=== PATIENT | female | born 1965 | race Caucasian/White ===

== ENCOUNTER 2018-03-06 08:26 | Emergency (ER) | payer OTHER, SELFPAY ==
[2018-03-06] VITALS (14 sets, daily range): BP systolic 131–151; BP diastolic 62–71; PULSE 63–90; RESP 17–24; TEMP 37.5; O2SAT 95–99
--- NOTE | 2018-03-06 08:37 | W.ED.GENAD ---
Discharge Plan Disposition Patient Disposition: HOME Condition: Stable Discharge Details Chief Complaint: Allergic Clinical Impression: Allergic reaction Primary Care Provider: Racquel Fraser ED Provider: Bridger León Home Meds and New Rx's Prescriptions: New prednisone 20 mg tablet 60 mg PO DAILY 3 Days Qty: 9 RF: 0 Continue triamcinolone acetonide 60 ML lotion 1 flower Topical BID PRNQty: 3 RF: 4 nicotine (polacrilex) [Nicorelief] 2 MG gum 2 mg PO every 1-2 hours prn Qty: 100 RF: 6 citalopram 10 MG tablet 10 mg PO DAILY Qty: 90 RF: 3 albuterol sulfate [ProAir HFA] 8.5 GM HFA aerosol inhaler 1 - 2 puff Inhalation Q4H PRN Qty: 2 RF: 6 Discharge Instructions Instructions: General Allergic Reaction (ED) Discharge Data Discharge Physician: Bridger León Medical Decision Making MDM Narrative Medical decision making narrative: 52 yo female comes in complaining that she feels funny and feeling as though her lips and anterior mouth are swelling since this morning. Denies having any new foods or meds today, did have for the 1st time bilateral knee injections at the [facility] yesterday and her knees are not swollen or red and has no pain and has full rom of the knees. She also notices a mild frontal headache and started slowly this morning and is not the worst of her life. She thinks that her face is flushed as well. Her lungs are clear and no GI symptoms so I do not suspect anaphylaxis at this time, will treat her symptoms with steroids and benadryl and monitor. 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 no findings on hx or PE to suggest cerebral venous thrombosis or cavernous sinus thrombosis pt states all of her symptoms have resolved. unclear what caused this, advised f/u with pcp and return precautions given Differential Diagnosis allergic reaction, angioedema HPI General Mode of arrival: ambulatory. Date/Time Provider Initiated Documentation: 03/06/18 08:31. Limitations to Documentation: no limitations. Information obtained by: patient. History of Present Illness 52 year old F presents to the emergency department with the chief complaint of mouth swelling, described as mild, with intensity rated at 2. Quality is described as burning, and is localized to the mouth. Patient reports no radiation. Patient started experiencing this hour(s) (3) and it has been constant. No relieving factors improve symptom(s), No exacerbating factors reported . Patient notes headaches. Patient did receive the following treatments prior to arrival, none Related Data Home Medications Medication Instructions Recorded Confirmed triamcinolone acetonide 1 flower TOPICAL BID PRN #3 script 05/02/16 nicotine (polacrilex) [Nicorelief] 2 mg PO every 1-2 hours prn #100 02/06/17 piece of gum Previous Rx's Medication Instructions Recorded citalopram 10 mg PO DAILY #90 tab-cap 05/02/17 albuterol sulfate [ProAir HFA] 1 - 2 puff INHALATION Q4H PRN #2 12/13/17 inhaler prednisone 60 mg PO DAILY 3 Days #9 tab 03/06/18 Allergies Allergy/AdvReac Type Severity Reaction Status Date / Time prednisone AdvReac Intermediate Mental Unverified 05/02/17 11:20 status change General Stated Complaint: Allergic JOSE JUAN: 3 Review of Systems Review of Systems All systems reviewed & are unremarkable except as noted in HPI and below Constitutional Denies chills, Denies fever(s) and Denies weakness Eyes Patient Denies loss of vision ENT Denies change in voice Cardiovascular Denies chest pain and Denies dyspnea Respiratory Denies dyspnea Gastrointestinal Denies abdominal pain, Denies nausea and Denies vomiting Genitourinary Denies dysuria Musculoskeletal Denies joint swelling Integumentary/Breasts Denies rash Neurologic Denies loss of vision and Denies weakness Psychiatric Denies depression Endocrine Denies cold intolerance and Denies heat intolerance Allergic/Immunologic Reports urticaria PFSH Family History Mother Asthma Father No problems noted. Sister Neoplasm Brother No problems noted. Sister No problems noted. Brother Diabetes Depression COPD (chronic obstructive pulmonary disease) Brother No problems noted. Medical History Essential hypertension Graves disease Peptic reflux disease Stress incontinence Tobacco dependence Social History Smoking/Tobacco Use Status: Current every day Surgical History Abdominal hysterectomy Appendectomy Arthroplasty of knee (~2009) Bilateral salpingectomy with oophorectomy Biopsy of breast Dilation and curettage (~2002) Endometrial Biopsy Lysis of colonic lesions (05/28/13) Exam Const General: no acute distress Orientation: alert HENWV Head: normal to inspection Ears: external ears normal General nose exam: external nose normal Mouth: moist mucous membranes Eyes General: appearance normal, both eyes and all related structures Neck Neck: normal visual inspection Resp Effort & Inspection: normal respiratory effort and able to speak in complete sentences Cardio Rate: regular rate Skin General skin exam: no rashes or lesions noted Neuro General: alert and oriented x3 Cognition: normal cognition Speech: speech normal Gait: normal gait Motor: muscle tone normal throughout Extrem General: normal to inspection Psych Mental Status: mental status grossly normal Course Vital Signs Temperature 37.5 C 03/06/18 08:30 Pulse 89 03/06/18 08:30 Respiratory Rate 17 03/06/18 08:30 Blood Pressure 151/70 H 03/06/18 08:30 Pulse Oximetry 99 03/06/18 08:30 Temperature 37.5 C 03/06/18 08:30 Pulse 89 03/06/18 08:30 Respiratory Rate 17 03/06/18 08:30 Blood Pressure 151/70 H 03/06/18 08:30 Pulse Oximetry 99 03/06/18 08:30
--- NOTE | 2018-03-06 08:42 | ED.GENADUL_ITS ---
Discharge Plan Disposition Patient Disposition: HOME Condition: Stable Discharge Details Chief Complaint: Allergic Clinical Impression: Allergic reaction Primary Care Provider: Racquel Fraser ED Provider: Bridger León Home Meds and New Rx's Prescriptions: New prednisone 20 mg tablet 60 mg PO DAILY 3 Days Qty: 9 RF: 0 Continue triamcinolone acetonide 60 ML lotion 1 flower Topical BID PRNQty: 3 RF: 4 nicotine (polacrilex) [Nicorelief] 2 MG gum 2 mg PO every 1-2 hours prn Qty: 100 RF: 6 citalopram 10 MG tablet 10 mg PO DAILY Qty: 90 RF: 3 albuterol sulfate [ProAir HFA] 8.5 GM HFA aerosol inhaler 1 - 2 puff Inhalation Q4H PRN Qty: 2 RF: 6 Discharge Instructions Instructions: General Allergic Reaction (ED) Discharge Data Discharge Physician: Bridger León Medical Decision Making MDM Narrative Medical decision making narrative: 52 yo female comes in complaining that she feels funny and feeling as though her lips and anterior mouth are swelling since this morning. Denies having any new foods or meds today, did have for the 1st time bilateral knee injections at the [facility] yesterday and her knees are not swollen or red and has no pain and has full rom of the knees. She also notices a mild frontal headache and started slowly this morning and is not the worst of her life. She thinks that her face is flushed as well. Her lungs are clear and no GI symptoms so I do not suspect anaphylaxis at this time, will treat her symptoms with steroids and benadryl and monitor. 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 no findings on hx or PE to suggest cerebral venous thrombosis or cavernous sinus thrombosis pt states all of her symptoms have resolved. unclear what caused this, advised f /u with pcp and return precautions given Differential Diagnosis allergic reaction, angioedema HPI General Mode of arrival: ambulatory . Date/Time Provider Initiated Documentation: 03/06/18 08:31 . Limitations to Documentation: no limitations . Information obtained by: patient . History of Present Illness 52 year old F presents to the emergency department with the chief complaint of mouth swelling, described as mild, with intensity rated at 2. Quality is described as burning, and is localized to the mouth. Patient reports no radiation. Patient started experiencing this hour(s) (3) and it has been constant. No relieving factors improve symptom(s), No exacerbating factors reported . Patient notes headaches. Patient did receive the following treatments prior to arrival, none Related Data Home Medications Medication Instructions Recorded Confirmed triamcinolone acetonide 1 flower TOPICAL BID PRN #3 script 05/02/16 nicotine (polacrilex) [Nicorelief] 2 mg PO every 1-2 hours prn #100 02/06/17 piece of gum Previous Rx's Medication Instructions Recorded citalopram 10 mg PO DAILY #90 tab-cap 05/02/17 albuterol sulfate [ProAir HFA] 1 - 2 puff INHALATION Q4H PRN #2 12/13/17 inhaler prednisone 60 mg PO DAILY 3 Days #9 tab 03/06/18 Allergies Allergy/AdvReac Type Severity Reaction Status Date / Time prednisone AdvReac Intermediate Mental Unverified 05/02/17 11:20 status change General Stated Complaint: Allergic JOSE JUAN: 3 Review of Systems Review of Systems All systems reviewed & are unremarkable except as noted in HPI and below Constitutional Denies chills, Denies fever(s) and Denies weakness Eyes Patient Denies loss of vision ENT Denies change in voice Cardiovascular Denies chest pain and Denies dyspnea Respiratory Denies dyspnea Gastrointestinal Denies abdominal pain, Denies nausea and Denies vomiting Genitourinary Denies dysuria Musculoskeletal Denies joint swelling Integumentary/Breasts Denies rash Neurologic Denies loss of vision and Denies weakness Psychiatric Denies depression Endocrine Denies cold intolerance and Denies heat intolerance Allergic/Immunologic Reports urticaria PFSH Family History Mother Asthma Father No problems noted. Sister Neoplasm Brother No problems noted. Sister No problems noted. Brother Diabetes Depression COPD (chronic obstructive pulmonary disease) Brother No problems noted. Medical History Essential hypertension Graves disease Peptic reflux disease Stress incontinence Tobacco dependence Social History Smoking/Tobacco Use Status: Current every day Surgical History Abdominal hysterectomy Appendectomy Arthroplasty of knee (~2009) Bilateral salpingectomy with oophorectomy Biopsy of breast Dilation and curettage (~2002) Endometrial Biopsy Lysis of colonic lesions (05/28/13) Exam Const General: no acute distress Orientation: alert HENNC Head: normal to inspection Ears: external ears normal General nose exam: external nose normal Mouth: moist mucous membranes Eyes General: appearance normal, both eyes and all related structures Neck Neck: normal visual inspection Resp Effort & Inspection: normal respiratory effort and able to speak in complete sentences Cardio Rate: regular rate Skin General skin exam: no rashes or lesions noted Neuro General: alert and oriented x3 Cognition: normal cognition Speech: speech normal Gait: normal gait Motor: muscle tone normal throughout Extrem General: normal to inspection Psych Mental Status: mental status grossly normal Course Vital Signs Temperature 37.5 C 03/06/18 08:30 Pulse 89 03/06/18 08:30 Respiratory Rate 17 03/06/18 08:30 Blood Pressure 151/70 H 03/06/18 08:30 Pulse Oximetry 99 03/06/18 08:30 Temperature 37.5 C 03/06/18 08:30 Pulse 89 03/06/18 08:30 Respiratory Rate 17 03/06/18 08:30 Blood Pressure 151/70 H 03/06/18 08:30 Pulse Oximetry 99 03/06/18 08:30
[2018-03-06] MEDS: methylPREDNISolone SUCC 125 MG VIAL (08:46)
[2018-03-06] MEDS: Ketorolac 15 MG/ML VIAL IVP (08:46)
[2018-03-06] MEDS: diphenhydrAMINE 50 MG/ML VIAL (08:46)
== END 2018-03-06 09:39 | disposition home or self-care (01) ==
PROVIDERS: Emergency Provider Emergency Medicine; PCP Nurse Practitioner Family
DX: T78.40XA Allergy, unspecified, initial encounter (principal); R51 Headache; R60.0 Localized edema; I10 Essential (primary) hypertension
CPT/HCPCS: 36415; 96374; 96375; 99284; J1200; J1885; J2930

== ENCOUNTER 2018-05-26 02:42 | Outpatient (CLI) | payer OTHER, SELFPAY ==
--- NOTE | 2018-05-26 | PFT_ITS ---
PULMONARY FUNCTION TEST REPORT Patient identification - Jaelyn Alonso DATE OF - 61 DATE OF SERVICE - 05/26/2018 REQUESTING PROVIDER - Racquel Fraser M.D. INTERPRETATION OF STUDY Spirometry shows no evidence of obstructive airways disease. No bronchodilator response. LUNG VOLUMES - Lung volumes show no evidence of restriction. The slightly low FVC is likely related to very low ERV. This may represent chest wall restriction from underlying obesity or neuromuscular dysfunction. DIFFUSION CAPACITY- Normal. AIRWAY RESISTANCE - Normal. IMPRESSION No evidence of obstructive or restrictive lung disease, the slightly low FVC may be due to very low ERV. This may represent chest wall restriction from underlying obesity or neuromuscular dysfunction, therefore clinical correlation recommended. Josefina Girard M.D. TASNEEM/florentin T - 05/28/2018
[2018-05-26] MEDS: Inhaler, Assist Device 1 EACH MC (08:47)
[2018-05-26] MEDS: Albuterol HFA 18 GM 200 PUFF INH IH (08:49)
[2018-05-26 09:03] LABS: Anion Gap 9.8 mmol/L (3-11); BUN 18 mg/dL (7-18); CO2 27.2 mmol/L (21.0-32.0); Calcium 9.2 mg/dL (8.5-10.1); Chloride 105 mmol/L (98-107); Cholesterol 196 mg/dL (50-200); Glucose 88 mg/dL (70-100); HDL Cholesterol 68 mg/dL (40-60); LDL CHOLESTEROL 120 mg/dL (<100); Potassium 4.3 mmol/L (3.5-5.1); Sodium 142 mmol/L (136-145); TSH 0.81 uIU/mL (0.358-3.74); Triglyceride 42 mg/dL (30-150)
[2018-05-26 09:43] LABS: FREE T4 1.09 ng/dL (0.76-1.46)
== END 2018-05-26 03:02 ==
PROVIDERS: PCP Nurse Practitioner Family; Visit Provider Nurse Practitioner Family
DX: R06.02 Shortness of breath (principal); J44.9 Chronic obstructive pulmonary disease, unspecified; E78.5 Hyperlipidemia, unspecified; Z86.39 Personal history of other endocrine, nutritional and metabolic disease
CPT/HCPCS: 36415; 80048; 80061; 83721; 94060; 94150; 94726; 94729; 84439; 84443

== ENCOUNTER 2018-08-13 05:07 | Emergency (ER) | payer OTHER, SELFPAY ==
[2018-08-13 05:09] VITALS: BP 163/80; PULSE 86; RESP 24; TEMP 35.9; O2SAT 96
[2018-08-13 05:26] VITALS: RESP 4
[2018-08-13] MEDS: Albuterol/Ipratropium 3 ML UPD VIAL (05:26)
[2018-08-13] MEDS: Mylanta Suspension 30 ML CUP PO (05:30)
[2018-08-13] MEDS: predniSONE 20 MG TAB 60 MG PO (05:30)
--- NOTE | 2018-08-13 05:34 | ED.GENADUL_ITS ---
Discharge Plan Disposition Patient Disposition: HOME Condition: Improving Discharge Details Chief Complaint: SOB Clinical Impression: Bronchitis Primary Care Provider: Racquel Fraser ED Provider: Clint Roland Home Meds and New Rx's Prescriptions: New prednisone [Deltasone] 20 MG tablet 40 mg PO DAILY 5 Days Qty: 10 RF: 0 No Action citalopram 10 mg tablet 10 mg PO DAILY Qty: 90 RF: 4 triamcinolone acetonide 60 ML lotion 1 flower Topical BID PRNQty: 3 RF: 4 albuterol sulfate [ProAir HFA] 8.5 GM HFA aerosol inhaler 1 - 2 puff Inhalation Q4H PRN Qty: 2 RF: 6 benzonatate 100 mg capsule 100 - 200 mg PO TID PRN (Reason: cough) Qty: 60 RF: 0 Discharge Instructions Instructions: Acute Bronchitis (ED) Additional Instructions: 1. Drink plenty of fluids. 2. Continue all medications as prescribed. 3. Albuterol 2-4 puffs every 4 hours as needed for difficulty breathing.. 4. Prednisone 40 mg once a day for 5 days. 5. Ranitidine (Zantac) 300 mg at bedtime. Mylanta 30 cc every 6 hours as needed. Return to the Emergency Department (ED) if your condition worsens, does not improve as expected, or for ANY other concerns. Specifically, return if you have new or uncontrolled pain, worsening fever, difficulty breathing, vomiting, or are unable to drink fluids. Medical Decision Making 52-year-old woman with a history of tobacco abuse and COPD presents with new onset dyspnea and upper abdominal nausea/discomfort. Recently treated for similar symptoms by her PCP with azithromycin and prednisone. Had been clinically improved for approximately 2 weeks. Exam significant for mild tachypnea and diffuse expiratory wheezing. CXR negative. Clinically improved after receiving multiple albuterol inhalers and oral prednisone. Also notes improvement in her upper abdominal discomfort after receiving Mylanta and ranitidine. Discharged home with a prescription for prednisone and instructions to use albuterol every 4 hours as needed and ranitidine daily. Pt evaluated immediately prior to discharge with improved symptoms, normal vital signs, and tolerating PO. The patient feels appropriate for discharge home. Discussed clinical/diagnostic findings. Discharged with a clear plan for outpatient follow up. Given usual and customary return instructions prior to discharge. Imaging Data Radiologic Study: Imaging: X-Ray (Chest PA and lateral) My impression: No acute cardiopulmonary disease. Interpreted ind ependently and contemporaneously by myself. Reviewed radiology report. Radiologist's impression: Same 52-year-old with a history of hyperlipidemia, osteoarthritis, tobacco abuse, and depression. She chronically uses albuterol for episodes of dyspnea. Presents with acute onset of dyspnea and nausea. 3 weeks ago, presented to her primary care provider with similar symptoms and was treated empirically with medications for influenza and a pneumonia. She also was started on prednisone at that time. Was clinically improved and on reevaluation the following week was treated with additional prednisone. She had complete resolution of her symptoms and has been asymptomatic until yesterday when she again developed subjective fever, dyspnea, and upper GI discomfort. Her dyspnea has been refractory to an outpatient albuterol regimen of 1-2 puffs every 4 hours. She otherwise denies chest pain, palpitations, congestion, generalized abdominal pain, change in bowel habits, melena/hematochezia, or urinary symptoms. She has had no atypical leg swelling or pain. HPI General Date/Time Provider Initiated Documentation: 08/13/18 05:19 . Related Data Home Medications Medication Instructions Recorded Confirmed triamcinolone acetonide 1 flower TOPICAL BID PRN #3 script 05/02/16 08/13/18 albuterol sulfate [ProAir HFA] 1 - 2 puff INHALATION Q4H PRN #2 12/13/17 08/13/18 inhaler citalopram 10 mg tablet 10 mg PO DAILY #90 tab-cap 08/04/18 08/13/18 benzonatate 100 mg capsule 100 - 200 mg PO TID PRN #60 cap 08/11/18 08/13/18 prednisone [Deltasone] 40 mg PO DAILY 5 Days #10 tab 08/13/18 Previous Rx's Medication Instructions Recorded albuterol sulfate [ProAir HFA] 1 - 2 puff INHALATION Q4H PRN #2 12/13/17 inhaler citalopram 10 mg tablet 10 mg PO DAILY #90 tab-cap 08/04/18 benzonatate 100 mg capsule 100 - 200 mg PO TID PRN #60 cap 08/11/18 prednisone [Deltasone] 40 mg PO DAILY 5 Days #10 tab 08/13/18 Allergies Allergy/AdvReac Type Severity Reaction Status Date / Time No Known Allergies Allergy Verified 08/13/18 05:15 General Stated Complaint: SOB JOSE JUAN: 3 Review of Systems Review of Systems All systems are reviewed and are unremarkable except as noted in HPI and below: CONSTITUTIONAL: no fevers/chills, no weakness or change in appetite EYES: no change in vision HEENT: no throat pain or difficulty swallowing; no neck pain CARDIOVASCULAR: no chest pain, palpitations, leg swelling, or diaphoresis RESPIRATORY: cough, dyspnea, wheezing GASTROINTESTINAL: no abdominal pain, melena, nausea/emesis GENITOURINARY: no dysuria, flank pain, MUSCULOSKELETAL: no pack pain, myalgias, arthralgias INTEGUMENTARY: no rash, no wounds NEUROLOGIC: no headache, focal weakness, difficulty with speech, numbness PSYCHIATRIC: no confusion, no anxiety HEME: no easy bruising or bleeding ALLERGIC: no urticaria PFSH Medical History Hyperlipidemia (Chronic) Osteoarthritis (Chronic) Depressive disorder (Chronic) Cigarette smoker (Chronic) Nummular dermatitis (Inactive) Essential hypertension (Resolved) Peptic reflux disease (Resolved) Graves disease (Inactive) Surgical History S/P lumpectomy, right breast (Inactive ~1993) Abdominal hysterectomy Appendectomy Arthroplasty of knee (~2009) Bilateral salpingectomy with oophorectomy Biopsy of breast Dilation and curettage (~2002) Endometrial Biopsy Lysis of colonic lesions (05/28/13) Social History household members: spouse highest education level completed: 10th grade pets and animals: No frequency: does not exercise Smoking and Tabacco status: Current every day tobacco type: cigarettes Pasive smoking exposure: No alcohol intake: current alcohol intake frequency: a few times a week Alcohol type: beer substance use type: does not use jyoti/uatsdin: No preference special jyoti needs: No Exam Narrative Exam Narrative: Nursing note and vital signs have been reviewed and noted. GENERAL: alert, active, well -hydrated, well-nourished. Speaking in 2-3 word sentences. HEENT: atraumatic/normocephalic, PERRLA, EOMI, conjunctiva clear, external ears/canals normal, nasal mucosa normal NECK: supple, full range of motion, no mass, normal lymphadenopathy, no thyromegaly CARDIOVASCULAR: RRR, no murmurs, nl pulses, no edema PULMONARY: Tachypnea, faint expiratory wheezing with a prolonged expiratory phase. no focal deficit. no chest wall tenderness ABDOMEN: soft, non-tender, non-distended, no mass, no organomegaly EXTREMITY: normal muscle tone, all joints with FROM, no deformity or tenderness; no asymmetrical leg swelling or tenderness SKIN: no exanthem appreciated NEURO: gross motor exam normal, normal stance and gait PSYCH: alert and oriented, Course Vital Signs Temperature 96.6 F L 08/13/18 05:09 Pulse 86 08/13/18 05:09 Respiratory Rate 24 08/13/18 05:09 Blood Pressure 163/80 H 08/13/18 05:09 Pulse Oximetry 96 08/13/18 05:09 Temperature 96.6 F L 08/13/18 05:09 Pulse 86 08/13/18 05:09 Respiratory Rate 24 08/13/18 05:09 Respiratory Effort 08/13/18 05:16 Blood Pressure 163/80 H 08/13/18 05:09 Pulse Oximetry 96 08/13/18 05:09 Oxygen Delivery Method Room Air 08/13/18 05:26 Oxygen Flow Rate 0 08/13/18 05:26 Pain Level 10 08/13/18 05:09
--- NOTE | 2018-08-13 05:40 | DI.RAD_ITS ---
SYMPTOM/DIAGNOSIS: DYSPNEA, COUGH, SOB, FEVER PA AND LATERAL CHEST: Comparison is made with 01/14/17. The heart is normal in size. The lungs are clear. The mediastinal structures and pleura appear intact. CONCLUSION: Normal chest.
--- NOTE | 2018-08-13 05:52 | DI.VRAD_ITS ---
EXAM: XR Chest, 2 Views EXAM DATE/TIME: 08/13/2018 5:41 AM CLINICAL HISTORY: 52 years old, female; Signs and symptoms; Cough and dyspnea and fever and shortness of breath TECHNIQUE: XR of the chest, 2 views. COMPARISON: CR CHEST 2 VIEWS PA,LAT 01/14/2017 10:37 AM FINDINGS: Lungs: Unremarkable. No consolidation. Pleural space: Unremarkable. No evidence of pneumothorax. Heart/Mediastinum: Unremarkable. Heart size within normal limits for technique. Bones/joints: Unremarkable. IMPRESSION: No acute findings. Dictated and Authenticated by: Johnson Kim MD. Ordering:ARELIS Jaramillo MD
[2018-08-13 05:56] VITALS: PULSE 67; RESP 18; RESP 8; O2SAT 97
[2018-08-13 06:23] VITALS: PULSE 61; RESP 18; RESP 4; RESP 8; O2SAT 97
[2018-08-13] MEDS: Albuterol 2.5 MG/3 ML INH SOLN VIAL UPD (06:23)
== END 2018-08-13 06:45 | disposition home or self-care (01) ==
PROVIDERS: Emergency Provider Emergency Medicine; PCP Nurse Practitioner Family
DX: J44.0 Chronic obstructive pulmonary disease with (acute) lower respiratory infection (principal); F17.210 Nicotine dependence, cigarettes, uncomplicated
CPT/HCPCS: 94640; 99284; 71046; J7512; J7613; J7620

== ENCOUNTER 2018-12-29 10:09 | Outpatient (CLI) | payer OTHER, SELFPAY ==
[2018-12-29 13:19] LABS: Abs Immature Grans 0.01 k/cumm (0.0-0.09); Absolute Basophil Count 0.03 k/cumm (0.0-0.2); Absolute Eosinophil Count 0.09 k/cumm (0.0-0.7); Absolute Lymphocyte Count 2.18 k/cumm (1.2-3.4); Absolute Monocyte Count 0.81 k/cumm (0.11-0.7); Absolute Neutrophil Count 5.33 k/cumm (1.2-6.7); Basophils % 0.4; Eosinophils % 1.1; HCT 43.2 % (36.0-46.0); HGB 14.8 g/dL (12.0-15.5); Immature Grans % 0.1; Lymphocytes % 25.8; Mean Corp. HGB Concentration 34.3 g/dL (32.0-36.0); Mean Corpuscular Hemoglobin 32.3 pg (27.0-33.0); Mean Corpuscular Volume 94.3 fL (80-95); Mean Platelet Volume 10.5 fL (8.0-11.0); Monocytes % 9.6; Platelet Count 263 x1000/uL (130-400); RBC 4.58 m/cumm (4.00-5.20); RBC Distribution Width 14.1 % (11.7-14.6); White Blood Cell Count 8.45 k/cumm (4.4-10.8)
[2018-12-29 13:24] LABS: ALT 24 U/L (12-78); AST 15 U/L (15-37); Albumin 3.7 g/dL (3.4-5.0); Alkaline Phosphatase 85 U/L (46-116); Anion Gap 10.2 mmol/L (3-11); BUN 18 mg/dL (7-18); Bilirubin, Total 0.5 mg/dL (0.2-1.0); CO2 26.8 mmol/L (21.0-32.0); Calcium 8.9 mg/dL (8.5-10.1); Chloride 106 mmol/L (98-107); Glucose 74 mg/dL (70-100); Potassium 4.1 mmol/L (3.5-5.1); Sodium 143 mmol/L (136-145); Total Protein 6.5 g/dL (6.4-8.2)
[2018-12-29 13:35] LABS: Hemoglobin A1C 5.5 % (4.5-6.2)
== END 2018-12-29 10:29 ==
PROVIDERS: PCP Nurse Practitioner Family; Visit Provider Nurse Practitioner Family
DX: Z01.818 Encounter for other preprocedural examination (principal); E78.5 Hyperlipidemia, unspecified
CPT/HCPCS: 36415; 80053; 83036; 85025

== ENCOUNTER 2020-10-21 16:59 | Outpatient (REF) | payer OTHER, SELFPAY ==
[2020-10-21 15:00] LABS: Anion Gap 11.2 mmol/L (3-11); BUN 15 mg/dL (7-18); CO2 25.8 mmol/L (21.0-32.0); CREATININE 0.7 mg/dL (0.55-1.02); Calculated LDL 131 mg/dL (<100); Chloride 106 mmol/L (98-107); Cholesterol 204 mg/dL (<200); Glucose 98 mg/dL (74-106); HDL Cholesterol 61 mg/dL (40-60); Potassium 4.3 mmol/L (3.5-5.1); Sodium 143 mmol/L (136-145); Triglyceride 60 mg/dL (<150)
[2020-10-21 15:26] LABS: Hemoglobin A1C 5.5 % (<5.7)
== END 2020-10-21 17:00 | disposition home or self-care (01) ==
LOC: LBN 16:59
PROVIDERS: PCP Nurse Practitioner Family; Visit Provider Nurse Practitioner Family
DX: E78.5 Hyperlipidemia, unspecified (principal); Z13.1 Encounter for screening for diabetes mellitus
CPT/HCPCS: 80048; 80061; 83036

== ENCOUNTER 2020-10-31 02:29 | Outpatient (CLI) | payer OTHER, SELFPAY ==
--- NOTE | 2020-10-31 06:30 | DI.MAMMO_ITS ---
Exam(s) MAMMO SCREENING EXAM: MAMMO SCREENING CLINICAL HISTORY: screening,z12.39. TECHNIQUE: Bilateral full field digital CC and MLO mammographic images were obtained with 3D tomosyn thesis and utilizing computer aided detection (CAD). COMPARISON: Prior mammograms dating back to 2007, the most recent being April 2019. FINDINGS: Fibroglandular tissue pattern is moderately dense. Dominant nodule in the retroareolar region of the right breast is unchanged from at least 2012 and erefore benign. There are multiple bilateral biopsy marker clips with no new significant radiographic findings in the immediate vicinity of these bilateral clips. No new ominous masses nor malignant-appearing microcalcification groups in either breast. There is no significant architectural distortion nor skin thickening-retraction. IMPRESSION: Stable benign findings. No radiographic evidence of malignancy. BI-RADS Category 2 - Benign Findings Breast Density - Category C - Heterogeneously dense Breast density Category C or D implies that the patient has dense breast tissue. Dense breast tissue can make it harder to find cancer on a mammogram. Dense breast tissue is also associated with an incr eased risk of breast cancer. This information about the result of the mammogram report was provided to the patient to raise their awareness. Use this report when you speak with the patient about their risks for breast cancer, which includes their family history. At that time, you may recommend additional screening tests (Ultrasoun d or MRI) as these tests may add significant information. A negative radiographic report should not delay biopsy if a dominant or clinically suspicious mass is present. Up to ten percent of cancers are not identified on mammography. A negative report may reinforce clinical impression. Adenosis and dense breasts may obscure an underlying neoplasm. False positive reports average 6 to 10%. Patient will receive a letter notifying them of these results.
--- NOTE | 2020-10-31 07:37 | DI.CTLCSR_ITS ---
Exam(s) CT CHEST LUNG CANCER SCREEN EXAM: CT CHEST LUNG CANCER SCREEN CLINICAL HISTORY: Screening for lung cancer.current smoker, f17.210. TECHNIQUE: Imaging Protocol: Low Dose Technique CONTRAST MATERIAL: None COMPARISON: Prior chest x-ray 08/13/2018 FINDINGS: CHEST: LUNGS: There is a tiny calcified granuloma peripherally in the right lung. Another tiny granulomas s een laterally in the left lower lobe. Small nodular infiltrate in the right middle lobe is noted won suring 8 x 7 millimeters.. No pleural effusion on either side. There are no significant focal findi ngs in trachea and mainstem bronchi. There are no confluent infiltrates. No pleural effusions. MEDIASTINUM: There is no obvious hilar nor mediastinal adenopathy. Visualized thyroid unremarkable. CARDIAC: Heart size is normal. There is no pericardial effusion.Caliber of the thoracic aorta is wit hin normal limits. OTHER: No obvious adrenal masses. OSSEOUS: No significant osseous lesions.. IMPRESSION: 1. In addition to a few tiny benign calcified granulomas there is a small nodular infiltrate in the l ower aspect of the right middle lobe measuring 8 x 7 millimeters. This requires appropriate follow-u p. Recommend repeat CT scan in 3 months. 2. No pleural effusions. No obvious intrathoracic adenopathy. 3. Lung RADS Cat 4A - Suspicious: Findings for which additional diagnostic testing and/or tissue samp ling recommended. Follow-up CT scan in 3 months. Lung-RADS 1.0 CATEGORIES: Category 0 - Prior chest CT exam(s) being located for comparison. Category 1 - Annual screening in 12 months. No nodules or definitely benign nodules. Category 2 - Annual screening in 12 months. Benign appearance. Nodules with low likelihood of becomin g active cancer. Category 3 - 6-month follow-up. Probably benign. Short-term follow-up suggested. Nodules with low lik elihood of becoming active cancer. Category 4A - 3-month follow-up and CT/PET if >8 mm in size. Suspicious finding. Findings which requi re additional testing. Category 4B - Findings which require additional testing and tissue sampling. Modifier S- Potentially clinically significant findings (non lung cancer) RADIATION DOSE DELIVERED: 89.74mGy.cm Total DLP 2.21mGy CTDIvol DATA REPOSITORY: All CT scans at this facility are submitted to the National Radiology Data Registry (NRDR) Dose Index Registry (DIR) with the [employer] (ACR). RADIATION OPTIMIZATION: All CT scans at this facility use at least one of these dose optimization te chniques: automated exposure control; mA and/or kV adjustment per patient size (includes targeted exa ms where dose is matched to clinical indication); or iterative reconstruction.
== END 2020-10-31 02:49 ==
PROVIDERS: PCP Nurse Practitioner Family; Visit Provider Nurse Practitioner Family
DX: Z12.31 Encounter for screening mammogram for malignant neoplasm of breast (principal); Z12.2 Encounter for screening for malignant neoplasm of respiratory organs; F17.210 Nicotine dependence, cigarettes, uncomplicated; J98.4 Other disorders of lung; R91.8 Other nonspecific abnormal finding of lung field
CPT/HCPCS: 71271; 77063; 77067

== ENCOUNTER 2021-02-13 02:02 | Outpatient (CLI) | payer OTHER, SELFPAY ==
--- NOTE | 2021-02-13 07:09 | DI.CT_ITS ---
Exam(s) CT CHEST W EXAM: CT CHEST W CLINICAL HISTORY: 3mo f/u on RML nodule on LDCT,r91.1 TECHNIQUE: Imaging Protocol: Axial computed tomography images with coronal and sagittal reformatted images were created and reviewed CONTRAST MATERIAL: Intravenous: Omnipaque 350 Contrast volume:70 mL. COMPARISON: MG MG MAMMO SCREENING from 10/31/[address] CHEST LUNG CANCER SCREEN from 10/31/2020 FINDINGS: Tracheobronchial tree: Patent where visualized. Mediastinum and Sofy: No dominant adenopathy or fluid collection. Small hiatal hernia. Pulmonary parenchyma: No focal consolidation. There are scattered calcified granuloma present. The small 0.8 cm area of nodularity in the inferior aspect of the right middle lobe is unchanged. No new pulmonary nodules are present. No architectural distortion. Pleura: No effusion or pneumothorax. Heart: The heart is not dilated. No coronary artery calcifications are seen. No pericardial effusion. Aorta: Thoracic aorta non-dilated. Atherosclerosis. Upper abdomen: Calcified granuloma in the spleen. Lymph nodes: Within normal limits. Bones: Normal. Soft tissues: Unremarkable. IMPRESSION: 1. Stable area of nodularity in the inferior aspect of the right middle lobe. 2. Repeat CT scan in 3 months is recommended. 3. Findings of prior granulomatous disease. RADIATION DOSE DELIVERED: 564.44mGy.cm Total DLP DATA REPOSITORY: All CT scans at this facility are submitted to the National Radiology Data Registry (NRDR) Dose Index Registry (DIR) with the [employer] (ACR). RADIATION OPTIMIZATION: All CT scans at this facility use at least one of these dose optimization te chniques: automated exposure control; mA and/or kV adjustment per patient size (includes targeted exa ms where dose is matched to clinical indication); or iterative reconstruction.
[2021-02-13 08:45] LABS: CREATININE 0.7 mg/dL (0.55-1.02)
[2021-02-13] MEDS: Omnipaque 350 MG/ML 100 ML BTL IV (08:56)
== END 2021-02-13 02:22 ==
PROVIDERS: PCP Nurse Practitioner Family; Visit Provider Nurse Practitioner Family
DX: R91.1 Solitary pulmonary nodule (principal); D71 Functional disorders of polymorphonuclear neutrophils
CPT/HCPCS: 71260; 82565; J3490

== ENCOUNTER → 2022-01-08 02:27 | Outpatient (CLI) | payer OTHER, SELFPAY ==
--- NOTE | 2022-01-08 07:48 | DI.CTLCSR_ITS ---
Exam(s) CT CHEST LUNG CANCER SCREEN EXAM: CT CHEST LUNG CANCER SCREEN CLINICAL HISTORY: Screening for lung cancer, CURRENT SMOKER, F17.210. TECHNIQUE: Imaging Protocol: Low Dose Technique CONTRAST MATERIAL: None COMPARISON: CT CT CHEST WO from 05/12/2021 FINDINGS: CHEST: LUNGS: Previously described nodular infiltrate in the anterior-inferior aspect of the right middle lo be is again noted, presently measuring 8 x 4 x 7 millimeters. Appears similar size to 05/12/2021. T here few calcified benign granulomas in the right lung also noted. In the left lung there is a solit pat small calcified granuloma noted. No other focal left lung findings. No pleural effusions on eit her side. No significant focal findings in the trachea and mainstem bronchi. MEDIASTINUM: There is no obvious hilar nor mediastinal adenopathy. CARDIAC: Heart size is normal. There is no pericardial effusion.Caliber of the thoracic aorta is wit hin normal limits. OTHER: OSSEOUS: No significant osseous lesions.No fractures. IMPRESSION: 1. Relatively stable appearance of the previously described nodular infiltrate in the right lung base , specifically in the inferior aspect of the right middle lobe, with measurements as above. No other significant focal lung findings. Benign-appearing tiny calcified granulomas are noted bilaterally. No pleural effusions. 2. Recommend repeat CT scan in 6 months 3. Lung RADS Cat 3 - Probably Benign: Probably benign finding(s) - short term follow-up suggested; in clude nodules with a low likelihood of becoming a clinically active cancer. Lung-RADS 1.0 CATEGORIES: Category 0 - Prior chest CT exam(s) being located for comparison. Category 1 - Annual screening in 12 months. No nodules or definitely benign nodules. Category 2 - Annual screening in 12 months. Benign appearance. Nodules with low likelihood of becomin g active cancer. Category 3 - 6-month follow-up. Probably benign. Short-term follow-up suggested. Nodules with low lik elihood of becoming active cancer. Category 4A - 3-month follow-up and CT/PET if >8 mm in size. Suspicious finding. Findings which requi re additional testing. Category 4B - Findings which require additional testing and tissue sampling. Category 4X - Category 3 or 4 nodules with additional features or imaging findings that increases the suspicion of malignancy. Modifier S- Potentially clinically significant findings (non lung cancer) RADIATION DOSE DELIVERED: 75.07mGy.cm Total DLP 1.84mGy CTDIvol DATA REPOSITORY: All CT scans at this facility are submitted to the National Radiology Data Registry (NRDR) Dose Index Registry (DIR) with the [employer] (ACR). RADIATION OPTIMIZATION: All CT scans at this facility use at least one of these dose optimization te chniques: automated exposure control; mA and/or kV adjustment per patient size (includes targeted exa ms where dose is matched to clinical indication); or iterative reconstruction.
--- NOTE | 2022-01-08 08:53 | DI.MAMMO_ITS ---
Exam(s) MAMMO SCREENING EXAM: MAMMO SCREENING CLINICAL HISTORY: screening, Z12.39. TECHNIQUE: Bilateral full field digital CC and MLO mammographic images were obtained with 3D tomosyn thesis and utilizing computer aided detection (CAD). COMPARISON: Prior mammograms were reviewed, the most recent being October 2020. FINDINGS: Nodule in the retroareolar region of the right breast is unchanged from at least 2013 and therefore b enign. Multiple bilateral biopsy marker clips are again noted. No new significant findings in the immediate vicinity of these bilateral biopsy marker devices. There are no new spiculated masses nor malignant appearing microcalcification groups. There is no significant architectural distortion nor skin thickening-retraction. IMPRESSION: No radiographic evidence of malignancy. Stable benign-appearing findings. BI-RADS Category 2 - Benign Findings Breast Density - Category C - Heterogeneously dense Breast density Category C or D implies that the patient has dense breast tissue. Dense breast tissue can make it harder to find cancer on a mammogram. Dense breast tissue is also associated with an incr eased risk of breast cancer. This information about the result of the mammogram report was provided to the patient to raise their awareness. Use this report when you speak with the patient about their risks for breast cancer, which includes their family history. At that time, you may recommend additional screening tests (Ultrasoun d or MRI) as these tests may add significant information. A negative radiographic report should not delay biopsy if a dominant or clinically suspicious mass is present. Up to ten percent of cancers are not identified on mammography. A negative report may reinforce clinical impression. Adenosis and dense breasts may obscure an underlying neoplasm. False positive reports average 6 to 10%. Patient will receive a letter notifying them of these results.
== END ==
PROVIDERS: PCP Nurse Practitioner Family; Visit Provider Nurse Practitioner
DX: Z12.31 Encounter for screening mammogram for malignant neoplasm of breast (principal); Z12.2 Encounter for screening for malignant neoplasm of respiratory organs; F17.210 Nicotine dependence, cigarettes, uncomplicated; R91.8 Other nonspecific abnormal finding of lung field; J98.4 Other disorders of lung
CPT/HCPCS: 71271; 77063; 77067

== ENCOUNTER 2022-12-07 01:38 | Outpatient (CLI) | payer OTHER, SELFPAY ==
[2022-12-07 09:28] LABS: Anion Gap 5.8 mmol/L (3-11); BUN 12 mg/dL (7-18); CO2 30.2 mmol/L (21.0-32.0); CREATININE 0.8 mg/dL (0.55-1.02); Calcium 9.1 mg/dL (8.5-10.1); Calculated LDL 132 mg/dL (<100); Chloride 104 mmol/L (98-107); Cholesterol 199 mg/dL (<200); Estimated GFR 84.82 (mL/min/1.73m2); Glucose 116 mg/dL (74-106); HDL Cholesterol 55 mg/dL (40-60); Potassium 4.1 mmol/L (3.5-5.1); Sodium 140 mmol/L (136-145); TSH (W/Ref FT4) 0.82 uIU/mL (0.36-3.74); Triglyceride 61 mg/dL (<150)
== END 2022-12-07 01:39 | disposition home or self-care (01) ==
LOC: LBO 01:38
PROVIDERS: PCP Nurse Practitioner Family; Visit Provider Nurse Practitioner Family
DX: Z00.00 Encounter for general adult medical examination without abnormal findings (principal); I10 Essential (primary) hypertension; E78.5 Hyperlipidemia, unspecified; Z86.39 Personal history of other endocrine, nutritional and metabolic disease
CPT/HCPCS: 36415; 80048; 80061; 84443

== ENCOUNTER 2022-12-30 17:11 | Inpatient (IN) | payer OTHER, SELFPAY ==
[2022-12-30] VITALS (61 sets, daily range): BP systolic 90–156; BP diastolic 49–92; PULSE 84–116; RESP 4–42; TEMP 36.6–37.4; O2SAT 86–100
--- NOTE | 2022-12-30 17:00 | RT.EKG_ITS ---
APPROVED REPORT Exam: Resting ECG Reason for Exam: SOB Patient Location: E HR:109 bpm ECG Measurements Heart Rate 109 AXIS AL 115 P 86 QRSd 105 QRS 40 QT 339 T 62 QTc 456 Conclusion Sinus tachycardia...rate> 99 normal axis appropriate intervals no ST segment or T wave abnormalities to suggest occlusive PA
--- NOTE | 2022-12-30 17:15 | DI.RAD_ITS ---
Exam(s) XR PORTABLE CHEST AP EXAM: XR PORTABLE CHEST AP CLINICAL HISTORY: respiratory distress, wheeze TECHNIQUE: 2D digital imaging was performed. COMPARISON: CR XR CHEST 2V PA LATERAL from 08/13/[address] CHEST LUNG CANCER SCREEN from 01/08/2022 FINDINGS: LUNGS: Patchy right lower lobe infiltrate. No pleural abnormality seen. HEART: Normal size. AORTA: Normal diameter. BONES: Unremarkable for age. Soft tissues: Unremarkable. IMPRESSION: Right lower lobe infiltrate. DATA REPOSITORY: RADIATION DOSE DELIVERED:
[2022-12-30] MEDS: Albuterol 2.5 MG/3 ML INH SOLN VIAL (17:25)
--- NOTE | 2022-12-30 17:29 | ED.GENADUL_ITS ---
Discharge Plan Discharge Details Chief Complaint: SOB/SuddenOnset Primary Care Provider: Racquel Fraser ED Provider: Jeny Ariza Home Meds and New Rx's Prescriptions: No Action losartan 50 mg tablet 50 mg PO DAILY Qty: 90 3RF rosuvastatin 10 mg tablet 10 mg PO DAILY Qty: 90 3RF triamcinolone acetonide 60 ML lotion 1 flower Topical BID PRNQty: 3 fluticasone propionate [Flovent HFA] 110 mcg/actuation HFA aerosol inhaler 2 puff inhalation BID Qty: 12 3RF Rx Instructions: administer with spacer albuterol sulfate 90 mcg/actuation HFA aerosol inhaler 1 - 2 puff Inhalation Q4H PRN Qty: 8.5 6RF Medical Decision Making 57yo F with hx of asthma, smoker, presenting with 2 days of URI symptoms worsening. Respiratory distress on arrival, 2-3 word sentences, increased WOB, diffuse wheeze with poor air movement, chest tightness. Primary respiratory process, low suspicion for cardiac etiology or pulmonary embolism, EKG sinus tachycardia, no ischemic changes. Given multiple rounds of albuterol and albuterol/ipratropium as well as decadron; would not emergentlu intubate at this time, will trial steroids/breathing treatments though would give magnesium if not improvement. On reassessment patient reports feeling much better, resting comfortable, still tachypnic to 30's and requiring 2L NC to maintain sat >92%. Chest tightness resolved. Better air movement, coarse rhonchi in bilateral bases. CXR reviewed, RLL infiltrate consistent with viral/inflammatory process vs atypical pneumonia on my view. See radiology read below. Will treat with ceftriaxone/azithromycin. Labs ordered and reviewed, no actionable abn ormalities on CBC or CMP. Plan to reassess, at that point anticipate good effect from steroid. If continued dyspnea and O2 requirement would admit. If markedly improved would consider discharge home on PO abx. Imaging Data Radiologic Study: Imaging: X-Ray Radiologist's impression: IMPRESSION: Right lower lobe bronchitis. Lab Data Labs: Laboratory Tests Range/Units 12/30/22 12/30/22 17:20 17:20 WBC (4.4-10.8) 10^3/uL 14.89 H RBC (3.93-5.22) 10^6/uL 5.11 Hgb (11.2-15.7) g/dL 15.9 H Hct (36.0-46.0) % 46.4 H MCV (80-95) fL 91 MCH (27.0-33.0) pg 31.1 MCHC (32.0-36.0) % 34.3 RDW (11.7-14.6) % 12.9 Plt Count (130-400) 10^3/uL 226 MPV (8.0-11.0) fL 10.2 Immature Gran % 0.0 Neutrophils % 73.0 Lymphocytes % 9.0 Atypical Lymphs % 6 Monocytes % 11.0 Eosinophils % 1.0 Basophils % 0.0 Nucleated RBC % (0.0-0.3) % 0.0 Absolute Neutrophils (1.2-6.7) 10^3/uL 10.87 H Absolute Lymphocytes (1.2-3.4) 10^3/uL 2.23 Absolute Monocytes (0.1-0.8) 10^3/uL 1.64 H Absolute Eosinophils (0.0-0.7) 10^3/uL 0.15 Absolute Basophils (0.0-0.2) 10^3/uL 0.00 RBC Morphology Normal Sodium (136-145) mmol/L 137 Potassium (3.5-5.1) mmol/L 3.8 Chloride (98-107) mmol/L 101 Carbon Dioxide (21.0-32.0) mmol/L 28.5 Anion Gap (3-11) mmol/L 7.5 BUN (7-18) mg/dL 12 Creatinine (0.55-1.02) mg/dL 0.8 Est GFR (CKD-EPI 2020) (mL/min/1.73m2) 84.82 Glucose (74-106) mg/dL 98 Calcium (8.5-10.1) mg/dL 9.1 Total Bilirubin (0.2-1.0) mg/dL 0.9 AST (15-37) U/L 16 ALT (14-59) U/L 21 Alkaline Phosphatase (46-116) U/L 102 Total Protein (6.4-8.2) g/dL 7.9 Albumin (3.4-5.0) g/dL 3.5 HPI General Mode of arrival: ambulatory . Date/Time Provider Initiated Documentation: 12/30/22 17:15 . Limitations to Documentation: no limitations . Information obtained by: patient . HPI Narrative: 57yo F with hx of asthma, smoker, presenting with shortness of breath. Onset yesterday, worsened throughout the day, cough productive of greenish sputum. Wheeze and chest pain with inspiration, lightheaded. No fevers, chills, rash, nasuea, vomiting, abdominal pain, or syncope. No sick contacts. Related Data Home Medications Medication Instructions Recorded Confirmed triamcinolone acetonide 0.1 % 1 flower topical BID PRN ##3 05/02/16 12/30/22 lotion Flovent HFA 110 mcg/actuation 2 puff inhalation BID #12 grams 11/23/22 12/30/22 aerosol inhaler (fluticasone propionate) albuterol sulfate 90 mcg/actuation 1 - 2 puff inhalation Q4H PRN #8.5 11/23/22 12/30/22 aerosol inhaler grams losartan 50 mg tablet 50 mg PO DAILY #90 tabs 12/19/22 12/30/22 rosuvastatin 10 mg tablet 10 mg PO DAILY #90 tabs 12/19/22 12/30/22 Previous Rx's Medication Instructions Recorded Flovent HFA 110 mcg/actuation 2 puff inhalation BID #12 grams 11/23/22 aerosol inhaler (fluticasone propionate) albuterol sulfate 90 mcg/actuation 1 - 2 puff inhalation Q4H PRN #8.5 11/23/22 aerosol inhaler grams losartan 50 mg tablet 50 mg PO DAILY #90 tabs 12/19/22 rosuvastatin 10 mg tablet 10 mg PO DAILY #90 tabs 12/19/22 Allergies Allergy/AdvReac Type Severity Reaction Status Date / Time amlodipine AdvReac Mild lower Uncoded 12/19/22 09:41 extremity swelling General Stated Complaint: SOB/SuddenOnset JOSE JUAN: 2 Review of Systems Narrative: see HPI PFSH All Active Problems Essential hypertension (Chronic) History of Graves' disease (Chronic) Hyperlipidemia (Chronic) Mild persistent asthma (Chronic) Aortic regurgitation (Chronic) Moderate on stress echo 02/02 Osteoarthritis (Chronic) Cigarette smoker (Chronic) Annual LDCT paused d/t cost Nummular dermatitis (Chronic) Medical History Depressive disorder GERD (gastroesophageal reflux disease) Graves disease Surgical History S/P abdominal hysterectomy For abnormal uterine bleeding S/P appendectomy S/P bilateral salpingo-oophorectomy S/P dilation and curettage S/P left knee arthroscopy (05/04/10) With partial medial and lateral meniscectomy S/P lumpectomy, right breast (~1993) S/P right knee arthroscopy (02/20/10) With partial medial meniscectomy Status post right knee replacement (01/20/19) Family History Mother , at 77 Asthma Hypertension COPD (chronic obstructive pulmonary disease) Father , at 79 Parkinson disease Graves disease Hypertension Depression Suicide attempt Sister No problems noted. Sister , at 44 of metastatic bone cancer Metastatic bone cancer Brother , at 60 of pancreatic cancer Pancreatic cancer Diabetes Depression COPD (chronic obstructive pulmonary disease) Brother Alcohol abuse Son No problems noted. Daughter No problems noted. Maternal Grandfather Heart disease [place] Maternal Grandmother Brain cancer Paternal Grandfather No problems noted. Paternal Grandmother No problems noted. Brother , age 28 - MVA No problems noted. Social History (Updated 12/20/22 @ 15:16 by Miracle Valdez) Smoking/Tobacco Use Status: Current every day Tobacco Type: cigarettes Tobacco: How many years used: 40 Quit status: considering quitting Counseling given: provider counseling Smoking risk assessment performed?: Yes Alcohol Intake: current Alcohol Intake frequency: a few times a week Alcohol type: beer Drug use: Never Substance use type: does not use Counseling given: No Counseling provided: none Caregiver/Support person: No Household members: spouse Housing: house Pets and animals: Yes Pets and animals: cat(s) Sexually active: Yes Do you think of yourself as: straight/heterosexual Current gender identity: female What is your relationship status?: How often do you talk on the phone with friends or family?: three or more times per week How often do you get together with friends or relatives?: three or more times per week Do you belong to any clubs or organized social groups?: yes Panel score (0-1 are the most socially isolated patients): 3 What type of physical activity do you participate in: none Frequency: does not exercise Aida/Voodoo: None Special aida needs: No Seatbelt use: always Helmet use: No Drive intox 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 Head: Normocephalic, atraumatic Neck: Trachea midline, Neck supple. Cardiac: Tachycardiac, no murmurs appreciated. Resp: Tachypenic, speaking in 2-3 words. Diffuse wheeze with poor air movement. Increased work of breathing. Abd: Soft, non-distended, nontender : No suprapubic tenderness. Extremities: No deformities. No peripheral edema. Neurologic: GCS 15. Moves all extremities freely against gravity Course Vital Signs Vital signs: Vital Signs Temperature 36.8 C 12/30/22 17:19 Pulse 109 H 12/30/22 17:19 Respiratory Rate 26 H 12/30/22 17:19 Blood Pressure 156/92 H 12/30/22 17:19 Pulse Oximetry 86 L 12/30/22 17:19 Temperature 36.8 C 12/30/22 17:19 Temperature Source Axillary 12/30/22 17:19 Pulse 109 H 12/30/22 17:19 Respiratory Rate 36 H 12/30/22 17:27 Respiratory Effort Short of Breath, Tripod 12/30/22 17:27 Respiratory Depth Deep 12/30/22 17:27 Respiratory Pattern Tachypnea 12/30/22 17:27 Blood Pressure 156/92 H 12/30/22 17:19 Blood Pressure Position Sitting 12/30/22 17:19 Pulse Oximetry 86 L 12/30/22 17:19 Oxygen Delivery Method Room Air 12/30/22 17:19 Oxygen Flow Rate 0 12/30/22 17:19 Pain Level 10 12/30/22 17:19
[2022-12-30 17:38] LABS: HCT 46.4 % (36.0-46.0); HGB 15.9 g/dL (11.2-15.7); MCH 31.1 pg (27.0-33.0); MCHC 34.3 % (32.0-36.0); MCV 91 fL (80-95); MPV 10.2 fL (8.0-11.0); Platelet Count 226 10^3/uL (130-400); RBC 5.11 10^6/uL (3.93-5.22); RDW 12.9 % (11.7-14.6); RDW-SD 43.3 fL; WBC 14.89 10^3/uL (4.4-10.8)
[2022-12-30] MEDS: Albuterol/Ipratropium 3 ML UPD VIAL UPD ×3 (17:43→23:56)
[2022-12-30] MEDS: Dexamethasone 10 MG/ML VIAL IM (17:43)
[2022-12-30] MEDS: Albuterol 2.5 MG/3 ML INH SOLN VIAL UPD ×2 (17:44→20:14)
[2022-12-30 17:54] LABS: ALT 21 U/L (14-59); AST 16 U/L (15-37); Albumin 3.5 g/dL (3.4-5.0); Alkaline Phosphatase 102 U/L (46-116); Anion Gap 7.5 mmol/L (3-11); BUN 12 mg/dL (7-18); Bilirubin, Total 0.9 mg/dL (0.2-1.0); CO2 28.5 mmol/L (21.0-32.0); CREATININE 0.8 mg/dL (0.55-1.02); Calcium 9.1 mg/dL (8.5-10.1); Chloride 101 mmol/L (98-107); Estimated GFR 84.82 (mL/min/1.73m2); Glucose 98 mg/dL (74-106); Potassium 3.8 mmol/L (3.5-5.1); Sodium 137 mmol/L (136-145); Total Protein 7.9 g/dL (6.4-8.2)
[2022-12-30 18:03] LABS: Absolute Eosinophil Count 0.15 10^3/uL (0.0-0.7); Absolute Lymphocyte Count 2.23 10^3/uL (1.2-3.4); Absolute Monocyte Count 1.64 10^3/uL (0.1-0.8); Absolute Neutrophil Count 10.87 10^3/uL (1.2-6.7); Atypical Lymphocytes % 6; Diff Comment Manual Differential; RBC Morphology Normal
--- NOTE | 2022-12-30 18:32 | DI.VRAD_ITS ---
PROCEDURE INFORMATION: Exam: XR Chest Exam date and time: 12/30/2022 6:16 PM Age: 57 years old Clinical indication: Wheezing and other: Respiratory distress; Patient HX: Respiratory distress, wheezing TECHNIQUE: Imaging protocol: Radiologic exam of the chest. Views: 1 view. COMPARISON: CT CHEST LUNG CANCER SCREEN 01/08/2022 7:45 AM FINDINGS: Tubes, catheters and devices: There are electrocardiographic leads on the thorax. Lungs: The lungs are normally aerated. There is increase in the interstitial markings in bronchial wall thickening in the right lower lobe. No lobar consolidations. The left lung is unremarkable. Pleural spaces: Unremarkable. No pleural effusion. No pneumothorax. Heart/Mediastinum: Unremarkable. No cardiomegaly. Bones/joints: Unremarkable. IMPRESSION: Right lower lobe bronchitis. Dictated and Authenticated by: Filemon Boss MD. Ordering:DIONNE Fermin MD
[2022-12-30] MEDS: cefTRIAXone 2 GM/50 ML BAG IVPB (18:55)
[2022-12-30] MEDS: AZITHROMYCIN 500 MG in Normal Saline 250 ML 250 MG IVPB (19:25)
--- NOTE | 2022-12-30 20:59 | ED.PROG_ITS ---
Date of service: 12/31/22 Time of Service: 23:00 Medical Decision Making Patient was signed out to me at 1999 by the day doc. Was told that she has asthma and likely COPD. She remained on oxygen after multiple nebs and steroids. We evaluated her after I look at her chart. Her blood pressure has been trending down and was in the 90s. She was persistently tachycardic and tachypneic. Sats were in the low 90s on oxygen. Although she looks fine I told her that we are unequivocally going to admit her. She has a right lower lobe pneumonia and had had ceftriaxone and Zithromax but no IV fluids. I wrote her for sepsis bolus 30/kg. The hospitalist was called and agreed to admit her. Lactate came back at 2.6, VBG was fine except for a mildly low CO2 that was normal on her CHEM panel. Blood pressure began to come up with IV fluids. Dr. Pelaez, Hospitalist, felt that she did not need ICU care and she is admitted to [facility]. He saw her in the ED. Sign Out Sign Out Data: Sign Out Comment: Asthma vs COPD, improved s/p breathing treatments. 2L NC. s/p steroids. Pending reassessment, if improved and off oxygen ok to dc home on PO abx, otherwise would admit. Last updated by Jeny Ariza MD at 12/30/22 19:59 Discharge Plan Disposition Patient Disposition: Admit to [facility] Condition: Improving Discharge Details Clinical Impression: Pneumonia Admit Date/Time: 12/30/22 21:52 Admit Provider: Grady Pelaez Attending Provider: Grady Pelaez Primary Care Provider: Racquel Fraser ED Provider: Jen Marie Discharge Data Discharge Date/Time-TO BE ENTERED AT DEPARTURE: 12/30/22 22:59
[2022-12-30] MEDS: Normal Saline 1,000 ML 1000 ML IV (21:14)
[2022-12-30 21:29] LABS: BE (Venous) -2 mmol/L (-2-3); HCO3 (Venous) 23 mmol/L (23-28); O2 Sat (Venous) 84 %; TCO2 (Venous) 20 mmol/L (24-29); pCO2 (Venous) 39 mmHg (41-51); pH (Venous) 7.38 (7.31-7.41); pO2 (Venous) 47 mmHg
[2022-12-30 21:32] LABS: Lactate 2.6 mmol/L (0.6-1.4)
--- NOTE | 2022-12-30 21:39 | W.PM.HP.N ---
Date of service: 12/30/22 Time of Service: 21:39 Assessment and Plan Assessment and plan (1) Pneumonia: Status: Acute Assessment and plan: Pneumonia, with COPD vs asthma exacerbation. Will continue antibiotics along with scheduled and prn updrafts, and steroids. Patient continues to have oxygen requirement. The soft BP is noted, along with elevated Lactate, raising concern for possible early sepsis, but BP is improving with IVF bolus and patient looks entirely non-toxic. Will track BP, hold ARB and repeat Lactate. History of Present Illness History of Present Illness Chief Complaint: cough, SOB Narrative: 57 female with smoker with h/o bronchospasm, variably described as asthma vs COPD -- here with several day of dry cough (now productive green sputum), runny nose and slight sore throat, along with SOB. In ER patient in obvious distress with poor air movement. Given multiple Duonebs and steroids with subjective improvement. Findings of note fo4r white count 14 and RLL infiltrate on CXR; COVID is pending. Patient given Rocephin and Zithromax; Thereafter, due to dropping blood pressure (to 90s/sys), blood cultures obtained along with Lactate 2.6. Patient given fluid bolus and I was asked to evaluate for admission. Patient states she feels improved though not back to baseline. States she is up to date on COVID vaccine. No similar illness at home. Review of Systems Narrative: per HPI PFSH All Active Problems (Updated 12/30/22 @ 21:47 by Grady Pelaez MD) Pneumonia (Acute) Essential hypertension (Chronic) History of Graves' disease (Chronic) Hyperlipidemia (Chronic) Mild persistent asthma (Chronic) Aortic regurgitation (Chronic) Moderate on stress echo 02/02 Osteoarthritis (Chronic) Cigarette smoker (Chronic) Annual LDCT paused d/t cost Nummular dermatitis (Chronic) Medical History Depressive disorder GERD (gastroesophageal reflux disease) Graves disease Surgical History S/P abdominal hysterectomy For abnormal uterine bleeding S/P appendectomy S/P bilateral salpingo-oophorectomy S/P dilation and curettage S/P left knee arthroscopy (05/04/10) With partial medial and lateral meniscectomy S/P lumpectomy, right breast (~1993) S/P right knee arthroscopy (02/20/10) With partial medial meniscectomy Status post right knee replacement (01/20/19) Family History Mother , at 77 Asthma Hypertension COPD (chronic obstructive pulmonary disease) Father , at 79 Parkinson disease Graves disease Hypertension Depression Suicide attempt Sister No problems noted. Sister , at 44 of metastatic bone cancer Metastatic bone cancer Brother , at 60 of pancreatic cancer Pancreatic cancer Diabetes Depression COPD (chronic obstructive pulmonary disease) Brother Alcohol abuse Son No problems noted. Daughter No problems noted. Maternal Grandfather Heart disease [place] Maternal Grandmother Brain cancer Paternal Grandfather No problems noted. Paternal Grandmother No problems noted. Brother , age 28 - MVA No problems noted. Social History Smoking/Tobacco Use Status: Current every day Tobacco Type: cigarettes Tobacco: How many years used: 40 Quit status: considering quitting Counseling given: provider counseling Smoking risk assessment performed?: Yes Alcohol Intake: current Alcohol Intake frequency: a few times a week Alcohol type: beer Drug use: Never Substance use type: does not use Counseling given: No Counseling provided: none Caregiver/Support person: No Household members: spouse Housing: house Pets and animals: Yes Pets and animals: cat(s) Sexually active: Yes Do you think of yourself as: straight/heterosexual Current gender identity: female What is your relationship status?: How often do you talk on the phone with friends or family?: three or more times per week How often do you get together with friends or relatives?: three or more times per week Do you belong to any clubs or organized social groups?: yes Panel score (0-1 are the most socially isolated patients): 3 What type of physical activity do you participate in: none Frequency: does not exercise Aida/Orthodox: None Special aida needs: No Seatbelt use: always Helmet use: No Drive intox 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 experienced truck driver: No Do you feel safe at home: Yes Do you feel safe in your relationship?: Yes Female Reproductive History Menstrual Menopause type: surgical History History 4 Para 2 Hx # Term Pregnancies Multiple births Hx # Pregnancies Ectopic pregnancies AB induced Hx Number of Living Children 2 AB spontaneous 2 Meds Allergies and Home Medications Allergies Allergy/AdvReac Type Severity Reaction Status Date / Time amlodipine AdvReac Mild lower Uncoded 12/19/22 09:41 extremity swelling Home Medications Medication Instructions Recorded Confirmed Type triamcinolone acetonide 0.1 % 1 flower topical BID PRN ##3 05/02/16 12/30/22 History lotion Flovent HFA 110 mcg/actuation 2 puff inhalation BID #12 grams 11/23/22 12/30/22 Rx aerosol inhaler (fluticasone propionate) albuterol sulfate 90 mcg/actuation 1 - 2 puff inhalation Q4H PRN #8.5 11/23/22 12/30/22 Rx aerosol inhaler grams losartan 50 mg tablet 50 mg PO DAILY #90 tabs 12/19/22 12/30/22 Rx rosuvastatin 10 mg tablet 10 mg PO DAILY #90 tabs 12/19/22 12/30/22 Rx Exam Narrative Exam Narrative: 100/51 (during visit), 92, 37.4, 28, 92% 2L NC. HEENT atraumatic; neck supple; lungs fair air movement, diffuse wheeze; heart RRR; abdomen soft and NT; extremities w/o edema; neuro Ox3, lucid, moves all 4s Results Labs 12/30/22 17:20 12/30/22 17:20 Labs: Laboratory Results - last 24 hr 12/30/22 12/30/22 12/30/22 17:20 17:20 21:24 WBC 14.89 H RBC 5.11 Hgb 15.9 H Hct 46.4 H MCV 91 MCH 31.1 MCHC 34.3 RDW 12.9 Plt Count 226 MPV 10.2 Immature Gran % 0.0 Neutrophils % 73.0 Lymphocytes % 9.0 Atypical Lymphs % 6 Monocytes % 11.0 Eosinophils % 1.0 Basophils % 0.0 Nucleated RBC % 0.0 Absolute Neutrophils 10.87 H Absolute Lymphocytes 2.23 Absolute Monocytes 1.64 H Absolute Eosinophils 0.15 Absolute Basophils 0.00 RBC Morphology Normal VBG pH VBG pCO2 VBG pO2 VBG HCO3 VBG Total CO2 VBG O2 Saturation VBG Base Excess VBG Lactate 2.6 H* Sodium 137 Potassium 3.8 Chloride 101 Carbon Dioxide 28.5 Anion Gap 7.5 BUN 12 Creatinine 0.8 Est GFR (CKD-EPI 2020) 84.82 Glucose 98 Calcium 9.1 Total Bilirubin 0.9 AST 16 ALT 21 Alkaline Phosphatase 102 Total Protein 7.9 Albumin 3.5 12/30/22 21:24 WBC RBC Hgb Hct MCV MCH MCHC RDW Plt Count MPV Immature Gran % Neutrophils % Lymphocytes % Atypical Lymphs % Monocytes % Eosinophils % Basophils % Nucleated RBC % Absolute Neutrophils Absolute Lymphocytes Absolute Monocytes Absolute Eosinophils Absolute Basophils RBC Morphology VBG pH 7.38 VBG pCO2 39 L VBG pO2 47 VBG HCO3 23 VBG Total CO2 20 L VBG O2 Saturation 84 VBG Base Excess -2 VBG Lactate Sodium Potassium Chloride Carbon Dioxide Anion Gap BUN Creatinine Est GFR (CKD-EPI 2020) Glucose Calcium Total Bilirubin AST ALT Alkaline Phosphatase Total Protein Albumin Last Vital Signs Temp 37.4 C 12/30/22 21:15 Pulse 113 H 12/30/22 20:31 Resp 28 H 12/30/22 20:50 BP 90/70 L 12/30/22 20:31 Pulse Ox 90 L 12/30/22 20:50 Time Spent Time spent with Patient: 40-54 minutes Time was spent: preparing to see the patient(eg.review tests), obtaining and/or reviewing separately otained hiistory, ordering medications,tests, procedures and indepentently interpreting results
[2022-12-30 22:44] LABS: COVID-19 PCR Negative (Negative); Influenza A PCR Negative (Negative); Influenza B PCR Negative (Negative); RSV PCR Negative (Negative)
[2022-12-30 22:45] LABS: Source Nasopharynx
[2022-12-30] MEDS: methylPREDNISolone SUCC 40 MG VIAL IVP (23:55)
[2022-12-31] VITALS (8 sets, daily range): BP systolic 104–112; BP diastolic 65–67; PULSE 82–112; RESP 2–28; TEMP 36.7–36.9; O2SAT 87–93
[2022-12-31 00:28] LABS: Lactate 2.1 mmol/L (0.6-1.4)
[2022-12-31] MEDS: Lactated Ringers 1,000 ML 75 ML IV ×2 (02:05→14:57)
[2022-12-31] MEDS: Normal Saline Flush 10 ML SYR IVP (02:05)
[2022-12-31] MEDS: Albuterol/Ipratropium 3 ML UPD VIAL UPD ×3 (05:10→16:11)
[2022-12-31] MEDS: methylPREDNISolone SUCC 40 MG VIAL IVP (05:10)
[2022-12-31] MEDS: Azithromycin 250 MG TAB PO (07:57)
[2022-12-31 10:26] LABS: Lactate 1.5 mmol/L (0.6-1.4)
[2022-12-31 10:27] LABS: Abs Immature Grans 0.07 10^3/uL (0.0-0.06); Basophils % 0.1; HCT 39.6 % (36.0-46.0); HGB 13.8 g/dL (11.2-15.7); Immature Grans % 0.5; MCH 31.6 pg (27.0-33.0); MCHC 34.8 % (32.0-36.0); MCV 91 fL (80-95); MPV 9.8 fL (8.0-11.0); Monocytes % 7.7; Neutrophils % 83.7; Platelet Count 209 10^3/uL (130-400); RBC 4.37 10^6/uL (3.93-5.22); RDW-SD 43.3 fL; WBC 14.07 10^3/uL (4.4-10.8)
[2022-12-31 10:28] LABS: Absolute Basophil Count 0.01 10^3/uL (0.0-0.2); Absolute Lymphocyte Count 1.13 10^3/uL (1.2-3.4); Absolute Monocyte Count 1.08 10^3/uL (0.1-0.8); Absolute Neutrophil Count 11.78 10^3/uL (1.2-6.7)
[2022-12-31 10:50] LABS: Anion Gap 7.1 mmol/L (3-11); BUN 13 mg/dL (7-18); CO2 26.9 mmol/L (21.0-32.0); CREATININE 0.7 mg/dL (0.55-1.02); Chloride 106 mmol/L (98-107); Estimated GFR 99.57 (mL/min/1.73m2); Glucose 153 mg/dL (74-106); Sodium 140 mmol/L (136-145)
[2022-12-31 11:07] LABS: Procalcitonin 0.1 ng/mL
--- NOTE | 2022-12-31 11:56 | PDOC.CMIN ---
Date of service: 12/31/22 Time of Service: 11:57 Care Management Initial Assmt Initial Assessment REASON FOR HOSPITALIZATION:: Pneumonia PREVIOUS FUNCTIONAL STATUS/SOCIAL/FAMILY SUPPORTS:: Jaelyn lives in [place] with her , Guru. They have two adult children, and one three year old grandchild. Jaelyn is retired from [employer] where she worked for 25 years. She is independent at baseline. CURRENT FUNCTIONAL STATUS:: Jaelyn was sitting up in bed when CM met with her. She stated that she is feeling much better today, and is anxious to return home. She reported that she spoke with the technology trainer, who explained that she likely does not have pneumonia, but instead has an exacerbation of her asthma and bronchitis. Pulmonology recommended follow up, which she declined. Jaelyn stated that she is not on O2 at home, and she is currently on 2LO2 at rest. She stated that if she is told that she requires home O2, she will refuse, because she feels she is too young to have O2 at home. CM stated that the provider will likely attempt to wean her off O2 prior to discharge. CM will continue to follow. ADVANCE DIRECTIVES:: Not on file, CM will offer forms. Has patient been provided with info about the portal/API?: Yes Did the patient sign up for the portal?: No CODE STATUS:: Full Code INSURANCE COVERAGE / FINANCIAL ISSUES:: [employer] CURRENT HOME/COMMUNITY SERVICES/EQUIPMENT:: none PRIMARY CARE PHYSICIAN:: Racquel Fraser POTENTIAL DISCHARGE NEEDS:: Evaluations for further needs, follow up appointments. PATIENT/FAMILY EDUCATION NEEDS:: Review discharge instructions and limitations, discussion of self care needs including ask me three. ANTICIPATED BARRIERS TO DISCHARGE:: None TRANSPORTATION:: Via private vehicle by family. PLAN:: Anticipate Jaelyn will return home once medically cleared. She will follow up with her PCP and discharge plan of care. Her will drive her home via private vehicle. CM will continue to follow. PFSH All Active Problems (Updated 12/31/22 @ 12:59 by Paula Chopra MD) Bronchitis (Acute) Lactic acidosis (Acute) Respiratory failure with hypoxia (Acute) Asthma exacerbation (Acute) Pneumonia (Acute) Pneumonia (Acute) Essential hypertension (Chronic) History of Graves' disease (Chronic) Hyperlipidemia (Chronic) Mild persistent asthma (Chronic) Aortic regurgitation (Chronic) Moderate on stress echo 02/02 Osteoarthritis (Chronic) Cigarette smoker (Chronic) Annual LDCT paused d/t cost Nummular dermatitis (Chronic) Medical History Depressive disorder GERD (gastroesophageal reflux disease) Graves disease Surgical History S/P abdominal hysterectomy For abnormal uterine bleeding S/P appendectomy S/P bilateral salpingo-oophorectomy S/P dilation and curettage S/P left knee arthroscopy (05/04/10) With partial medial and lateral meniscectomy S/P lumpectomy, right breast (~1993) S/P right knee arthroscopy (02/20/10) With partial medial meniscectomy Status post right knee replacement (01/20/19) Family History Mother , at 77 Asthma Hypertension COPD (chronic obstructive pulmonary disease) Father , at 79 Parkinson disease Graves disease Hypertension Depression Suicide attempt Sister No problems noted. Sister , at 44 of metastatic bone cancer Metastatic bone cancer Brother , at 60 of pancreatic cancer Pancreatic cancer Diabetes Depression COPD (chronic obstructive pulmonary disease) Brother Alcohol abuse Son No problems noted. Daughter No problems noted. Maternal Grandfather Heart disease [place] Maternal Grandmother Brain cancer Paternal Grandfather No problems noted. Paternal Grandmother No problems noted. Brother , age 28 - MVA No problems noted. Social History Smoking/Tobacco Use Status: Current every day Tobacco Type: cigarettes Tobacco: How many years used: 40 Quit status: considering quitting Counseling given: provider counseling Smoking risk assessment performed?: Yes Alcohol Intake: current Alcohol Intake frequency: a few times a week Alcohol type: beer Drug use: Never Substance use type: does not use Counseling given: No Counseling provided: none Caregiver/Support person: No Household members: spouse Housing: house Pets and animals: Yes Pets and animals: cat(s) Sexually active: Yes Do you think of yourself as: straight/heterosexual Current gender identity: female What is your relationship status?: How often do you talk on the phone with friends or family?: three or more times per week How often do you get together with friends or relatives?: three or more times per week Do you belong to any clubs or organized social groups?: yes Panel score (0-1 are the most socially isolated patients): 3 What type of physical activity do you participate in: none Frequency: does not exercise Aida/Buddhist: None Special aida needs: No Seatbelt use: always Helmet use: No Drive intox 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
--- NOTE | 2022-12-31 12:49 | PUCON_ITS ---
General Date Of Service Date of service: 12/31/22 Time of Service: 12:50 Reason for Consult: Pneumonia Assessment and Plan Assessment and plan (1) Asthma exacerbation: Status: Acute (2) Respiratory failure with hypoxia: Status: Acute (3) Lactic acidosis: Status: Acute (4) Cigarette smoker: Status: Chronic (5) Bronchitis: Status: Acute Assessment and plan: This is a 57 yo with asthma who is admitted for an exacerbation. I do not think she has a pneumonia. She is afebrile, has a clear chest Xray in my opinion, and a negative procalcitonin. I do not think she needs ceftriaxone, but would continue the azithromycin, but this can be changed to PO. She appears euvolemic to me and is eating and drinking normally, so would discontinue the IVF's. She is only on Flovent and albuterol for her asthma, so will recommend this be step ped up. I will adjust her steroid regimen as well (which can also be PO). I did offer to see her in my clinic as an outpatient, but she refused as she states she does not have good insurance and is not working so cannot afford it. Asthma exacerbation - stop methylpred - start prednisone 60mg for 7 days, 50mg for 4 days, 40mg for 3 days, 30mg for 3 days, 20mg for 3 days, 10mg for 3 days, 5mg for 3 days. - continue Duonebs, but change to QID - respiratory therapy consult - start Symbicort 160 - recommend discharge with this - prn albuterol - recommend outpatient PFT's to reassess for COPD Bronchitis - continue azithomycin - stop ceftriaxone Lactic acidosis - resolved Smoker - cessation recommended - due for LDCT this month - this was put on hold due to cost History of Present Illness Narrative: This is a 57 yo with a history of asthma is admitted for pneumonia. She has been having several days of a cough and feeling very dyspneic. She typically does not wheeze, however did start to notice wheezing a couple days ago. She holds a diagnosis of asthma and has PFT's in 2018, which do not show COPD, but are significant for air trapping. She received a CXR which was read as a RLL pneumonia, but I disagree. I think the right hilar area reflects vasculature. That being said she may have a bacterial bronchitis. She is feeling better since being in the hospital. She is on Flovent and albuterol for her asthma. She has never been in the hospital for breathing issues before. She does have a significant smoking history and continues to smoke. 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 Review of Systems All systems reviewed & are unremarkable except as noted in HPI and below PFSH All Active Problems (Updated 12/31/22 @ 12:59 by Paula Chopra MD) Bronchitis (Acute) Lactic acidosis (Acute) Respiratory failure with hypoxia (Acute) Asthma exacerbation (Acute) Pneumonia (Acute) Pneumonia (Acute) Essential hypertension (Chronic) History of Graves' disease (Chronic) Hyperlipidemia (Chronic) Mild persistent asthma (Chronic) Aortic regurgitation (Chronic) Moderate on stress echo 02/02 Osteoarthritis (Chronic) Cigarette smoker (Chronic) Annual LDCT paused d/t cost Nummular dermatitis (Chronic) Medical History Depressive disorder GERD (gastroesophageal reflux disease) Graves disease Surgical History S/P abdominal hysterectomy For abnormal uterine bleeding S/P appendectomy S/P bilateral salpingo-oophorectomy S/P dilation and curettage S/P left knee arthroscopy (05/04/10) With partial medial and lateral meniscectomy S/P lumpectomy, right breast (~1993) S/P right knee arthroscopy (02/20/10) With partial medial meniscectomy Status post right knee replacement (01/20/19) Family History Mother , at 77 Asthma Hypertension COPD (chronic obstructive pulmonary disease) Father , at 79 Parkinson disease Graves disease Hypertension Depression Suicide attempt Sister No problems noted. Sister , at 44 of metastatic bone cancer Metastatic bone cancer Brother , at 60 of pancreatic cancer Pancreatic cancer Diabetes Depression COPD (chronic obstructive pulmonary disease) Brother Alcohol abuse Son No problems noted. Daughter No problems noted. Maternal Grandfather Heart disease [place] Maternal Grandmother Brain cancer Paternal Grandfather No problems noted. Paternal Grandmother No problems noted. Brother , age 28 - MVA No problems noted. Social History Smoking/Tobacco Use Status: Current every day Tobacco Type: cigarettes Tobacco: How many years used: 40 Quit status: considering quitting Counseling given: provider counseling Smoking risk assessment performed?: Yes Alcohol Intake: current Alcohol Intake frequency: a few times a week Alcohol type: beer Drug use: Never Substance use type: does not use Counseling given: No Counseling provided: none Caregiver/Support person: No Household members: spouse Housing: house Pets and animals: Yes Pets and animals: cat(s) Sexually active: Yes Do you think of yourself as: straight/heterosexual Current gender identity: female What is your relationship status?: How often do you talk on the phone with friends or family?: three or more times per week How often do you get together with friends or relatives?: three or more times per week Do you belong to any clubs or organized social groups?: yes Panel score (0-1 are the most socially isolated patients): 3 What type of physical activity do you participate in: none Frequency: does not exercise Aida/Samaritan: None Special aida needs: No Seatbelt use: always Helmet use: No Drive intox 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 four horse 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: No Do you feel safe at home: Yes Do you feel safe in your relationship?: Yes Female Reproductive History Menstrual Menopause type: surgical History History 4 Para 2 Hx # Term Pregnancies Multiple births Hx # Pregnancies Ectopic pregnancies AB induced Hx Number of Living Children 2 AB spontaneous 2 Visit Medication and Allergies Active Medications Generic Name Dose Route Start Last Admin Trade Name Freq PRN Reason Stop Dose Admin Acetaminophen 650 mg 12/30/22 21:55 Acetaminophen 325 Mg Tab PO Q4H PRN PRN Albuterol Sulfate 2.5 mg 12/30/22 21:52 Albuterol 2.5 Mg/3 Ml Inh Soln Vial UPD Q4H PRN PRN Albuterol/Ipratropium 3 ml 12/30/22 22:00 12/31/22 10:13 Albuterol/Ipratropium 3 Ml Upd Vial UPD 3 ml Q6H CELESTE Administration Azithromycin 250 mg 12/31/22 08:30 12/31/22 07:57 Azithromycin 250 Mg Tab PO 250 mg DAILY CELESTE Administration Dimethicone/Zinc Oxide 0 gm 12/30/22 21:52 Bruna Protect Cream 142 Gm Tube TP PRN PRN Ringer's Solution 1,000 mls @ 75 mls/hr 12/31/22 02:15 12/31/22 02:05 IV 75 mls/hr INFUSION CELESTE Administration Ceftriaxone Sodium/Dextrose 2 gm in 50 mls @ 100 mls/hr 12/31/22 18:00 Rocephin IVPB Q24H CELESTE IV Miscellaneous Supplies 1 each 12/30/22 17:30 Iv Access-Emergency Dept IV DIRECTED CELESTE Melatonin 6 mg 12/30/22 21:55 Melatonin 3 Mg Tab PO HS PRN Insomnia Methylprednisolone Sodium Succinate 40 mg 12/30/22 22:00 12/31/22 05:10 Methylprednisolone Succ 40 Mg Vial IVP 40 mg Q8H CELESTE Administration Nicotine 21 mg 12/30/22 21:55 Nicotine 21 Mg/24 Hr Patch TD DAILY PRN PRN Sodium Chloride 0 ml 12/30/22 17:24 12/31/22 02:05 Normal Saline Flush 10 Ml Syr IVP 10 ml PRN PRN Administration Allergies amlodipine Adverse Reaction (Mild, Uncoded 12/19/22 09:41) lower extremity swelling Exam Narrative Exam Narrative: Gen: NAD, normal respiratory effort, well-nourished HENT: PERRL Chest: No respiratory distress, normal appearance of chest, clear to auscultation bilaterally, bilateral and diffuse expiratory wheeze. Heart: regular rate and rhythym, no murmurs, rubs or gallops - heart sounds obstructed by wheeze Abdomen: Non-distended, soft, non tender Extremities: No clubbing, edema, cyanosis, rashes Neuro: AAOx3 , non focal Psych: cooperative, appropriate mental affect Results Last Vital Signs Temp 36.7 C 12/31/22 07:27 Pulse 90 12/31/22 10:19 Resp 24 12/31/22 10:19 BP 104/67 12/31/22 07:27 Pulse Ox 90 L 12/31/22 10:33 Labs 12/31/22 10:20 12/31/22 10:20 Labs: Laboratory Results - last 24 hr 12/30/22 12/30/22 12/30/22 17:20 17:20 21:24 WBC 14.89 H RBC 5.11 Hgb 15.9 H Hct 46.4 H MCV 91 MCH 31.1 MCHC 34.3 RDW 12.9 Plt Count 226 MPV 10.2 Immature Gran % 0.0 Neutrophils % 73.0 Lymphocytes % 9.0 Atypical Lymphs % 6 Monocytes % 11.0 Eosinophils % 1.0 Basophils % 0.0 Nucleated RBC % 0.0 Absolute Neutrophils 10.87 H Absolute Lymphocytes 2.23 Absolute Monocytes 1.64 H Absolute Eosinophils 0.15 Absolute Basophils 0.00 RBC Morphology Normal VBG pH VBG pCO2 VBG pO2 VBG HCO3 VBG Total CO2 VBG O2 Saturation VBG Base Excess VBG Lactate 2.6 H* Sodium 137 Potassium 3.8 Chloride 101 Carbon Dioxide 28.5 Anion Gap 7.5 BUN 12 Creatinine 0.8 Est GFR (CKD-EPI 2020) 84.82 Glucose 98 Calcium 9.1 Total Bilirubin 0.9 AST 16 ALT 21 Alkaline Phosphatase 102 Total Protein 7.9 Albumin 3.5 Procalcitonin COVID-19 Source SARS-CoV-2 (PCR) Influenza Type A (PCR) Influenza Type B (PCR) RSV (PCR) 12/30/22 12/30/22 12/31/22 21:24 21:30 00:20 WBC RBC Hgb Hct MCV MCH MCHC RDW Plt Count MPV Immature Gran % Neutrophils % Lymphocytes % Atypical Lymphs % Monocytes % Eosinophils % Basophils % Nucleated RBC % Absolute Neutrophils Absolute Lymphocytes Absolute Monocytes Absolute Eosinophils Absolute Basophils RBC Morphology VBG pH 7.38 VBG pCO2 39 L VBG pO2 47 VBG HCO3 23 VBG Total CO2 20 L VBG O2 Saturation 84 VBG Base Excess -2 VBG Lactate 2.1 H Sodium Potassium Chloride Carbon Dioxide Anion Gap BUN Creatinine Est GFR (CKD-EPI 2020) Glucose Calcium Total Bilirubin AST ALT Alkaline Phosphatase Total Protein Albumin Procalcitonin COVID-19 Source Nasopharynx SARS-CoV-2 (PCR) Negative Influenza Type A (PCR) Negative Influenza Type B (PCR) Negative RSV (PCR) Negative 12/31/22 12/31/22 12/31/22 10:20 10:20 10:20 WBC 14.07 H RBC 4.37 Hgb 13.8 D Hct 39.6 MCV 91 MCH 31.6 MCHC 34.8 RDW 13.0 Plt Count 209 MPV 9.8 Immature Gran % 0.5 Neutrophils % 83.7 Lymphocytes % 8.0 Atypical Lymphs % Monocytes % 7.7 Eosinophils % 0.0 Basophils % 0.1 Nucleated RBC % 0.0 Absolute Neutrophils 11.78 H Absolute Lymphocytes 1.13 L Absolute Monocytes 1.08 H Absolute Eosinophils 0.00 Absolute Basophils 0.01 RBC Morphology VBG pH VBG pCO2 VBG pO2 VBG HCO3 VBG Total CO2 VBG O2 Saturation VBG Base Excess VBG Lactate 1.5 H Sodium 140 Potassium 4.0 Chloride 106 Carbon Dioxide 26.9 Anion Gap 7.1 BUN 13 Creatinine 0.7 Est GFR (CKD-EPI 2020) 99.57 Glucose 153 H Calcium 9.0 Total Bilirubin AST ALT Alkaline Phosphatase Total Protein Albumin Procalcitonin 0.1 COVID-19 Source SARS-CoV-2 (PCR) Influenza Type A (PCR) Influenza Type B (PCR) RSV (PCR)
--- NOTE | 2022-12-31 14:23 | W.PM.PROGNOT ---
Date of Service Date of service: 12/31/22 Time of Service: 14:23 Assessment and Plan Assessment and plan (1) Asthma exacerbation: Status: Acute (2) Respiratory failure with hypoxia: Status: Acute (3) Lactic acidosis: Status: Acute (4) Cigarette smoker: Status: Chronic (5) Bronchitis: Status: Acute Subjective Subjective Patient reports: feels better, tolerating liquids well, tolerating a regular diet, shortness of breath (improved) and afebrile Objective Last Vital Signs Temp 36.7 C 12/31/22 07:27 Pulse 90 12/31/22 10:19 Resp 24 12/31/22 10:19 BP 104/67 12/31/22 07:27 Pulse Ox 90 L 12/31/22 10:33 Laboratory Results - last 24 hr 12/30/22 12/30/22 12/30/22 17:20 17:20 21:24 WBC 14.89 H RBC 5.11 Hgb 15.9 H Hct 46.4 H MCV 91 MCH 31.1 MCHC 34.3 RDW 12.9 Plt Count 226 MPV 10.2 Immature Gran % 0.0 Neutrophils % 73.0 Lymphocytes % 9.0 Atypical Lymphs % 6 Monocytes % 11.0 Eosinophils % 1.0 Basophils % 0.0 Nucleated RBC % 0.0 Absolute Neutrophils 10.87 H Absolute Lymphocytes 2.23 Absolute Monocytes 1.64 H Absolute Eosinophils 0.15 Absolute Basophils 0.00 RBC Morphology Normal VBG pH VBG pCO2 VBG pO2 VBG HCO3 VBG Total CO2 VBG O2 Saturation VBG Base Excess VBG Lactate 2.6 H* Sodium 137 Potassium 3.8 Chloride 101 Carbon Dioxide 28.5 Anion Gap 7.5 BUN 12 Creatinine 0.8 Est GFR (CKD-EPI 2020) 84.82 Glucose 98 Calcium 9.1 Total Bilirubin 0.9 AST 16 ALT 21 Alkaline Phosphatase 102 Total Protein 7.9 Albumin 3.5 Procalcitonin COVID-19 Source SARS-CoV-2 (PCR) Influenza Type A (PCR) Influenza Type B (PCR) RSV (PCR) 12/30/22 12/30/22 12/31/22 21:24 21:30 00:20 WBC RBC Hgb Hct MCV MCH MCHC RDW Plt Count MPV Immature Gran % Neutrophils % Lymphocytes % Atypical Lymphs % Monocytes % Eosinophils % Basophils % Nucleated RBC % Absolute Neutrophils Absolute Lymphocytes Absolute Monocytes Absolute Eosinophils Absolute Basophils RBC Morphology VBG pH 7.38 VBG pCO2 39 L VBG pO2 47 VBG HCO3 23 VBG Total CO2 20 L VBG O2 Saturation 84 VBG Base Excess -2 VBG Lactate 2.1 H Sodium Potassium Chloride Carbon Dioxide Anion Gap BUN Creatinine Est GFR (CKD-EPI 2020) Glucose Calcium Total Bilirubin AST ALT Alkaline Phosphatase Total Protein Albumin Procalcitonin COVID-19 Source Nasopharynx SARS-CoV-2 (PCR) Negative Influenza Type A (PCR) Negative Influenza Type B (PCR) Negative RSV (PCR) Negative 12/31/22 12/31/22 12/31/22 10:20 10:20 10:20 WBC 14.07 H RBC 4.37 Hgb 13.8 D Hct 39.6 MCV 91 MCH 31.6 MCHC 34.8 RDW 13.0 Plt Count 209 MPV 9.8 Immature Gran % 0.5 Neutrophils % 83.7 Lymphocytes % 8.0 Atypical Lymphs % Monocytes % 7.7 Eosinophils % 0.0 Basophils % 0.1 Nucleated RBC % 0.0 Absolute Neutrophils 11.78 H Absolute Lymphocytes 1.13 L Absolute Monocytes 1.08 H Absolute Eosinophils 0.00 Absolute Basophils 0.01 RBC Morphology VBG pH VBG pCO2 VBG pO2 VBG HCO3 VBG Total CO2 VBG O2 Saturation VBG Base Excess VBG Lactate 1.5 H Sodium 140 Potassium 4.0 Chloride 106 Carbon Dioxide 26.9 Anion Gap 7.1 BUN 13 Creatinine 0.7 Est GFR (CKD-EPI 2020) 99.57 Glucose 153 H Calcium 9.0 Total Bilirubin AST ALT Alkaline Phosphatase Total Protein Albumin Procalcitonin 0.1 COVID-19 Source SARS-CoV-2 (PCR) Influenza Type A (PCR) Influenza Type B (PCR) RSV (PCR) PAWSS Have you Been Recently Intoxicated or Drunk Within the Last 30 days?: No Have you Ever Experienced Previous Episodes of Alcohol Withdrawal?: No Result: 0
--- NOTE | 2022-12-31 15:50 | W.PM.DS.N ---
Date of service: 12/31/22 Time of Service: 15:50 DS: Diagnosis Discharge Diagnosis (1) Asthma exacerbation: Status: Acute (2) Respiratory failure with hypoxia: Status: Acute (3) Lactic acidosis: Status: Acute (4) Cigarette smoker: Status: Chronic (5) Bronchitis: Status: Acute Discharge Plan Disposition Patient Disposition: Home Condition: Improving Discharge Details Reason For Visit: PNEUMONIA Admit Date/Time: 12/30/22 21:52 Admit Provider: Grady Pelaez Attending Provider: Grayd Pelaez [facility]: This is a 57-year-old female patient with a history of asthma Graves' disease hypertension ongoing tobacco abuse who presents to the emergency department with increased shortness of breath. She was admitted under hospitalist services initially suspected pneumonia with asthma exacerbation. She was placed on doxycycline and ceftriaxone given updrafts and steroids. Pulmonary consultation was sought and after evaluating patient and reviewing record recommendations were to stop the ceftriaxone and continue the azithromycin. She was placed on a steroid taper and Symbicort was added. Recommendations were for outpatient PFTs to assess for COPD. Patient was initially requiring oxygen but was weaned off successfully. It was recommended that she follow-up in pulmonary clinic but financially does not feel she will be able to do this. Smoking cessation was also discussed with patient. Now that she is weaned off oxygen and on oral steroids and antibiotics she is safe for discharge to home. She is being discharged to home with no new services will follow-up outpatient with primary care provider Discharge discussed with Dr Correa Home Meds and New Rx's Prescriptions: New ipratropium-albuterol 0.5 mg-3 mg(2.5 mg base)/3 mL Solution For Nebulization 3 ml UPD QID Qty: 0 0RF azithromycin 250 mg Tablet 250 mg PO DAILY Qty: 4 0RF budesonide-formoterol [Symbicort] 160-4.5 mcg/actuation Hfa Aerosol Inhaler 2 puff inhalation BID Qty: 10.2 0RF prednisone 20 mg Tablet 60 mg PO DAILY Qty: 60 0RF Rx Instructions: prednisone 60mg for 7 days, 50mg for 4 days, 40mg for 3 days, 30mg for 3 days, 20mg for 3 days, 10mg for 3 days, 5mg for 3 days. Inhaler, Assist Devices [Pocket Chamber] 1 ea miscellaneous DIRECTED Qty: 0 0RF Continued losartan 50 mg tablet 50 mg PO DAILY Qty: 90 3RF rosuvastatin 10 mg tablet 10 mg PO DAILY Qty: 90 3RF triamcinolone acetonide 60 ML lotion 1 flower Topical BID PRNQty: 3 albuterol sulfate 90 mcg/actuation HFA aerosol inhaler 1 - 2 puff Inhalation Q4H PRN Qty: 8.5 6RF Discontinued fluticasone propionate [Flovent HFA] 110 mcg/actuation HFA aerosol inhaler 2 puff inhalation BID Qty: 12 3RF Rx Instructions: administer with spacer Discharge Instructions Instructions: Asthma (DC), Acute Bronchitis (ED) Additional Instructions: prednisone taper as directed: 60mg for 7 days, 50mg for 4 days, 40mg for 3 days, 30mg for 3 days, 20mg for 3 days, 10mg for 3 days, 5mg for 3 days. you have been started on symbicort. you can use duoneb as directed if needed for shortness of breath. Use only as directed and not more. contact your doctor or return to ED if symptoms not responding to recommended doses. [employer] will be delivering your equipment. - recommend outpatient PFT's to reassess for COPD - smoking cessation recommended Stand Alone Forms: Nursing Discharge Form Referrals: Racquel Fraser NP [Primary Care Provider] - 01/18/23 9:00 am Activity:: Activity as Tolerated Equipment/Supplies:: nebulizer machine and sup Diet:: As Tolerated Discharge Orders Discharge Orders: Discharge Order (Routine); Ordered 12/31/22 Ordered By: Angelita Cisneros Discharge Data Discharge Date/Time-TO BE ENTERED AT DEPARTURE: 12/31/22 16:42 DS: Summary Time Spent with Patient providing and/or coordinating discharge services: Less than 30 minutes Status at Discharge Functional status at discharge: independent ambulation Overall status at discharge: patient is back to baseline Mental Status: mental status grossly normal Speech and Movement: speech and movement normal Mood: congruent mood Affect: normal affect Exam Const General: cooperative, comfortable and ill appearing chronically Nutritional Appearance: overweight Orientation: alert, awake and oriented x3 Chest Chest: normal inspection of the chest Resp Effort & Inspection: normal respiratory effort Auscultation: diminished lung sounds Cardio Rate: regular rate Rhythm: regular rhythm GI Inspection: normal to inspection Palpation: soft Skin General skin exam: no rashes or lesions noted Neuro General: patient alert, patient awake and patient oriented x3 Cognition: normal cognition Speech: speech normal Extrem General: normal to inspection and full ROM Psych Mental Status: mental status grossly normal Speech and Movement: speech and movement normal Mood: congruent mood Affect: normal affect DS: Data Vitals/I&O Vitals and I&O: Vital Signs Temperature 36.7 C 12/31/22 07:27 Temperature Source Tympanic 12/31/22 07:27 Pulse 90 12/31/22 10:19 Pulse Rhythm Regular 12/31/22 07:25 Pulse 84 12/30/22 22:51 Respiratory Rate 24 12/31/22 10:19 Respiratory Effort Normal, Non-Labored 12/31/22 07:25 Respiratory Depth Normal 12/31/22 07:25 Respiratory Pattern Normal 12/31/22 07:25 Blood Pressure 104/67 12/31/22 07:27 Blood Pressure Mean 76 12/30/22 22:31 Blood Pressure Position Sitting 12/30/22 17:19 Pulse Oximetry 90 L 12/31/22 10:33 Oxygen Delivery Method Nasal Cannula 12/31/22 10:33 Oxygen Flow Rate 2 12/31/22 10:33 Pain Level 0 12/31/22 07:27 Intake & Output 12/30/22 12/31/22 12/31/22 23:59 11:59 23:59 Intake Total 1300 / 1300 965 / 965 Balance 1300 / 1300 965 / 965 Weight 85.729 kg Intake: IV 1300 / 1300 965 / 965 Data Completed and Pending Labs on day of discharge: Labs from last 24 hours 12/31/22 12/31/22 12/31/22 11:33 11:33 10:20 WBC RBC Hgb Hct MCV MCH MCHC RDW Plt Count MPV Immature Gran % Neutrophils % Lymphocytes % Atypical Lymphs % Monocytes % Eosinophils % Basophils % Nucleated RBC % Absolute Neutrophils Absolute Lymphocytes Absolute Monocytes Absolute Eosinophils Absolute Basophils RBC Morphology VBG pH VBG pCO2 VBG pO2 VBG HCO3 VBG Total CO2 VBG O2 Saturation VBG Base Excess VBG Lactate 1.5 H Sodium Potassium Chloride Carbon Dioxide Anion Gap BUN Creatinine Est GFR (CKD-EPI 2020) Glucose Calcium Total Bilirubin AST ALT Alkaline Phosphatase Total Protein Albumin Procalcitonin 0.1 COVID-19 Source SARS-CoV-2 (PCR) Influenza Type A (PCR) Influenza Type B (PCR) Urine Legionella Ag Pending RSV (PCR) Ur Strep pneumoniae Ag Pending 12/31/22 12/31/22 12/31/22 10:20 10:20 00:20 WBC 14.07 H RBC 4.37 Hgb 13.8 D Hct 39.6 MCV 91 MCH 31.6 MCHC 34.8 RDW 13.0 Plt Count 209 MPV 9.8 Immature Gran % 0.5 Neutrophils % 83.7 Lymphocytes % 8.0 Atypical Lymphs % Monocytes % 7.7 Eosinophils % 0.0 Basophils % 0.1 Nucleated RBC % 0.0 Absolute Neutrophils 11.78 H Absolute Lymphocytes 1.13 L Absolute Monocytes 1.08 H Absolute Eosinophils 0.00 Absolute Basophils 0.01 RBC Morphology VBG pH VBG pCO2 VBG pO2 VBG HCO3 VBG Total CO2 VBG O2 Saturation VBG Base Excess VBG Lactate 2.1 H Sodium 140 Potassium 4.0 Chloride 106 Carbon Dioxide 26.9 Anion Gap 7.1 BUN 13 Creatinine 0.7 Est GFR (CKD-EPI 2020) 99.57 Glucose 153 H Calcium 9.0 Total Bilirubin AST ALT Alkaline Phosphatase Total Protein Albumin Procalcitonin COVID-19 Source SARS-CoV-2 (PCR) Influenza Type A (PCR) Influenza Type B (PCR) Urine Legionella Ag RSV (PCR) Ur Strep pneumoniae Ag 12/30/22 12/30/22 12/30/22 21:30 21:24 21:24 WBC RBC Hgb Hct MCV MCH MCHC RDW Plt Count MPV Immature Gran % Neutrophils % Lymphocytes % Atypical Lymphs % Monocytes % Eosinophils % Basophils % Nucleated RBC % Absolute Neutrophils Absolute Lymphocytes Absolute Monocytes Absolute Eosinophils Absolute Basophils RBC Morphology VBG pH 7.38 VBG pCO2 39 L VBG pO2 47 VBG HCO3 23 VBG Total CO2 20 L VBG O2 Saturation 84 VBG Base Excess -2 VBG Lactate 2.6 H* Sodium Potassium Chloride Carbon Dioxide Anion Gap BUN Creatinine Est GFR (CKD-EPI 2020) Glucose Calcium Total Bilirubin AST ALT Alkaline Phosphatase Total Protein Albumin Procalcitonin COVID-19 Source Nasopharynx SARS-CoV-2 (PCR) Negative Influenza Type A (PCR) Negative Influenza Type B (PCR) Negative Urine Legionella Ag RSV (PCR) Negative Ur Strep pneumoniae Ag 12/30/22 12/30/22 17:20 17:20 WBC 14.89 H RBC 5.11 Hgb 15.9 H Hct 46.4 H MCV 91 MCH 31.1 MCHC 34.3 RDW 12.9 Plt Count 226 MPV 10.2 Immature Gran % 0.0 Neutrophils % 73.0 Lymphocytes % 9.0 Atypical Lymphs % 6 Monocytes % 11.0 Eosinophils % 1.0 Basophils % 0.0 Nucleated RBC % 0.0 Absolute Neutrophils 10.87 H Absolute Lymphocytes 2.23 Absolute Monocytes 1.64 H Absolute Eosinophils 0.15 Absolute Basophils 0.00 RBC Morphology Normal VBG pH VBG pCO2 VBG pO2 VBG HCO3 VBG Total CO2 VBG O2 Saturation VBG Base Excess VBG Lactate Sodium 137 Potassium 3.8 Chloride 101 Carbon Dioxide 28.5 Anion Gap 7.5 BUN 12 Creatinine 0.8 Est GFR (CKD-EPI 2020) 84.82 Glucose 98 Calcium 9.1 Total Bilirubin 0.9 AST 16 ALT 21 Alkaline Phosphatase 102 Total Protein 7.9 Albumin 3.5 Procalcitonin COVID-19 Source SARS-CoV-2 (PCR) Influenza Type A (PCR) Influenza Type B (PCR) Urine Legionella Ag RSV (PCR) Ur Strep pneumoniae Ag 12/31/22 11:33 Sputum - Expectorated Sputum Culture - Pending 12/30/22 21:30 Blood Blood Culture - Pending 12/30/22 21:24 Blood Blood Culture - Pending Preliminary micro results at discharge 12/31/22 11:33 Sputum Culture - Pending Sputum - Expectorated 12/30/22 21:30 Blood Culture - Pending Blood 12/30/22 21:24 Blood Culture - Pending Blood [facility] All Active Problems (Updated 01/01/23 @ 00:12 by SHERIE BARAHONA) Bronchitis (Acute) Lactic acidosis (Acute) Respiratory failure with hypoxia (Acute) Asthma exacerbation (Acute) Essential hypertension (Chronic) History of Graves' disease (Chronic) Hyperlipidemia (Chronic) Mild persistent asthma (Chronic) Aortic regurgitation (Chronic) Moderate on stress echo 02/02 Osteoarthritis (Chronic) Cigarette smoker (Chronic) Annual LDCT paused d/t cost Nummular dermatitis (Chronic) Medical History Depressive disorder GERD (gastroesophageal reflux disease) Graves disease Surgical History S/P abdominal hysterectomy For abnormal uterine bleeding S/P appendectomy S/P bilateral salpingo-oophorectomy S/P dilation and curettage S/P left knee arthroscopy (05/04/10) With partial medial and lateral meniscectomy S/P lumpectomy, right breast (~1993) S/P right knee arthroscopy (02/20/10) With partial medial meniscectomy Status post right knee replacement (01/20/19) Family History Mother , at 77 Asthma Hypertension COPD (chronic obstructive pulmonary disease) Father , at 79 Parkinson disease Graves disease Hypertension Depression Suicide attempt Sister No problems noted. Sister , at 44 of metastatic bone cancer Metastatic bone cancer Brother , at 60 of pancreatic cancer Pancreatic cancer Diabetes Depression COPD (chronic obstructive pulmonary disease) Brother Alcohol abuse Son No problems noted. Daughter No problems noted. Maternal Grandfather Heart disease [facility] Maternal Grandmother Brain cancer Paternal Grandfather No problems noted. Paternal Grandmother No problems noted. Brother , age 28 - MVA No problems noted. Social History Smoking/Tobacco Use Status: Current every day Tobacco Type: cigarettes Tobacco: How many years used: 40 Quit status: considering quitting Counseling given: provider counseling Smoking risk assessment performed?: Yes Alcohol Intake: current Alcohol Intake frequency: a few times a week Alcohol type: beer Drug use: Never Substance use type: does not use Counseling given: No Counseling provided: none Caregiver/Support person: No Household members: spouse Housing: house Pets and animals: Yes Pets and animals: cat(s) Sexually active: Yes Do you think of yourself as: straight/heterosexual Current gender identity: female What is your relationship status?: How often do you talk on the phone with friends or family?: three or more times per week How often do you get together with friends or relatives?: three or more times per week Do you belong to any clubs or organized social groups?: yes Panel score (0-1 are the most socially isolated patients): 3 What type of physical activity do you participate in: none Frequency: does not exercise Aida/Synagogue: None Special aida needs: No Seatbelt use: always Helmet use: No Drive intox 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 transit mixer driver: No Do you feel safe at home: Yes Do you feel safe in your relationship?: Yes Female Reproductive History Menstrual Menopause type: surgical History History 4 Para 2 Hx # Term Pregnancies Multiple births Hx # Pregnancies Ectopic pregnancies AB induced Hx Number of Living Children 2 AB spontaneous 2 Time Spent with Patient Time Spent with Patient: <45 minutes Time was spent: preparing to see the patient(eg.review tests), ordering medications,tests, procedures, referring, communicating with other health resident care director, indepentently interpreting results and counseling the patient
--- NOTE | 2022-12-31 17:13 | PDOC.CMDIS ---
Date of service: 12/31/22 Time of Service: 17:15 LACE Index Scoring Tool Questions: Length of Stay (in days): 1 Was the patient admitted via the E.D.?: Yes Comorbidities: Chronic Pulmonary Disease E.D. Visits: 0 Answers: Total Score: 6 Risk of Readmission: Low Risk Care Management Discharge Plan Reason for Hospitalization: Pneumonia Discharge Plan: Jaelyn returned home today with no new services. Her drove her home via private vehicle. She will follow up with her PCP and discharge plan of care. She was happy to be going home. Patient/Family Education Needs: Review discharge instructions and limitations, discussion of self care needs including ask me three.
[2022-12-31 18:54] LABS: Legionella Ag Detection Urine Negative (Negative)
[2023-01-01 16:16] LABS: Streptococcus Pneumoniae Ag, U Negative (Negative)
== END 2022-12-31 16:42 | disposition home or self-care (01) | DRG 202 ==
LOC: ER 22:18 → MS 22:59
PROVIDERS: Internal Medicine; Student in an Organized Health Care Education/Training Program; Admitting Provider General Practice; Emergency Provider Emergency Medicine; PCP Nurse Practitioner Family; Visit Provider General Practice
DX: J45.31 Mild persistent asthma with (acute) exacerbation (principal); J96.01 Acute respiratory failure with hypoxia; E87.21 Acute metabolic acidosis; J20.9 Acute bronchitis, unspecified; F17.210 Nicotine dependence, cigarettes, uncomplicated; I10 Essential (primary) hypertension; E78.5 Hyperlipidemia, unspecified; E05.00 Thyrotoxicosis with diffuse goiter without thyrotoxic crisis or storm; I35.0 Nonrheumatic aortic (valve) stenosis; K21.9 Gastro-esophageal reflux disease without esophagitis; F32.A Depression, unspecified; L30.0 Nummular dermatitis; Z96.651 Presence of right artificial knee joint
CPT/HCPCS: 36415; 80048; 80053; 82805; 84145; 87040; 87449; 87637; 93005; 94618; 96365; 96372; 99285; 71045; 83605; 85025; 87070; 87205; 87899; 93010; 94640; 94667; 94760; 99222; 99239; J0456; J1100; J7613; J7620

== ENCOUNTER 2023-01-11 00:44 | Outpatient (CLI) | payer OTHER, SELFPAY ==
--- NOTE | 2023-01-11 08:10 | DI.MAMMO_ITS ---
Exam(s) MAMMO SCREENING EXAM: MAMMO SCREENING CLINICAL HISTORY: screening,z12.39 TECHNIQUE: Bilateral full field digital CC and MLO mammographic images were obtained with 3D tomosyn thesis and utilizing computer aided detection (CAD). COMPARISON: Available for comparison. FINDINGS: Masses/Architectural Distortion: The nodule in the right breast appears stable. There are biopsy cli ps seen in the right breast. No areas of architectural distortion are seen. Microcalcifications: No suspicious pleomorphic-type are seen. Skin Thickening/Nipple Retraction: None. IMPRESSION: 1. No significant interval change with no specific features of malignancy noted. 2. Unless there is more urgent need, screening mammography is recommended, as per [employer] guidelines. BI-RADS Category 2 - Benign Findings Breast Density - Category B - Scattered areas of fibroglandular density Breast density category C or D implies that the patient has dense breast tissue. Dense breast tissue is very common and is not abnormal but dense breast tissue can make it harder to find cancer on a ma mmogram. Also, dense breast tissue may increase their breast cancer risk. This information about the result of the mammogram report was provided to the patient to raise their awareness. Use this report when you speak with the patient about their risks for breast cancer, which includes their family hist ory. At that time, you may recommend for more screening tests (Ultrasound or MRI) as they might be us eful based on their risk. A negative radiographic report should not delay biopsy if a dominant or clinically suspicious mass is present. Up to ten percent of cancers are not identified on mammography. A negative report may reinforce clinical impression. Adenosis and dense breasts may obscure an underlying neoplasm. False positive reports average 6 to 10%. Patient will receive a letter notifying them of these results.
== END 2023-01-11 01:04 ==
LOC: DI 00:44
PROVIDERS: PCP Nurse Practitioner Family; Visit Provider Nurse Practitioner Family
DX: Z12.31 Encounter for screening mammogram for malignant neoplasm of breast (principal)
CPT/HCPCS: 77063; 77067

== ENCOUNTER 2023-02-01 12:22 | Inpatient (IN) | payer OTHER, SELFPAY ==
[2023-02-01] VITALS (26 sets, daily range): BP systolic 75–166; BP diastolic 43–96; PULSE 88–110; RESP 17–33; TEMP 36.5–37; O2SAT 91–100
--- NOTE | 2023-02-01 12:30 | RT.EKG_ITS ---
APPROVED REPORT Exam: Resting ECG Reason for Exam: Dizziness Patient Location: E HR:95 bpm ECG Measurements Heart Rate 95 AXIS NE 129 P 77 QRSd 92 QRS 38 QT 402 T 120 QTc 507 Conclusion Sinus rhythm...normal P axis, V-rate 60- 99 Probable left atrial enlargement...P >50mS, <-0.10mV V1 Anteroseptal infarct, age indeterminate...Q >35mS, T neg, V1-V2 Abnormal T, consider ischemia, lateral leads...T <-0.20mV, I aVL V5 V6 sinus rhythm, normal axis, normal intervals, t wave inversions V1 V2, consider lateral st segment dep ressions
[2023-02-01] MEDS: Albuterol/Ipratropium 3 ML UPD VIAL UPD ×2 (14:27→16:10)
[2023-02-01] MEDS: LORazepam 2 MG/ML VIAL 0.5 MG IVP (14:27)
[2023-02-01 14:31] LABS: Abs Immature Grans 0.05 10^3/uL (0.0-0.06); Absolute Basophil Count 0.03 10^3/uL (0.0-0.2); Absolute Monocyte Count 0.12 10^3/uL (0.1-0.8); Absolute Neutrophil Count 9.29 10^3/uL (1.2-6.7); Basophils % 0.3; HCT 44.4 % (36.0-46.0); HGB 14.9 g/dL (11.2-15.7); Immature Grans % 0.5; Lymphocytes % 6.9; MCHC 33.6 % (32.0-36.0); MCV 93 fL (80-95); Monocytes % 1.2; Neutrophils % 91.1; Platelet Count 220 10^3/uL (130-400); RDW-SD 47.8 fL; WBC 10.19 10^3/uL (4.4-10.8)
[2023-02-01 14:58] LABS: ALT 27 U/L (14-59); AST 17 U/L (15-37); Albumin 3.5 g/dL (3.4-5.0); Alkaline Phosphatase 97 U/L (46-116); Anion Gap 10.8 mmol/L (3-11); BUN 9 mg/dL (7-18); Bilirubin, Total 0.6 mg/dL (0.2-1.0); CO2 26.2 mmol/L (21.0-32.0); CREATININE 0.8 mg/dL (0.55-1.02); Calcium 9.8 mg/dL (8.5-10.1); Chloride 106 mmol/L (98-107); Estimated GFR 84.82 (mL/min/1.73m2); Glucose 130 mg/dL (74-106); NT-proBNP 2694 pg/mL (<300); Potassium 4.3 mmol/L (3.5-5.1); Sodium 143 mmol/L (136-145); Total Protein 7.2 g/dL (6.4-8.2)
[2023-02-01 15:00] LABS: D-Dimer 491 ng/mlFEU (<500); Troponin I 106 ng/L (<or=60)
--- NOTE | 2023-02-01 15:00 | DI.CT_ITS ---
Exam(s) CT CHEST PE CTA EXAM: CT CHEST PE CTA CLINICAL HISTORY: Shortness of breath. TECHNIQUE: Imaging Protocol: CT angiography of the chest was performed using pulmonary embolus nigel col. Multi planar reconstructions were performed. CONTRAST MATERIAL: Intravenous: Omnipaque 350 Contrast volume: 100 cc COMPARISON: CT CT CHEST LUNG CANCER SCREEN from 01/08/2022 FINDINGS: CHEST: PULMONARY ARTERIES: There are no intraluminal filling defects to suggest acute pulmonary emboli. LUNGS: There are no infiltrates nor evidence of pulmonary infarction.. Two small calcified granulomas are noted in the lung gardner. There are no ominous pulmonary nodules. No pleural effusions. MEDIASTINUM: There is no hilar nor mediastinal adenopathy. Visualized thyroid unremarkable. CARDIAC: Heart size is upper normal. There is no pericardial effusion.Caliber of the thoracic aorta is within normal limits. No evidence of aortic dissection. There is no significant shift of the inte rventricular septum. PARTIALLY VISUALIZED UPPERMOST ABDOMEN: No obvious findings OSSEOUS: No significant osseous lesions.. IMPRESSION: 1. No evidence of acute pulmonary emboli. No evidence of pulmonary infarction.No infiltrates. No pl eural effusions. No intrathoracic adenopathy. 2. No evidence of aortic dissection nor pericardial effusion. No evidence of right heart strain. Called by myself to ER physician. RADIATION DOSE DELIVERED: 390.77mGy.cm Total DLP DATA REPOSITORY: All CT scans at this facility are submitted to the National Radiology Data Registry (NRDR) Dose Index Registry (DIR) with the [employer] [place] [employer] (A[employer]). RADIATION OPTIMIZATION: All CT scans at this facility use at least one of these dose optimization te chniques: automated exposure control; mA and/or kV adjustment per patient size (includes targeted exa ms where dose is matched to clinical indication); or iterative reconstruction.
--- NOTE | 2023-02-01 15:19 | ED.GENADUL_ITS ---
Discharge Plan Discharge Details Chief Complaint: SOB Primary Care Provider: Racquel Fraser ED Provider: Ugo Carpenter Home Meds and New Rx's Prescriptions: No Action nicotine (polacrilex) [Nicorette] 4 mg gum 4 mg buccal Q4H PRN (Reason: nicotine cravings) losartan 100 mg tablet 100 mg PO DAILY Qty: 90 3RF rosuvastatin 10 mg tablet 10 mg PO DAILY Qty: 90 3RF triamcinolone acetonide 60 ML lotion 1 flower Topical BID PRNQty: 3 albuterol sulfate 90 mcg/actuation HFA aerosol inhaler 1 - 2 puff Inhalation Q4H PRN Qty: 8.5 6RF ipratropium-albuterol 0.5 mg-3 mg(2.5 mg base)/3 mL solution for nebulization 3 ml UPD QID PRN (Reason: shortness of breath or wheezing) Qty: 90 3RF budesonide-formoterol [Symbicort] 160-4.5 mcg/actuation Hfa Aerosol Inhaler 2 puff inhalation BID Qty: 10.2 0RF Inhaler, Assist Devices [Pocket Chamber] 1 ea miscellaneous DIRECTED Qty: 0 0RF Medical Decision Making Patient presenting to the emergency department for chief complaint of shortness of breath. Patient reports over the last 2 to 3 days she has had increasing shortness of breath. She is called the ambulance a couple times and after receiving a nebulizer treatment she has felt better and decided not to come to the hospital. Today she had worsening symptoms including some dizziness lightheadedness and some anxiety. Patient denies any fever chills, intermittent chest pressure but denies any irregular heartbeats chest pain, denies abdominal pain nausea vomiting or other symptoms. Physical exam shows an anxious female patient with diffuse bilateral expiratory wheezing and prolonged expiration. Exam is otherwise unremarkable. Patient has significant past medical history of asthma with intermittent exacerbation, hypertension, hyperlipidemia, aortic regurg seen by echo only which I did not appreciate a murmur today, daily cigarette use. Patient does state that she used her albuterol and Symbicort today but these did not seem to help her symptoms. We will plan on checking patient's labs, giving DuoNeb and small amount of Ativan, EKG and chest imaging. Please see physician interpretation for full interpretation of EKG. On my review patient does not meet criteria for acute STEMI. There are some abnormalities but are nondiagnostic. Patient is in sinus rhythm. Reviewed labs and CBC is overall nondiagnostic, D-dimer 491, CMP shows only slightly elevated glucose of 130 otherwise all labs within normal range. Troponin is elevated at 104 and BNP at 2694. Given shortness of breath with near syncope and elevated BNP along with troponin will perform chest CT to rule out PE. We will also perform 3-hour troponin. Reassessed patient after CAT scan read pending results and patient does have improvement with clear lung sounds in the upper gardner but more fluids still showing moderate amount of wheezing. Will give additional DuoNeb pending results. Lab Data Lab results reviewed: Yes I reviewed the patient's lab results. HPI General Mode of arrival: ambulatory . Date/Time Provider Initiated Documentation: 02/01/23 12:38 . Limitations to Documentation: no limitations . Information obtained by: patient, family and RN notes reviewed . History of Present Illness 57 year old F presents to the emergency department with the chief complaint of Shortness of breath, described as moderate and severe, Patient started experiencing this day(s) (3) and it has been constant. No relieving factors improve symptom(s), Other factors that worsen symptoms (Activity) . Patient did receive the following treatments prior to arrival, other (Has been using normal inhalers) Related Data Home Medications Medication Instructions Recorded Confirmed triamcinolone acetonide 0.1 % 1 flower topical BID PRN ##3 05/02/16 02/01/23 lotion albuterol sulfate 90 mcg/actuation 1 - 2 puff inhalation Q4H PRN #8.5 11/23/22 02/01/23 aerosol inhaler grams rosuvastatin 10 mg tablet 10 mg PO DAILY #90 tabs 12/19/22 02/01/23 Inhaler, Assist Devices [Pocket 1 ea miscellaneous DIRECTED ##0 12/31/22 01/25/23 Chamber] budesonide-formoterol HFA 160 2 puff inhalation BID #10.2 grams 12/31/22 02/01/23 mcg-4.5 mcg/actuation aerosol inhaler (Symbicort) ipratropium 0.5 mg-albuterol 3 mg 3 ml UPD QID PRN shortness of 07/28/23 08/18/23 (2.5 mg base)/3 mL nebulization breath or wheezing #90 mL soln losartan 100 mg tablet 100 mg PO DAILY #90 tabs 01/25/23 02/01/23 nicotine (polacrilex) 4 mg gum 4 mg buccal Q4H PRN nicotine 01/25/23 02/01/23 (Nicorette) cravings Previous Rx's Medication Instructions Recorded albuterol sulfate 90 mcg/actuation 1 - 2 puff inhalation Q4H PRN #8.5 11/23/22 aerosol inhaler grams rosuvastatin 10 mg tablet 10 mg PO DAILY #90 tabs 12/19/22 Inhaler, Assist Devices [Pocket 1 ea miscellaneous DIRECTED ##0 12/31/22 Chamber] budesonide-formoterol HFA 160 2 puff inhalation BID #10.2 grams 12/31/22 mcg-4.5 mcg/actuation aerosol inhaler (Symbicort) ipratropium 0.5 mg-albuterol 3 mg 3 ml UPD QID PRN shortness of 01/11/23 (2.5 mg base)/3 mL nebulization breath or wheezing #90 mL soln losartan 100 mg tablet 100 mg PO DAILY #90 tabs 01/25/23 Allergies Allergy/AdvReac Type Severity Reaction Status Date / Time amlodipine AdvReac Mild lower Uncoded 02/01/23 12:34 extremity swelling General Stated Complaint: SOB JOSE JUAN: 3 Review of Systems Constitutional Constitutional: Denies chills, Denies fever(s) and Denies malaise Cardiovascular Cardiovascular: Reports as per HPI, Reports chest pain (Intermittent tightness), Denies chest pain with activity, Denies syncope, Denies irregular heart rhythm, Reports lightheadedness, Denies palpitations, Reports dyspnea and Reports dyspnea on exertion Respiratory Respiratory: Reports as per HPI, Denies cough, Denies hemoptysis, Reports dyspnea and Reports dyspnea on exertion Gastrointestinal Gastrointestinal: Denies abdominal pain, Denies nausea and Denies vomiting Neurologic Neurologic: Denies syncope Psychiatric Psychiatric: Denies anxiety Endocrine Endocrine: Denies cold intolerance, Denies heat intolerance and Denies palp itations PFSH All Active Problems Asthma (Chronic) Asthma exacerbation (Chronic) Essential hypertension (Chronic) History of Graves' disease (Chronic) Hyperlipidemia (Chronic) Aortic regurgitation (Chronic) Moderate on stress echo 02/02 Osteoarthritis (Chronic) Cigarette smoker (Chronic) Annual LDCT paused d/t cost Nummular dermatitis (Chronic) Medical History Depressive disorder GERD (gastroesophageal reflux disease) Graves disease Respiratory failure with hypoxia Surgical History S/P abdominal hysterectomy For abnormal uterine bleeding S/P appendectomy S/P bilateral salpingo-oophorectomy S/P dilation and curettage S/P left knee arthroscopy (05/04/10) With partial medial and lateral meniscectomy S/P lumpectomy, right breast (~1993) S/P right knee arthroscopy (02/20/10) With partial medial meniscectomy Status post right knee replacement (01/20/19) Family History Mother , at 77 Asthma Hypertension COPD (chronic obstructive pulmonary disease) Father , at 79 Parkinson disease Graves disease Hypertension Depression Suicide attempt Sister No problems noted. Sister , at 44 of metastatic bone cancer Metastatic bone cancer Brother , at 60 of pancreatic cancer Pancreatic cancer Diabetes Depression COPD (chronic obstructive pulmonary disease) Brother Alcohol abuse Son No problems noted. Daughter No problems noted. Maternal Grandfather Heart disease [place] Maternal Grandmother Brain cancer Paternal Grandfather No problems noted. Paternal Grandmother No problems noted. Brother , age 28 - MVA No problems noted. Social History Smoking/Tobacco Use Status: Current every day Tobacco Type: cigarettes Tobacco: How many years used: 40 Quit status: considering quitting Counseling given: provider counseling Smoking risk assessment performed?: Yes Alcohol Intake: current Alcohol Intake frequency: a few times a week Alcohol type: beer Drug use: Never Substance use type: does not use Counseling given: No Counseling provided: none Caregiver/Support person: No Household members: spouse Housing: house Pets and animals: Yes Pets and animals: cat(s) Sexually active: Yes Do you think of yourself as: straight/heterosexual Current gender identity: female What is your relationship status?: How often do you talk on the phone with friends or family?: three or more times per week How often do you get together with friends or relatives?: three or more times per week Do you belong to any clubs or organized social groups?: yes Panel score (0-1 are the most socially isolated patients): 3 What type of physical activity do you participate in: none Frequency: does not exercise Aida/Restoration: None Special aida needs: No Seatbelt use: always Helmet use: No Drive intox 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 route driver salesperson: No Do you feel safe at home: Yes Do you feel safe in your relationship?: Yes Female Reproductive History Menstrual Menopause type: surgical History History 4 Para 2 Hx # Term Pregnancies Multiple births Hx # Pregnancies Ectopic pregnancies AB induced Hx Number of Living Children 2 AB spontaneous 2 Exam Const General: cooperative, healthy appearing, comfortable, no acute distress, anxious, not diaphoretic and not ill appearing Orientation: alert, awake and oriented x3 Limitations: mental status not altered Neck Neck: normal visual inspection, full ROM, trachea midline, supple and no anterior neck swelling Carotids: normal carotid upstroke and no bruits Chest Chest: normal inspection of the chest Resp Effort & Inspection: normal respiratory effort and able to speak in complete sentences Auscultation: abnormal I/E ratio (Prolonged expiration) and wheezes expiratory wheezes Cardio Jugular venous pressure: no JVD Palpation: normal PMI Rate: tachycardic Rhythm: regular rhythm Heart Sounds: S1 normal, S2 normal, no click, no gallops, no murmurs and no rubs Bruits: no abdominal aortic bruits and no carotid bruits Pulses: radial pulses present bilaterally 2+ Skin General skin exam: no rashes or lesions noted Neuro General: patient alert, patient awake, patient oriented x3, tone normal and moves all extremities Course Vital Signs Vital signs: Vital Signs Temperature 37.0 C 02/01/23 12:30 Pulse 110 H 02/01/23 12:30 Respiratory Rate 18 02/01/23 12:30 Blood Pressure 166/74 H 02/01/23 12:30 Pulse Oximetry 98 02/01/23 12:30 Temperature 37.0 C 02/01/23 12:30 Temperature Source Skin 02/01/23 12:30 Pulse 110 H 08/18/23 12:30 Respiratory Rate 20 02/01/23 14:28 Respiratory Effort Normal 02/01/23 14:28 Respiratory Depth Normal 02/01/23 14:28 Respiratory Pattern Normal 02/01/23 14:28 Blood Pressure 166/74 H 02/01/23 12:30 Blood Pressure Position Sitting 02/01/23 12:30 Pulse Oximetry 98 02/01/23 12:30 Pain Level 0 02/01/23 12:30 Lab/Test Results Lab/Test Results: Laboratory Tests Range/Units 02/01/23 02/01/23 02/01/23 14:20 14:20 14:20 WBC (4.4-10.8) 10^3/uL 10.19 RBC (3.93-5.22) 10^6/uL 4.80 Hgb (11.2-15.7) g/dL 14.9 Hct (36.0-46.0) % 44.4 MCV (80-95) fL 93 MCH (27.0-33.0) pg 31.0 MCHC (32.0-36.0) % 33.6 RDW (11.7-14.6) % 14.0 Plt Count (130-400) 10^3/uL 220 MPV (8.0-11.0) fL 10.0 Immature Gran % 0.5 Neutrophils % 91.1 Lymphocytes % 6.9 Monocytes % 1.2 Eosinophils % 0.0 Basophils % 0.3 Nucleated RBC % (0.0-0.3) % 0.0 Absolute Neutrophils (1.2-6.7) 10^3/uL 9.29 H Absolute Lymphocytes (1.2-3.4) 10^3/uL 0.70 L Absolute Monocytes (0.1-0.8) 10^3/uL 0.12 Absolute Eosinophils (0.0-0.7) 10^3/uL 0.00 Absolute Basophils (0.0-0.2) 10^3/uL 0.03 D-Dimer (<500) ng/mlFEU 491 Sodium (136-145) mmol/L 143 Potassium (3.5-5.1) mmol/L 4.3 Chloride (98-107) mmol/L 106 Carbon Dioxide (21.0-32.0) mmol/L 26.2 Anion Gap (3-11) mmol/L 10.8 BUN (7-18) mg/dL 9 Creatinine (0.55-1.02) mg/dL 0.8 Est GFR (CKD-EPI 2020) (mL/min/1.73m2) 84.82 Glucose (74-106) mg/dL 130 H Calcium (8.5-10.1) mg/dL 9.8 Magnesium (1.8-2.4) mg/dL 2.0 Total Bilirubin (0.2-1.0) mg/dL 0.6 AST (15-37) U/L 17 ALT (14-59) U/L 27 Alkaline Phosphatase (46-116) U/L 97 Troponin I (<or=60) ng/L 106 H* NT-Pro-B Natriuret Pep (<300) pg/mL 2694 H Total Protein (6.4-8.2) g/dL 7.2 Albumin (3.4-5.0) g/dL 3.5 Sign Out Sign Out Data: Sign Out Comment: Patient pending CTA PE study, COVID, and repeat troponin. Chief working diagnosis of acute asthma exacerbation Last updated by Ugo Carpenter NP at 02/01/23 15:57
[2023-02-01] MEDS: Omnipaque 350 MG/ML 100 ML BTL IJ (15:45)
[2023-02-01] MEDS: Normal Saline - Diluent 50 ML VIAL IJ (15:46)
[2023-02-01] MEDS: Normal Saline Flush 10 ML SYR IVP (15:47)
--- NOTE | 2023-02-01 16:01 | W.EDPROG ---
Date of service: 02/01/23 Time of Service: 16:02 Medical Decision Making I received signout on this 57-year-old female with a history of asthma and aortic regurgitation in the emergency department in the setting of shortness of breath. She had a positive troponin. She is not having chest pain with her shortness of breath which improved following nebulization treatment. I received a call from radiology and her CT chest was negative for PE. I have ordered her a steroid and waiting on her repeat troponin which is due in an hour and 15 minutes. We will reassess the patient and update documentation later this shift. 4:37 PM COVID flu influenza negative. 5:40 PM Troponin down trended in the ED. We will have health ammunition components inspector Traci arrange for outpatient follow-up with the patient within the week by her primary care provider as she will likely benefit from a stress test in the setting of her myocardial injury. In evaluating her ECG she does have new significant lateral T wave inversions so we will touch base with cardiology at [facility] [place] to determine whether stress versus left heart cath is most appropriate. 6:15 PM I spoke with cardiology, Dr. Johny Sofia at [facility] [place]. He too was concerned about the patient's risk factors ECG changes and NSTEMI which could either be type I versus type II. We will treat with aspirin. We will follow-up with cardiology concerning heparinization and clopidogrel. 6:25 PM Cardiology from [facility] [place] advised heparin, clopidogrel 600 mg and aspirin. I spoke with Dr. García who agreed graciously to accept the patient for hospitalization. We will provide patient with a heart healthy diet now and make patient n.p.o. at midnight. I placed bridging orders on the patient. 7:15 PM I am still waiting to hear back on the attending from [facility] [place]. 7:47 PM I heard back from [facility] [place] and patient will be accepted in transfer tomorrow, 02/[address] Taylor Ambrosio. Sign Out Sign Out Data: Sign Out Comment: Patient pending CTA PE study, COVID, and repeat troponin. Chief working diagnosis of acute asthma exacerbation Last updated by Ugo Carpenter NP at 02/01/23 15:57 Discharge Plan Disposition Patient Disposition: Admit to [facility] Discharge Details Clinical Impression: Exacerbation of reactive airway disease, Myocardial injury, Non-ST elevation [place] (NSTEMI) Admit Date/Time: 02/01/23 18:26 Admit Provider: Grady García Attending Provider: Grady García Primary Care Provider: Racquel Fraser ED Provider: Dorian Caba
[2023-02-01] MEDS: Dexamethasone 4 MG TAB 10 MG PO (16:10)
[2023-02-01 16:31] LABS: COVID-19 PCR Negative (Negative); Influenza A PCR Negative (Negative); Influenza B PCR Negative (Negative); RSV PCR Negative (Negative)
[2023-02-01 16:35] LABS: Source Nasopharynx
[2023-02-01 17:33] LABS: Troponin I 77 ng/L (<or=60)
--- NOTE | 2023-02-01 17:50 | NUR.NOTE ---
Nursing Note: PT needs follow up with PCP in one week for stress test/NSTEMI. Le[place], ED
[2023-02-01] MEDS: Aspirin 325 MG TAB PO (18:32)
[2023-02-01] MEDS: Heparin in 0.45% NaCl 25,000 UNIT/250 ML BAG 10 UNIT IV (18:55)
[2023-02-01] MEDS: Clopidogrel 300 MG TAB 600 MG PO (18:57)
[2023-02-01 19:12] LABS: PTT Activated 32.5 sec (21.5-31.9)
--- NOTE | 2023-02-01 21:17 | HPE_ITS ---
Date of service: 02/01/23 Time of Service: 21:17 Assessment and Plan Assessment and plan (1) Non-ST elevation HI (NSTEMI): Start date: 02/01/23 Status: Acute Assessment and plan: This is a 57-year-old lady with exertional chest discomfort and shortness of patricia ath which has been worsening recently with a history of COPD and tobacco weaning. She has elevated troponin upon mission with second measurement slightly decreasing. With her risk factors and new T wave inversions laterally on EKG, she was admitted for IV heparinization as below with Plavix and aspirin. We will continue to trend troponins and continue cardiac monitoring with patient having short burst of wide-complex tachycardia with a normal magnesium. She also has an elevated BNP which may be secondary to her chronic smoking and COPD. Echocardiogram will need to be updated but cardiac catheterization will get some information on patient's ventricular function at least on the left side . She is presently symptom-free with rest but if has recurrent chest pressures she has had questions sublingually. She will be observed on heparin infusion with cardiac monitoring with plans for transfer to [facility] once bed available in the morning under Dr. Ambrosio service to proceed with cardiac catheterization. She is a full code. (2) Essential hypertension: Status: Chronic Assessment and plan: Patient is currently on losartan which will be half to 50 mg daily and metoprolol 12.5 mg every 8 hours will be initiated for slightly elevated heart rate in the ED and acute non-STEMI. (3) Hyperlipidemia: Status: Chronic Assessment and plan: Lipitor 80 mg will be given tonight and continue daily. Hold Crestor for now. (4) COPD (chronic obstructive pulmonary disease): Status: Chronic Assessment and plan: Continue inhaler therapy while hospitalized. Patient will not be given nicotine with her non-STEMI and not appearing to have significant nicotine withdrawal at this time. (5) Depressive disorder: Assessment and plan: Not on medical therapy with acute distress consider treatment. Patient did receive Ativan in the ED. Patient was more anxious in the ED. History of Present Illness History of Present Illness Chief Complaint: Shortness of breath with exertional chest tightness Narrative: This is a 57-year-old female patient who has daily tobacco use trying to wean and COPD on inhalers who has had episodes of worsening shortness of breath especially with exertion over the last 2 to 3 days and had called the ambulance service several times receiving nebulizers and not being transferred. The day of admission patient had exertional shortness of breath with lightheadedness and dizziness as well as chest tightness which worsened with her housework, was reli eved by rest and then again occurred when she tried to do housework. She was brought to the ED and found to have new T wave inversions and her lateral leads on EKG and an elevated troponin though the second measurement was decreasing. CT of the chest was negative for PE but because of her risk factors and exertional symptoms along with T wave changes on her EKG, she was admitted for non-STEMI and initiated on heparin infusion being loaded with aspirin and Plavix. She is chronically on Crestor for hyperlipidemia. She does have hypertension. She does smoke tobacco and has COPD with asthma. She did have a stress echo in 2019 which revealed moderate aortic insufficiency with no mention of previous angina pectoris or cardiac catheterization. At the time I saw the patient she was symptom-free and her only other complaints were occasional stabbing pains in her left abdomen which was not associate with bowel movements or eating. She had no associated nausea or vomiting and no diaphoresis with her exertional symptoms. There is no radiation of her discomfort. She is a full code. Patient was admitted for close cardiac monitoring on heparin infusion with plans for transfer to [facility] under Dr. Ambrosio's service tomorrow for cardiac catheterization. She will be n.p.o. after midnight. Review of Systems Narrative: 13 point review of systems otherwise unrevealing or stable. PFSH All Active Problems COPD (chronic obstructive pulmonary disease) (Chronic) Exacerbation of reactive airway disease (Acute) Myocardial injury (Acute) Non-ST elevation HI (NSTEMI) (Acute) Asthma (Chronic) Asthma exacerbation (Chronic) Essential hypertension (Chronic) History of Graves' disease (Chronic) Hyperlipidemia (Chronic) Aortic regurgitation (Chronic) Moderate on stress echo 02/02 Osteoarthritis (Chronic) Cigarette smoker (Chronic) Annual LDCT paused d/t cost Nummular dermatitis (Chronic) Medical History Depressive disorder GERD (gastroesophageal reflux disease) Graves disease Respiratory failure with hypoxia Surgical History S/P abdominal hysterectomy For abnormal uterine bleeding S/P appendectomy S/P bilateral salpingo-oophorectomy S/P dilation and curettage S/P left knee arthroscopy (05/04/10) With partial medial and lateral meniscectomy S/P lumpectomy, right breast (~1993) S/P right knee arthroscopy (02/20/10) With partial medial meniscectomy Status post right knee replacement (01/20/19) Family History Mother , at 77 Asthma Hypertension COPD (chronic obstructive pulmonary disease) Father , at 79 Parkinson disease Graves disease Hypertension Depression Suicide attempt Sister No problems noted. Sister , at 44 of metastatic bone cancer Metastatic bone cancer Brother , at 60 of pancreatic cancer Pancreatic cancer Diabetes Depression COPD (chronic obstructive pulmonary disease) Brother Alcohol abuse Son No problems noted. Daughter No problems noted. Maternal Grandfather Heart disease [place] Maternal Grandmother Brain cancer Paternal Grandfather No problems noted. Paternal Grandmother No problems noted. Brother , age 28 - MVA No problems noted. Social History Smoking/Tobacco Use Status: Current every day Tobacco Type: cigarettes Tobacco: How many years used: 40 Quit status: considering quitting Counseling given: provider counseling Smoking risk assessment performed?: Yes Alcohol Intake: current Alcohol Intake frequency: a few times a week Alcohol type: beer Drug use: Never Substance use type: does not use Counseling given: No Counseling provided: none Caregiver/Support person: No Household members: spouse Housing: house Pets and animals: Yes Pets and animals: cat(s) Sexually active: Yes Do you think of yourself as: straight/heterosexual Current gender identity: female What is your relationship status?: How often do you talk on the phone with friends or family?: three or more times per week How often do you get together with friends or relatives?: three or more times per week Do you belong to any clubs or organized social groups?: yes Panel score (0-1 are the most socially isolated patients): 3 What type of physical activity do you participate in: none Frequency: does not exercise Aida/Catholic: None Special aida needs: No Seatbelt use: always Helmet use: No Drive intox 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 straight truck driver: No Do you feel safe at home: Yes Do you feel safe in your relationship?: Yes Female Reproductive History Menstrual Menopause type: surgical History History 4 Para 2 Hx # Term Pregnancies Multiple births Hx # Pregnancies Ectopic pregnancies AB induced Hx Number of Living Children 2 AB spontaneous 2 Meds Allergies and Home Medications Allergies Allergy/AdvReac Type Severity Reaction Status Date / Time amlodipine AdvReac Mild lower Uncoded 02/01/23 12:34 extremity swelling Home Medications Medication Instructions Recorded Confirmed Type triamcinolone acetonide 0.1 % 1 flower topical BID PRN ##3 05/02/16 02/01/23 History lotion albuterol sulfate 90 mcg/actuation 1 - 2 puff inhalation Q4H PRN #8.5 11/23/22 02/01/23 Rx aerosol inhaler grams rosuvastatin 10 mg tablet 10 mg PO DAILY #90 tabs 12/19/22 02/01/23 Rx Inhaler, Assist Devices [Pocket 1 ea miscellaneous DIRECTED ##0 12/31/22 01/25/23 Rx Chamber] budesonide-formoterol HFA 160 2 puff inhalation BID #10.2 grams 12/31/22 02/01/23 Rx mcg-4.5 mcg/actuation aerosol inhaler (Symbicort) ipratropium 0.5 mg-albuterol 3 mg 3 ml UPD QID PRN shortness of 01/11/23 02/01/23 Rx (2.5 mg base)/3 mL nebulization breath or wheezing #90 mL soln losartan 100 mg tablet 100 mg PO DAILY #90 tabs 01/25/23 02/01/23 Rx nicotine (polacrilex) 4 mg gum 4 mg buccal Q4H PRN nicotine 01/25/23 02/01/23 Hi story (Nicorette) cravings doxycycline hyclate 100 mg capsule 100 mg PO BID 5 days #10 caps 02/01/23 Rx prednisone 50 mg tablet 50 mg PO DAILY #5 tabs 02/01/23 Rx Exam Narrative Exam Narrative: General: Patient appears appropriate for age, moderately obese, alert and oriented x3 and in no acute distress. HEENT: Normocephalic, eyes with pupils equal and react to light symmetrically, extraocular movement intact and sclera anicteric. Oropharynx with moist mucosa. Neck: Supple without JVD. Back: Slightly kyphotic without CVA tenderness. Lungs: Decreased aeration with bronchovesicular breath sounds diffusely, no focalizing rales or rhonchi. No expiratory wheezing. Breast: Exam deferred. Heart: Regular rate and rhythm with no appreciable murmur or gallop. 3/6 decrescendo early diastolic murmur left sternal border. environmental monitoring technician reveals normal sinus rhythm with 1 episode of 8 beat wide-complex tachycardia which. Slightly irregular. (Patient's magnesium is normal). Abdomen: Protuberant and obese contour, soft and nontender to palpation with no palpable hepatosplenomegaly. Bowel sounds positive all quadrants. Genitalia/rectal: Exam deferred. Extremities: Without clubbing, cyanosis or pitting edema. Good capillary refill. Joints have fair range of motion. Skin: Normal color, warm and dry. Neuro: Cranial nerves II through XII gross intact, no focal motor deficits and no tremor. Psych: Normal affect and mood. No abnormal thought processes. Remote and recent memory grossly intact. Results Imaging Imaging Studies: EXAM: ? CT CHEST PE CTA CLINICAL HISTORY: ? Shortness of breath. ? TECHNIQUE:? Imaging Protocol: CT angiography of the chest was performed using pulmonary embolus protocol.? Multi planar reconstructions were performed. CONTRAST MATERIAL:? Intravenous: Omnipaque 350 Contrast volume: 100 cc COMPARISON:? CT CT CHEST LUNG CANCER SCREEN from 01/08/2022 FINDINGS: CHEST: PULMONARY ARTERIES: There are no intraluminal filling defects to suggest acute pulmonary emboli. LUNGS: There are no infiltrates nor evidence of pulmonary infarction.. Two small calcified granulomas are noted in the lung gardner.? There are no ominous pulmonary nodules.? No pleural effusions. MEDIASTINUM: There is no hilar nor mediastinal adenopathy. Visualized thyroid unremarkable. CARDIAC: Heart size is upper normal.? There is no pericardial effusion.Caliber of the thoracic aorta is within normal limits. No evidence of aortic dissection.? There is no significant shift of the interventricular septum. PARTIALLY VISUALIZED UPPERMOST ABDOMEN: No obvious findings OSSEOUS: No significant osseous lesions.. IMPRESSION: 1. No evidence of acute pulmonary emboli.? No evidence of pulmonary infarction.No infiltrates.? No pleural effusions.? No intrathoracic adenopathy. 2. No evidence of aortic dissection nor pericardial effusion.? No evidence of right heart strain. Labs 02/01/23 14:20 02/01/23 14:20 Labs: Laboratory Results - last 24 hr 02/01/23 02/01/23 02/01/23 14:20 14:20 14:20 WBC 10.19 RBC 4.80 Hgb 14.9 Hct 44.4 MCV 93 MCH 31.0 MCHC 33.6 RDW 14.0 Plt Count 220 MPV 10.0 Immature Gran % 0.5 Neutrophils % 91.1 Lymphocytes % 6.9 Monocytes % 1.2 Eosinophils % 0.0 Basophils % 0.3 Nucleated RBC % 0.0 Absolute Neutrophils 9.29 H Absolute Lymphocytes 0.70 L Absolute Monocytes 0.12 Absolute Eosinophils 0.00 Absolute Basophils 0.03 APTT D-Dimer 491 Sodium 143 Potassium 4.3 Chloride 106 Carbon Dioxide 26.2 Anion Gap 10.8 BUN 9 Creatinine 0.8 Est GFR (CKD-EPI 2020) 84.82 Glucose 130 H Calcium 9.8 Magnesium 2.0 Total Bilirubin 0.6 AST 17 ALT 27 Alkaline Phosphatase 97 Troponin I 106 H* NT-Pro-B Natriuret Pep 2694 H Total Protein 7.2 Albumin 3.5 COVID-19 Source SARS-CoV-2 (PCR) Influenza Type A (PCR) Influenza Type B (PCR) RSV (PCR) 02/01/23 02/01/23 02/01/23 15:46 17:09 18:52 WBC RBC Hgb Hct MCV MCH MCHC RDW Plt Count MPV Immature Gran % Neutrophils % Lymphocytes % Monocytes % Eosinophils % Basophils % Nucleated RBC % Absolute Neutrophils Absolute Lymphocytes Absolute Monocytes Absolute Eosinophils Absolute Basophils APTT 32.5 H D-Dimer Sodium Potassium Chloride Carbon Dioxide Anion Gap BUN Creatinine Est GFR (CKD-EPI 2020) Glucose Calcium Magnesium Total Bilirubin AST ALT Alkaline Phosphatase Troponin I 77 H* NT-Pro-B Natriuret Pep Total Protein Albumin COVID-19 Source Nasopharynx SARS-CoV-2 (PCR) Negative Influenza Type A (PCR) Negative Influenza Type B (PCR) Negative RSV (PCR) Negative Last Vital Signs Temp 36.5 C 02/01/23 21:14 Pulse 91 H 02/01/23 21:14 Resp 22 02/01/23 21:14 BP 132/73 02/01/23 21:14 Pulse Ox 100 02/01/23 21:14 PAWSS Have you Been Recently Intoxicated or Drunk Within the Last 30 days?: No Have you Ever Experienced Previous Episodes of Alcohol Withdrawal?: No Have you ever Experienced Withdrawal Seizures?: No Have you ever Experienced Delirium Tremens(DT)s?: No Have you ever undergone Alcohol Rehabilitation Treatment (i.e, inpt ot outpatient treatment programs)?: No Have you ever Experienced Blackouts?: No Have you ever Combined Alcohol with other Downers within the last 90 days?: No Have you ever Combined Alcohol with any other Substance of Abuse during the last 90 days?: No Positive Blood Alcohol level on Presentation? [PCS.BAL]: No Evidence of Increased Autonomic Activity (i.e. HR>120, tremor, sweating, agitation, nausea)?: No Result: 0 Time Spent Time spent with Patient: >75 minutes Time was spent: preparing to see the patient(eg.review tests), obtaining and/or reviewing separately otained hiistory, ordering medications,tests, procedures, referring, communicating with other health care management coordinator, indepentently interpreting results and care coordination
[2023-02-01] MEDS: Metoprolol 12.5 MG TAB PO (21:53)
[2023-02-01] MEDS: Atorvastatin 40 MG TAB 80 MG PO (21:54)
[2023-02-01 21:57] LABS: TSH (W/Ref FT4) 0.27 uIU/mL (0.36-3.74)
[2023-02-01 22:14] LABS: FREE T4 1.18 ng/dL (0.76-1.46)
[2023-02-02] VITALS (21 sets, daily range): BP systolic 127–145; BP diastolic 65–79; PULSE 76–98; RESP 1–24; TEMP 36–36.9; O2SAT 94–99
[2023-02-02 02:06] LABS: PTT Activated 37.2 sec (21.5-31.9)
[2023-02-02] MEDS: Albuterol/Ipratropium 3 ML UPD VIAL UPD ×2 (05:30→11:39)
[2023-02-02] MEDS: Metoprolol 12.5 MG TAB PO ×3 (06:24→21:32)
[2023-02-02 07:03] LABS: HCT 39.8 % (36.0-46.0); HGB 13.4 g/dL (11.2-15.7); MCHC 33.7 % (32.0-36.0); MCV 92 fL (80-95); MPV 10.4 fL (8.0-11.0); Platelet Count 213 10^3/uL (130-400); RBC 4.32 10^6/uL (3.93-5.22)
[2023-02-02 07:14] LABS: PTT Activated 52.1 sec (21.5-31.9)
--- NOTE | 2023-02-02 07:15 | RT.EKG_ITS ---
APPROVED REPORT Exam: Resting ECG Reason for Exam: NSTEMI Patient Location: I HR:81 bpm ECG Measurements Heart Rate 81 AXIS IN 135 P 65 QRSd 96 QRS 16 QT 397 T 128 QTc 461 Conclusion Sinus rhythm...normal P axis, V-rate 50- 99 Probable left atrial enlargement...P >50mS, <-0.10mV V1 Abnormal T, consider ischemia, lateral leads...T <-0.20mV, I aVL V5 V6
[2023-02-02 07:25] LABS: Lab Add On Test DONE
[2023-02-02 07:37] LABS: ALT 21 U/L (14-59); AST 9 U/L (15-37); Alkaline Phosphatase 81 U/L (46-116); Anion Gap 11.7 mmol/L (3-11); BUN 12 mg/dL (7-18); Bilirubin, Total 0.4 mg/dL (0.2-1.0); CO2 23.3 mmol/L (21.0-32.0); CREATININE 0.7 mg/dL (0.55-1.02); Calcium 8.9 mg/dL (8.5-10.1); Chloride 108 mmol/L (98-107); Estimated GFR 99.57 (mL/min/1.73m2); Glucose 130 mg/dL (74-106); Magnesium 2.1 mg/dL (1.8-2.4); Sodium 143 mmol/L (136-145); Total Protein 6.2 g/dL (6.4-8.2); Troponin I < 50 ng/L (<or=60)
[2023-02-02 07:57] LABS: Lab Add On Test DONE
[2023-02-02 08:15] LABS: Calculated LDL 71 mg/dL (<100); Cholesterol 144 mg/dL (<200); HDL Cholesterol 66 mg/dL (40-60); Triglyceride 35 mg/dL (<150)
[2023-02-02] MEDS: Aspirin 81 MG CHEW PO (08:20)
[2023-02-02] MEDS: Losartan 50 MG TAB PO (08:20)
[2023-02-02] MEDS: Clopidogrel 75 MG TAB PO (08:20)
[2023-02-02 08:39] LABS: Procalcitonin < 0.1 ng/mL
[2023-02-02] MEDS: Budesonide/Formoterol 160/4.5 6 GM 60 PUFF INH IH ×2 (08:43→19:34)
[2023-02-02 09:09] LABS: PTT Activated 53.3 sec (21.5-31.9)
--- NOTE | 2023-02-02 09:19 | PDOC.CMIN ---
Date of service: 02/02/23 Time of Service: 09:19 Care Management Initial Assmt Initial Assessment REASON FOR HOSPITALIZATION:: NSTEMI, Exertional Chest Pain, COPD PREVIOUS FUNCTIONAL STATUS/SOCIAL/FAMILY SUPPORTS:: Jaelyn lives in [place] with her Guru. She is retired from [employer] and now occupies her time with cleaning her home, playing games on her tablet, taking her grand-dog for walks, and going bowling. She has two adult children who are supportive of her along with several friends. She drives and is independent at baseline. CURRENT FUNCTIONAL STATUS:: Jaelyn is sitting up in bed when CM comes to meet with her. She states she has been NPO since midnight as the plan is to transfer her to [facility] for a cardiac procedure. Jaelyn expected to have been transferred by now and is getting quite inpatient. She understandably wants to go to [facility] as soon as possible so she can then return home. ADVANCE DIRECTIVES:: None on file; patient declines form. Has patient been provided with info about the portal/API?: Yes Did the patient sign up for the portal?: No CODE STATUS:: Full Code INSURANCE COVERAGE / FINANCIAL ISSUES:: [employer] CURRENT HOME/COMMUNITY SERVICES/EQUIPMENT:: No services. Patient has a nebulizer and inhalers at home. PRIMARY CARE PHYSICIAN:: CIERRA Grimes POTENTIAL DISCHARGE NEEDS:: Follow up appointments with PCP and cardiology and discharge plan of care. PATIENT/FAMILY EDUCATION NEEDS:: Review of discharge instructions; discuss Ask Me Three and self management. ANTICIPATED BARRIERS TO DISCHARGE:: None identified at this time. TRANSPORTATION:: Via EMS PLAN:: Plan is for Jaelyn to be transferred to [facility] for a cardiac catheterization procedure as soon as a bed is available. She will be transported to [facility] via EMS. CM will continue to follow. PFSH All Active Problems COPD (chronic obstructive pulmonary disease) (Chronic) Exacerbation of reactive airway disease (Acute) Myocardial injury (Acute) Non-ST elevation MA (NSTEMI) (Acute) Asthma (Chronic) Asthma exacerbation (Chronic) Essential hypertension (Chronic) History of Graves' disease (Chronic) Hyperlipidemia (Chronic) Aortic regurgitation (Chronic) Moderate on stress echo 02/02 Osteoarthritis (Chronic) Cigarette smoker (Chronic) Annual LDCT paused d/t cost Nummular dermatitis (Chronic) Medical History Depressive disorder GERD (gastroesophageal reflux disease) Graves disease Respiratory failure with hypoxia Surgical History S/P abdominal hysterectomy For abnormal uterine bleeding S/P appendectomy S/P bilateral salpingo-oophorectomy S/P dilation and curettage S/P left knee arthroscopy (05/04/10) With partial medial and lateral meniscectomy S/P lumpectomy, right breast (~1993) S/P right knee arthroscopy (02/20/10) With partial medial meniscectomy Status post right knee replacement (01/20/19) Family History Mother , at 77 Asthma Hypertension COPD (chronic obstructive pulmonary disease) Father , at 79 Parkinson disease Graves disease Hypertension Depression Suicide attempt Sister No problems noted. Sister , at 44 of metastatic bone cancer Metastatic bone cancer Brother , at 60 of pancreatic cancer Pancreatic cancer Diabetes Depression COPD (chronic obstructive pulmonary disease) Brother Alcohol abuse Son No problems noted. Daughter No problems noted. Maternal Grandfather Heart disease [place] Maternal Grandmother Brain cancer Paternal Grandfather No problems noted. Paternal Grandmother No problems noted. Brother , age 28 - MVA No problems noted. Social History Smoking/Tobacco Use Status: Current every day Tobacco Type: cigarettes Tobacco: How many years used: 40 Quit status: considering quitting Counseling given: provider counseling Smoking risk assessment performed?: Yes Alcohol Intake: current Alcohol Intake frequency: a few times a week Alcohol type: beer Drug use: Never Substance use type: does not use Counseling given: No Counseling provided: none Caregiver/Support person: No Household members: spouse Housing: house Pets and animals: Yes Pets and animals: cat(s) Sexually active: Yes Do you think of yourself as: straight/heterosexual Current gender identity: female What is your relationship status?: How often do you talk on the phone with friends or family?: three or more times per week How often do you get together with friends or relatives?: three or more times per week Do you belong to any clubs or organized social groups?: yes Panel score (0-1 are the most socially isolated patients): 3 What type of physical activity do you participate in: none Frequency: does not exercise Aida/Sikhism: None Special aida needs: No Seatbelt use: always Helmet use: No Drive intox 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 hazmat truck driver: No Do you feel safe at home: Yes Do you feel safe in your relationship?: Yes Female Reproductive History Menstrual Menopause type: surgical History History 4 Para 2 Hx # Term Pregnancies Multiple births Hx # Pregnancies Ectopic pregnancies AB induced Hx Number of Living Children 2 AB spontaneous 2
[2023-02-02] MEDS: Pantoprazole 40 MG VIAL IVP (12:08)
[2023-02-02] MEDS: Normal Saline Flush 10 ML SYR IVP ×2 (12:08→12:43)
--- NOTE | 2023-02-02 12:08 | DSE_ITS ---
Date of service: 02/02/23 Time of Service: 12:08 DS: Diagnosis Discharge Diagnosis (1) Non-ST elevation MS (NSTEMI): Status: Acute (2) COPD (chronic obstructive pulmonary disease): Status: Chronic Asessment and Plan: In mild acute exacerbation (3) Essential hypertension: Status: Chronic (4) Hyperlipidemia: Status: Chronic (5) Cigarette smoker: Status: Chronic (6) Depressive disorder: Discharge Plan Disposition Patient Disposition: Transfer-Acute Inpatient Care Specific Acute In Facility: [facility] Condition: Stable Discharge Details Reason For Visit: NSTEMI, Exertional Chest Pain, COPD Admit Date/Time: 02/01/23 18:26 Admit Provider: Grady García Attending Provider: Grady García [facility]: Ms Alonso is a 57 year old female with PMHx of non-oxygen dependent COPD, hyperte nsion, hyperlipidemia, tobacco abuse, who was a patient on [facility] hospitalist service from 02/01/23 until 02/02/23 having presented with exertional dyspnea and chest pressure for a couple of days. In the ER, she was found to be wheezing, have an elevated high sensitivity troponin I of 106, down to 77 and then undetectable on recheks. Her EKGs showed T wave falttening in V5 and V6 as compared to prior. Her case was discussed with [facility] cardiology, who had recommended heparinizing the patient and loading her with aspirin and plavix. She was also started on atorvastatin 80 mg, metoprolol, and therapy for a mild COPD exacerbation (doxycycline nebs, steroids). She tested negative for COVID- 19, RSV, and influenza. CTA of the chest ruled out acute PE or infiltrate. The patient was accepted in transfer by [facility] cardiology under the care of Dr Ambrosio pending bed availability for an evaluation for a cardiac catheterization, unavailable at our facility. She has remained chest pain free. She has not had any arrhythmic events on telemetry. She has not had any arrhythmic events on telemetry. She has been NPO after midnight. She is in agreement with transfer and is medically stable for transfer. Care for patient as well as completion of her transfer summary on the day of transfer took 45 minutes. Home Meds and New Rx's Prescriptions: New doxycycline hyclate 100 mg capsule 100 mg PO BID 5 Days Qty: 10 0RF prednisone 50 mg tablet 50 mg PO DAILY Qty: 5 0RF No Action nicotine (polacrilex) [Nicorette] 4 mg gum 4 mg buccal Q4H PRN (Reason: nicotine cravings) losartan 100 mg tablet 100 mg PO DAILY Qty: 90 3RF rosuvastatin 10 mg tablet 10 mg PO DAILY Qty: 90 3RF triamcinolone acetonide 60 ML lotion 1 flower Topical BID PRNQty: 3 albuterol sulfate 90 mcg/actuation HFA aerosol inhaler 1 - 2 puff Inhalation Q4H PRN Qty: 8.5 6RF ipratropium-albuterol 0.5 mg-3 mg(2.5 mg base)/3 mL solution for nebulization 3 ml UPD QID PRN (Reason: shortness of breath or wheezing) Qty: 90 3RF budesonide-formoterol [Symbicort] 160-4.5 mcg/actuation Hfa Aerosol Inhaler 2 puff inhalation BID Qty: 10.2 0RF Inhaler, Assist Devices [Pocket Chamber] 1 ea miscellaneous DIRECTED Qty: 0 0RF Discharge Instructions Instructions: Heart Attack (DC), Reactive Airways Disease (ED) Referrals: Racquel Fraser NP [Primary Care Provider] - Activity:: Activity as Tolerated Equipment/Supplies:: diagnostic cardiac sonographer Diet:: NPO Discharge Orders Discharge Orders: Discharge Order (Routine); Ordered 02/02/23 Ordered By: Kelsie Hernandez DS: Summary Time Spent with Patient providing and/or coordinating discharge services: Greater than 30 minutes Status at Discharge Functional status at discharge: independent ambulation Overall status at discharge: patient is progressing back to baseline Mental Status: mental status grossly normal Speech and Movement: speech and movement normal Mood: congruent mood Affect: normal affect Exam Narrative Exam Narrative: General: Pleasant middle-aged female, A&Ox3, comfortable in bed, on RA HEENT: EOMI, MMM Heart: RRR, no m/r/g Lungs: expiratory wheezing B Abdomen: soft, nontender, nondistended Extremities: no edema BLEs Psych Mental Status: mental status grossly normal Speech and Movement: speech and movement normal Mood: congruent mood Affect: normal affect DS: Data Vitals/I&O Vitals and I&O: Vital Signs Temperature 36.0 C L 08/19/23 10:59 Temperature Source Tympanic 02/02/23 10:59 Pulse 86 02/02/23 11:48 Pulse Rhythm Regular 02/02/23 08:40 Pulse 92 H 02/01/23 18:50 Respiratory Rate 20 02/02/23 11:48 Respiratory Effort Normal, Non-Labored 02/02/23 08:40 Respiratory Depth Normal 02/02/23 08:40 Respiratory Pattern Normal 02/02/23 08:40 Blood Pressure 142/67 H 02/02/23 10:59 Blood Pressure Mean 77 02/01/23 18:45 Blood Pressure Position Sitting 02/01/23 12:30 Pulse Oximetry 97 02/02/23 11:48 Oxygen Delivery Method Room Air 02/02/23 11:39 Oxygen Flow Rate 0 02/02/23 11:39 Pain Level 0 02/02/23 11:00 Comment Pt. denies pain at this time. 02/02/23 11:00 Intake & Output 02/01/23 02/02/23 02/02/23 23:59 11:59 23:59 Intake Total 155.65 / 155.65 Output Total 350 / 350 700 / 700 Balance -350 / -350 -544.35 / -544.35 Weight 83.461 kg 85.4 kg Intake: IV 155.65 / 155.65 Output: Urine 350 / 350 700 / 700 Other: Urine Color Yellow Yellow Urine Appearance Clear Clear Urine Odor Normal Comment Void x1 in the toilet. Voiding Methods Toilet Toilet Data Completed and Pending Completed studies during hospitalization [Text1]: CTA chest: 1. No evidence of acute pulmonary emboli.? No evidence of pulmonary infarction.No infiltrates.? No pleural effusions.? No intrathoracic adenopathy. 2. No evidence of aortic dissection nor pericardial effusion.? No evidence of right heart strain. Labs on day of discharge: Labs from last 24 hours 02/02/23 02/02/23 02/02/23 14:50 08:50 06:44 WBC RBC Hgb Hct MCV MCH MCHC RDW Plt Count MPV Immature Gran % Neutrophils % Lymphocytes % Monocytes % Eosinophils % Basophils % Nucleated RBC % Absolute Neutrophils Absolute Lymphocytes Absolute Monocytes Absolute Eosinophils Absolute Basophils APTT Pending 53.3 H D-Dimer Sodium Potassium Chloride Carbon Dioxide Anion Gap BUN Creatinine Est GFR (CKD-EPI 2020) Glucose Calcium Magnesium Total Bilirubin AST ALT Alkaline Phosphatase Troponin I NT-Pro-B Natriuret Pep Total Protein Albumin Triglycerides Total Cholesterol LDL Cholesterol, Calc HDL Cholesterol Procalcitonin < 0.1 TSH Free T4 COVID- Source SARS-CoV-2 (PCR) Influenza Type A (PCR) Influenza Type B (PCR) RSV (PCR) Add-On Test Request 02/02/23 02/02/23 02/02/23 06:44 06:44 06:44 WBC RBC Hgb Hct MCV MCH MCHC RDW Plt Count MPV Immature Gran % Neutrophils % Lymphocytes % Monocytes % Eosinophils % Basophils % Nucleated RBC % Absolute Neutrophils Absolute Lymphocytes Absolute Monocytes Absolute Eosinophils Absolute Basophils APTT D-Dimer Sodium Potassium Chloride Carbon Dioxide Anion Gap BUN Creatinine Est GFR (CKD-EPI 2020) Glucose Calcium Magnesium Total Bilirubin AST ALT Alkaline Phosphatase Troponin I NT-Pro-B Natriuret Pep Total Protein Albumin Triglycerides 35 Total Cholesterol 144 LDL Cholesterol, Calc 71 HDL Cholesterol 66 Procalcitonin TSH Free T4 COVID Source SARS-CoV-2 (PCR) Influenza Type A (PCR) Influenza Type B (PCR) RSV (PCR) Add-On Test Request DONE DONE 02/02/23 02/02/23 02/02/23 06:44 06:44 06:44 WBC 13.50 H RBC 4.32 Hgb 13.4 Hct 39.8 MCV 92 MCH 31.0 MCHC 33.7 RDW 14.0 Plt Count 213 MPV 10.4 Immature Gran % Neutrophils % Lymphocytes % Monocytes % Eosinophils % Basophils % Nucleated RBC % Absolute Neutrophils Absolute Lymphocytes Absolute Monocytes Absolute Eosinophils Absolute Basophils APTT 52.1 H D-Dimer Sodium 143 Potassium 4.0 Chloride 108 H Carbon Dioxide 23.3 Anion Gap 11.7 H BUN 12 Creatinine 0.7 Est GFR (CKD-EPI 2020) 99.57 Glucose 130 H Calcium 8.9 Magnesium 2.1 Total Bilirubin 0.4 AST 9 L ALT 21 Alkaline Phosphatase 81 Troponin I < 50 NT-Pro-B Natriuret Pep Total Protein 6.2 L Albumin 3.0 L Triglycerides Total Cholesterol LDL Cholesterol, Calc HDL Cholesterol Procalcitonin TSH Free T4 COVID- Source SARS-CoV-2 (PCR) Influenza Type A (PCR) Influenza Type B (PCR) RSV (PCR) Add-On Test Request 02/02/23 02/01/23 02/01/23 01:44 18:52 17:09 WBC RBC Hgb Hct MCV MCH MCHC RDW Plt Count MPV Immature Gran % Neutrophils % Lymphocytes % Monocytes % Eosinophils % Basophils % Nucleated RBC % Absolute Neutrophils Absolute Lymphocytes Absolute Monocytes Absolute Eosinophils Absolute Basophils APTT 37.2 H 32.5 H D-Dimer Sodium Potassium Chloride Carbon Dioxide Anion Gap BUN Creatinine Est GFR (CKD-EPI 2020) Glucose Calcium Magnesium Total Bilirubin AST ALT Alkaline Phosphatase Troponin I NT-Pro-B Natriuret Pep Total Protein Albumin Triglycerides Total Cholesterol LDL Cholesterol, Calc HDL Cholesterol Procalcitonin TSH 0.27 L Free T4 1.18 COVID-19 Source SARS-CoV-2 (PCR) Influenza Type A (PCR) Influenza Type B (PCR) RSV (PCR) Add-On Test Request 02/01/23 02/01/23 02/01/23 17:09 15:46 14:20 WBC RBC Hgb Hct MCV MCH MCHC RDW Plt Count MPV Immature Gran % Neutrophils % Lymphocytes % Monocytes % Eosinophils % Basophils % Nucleated RBC % Absolute Neutrophils Absolute Lymphocytes Absolute Monocytes Absolute Eosinophils Absolute Basophils APTT D-Dimer 491 Sodium Potassium Chloride Carbon Dioxide Anion Gap BUN Creatinine Est GFR (CKD-EPI 2020) Glucose Calcium Magnesium Total Bilirubin AST ALT Alkaline Phosphatase Troponin I 77 H* NT-Pro-B Natriuret Pep Total Protein Albumin Triglycerides Total Cholesterol LDL Cholesterol, Calc HDL Cholesterol Procalcitonin TSH Free T4 COVID-19 Source Nasopharynx SARS-CoV-2 (PCR) Negative Influenza Type A (PCR) Negative Influenza Type B (PCR) Negative RSV (PCR) Negative Add-On Test Request 02/01/23 02/01/23 14:20 14:20 WBC 10.19 RBC 4.80 Hgb 14.9 Hct 44.4 MCV 93 MCH 31.0 MCHC 33.6 RDW 14.0 Plt Count 220 MPV 10.0 Immature Gran % 0.5 Neutrophils % 91.1 Lymphocytes % 6.9 Monocytes % 1.2 Eosinophils % 0.0 Basophils % 0.3 Nucleated RBC % 0.0 Absolute Neutrophils 9.29 H Absolute Lymphocytes 0.70 L Absolute Monocytes 0.12 Absolute Eosinophils 0.00 Absolute Basophils 0.03 APTT D-Dimer Sodium 143 Potassium 4.3 Chloride 106 Carbon Dioxide 26.2 Anion Gap 10.8 BUN 9 Creatinine 0.8 Est GFR (CKD-EPI 2020) 84.82 Glucose 130 H Calcium 9.8 Magnesium 2.0 Total Bilirubin 0.6 AST 17 ALT 27 Alkaline Phosphatase 97 Troponin I 106 H* NT-Pro-B Natriuret Pep 2694 H Total Protein 7.2 Albumin 3.5 Triglycerides Total Cholesterol LDL Cholesterol, Calc HDL Cholesterol Procalcitonin TSH Free T4 COVID-19 Source SARS-CoV-2 (PCR) Influenza Type A (PCR) Influenza Type B (PCR) RSV (PCR) Add-On Test Request PFSH All Active Problems COPD (chronic obstructive pulmonary disease) (Chronic) Exacerbation of reactive airway disease (Acute) Myocardial injury (Acute) Non-ST elevation MS (NSTEMI) (Acute) Asthma (Chronic) Asthma exacerbation (Chronic) Essential hypertension (Chronic) History of Graves' disease (Chronic) Hyperlipidemia (Chronic) Aortic regurgitation (Chronic) Moderate on stress echo 02/02 Osteoarthritis (Chronic) Cigarette smoker (Chronic) Annual LDCT paused d/t cost Nummular dermatitis (Chronic) Medical History Depressive disorder GERD (gastroesophageal reflux disease) Graves disease Respiratory failure with hypoxia Surgical History S/P abdominal hysterectomy For abnormal uterine bleeding S/P appendectomy S/P bilateral salpingo-oophorectomy S/P dilation and curettage S/P left knee arthroscopy (05/04/10) With partial medial and lateral meniscectomy S/P lumpectomy, right breast (~1993) S/P right knee arthroscopy (02/20/10) With partial medial meniscectomy Status post right knee replacement (01/20/19) Family History Mother , at 77 Asthma Hypertension COPD (chronic obstructive pulmonary disease) Father , at 79 Parkinson disease Graves disease Hypertension Depression Suicide attempt Sister No problems noted. Sister , at 44 of metastatic bone cancer Metastatic bone cancer Brother , at 60 of pancreatic cancer Pancreatic cancer Diabetes Depression COPD (chronic obstructive pulmonary disease) Brother Alcohol abuse Son No problems noted. Daughter No problems noted. Maternal Grandfather Heart disease MS Maternal Grandmother Brain cancer Paternal Grandfather No problems noted. Paternal Grandmother No problems noted. Brother , age 28 - MVA No problems noted. Social History Smoking/Tobacco Use Status: Current every day Tobacco Type: cigarettes Tobacco: How many years used: 40 Quit status: considering quitting Counseling given: provider counseling Smoking risk assessment performed?: Yes Alcohol Intake: current Alcohol Intake frequency: a few times a week Alcohol type: beer Drug use: Never Substance use type: does not use Counseling given: No Counseling provided: none Caregiver/Support person: No Household members: spouse Housing: house Pets and animals: Yes Pets and animals: cat(s) Sexually active: Yes Do you think of yourself as: straight/heterosexual Current gender identity: female What is your relationship status?: How often do you talk on the phone with friends or family?: three or more times per week How often do you get together with friends or relatives?: three or more times per week Do you belong to any clubs or organized social groups?: yes Panel score (0-1 are the most socially isolated patients): 3 What type of physical activity do you participate in: none Frequency: does not exercise Aida/Lutheran: None Special aida needs: No Seatbelt use: always Helmet use: No Drive intox 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 Do you feel safe at home: Yes Do you feel safe in your relationship?: Yes Female Reproductive History Menstrual Menopause type: surgical History History 4 Para 2 Hx # Term Pregnancies Multiple births Hx # Pregnancies Ectopic pregnancies AB induced Hx Number of Living Children 2 AB spontaneous 2 Time Spent with Patient Time Spent with Patient: 45-69 minutes Time was spent: preparing to see the patient(eg.review tests), obtaining and/or reviewing separately otained hiistory, ordering medications,tests, procedures, referring, communicating with other health pharmacy customer care specialist, indepentently interpreting results, counseling the patient and care coordination
[2023-02-02] MEDS: Lactated Ringers 1,000 ML 125 ML IV ×2 (12:44→21:52)
[2023-02-02] MEDS: predniSONE 20 MG TAB 40 MG PO (12:58)
[2023-02-02] MEDS: DOXYCYCLINE 100 MG in Normal Saline 100 ML IVPB ×2 (13:25→23:22)
[2023-02-02] MEDS: Heparin in 0.45% NaCl 25,000 UNIT/250 ML BAG 11.5 UNIT IV (15:15)
[2023-02-02 15:26] LABS: PTT Activated 50.4 sec (21.5-31.9)
[2023-02-02] MEDS: Ipratropium 0.5 MG/2.5 ML UPD VIAL UPD ×2 (17:53→23:14)
[2023-02-02] MEDS: Levalbuterol 1.25 MG/3 ML UPD VIAL UPD ×2 (17:53→23:15)
[2023-02-02] MEDS: Atorvastatin 40 MG TAB 80 MG PO (19:32)
[2023-02-02 22:10] LABS: PTT Activated 63.4 sec (21.5-31.9)
[2023-02-03] VITALS (9 sets, daily range): BP systolic 139–156; BP diastolic 74–79; PULSE 69–86; RESP 1–20; TEMP 35.9–36.6; O2SAT 93–98
[2023-02-03 03:58] LABS: PTT Activated 61.5 sec (21.5-31.9)
[2023-02-03] MEDS: Ipratropium 0.5 MG/2.5 ML UPD VIAL UPD ×2 (05:54→12:10)
[2023-02-03] MEDS: Metoprolol 12.5 MG TAB PO (06:12)
[2023-02-03 06:49] LABS: HCT 38.4 % (36.0-46.0); HGB 12.8 g/dL (11.2-15.7); MCH 31.2 pg (27.0-33.0); MCHC 33.3 % (32.0-36.0); MCV 94 fL (80-95); MPV 10.5 fL (8.0-11.0); Platelet Count 198 10^3/uL (130-400); RDW 14.4 % (11.7-14.6); RDW-SD 49.7 fL; WBC 12.62 10^3/uL (4.4-10.8)
[2023-02-03 06:59] LABS: PTT Activated 65.7 sec (21.5-31.9)
[2023-02-03] MEDS: Budesonide/Formoterol 160/4.5 6 GM 60 PUFF INH IH (07:50)
[2023-02-03] MEDS: Pantoprazole 40 MG VIAL IVP (08:15)
[2023-02-03] MEDS: Normal Saline Flush 10 ML SYR IVP ×2 (08:15→12:01)
[2023-02-03] MEDS: predniSONE 20 MG TAB 40 MG PO (08:15)
[2023-02-03] MEDS: Clopidogrel 75 MG TAB PO (08:15)
[2023-02-03] MEDS: Aspirin 81 MG CHEW PO (08:16)
[2023-02-03] MEDS: Losartan 50 MG TAB PO (08:16)
[2023-02-03] MEDS: Heparin in 0.45% NaCl 25,000 UNIT/250 ML BAG 13 UNIT IV (09:29)
[2023-02-03] MEDS: Normal Saline 500 ML 100 ML IV (12:01)
[2023-02-03] MEDS: DOXYCYCLINE 100 MG in Normal Saline 100 ML IVPB (12:01)
[2023-02-03] MEDS: Levalbuterol 1.25 MG/3 ML UPD VIAL UPD (12:11)
--- NOTE | 2023-02-03 14:39 | NUR.NOTE ---
Nursing Note: Pt. was transferred to [facility] at 1415 on 02/03/23 and was transported via [facility] ambulance. Nurse to nurse report was called to Cami Covarrubias nurse at [facility], at 1420 on 02/03/23.
== END 2023-02-03 14:15 | disposition short-term general hospital (02) | DRG 282 ==
LOC: ER 19:00 → MS 19:10
PROVIDERS: Internal Medicine; Nurse Practitioner Family; Admitting Provider Family Medicine; Emergency Provider Emergency Medicine; PCP Nurse Practitioner Family; Visit Provider Family Medicine
DX: I21.4 Non-ST elevation (NSTEMI) myocardial infarction (principal); E78.5 Hyperlipidemia, unspecified; I10 Essential (primary) hypertension; J44.9 Chronic obstructive pulmonary disease, unspecified; F17.210 Nicotine dependence, cigarettes, uncomplicated; F32.A Depression, unspecified; I35.0 Nonrheumatic aortic (valve) stenosis; E05.00 Thyrotoxicosis with diffuse goiter without thyrotoxic crisis or storm; L30.0 Nummular dermatitis; K21.9 Gastro-esophageal reflux disease without esophagitis; Z96.651 Presence of right artificial knee joint
CPT/HCPCS: 36415; 71275; 80053; 80061; 84145; 85027; 87637; 93005; 94640; 96374; 99285; 83735; 83880; 84439; 84443; 84484; 85025; 85379; 85730; 93010; 94664; 94667; 94668; 94760; 99223; 99239; J2060; J3490; J7512; J7614; J7620; J7644; J8540

== ENCOUNTER 2023-02-19 08:22 | Outpatient (CLI) | payer OTHER, SELFPAY ==
--- NOTE | 2023-02-19 08:15 | RT.EKG_ITS ---
APPROVED REPORT Exam: Resting ECG Reason for Exam: cardiac evaluation Patient Location: O HR:92 bpm ECG Measurements Heart Rate 92 AXIS NC 126 P 77 QRSd 99 QRS -1 QT 361 T 90 QTc 447 Conclusion Sinus rhythm...normal P axis, V-rate 50- 99 Probable left atrial enlargement...P >50mS, <-0.10mV V1 Nonspecific T abnormalities, lateral leads...T <-0.10mV, I aVL V5 V6
== END 2023-02-19 08:23 | disposition home or self-care (01) ==
LOC: DI.CARD 08:22
PROVIDERS: PCP Nurse Practitioner Family; Visit Provider Internal Medicine Cardiovascular Disease
DX: I21.4 Non-ST elevation (NSTEMI) myocardial infarction (principal); I25.10 Atherosclerotic heart disease of native coronary artery without angina pectoris; I50.20 Unspecified systolic (congestive) heart failure
CPT/HCPCS: 93010

== ENCOUNTER 2023-02-28 02:16 | Outpatient (CLI) | payer OTHER, SELFPAY ==
[2023-02-28 10:51] LABS: Anion Gap 7.7 mmol/L (3-11); BUN 17 mg/dL (7-18); CO2 28.3 mmol/L (21.0-32.0); CREATININE 0.8 mg/dL (0.55-1.02); Calcium 9.3 mg/dL (8.5-10.1); Chloride 103 mmol/L (98-107); Estimated GFR 84.82 (mL/min/1.73m2); Glucose 103 mg/dL (74-106); Magnesium 2.1 mg/dL (1.8-2.4); Potassium 3.9 mmol/L (3.5-5.1); Sodium 139 mmol/L (136-145)
== END 2023-02-28 02:17 | disposition home or self-care (01) ==
LOC: LBO 02:16
PROVIDERS: PCP Nurse Practitioner Family; Visit Provider Nurse Practitioner Family
DX: I21.4 Non-ST elevation (NSTEMI) myocardial infarction (principal); I25.10 Atherosclerotic heart disease of native coronary artery without angina pectoris
CPT/HCPCS: 36415; 80048; 83735

== ENCOUNTER 2023-03-11 02:22 | Outpatient (CLI) | payer OTHER, SELFPAY ==
[2023-03-11] MEDS: Levalbuterol HFA 15 GM INH 4 PUFF IH (09:12)
[2023-03-11] MEDS: Inhaler, Assist Device 1 EACH MC (09:13)
--- NOTE | 2023-03-16 10:47 | W.PFT ---
Date of service: 03/11/23 Time of Service: 07:57 Pulmonary Function Test Result Indications: Asthma/COPD Interpretation Spirometry: Although the FEV1/FVC ratio is normal, mild obstruction is likely given appearance of flow volume loop and volume time curve.No bronchodilator response. Lung Volumes: There is air trapping Diffusion Capacity: Normal diffusion Airway Pressure: Normal airways pressure Impression Mild obstruction with no bronchodilator response and significant air trapping. This could represent COPD (chronic bronchitis), asthma or Asthma-COPD Overlap. Note: When compared to 2018, lung function is stable. Clinical Correlation therefore is recommended.
== END 2023-03-11 02:23 | disposition home or self-care (01) ==
LOC: RT 02:22
PROVIDERS: PCP Nurse Practitioner Family; Visit Provider Nurse Practitioner Family
DX: J44.9 Chronic obstructive pulmonary disease, unspecified (principal)
CPT/HCPCS: 94060; 94726; 94729

== ENCOUNTER 2023-03-14 05:17 | Outpatient (CLI) | payer OTHER, SELFPAY ==
[2023-03-14 10:33] LABS: Abs Immature Grans 0.03 10^3/uL (0.0-0.06); Absolute Basophil Count 0.05 10^3/uL (0.0-0.2); Absolute Eosinophil Count 0.09 10^3/uL (0.0-0.7); Absolute Lymphocyte Count 1.44 10^3/uL (1.2-3.4); Absolute Monocyte Count 0.83 10^3/uL (0.1-0.8); Absolute Neutrophil Count 6.03 10^3/uL (1.2-6.7); Basophils % 0.6; Eosinophils % 1.1; HCT 42.1 % (36.0-46.0); Immature Grans % 0.4; MCH 31.5 pg (27.0-33.0); MCHC 33.3 % (32.0-36.0); MCV 95 fL (80-95); MPV 9.8 fL (8.0-11.0); Monocytes % 9.8; Neutrophils % 71.1; Platelet Count 264 10^3/uL (130-400); RBC 4.45 10^6/uL (3.93-5.22); RDW 14.7 % (11.7-14.6); RDW-SD 51.7 fL; WBC 8.47 10^3/uL (4.4-10.8)
[2023-03-14 11:27] LABS: ALT 20 U/L (14-59); AST 14 U/L (15-37); Albumin 3.6 g/dL (3.4-5.0); Alkaline Phosphatase 84 U/L (46-116); Anion Gap 7.4 mmol/L (3-11); BUN 13 mg/dL (7-18); Bilirubin, Total 0.5 mg/dL (0.2-1.0); CO2 28.6 mmol/L (21.0-32.0); CREATININE 0.8 mg/dL (0.55-1.02); Calcium 9.5 mg/dL (8.5-10.1); Chloride 105 mmol/L (98-107); Estimated GFR 84.82 (mL/min/1.73m2); Glucose 97 mg/dL (74-106); Lipase 29 U/L (16-77); Potassium 3.7 mmol/L (3.5-5.1); Sodium 141 mmol/L (136-145); Total Protein 7.1 g/dL (6.4-8.2)
== END 2023-03-14 05:18 | disposition home or self-care (01) ==
LOC: LOS 05:17
PROVIDERS: PCP Nurse Practitioner Family; Visit Provider Nurse Practitioner Family
DX: R10.13 Epigastric pain (principal); K21.9 Gastro-esophageal reflux disease without esophagitis; R12 Heartburn; I10 Essential (primary) hypertension
CPT/HCPCS: 36415; 80053; 83690; 85025

== ENCOUNTER → 2024-01-16 03:07 | Outpatient (CLI) | payer OTHER, SELFPAY ==
--- NOTE | 2024-01-16 06:30 | DI.CTLCSR_ITS ---
Exam(s) CT CHEST LUNG CANCER SCREEN EXAM: CT CHEST LUNG CANCER SCREEN CLINICAL HISTORY: Screening for lung cancer, CURRENT SMOKER, F17.210 TECHNIQUE: Imaging Protocol: Axial computed tomography images with coronal and sagittal reformatted images were created and reviewed. Low dose screening protocol. COMPARISON: CT CHEST FOR PULMONARY EMBOLUS from 02/06/[address] CHEST LUNG CANCER SCREEN from 10/31/[address] CHEST PE CTA from 02/01/2023 FINDINGS: Tracheobronchial tree: No bronchiectasis or mucus plugging. Mediastinum and Sofy: No dominant adenopathy or fluid collection. Pulmonary parenchyma: No consolidation or dominant measurable mass. Minimal emphysematous changes. Lung Nodules: Stable 6 millimeter nodule inferior right middle lobe. Scattered calcified granulomas bilaterally. Pleura: No effusion. No pneumothorax. Heart: The heart is not dilated. Minimal coronary artery calcifications are seen. Aorta: Thoracic aorta non-dilated. Mild atherosclerotic changes. Upper abdomen: Unremarkable. Bones: Unremarkable for age. Soft Tissues: Unremarkable. IMPRESSION: No suspicious pulmonary nodules. Lung RADS Cat 2 - Benign Appearance / Behavior: Nodules with a very low likelihood of becoming a clin ically active cancer due to size or lack of growth Lung-RADS 1.0 CATEGORIES: Category 0 - Prior chest CT exam(s) being located for comparison. Category 1 - Annual screening in 12 months. No nodules or definitely benign nodules. Category 2 - Annual screening in 12 months. Benign appearance. Nodules with low likelihood of becomin g active cancer. Category 3 - 6-month follow-up. Probably benign. Short-term follow-up suggested. Nodules with low lik elihood of becoming active cancer. Category 4A - 3-month follow-up and CT/PET if >8 mm in size. Suspicious finding. Findings which requi re additional testing. Category 4B - Findings which require additional testing and tissue sampling. Category 4X - Category 3 or 4 nodules with additional features or imaging findings that increases the suspicion of malignancy. Modifier S- Potentially clinically significant findings (non lung cancer) RADIATION DOSE DELIVERED: Total DLP DATA REPOSITORY: All CT scans at this facility are submitted to the National Radiology Data Registry (NRDR) Dose Index Registry (DIR) with the [employer] (ACR). RADIATION OPTIMIZATION: All CT scans at this facility use at least one of these dose optimization te chniques: automated exposure control; mA and/or kV adjustment per patient size (includes targeted exa ms where dose is matched to clinical indication); or iterative reconstruction.
--- NOTE | 2024-01-16 08:10 | DI.MAMMO_ITS ---
Exam(s) MAMMO SCREENING EXAM: MAMMO SCREENING CLINICAL HISTORY: screening, Z12.39 TECHNIQUE: Mammograms were interpreted according to the usual protocol including computer analysis w [employer] CAD system, tomosynthesis and C-view imaging. COMPARISON: 2013 through 2022 FINDINGS: The breasts are composed of scattered fibroglandular densities, Breast Density category B. No suspicious masses or suspicious microcalcifications are seen. Multiple biopsy marker clips noted. Stable nodule subareolar region of right breast. No skin thickening or abnormal axillary lymph nodes are seen. There has been no significant change from prior exams. IMPRESSION: BI-RADS Category 2 - Benign Findings Yearly screening mammography is recommended. Breast Density - Category B, scattered fibroglandular densities. A negative radiographic report should not delay biopsy if a dominant or clinically suspicious mass is present. Up to ten percent of cancers are not identified on mammography. A negative report may reinforce clinical impression. Adenosis and dense breasts may obscure an underlying neoplasm. False positive reports average 6 to 10%. Patient will receive a letter notifying them of these results.
== END ==
PROVIDERS: PCP Nurse Practitioner Family; Visit Provider Nurse Practitioner Family
DX: Z12.39 Encounter for other screening for malignant neoplasm of breast (principal); F17.210 Nicotine dependence, cigarettes, uncomplicated; Z12.31 Encounter for screening mammogram for malignant neoplasm of breast
CPT/HCPCS: 71271; 77063; 77067

== ENCOUNTER 2024-01-16 04:37 | Outpatient (CLI) | payer OTHER, SELFPAY ==
[2024-01-16 11:56] LABS: Anion Gap 7.3 mmol/L (3-11); BUN 20 mg/dL (7-18); CO2 28.7 mmol/L (21.0-32.0); Calcium 9.1 mg/dL (8.5-10.1); Calculated LDL 76 mg/dL (<100); Chloride 103 mmol/L (98-107); Cholesterol 162 mg/dL (<200); Estimated GFR 64.49 (mL/min/1.73m2); Glucose 92 mg/dL (74-106); HDL Cholesterol 77 mg/dL (40-60); Potassium 4.1 mmol/L (3.5-5.1); Sodium 139 mmol/L (136-145); TSH (W/Ref FT4) 1.04 uIU/mL (0.36-3.74); Triglyceride 47 mg/dL (<150)
[2024-01-16 21:39] LABS: HIV-1/2 Ag & Ab Screen Negative (Negative)
[2024-01-16 21:40] LABS: Hepatitis C Ab w Rflx HCV PCR Negative (Negative)
[2024-01-16 21:42] LABS: HBs Antibody, Quant <3.1 mIU/mL (See Note); Hep B Surface Ab Negative (See Note); Hepatitis B Core Antibody Negative (Negative); Hepatitis B Surface Antigen Negative (Negative)
== END 2024-01-16 04:38 | disposition home or self-care (01) ==
LOC: LBO 04:37
PROVIDERS: PCP Nurse Practitioner Family; Visit Provider Nurse Practitioner Family
DX: Z11.4 Encounter for screening for human immunodeficiency virus [HIV] (principal); Z86.39 Personal history of other endocrine, nutritional and metabolic disease; I25.5 Ischemic cardiomyopathy; I50.20 Unspecified systolic (congestive) heart failure; I25.10 Atherosclerotic heart disease of native coronary artery without angina pectoris; Z11.59 Encounter for screening for other viral diseases
CPT/HCPCS: 36415; 80048; 80061; 86704; 86706; 86803; 87340; 87389; 84443

== ENCOUNTER 2024-01-20 08:11 | Outpatient (CLI) | payer OTHER, SELFPAY ==
--- NOTE | 2024-01-20 08:00 | RT.EKG_ITS ---
APPROVED REPORT Exam: Resting ECG Reason for Exam: regular irregular rhythym Patient Location: O HR:69 bpm ECG Measurements Heart Rate 69 AXIS MN 140 P 65 QRSd 130 QRS -14 QT 403 T 69 QTc 432 Conclusion Sinus rhythm...normal P axis, V-rate 50- 99 Left atrial enlargement...P, P'>60mS, <-0.15mV Baseline wander in lead(s) V5
== END 2024-01-20 08:12 | disposition home or self-care (01) ==
LOC: DI.CM 08:13
PROVIDERS: PCP Nurse Practitioner Family; Visit Provider Nurse Practitioner Family
DX: I25.5 Ischemic cardiomyopathy (principal); I50.20 Unspecified systolic (congestive) heart failure; I49.9 Cardiac arrhythmia, unspecified; I51.7 Cardiomegaly; I10 Essential (primary) hypertension; I25.10 Atherosclerotic heart disease of native coronary artery without angina pectoris
CPT/HCPCS: 93010

== ENCOUNTER 2024-03-05 21:45 | Outpatient (REF) | payer OTHER, SELFPAY | END 2024-03-05 21:46 | disposition home or self-care (01) | LOC: LBN 21:45 | PROVIDERS: PCP Nurse Practitioner Family; Visit Provider Nurse Practitioner Family | DX: B37.0 Candidal stomatitis (principal) | CPT/HCPCS: 87070 ==

== ENCOUNTER 2024-04-29 16:59 | Emergency (ER) | payer OTHER, SELFPAY ==
[2024-04-29] VITALS (25 sets, daily range): BP systolic 104–160; BP diastolic 54–90; PULSE 70–96; RESP 14–29; TEMP 36.5–36.8; O2SAT 91–99
--- NOTE | 2024-04-29 17:00 | RT.EKG_ITS ---
APPROVED REPORT Exam: Resting ECG Reason for Exam: SOB Patient Location: E HR:85 bpm ECG Measurements Heart Rate 85 AXIS MD 140 P 71 QRSd 101 QRS 30 QT 351 T 62 QTc 416 Conclusion Sinus rhythm...normal P axis, V-rate 60- 99
--- NOTE | 2024-04-29 17:13 | ED.GENADUL_ITS ---
Discharge Plan Disposition Patient Disposition: Home Condition: Stable Discharge Details Clinical Impression: COPD exacerbation Primary Care Provider: Racquel Fraser ED Provider: Aram Villarreal Home Meds and New Rx's Prescriptions: New prednisone 20 mg tablet 40 mg PO DAILY 5 Days Qty: 10 0RF azithromycin 250 mg tablet 250 mg PO DAILY 4 Days Qty: 4 0RF Rx Instructions: start on day 2 of therapy Continued losartan 100 mg tablet 100 mg PO DAILY Qty: 90 3RF metoprolol succinate 25 mg tablet extended release 24 hr 25 mg PO DAILY Qty: 90 3RF furosemide 20 mg tablet 20 mg PO DAILY Qty: 90 3RF citalopram 10 mg tablet 10 mg PO DAILY Qty: 90 3RF nitroglycerin 0.4 mg tablet, sublingual 0.4 mg sublingual Q5M PRN Patient Comments: 02/08/23 Per [facility] [place] Cardiology. -hb Rx Instructions: do not exceed 3 doses per episode aspirin [Adult Aspirin Regimen] 81 mg tablet,delayed release (DR/EC) 81 mg PO DAILY Qty: 90 3RF pantoprazole 20 mg tablet,delayed release (DR/EC) 20 mg PO DAILY Qty: 90 3RF rosuvastatin 20 mg tablet 20 mg PO DAILY Qty: 90 3RF budesonide-formoterol 160-4.5 mcg/actuation HFA aerosol inhaler See Rx Instructions .ROUTE .COMPLEX Qty: 10.2 4RF Dose Instruction: INHALE TWO PUFFS BY MOUTH TWICE A DAY AND MAY USE A RELIVER THERAPY FOR ACUTE DIFFICULTY BREATHING EVERY 4 HOURS +MAX 12 PUFFS PER DAY+ Rx Instructions: INHALE TWO PUFFS BY MOUTH TWICE A DAY AND MAY USE A RELIVER THERAPY FOR ACUTE DIFFICULTY BREATHING EVERY 4 HOURS +MAX 12 PUFFS PER DAY+ albuterol sulfate 90 mcg/actuation HFA aerosol inhaler 2 puff Inhalation Q6H PRN (Reason: shortness of breath or wheezing) Qty: 8.5 6RF ipratropium-albuterol 0.5 mg-3 mg(2.5 mg base)/3 mL solution for nebulization 3 ml UPD QID PRN (Reason: shortness of breath or wheezing) Qty: 90 3RF Discharge Instructions Instructions: Azithromycin (Systemic), Prednisone, COPD Exacerbation, Adult ED Additional Instructions: You were seen in the emergency department for shortness of breath and dizziness for 2 days. You are likely having a COPD exacerbation her lungs were very wheezy. Your CT scan shows no pulmonary embolism or blood clot of the lungs, no pneumonia, no other abnormality, CT of your abdomen and pelvis showed no acute abnormality to equate with your abdominal pain. Your lower back pain is likely sciatica, take Tylenol and ibuprofen for this, apply [id number] lidocaine patch to the area, apply gentle heat massage to the area. Your oxygen levels are fine and you have nebulizer at home, I am prescribing an antibiotic called azithromycin, start this tomorrow as we gave you the first dose tonight. I also prescribed you prednisone to help with your COPD exacerbation, start this medicine tomorrow as we gave you a dose in the IV tonight. Please return to the emergency department for any further worsening shortness of breath or respiratory distress, chest pain, other emergent concerns. Referrals: Racquel Fraser NP [Primary Care Provider] - Discharge Data Discharge Date/Time-TO BE ENTERED AT DEPARTURE: 04/29/24 19:11 HPI General Date/Time Provider Initiated Documentation: 04/29/24 16:59 . HPI Narrative: 58 year-old female presents to ED today by POV/ambulating with her with a chief complaint of shortness of breath, dizziness x2 days, had a cold last week that was negative for Covid/Flu/RSV, and endorsing chest pain and sweating. Quality described as central chest pain, shortness of breath, as well as some R mid abdominal pain and LLQ abdominal pain, with pain at the L SI joint as well, no radiation to nausea/vomiting, headache/visual changes, bowel/urinary changes, hematuria, fever, neuro deficits. Severity is described as moderate. Palliating factors include has at-home nebulizers, using more frequently. Provoking factors include exertion. Events leading up to the incident/Associated Symptoms: Patient has chronic COPD, CHF, history of IA. Patient not anticoagulated. Related Data Home Medications ?Medication ?Instructions ?Recorded ?Confirmed nitroglycerin 0.4 mg sublingual 0.4 mg sublingual Q5M PRN 02/08/23 04/29/24 tablet aspirin 81 mg tablet,delayed 81 mg PO DAILY #90 tabs 06/12/23 04/29/24 release (Adult Aspirin Regimen) pantoprazole 20 mg tablet,delayed 20 mg PO DAILY #90 tabs 06/12/23 04/29/24 release rosuvastatin 20 mg tablet 20 mg PO DAILY #90 tabs 12/04/23 04/29/24 furosemide 20 mg tablet 20 mg PO DAILY #90 tabs 01/20/24 04/29/24 losartan 100 mg tablet 100 mg PO DAILY #90 tabs 01/20/24 04/29/24 metoprolol succinate 25 mg 25 mg PO DAILY #90 tabs 01/20/24 04/29/24 tablet,extended release 24 hr citalopram 10 mg tablet 10 mg PO DAILY #90 tabs 02/28/24 04/29/24 budesonide-formoterol HFA 160 See Rx Instructions .Route 03/04/24 04/29/24 mcg-4.5 mcg/actuation aerosol .COMPLEX #10.2 grams inhaler albuterol sulfate 90 mcg/actuation 2 puff inhalation Q6H PRN 03/23/24 04/29/24 aerosol inhaler shortness of breath or wheezing #8.5 grams ipratropium 0.5 mg-albuterol 3 mg 3 ml UPD QID PRN shortness of 04/23/24 04/29/24 (2.5 mg base)/3 mL nebulization breath or wheezing #90 mL soln azithromycin 250 mg tablet 250 mg PO DAILY 4 days #4 tabs 04/29/24 prednisone 20 mg tablet 40 mg (2 x 20 mg) PO DAILY 5 days 04/29/24 #10 tabs Previous Rx's ?Medication ?Instructions ?Recorded aspirin 81 mg tablet,delayed 81 mg PO DAILY #90 tabs 06/12/23 release (Adult Aspirin Regimen) pantoprazole 20 mg tablet,delayed 20 mg PO DAILY #90 tabs 06/12/23 release rosuvastatin 20 mg tablet 20 mg PO DAILY #90 tabs 12/04/23 furosemide 20 mg tablet 20 mg PO DAILY #90 tabs 01/20/24 losartan 100 mg tablet 100 mg PO DAILY #90 tabs 01/20/24 metoprolol succinate 25 mg 25 mg PO DAILY #90 tabs 01/20/24 tablet,extended release 24 hr citalopram 10 mg tablet 10 mg PO DAILY #90 tabs 02/28/24 budesonide-formoterol HFA 160 See Rx Instructions .Route 03/04/24 mcg-4.5 mcg/actuation aerosol .COMPLEX #10.2 grams inhaler albuterol sulfate 90 mcg/actuation 2 puff inhalation Q6H PRN 03/23/24 aerosol inhaler shortness of breath or wheezing #8.5 grams ipratropium 0.5 mg-albuterol 3 mg 3 ml UPD QID PRN shortness of 04/23/24 (2.5 mg base)/3 mL nebulization breath or wheezing #90 mL soln azithromycin 250 mg tablet 250 mg PO DAILY 4 days #4 tabs 04/29/24 prednisone 20 mg tablet 40 mg (2 x 20 mg) PO DAILY 5 days 04/29/24 #10 tabs Allergies Allergy/AdvReac Type Severity Reaction Status Date / Time amlodipine AdvReac Intermediate Peripheral Verified 04/29/24 17:10 edema General Stated Complaint: SOB JOSE JUAN: 3 Review of Systems All systems reviewed & are unremarkable except as noted in HPI and below Exam Narrative Exam Narrative: GENERAL APPEARANCE: Well-nourished, non-toxic, awake and alert, atraumatic, no acute distress. SKIN: Warm, pink, dry, intact, without rashes/lesions/ulcerations. HEAD: Normocephalic, atraumatic, normal hair distribution for gender/age. EYES: Normal conjunctiva, no exudates on lids/lashes. ENT: Nares patent, no circumoral cyanosis, no facial swelling NECK: Supple, trachea midline, painless cervical ROM. LUNGS/CHEST: Lungs CTA bilaterally, non-labored respirations, normal A/P diameter, symmetrical expansion, no chest wall deformity HEART (CV/PV): Regular rate and rhythm without murmur, no peripheral edema, no JVD. ABDOMEN: Soft, non-distended, no guarding. MSK: Normal ROM, no swelling/deformity to bilateral UEs or LEs, moving all extremities without weakness, no cyanosis, spine midline without tenderness, normal curvature. NEURO: Mental Status AAOx4 - alert to person, place, time, events No facial droop, no forehead involvement. Motor: No focal weakness - strength 5/5 in bilateral UEs and LEs, proximal and distal, symmetric. Sensory: sensation intact to light touch globally. Gait normal: patient ambulated without ataxia into ED room. PSYCH: euthymic, cooperative, pleasant, appropriate speech Course Vital Signs Vital signs: Vital Signs Temperature 36.5 C 04/29/24 17:01 Pulse 90 04/29/24 17:01 Respiratory Rate 18 04/29/24 17:01 Blood Pressure 160/72 H 04/29/24 17:01 Pulse Oximetry 95 04/29/24 17:01 Temperature 36.5 C 04/29/24 17:01 Temperature Source Oral 04/29/24 17:01 Pulse 90 04/29/24 17:01 Respiratory Rate 18 04/29/24 17:01 Respiratory Effort Short of Breath 04/29/24 17:12 Blood Pressure 160/72 H 04/29/24 17:01 Blood Pressure Position Supine 04/29/24 17:01 Pulse Oximetry 95 04/29/24 17:01 Oxygen Delivery Method Room Air 04/29/24 17: Oxygen Flow Rate 0 04/29/24 17:01 Pain Level 8 04/29/24 17:01 Medical Decision Making This dictation utilizes [id number] dictation software and may contain unedited grammatical errors. 58 year-old female presents to ED today by POV/ambulating with her with a chief complaint of shortness of breath, dizziness x2 days, had a cold last week that was negative for Covid/Flu/RSV, and endorsing chest pain and sweating. Quality described as central chest pain, shortness of breath, as well as some R mid abdominal pain and LLQ abdominal pain, with pain at the L SI joint as well, no radiation to nausea/vomiting, headache/visual changes, bowel/urinary changes, hematuria, fever, neuro deficits. Severity is described as moderate. Palliating factors include has at-home nebulizers, using more frequently. Provoking factors include exertion. Patients' medical history: COPD, NSTEMI, asthma, CHF, CAD, hypertension, hyperlipidemia, aortic regurgitation, Graves' disease, abdominal surgical history of bilateral salpingo-oophorectomy, appendectomy, hysterectomy. Family and social history: Current smoker, denies illicit substance use, no recent travel or sick contacts. Pertinent exam findings / vital signs include poor air movement with diffuse inspiratory and expiratory wheezes, no overt rales but difficult auscultation due to body habitus, regular rate and rhythm, right-sided abdominal tenderness without Campbell sign or peritoneal signs, left lower quadrant abdominal tenderness, left SI joint tenderness without crepitus, neurovascular intact in bilateral lower extremities, nonhypoxic, neuro intact. Differential / pathologies of concern include URI, pneumonia, PE, COPD exacerbation, ACS, CHF exacerbation, diverticulitis, ureteral stone. Diagnostic studies of: -EKG, CBC, CMP, lipase, magnesium, serial troponin, BNP, urinalysis, lactate, VBG, CTA chest PE study, CT ABD/pelvis W contrast. -EKG shows sinus rhythm at 85 bpm with P waves followed by narrow complex QRS with normal axis, no significant ST elevations, questionable mild ST depression in lateral lead V6, some PVCs, normal SD, normal QTc, consistent with priors -CBC shows mild leukocytosis of 10.9, elevated H&H-likely due to COPD, no left shift -VBG shows pH of 7.42 negative -Lactate 1.2, do not suspect sepsis -CMP shows no acute abnormality -Lipase within normal limits -Magnesium within normal limits -Initial troponin 33, 1 hour troponin 32 -BNP 1100, past value 2700 -CTA Chest negative, no PE, no PNA, CT ABD/Pelvis no acute pathology Interventions of: -9mL DuoNeb, 125mg IV methylprednisolone, 1mg IV magnesium for SOB, 15mg IV ketorlac. ED Course/Assessment/Plan: 58-year-old female presents with shortness of breath and dizziness for 2 days, has significant history for severe COPD and CHF with cardiac history, labs are reassuring for no sign of sepsis, no electrolyte abnormalities, BNP is down from past values and troponins negative, mild leukocytosis only 48. CT shows no PE or pneumonia, CT abdomen shows no acute findings for her abdominal pain, empirically treating her for COPD exacerbation with azithromycin and prednisone, patient felt better after her treatments here in the emergency department, I stressed strict return criteria for any further respiratory distress. Findings not consistent with PE, ACS, pneumonia, CHF exacerbation, acute abdominal pathology. Disposition of COPD Exacerbation. Patient verbalized understanding of the plan and return to ED criteria and engaged in shared decision making. Medical Records Medical records reviewed: Yes I reviewed the patient's medical records. Imaging Data Radiologic Study: Attestation: I personally reviewed and interpreted this imaging study as follows: Imaging: CT Scan Radiologist's impression: EXAM: CT CHEST PE ABD PELVIS W CLINICAL HISTORY: SOB, cardiac history, pleuritic CP. TECHNIQUE: Imaging Protocol: Axial CT angiography was performed with multi- slice acquisition and multi-planar and/or 3D reconstructions. Computer aided detection (CAD) was utilized. CONTRAST MATERIAL: Intravenous: Omnipaque 350contrast volume:100 mL COMPARISON: CT CT CHEST PE CTA from 02/01/[address] CHEST LUNG CANCER SCREEN from 01/16/2024 FINDINGS: CHEST: Tracheobronchial tree: Patent where visualized. No evidence of bronchiectasis. Pulmonary parenchyma: No consolidation or dominant measurable mass. No architectural distortion. There are atelectatic changes present. Pulmonary Arteries: No evidence of filling defect to suggest pulmonary emboli. Mediastinum and Sofy: No dominant adenopathy or fluid collection. The esophagus is unremarkable. Visualized thyroid gland: Unremarkable. Pleura: No effusion or pneumothorax. Heart: The heart is not dilated. Mild coronary artery calcification. No pericardial effusion. Aorta: Thoracic aorta non-dilated. No evidence of dissection. Atherosclerotic calcification is present. Bones: Within normal limits for the patient's age. Soft tissues: Unremarkable. ABDOMEN: Liver: Normal density. No measurable mass. Portal, Superior Mesenteric, and Splenic Veins: Unremarkable. Gallbladder and Biliary Tract: No radiodense calculus or dilation. Pancreas: Normal density, no abnormal calcifications or inflammatory process. Spleen: There are calcified granuloma in the spleen. Adrenals: No masses seen. Kidneys: Normal size, contour and axis. No radiodense stones or obstructive uropathy. No masses seen. Abdominal Aorta: Abdominal portion non-dilated. Atherosclerotic calcifications are present. Bowel: No obstruction or bowel wall thickening. No evidence of appendicitis. Peritoneal Cavity: No ascites, collection or mesenteric inflammatory response. No free air. Lymph Nodes: Within normal limits. Bones: Within normal limits for the patient's age. Soft Tissues: Unremarkable. PELVIS: Bladder: Symmetric distention, no gross wall thickening. Reproductive Organs: The uterus is absent. Lymph Nodes: Within normal limits. Bones: Within normal limits. IMPRESSION: 1. No evidence pulmonary embolism, thoracic aortic dissection or aneurysm. 2. No acute pulmonary process. 3. No acute abdominal or pelvic process. Lab Data Lab results reviewed: Yes I reviewed the patient's lab results. Labs: Laboratory Tests Range/Units 04/29/24 04/29/24 04/29/24 17:26 17:40 18:28 WBC (4.4-10.8) 10^3/uL 10.91 H RBC (3.93-5.22) 10^6/uL 5.00 Hgb (11.2-15.7) g/dL 16.3 H Hct (36.0-46.0) % 47.4 H MCV (80-95) fL 95 MCH (27.0-33.0) pg 32.6 MCHC (32.0-36.0) % 34.4 RDW (11.7-14.6) % 13.9 Plt Count (130-400) 10^3/uL 227 MPV (8.0-11.0) fL 9.9 Immature Gran % % 0.3 Neutrophils % % 73.9 Lymphocytes % % 16.6 Monocytes % % 8.2 Eosinophils % % 0.5 Basophils % % 0.5 Nucleated RBC % (0.0-0.3) % 0.0 Absolute Neutrophils (1.2-6.7) 10^3/uL 8.06 H Absolute Lymphocytes (1.2-3.4) 10^3/uL 1.81 Absolute Monocytes (0.1-0.8) 10^3/uL 0.89 H Absolute Eosinophils (0.0-0.7) 10^3/uL 0.05 Absolute Basophils (0.0-0.2) 10^3/uL 0.05 VBG pH (7.31-7.41) 7.42 H VBG pCO2 (41-51) mmHg 45 VBG pO2 mmHg 34 VBG HCO3 (23-28) mmol/L 29 H VBG Total CO2 (24-29) mmol/L 25 VBG O2 Saturation % 69 VBG Base Excess (-2-3) mmol/L 4 H VBG Lactate (0.6-1.4) mmol/L 1.2 Sodium (136-145) mmol/L 144 Potassium (3.5-5.1) mmol/L 3.5 Chloride (98-107) mmol/L 105 Carbon Dioxide (21.0-32.0) mmol/L 29.1 Anion Gap (3-11) mmol/L 9.9 BUN (7-18) mg/dL 11 Creatinine (0.55-1.02) mg/dL 0.9 Est GFR (CKD-EPI 2020) (mL/min/1.73m2) 73.19 Glucose (74-106) mg/dL 121 H Calcium (8.5-10.1) mg/dL 9.5 Magnesium (1.8-2.4) mg/dL 2.1 Total Bilirubin (0.2-1.0) mg/dL 0.82 AST (15-37) U/L 19 ALT (14-59) U/L 28 Alkaline Phosphatase (46-116) U/L 93 Troponin I (<or=51) ng/L 33 32 NT-Pro-B Natriuret Pep (<300) pg/mL 1100 H Total Protein (6.4-8.2) g/dL 7.5 Albumin (3.4-5.0) g/dL 3.6 Lipase (16-77) U/L 28 Urine Color (Yellow) Yellow Urine Clarity (Clear) Clear Urine pH (5-8) 6.0 Ur Specific [place] (1.005-1.025) 1.010 Urine Protein (Neg-Trace) mg/dL Negative Urine Ketones (Negative) mg/dL Negative Urine Blood (Negative) Negative Urine Nitrite (Negative) Negative Urine Bilirubin (Negative) Negative Urine Urobilinogen (Up to 0.2) mg/dL 0.2 Ur Leukocyte Esterase (Negative) Negative Urine Glucose (Negative) mg/dL Negative Quality:SDOH Health Related Social Needs: No Data to Display PFSH All Active Problems (Updated 04/29/24 @ 18:59 by BRUNO Wiley) COPD exacerbation (Acute) Asthma-COPD overlap syndrome (Chronic) Ischemic cardiomyopathy (Chronic) Heart failure with reduced ejection fraction (Chronic) Coronary artery disease (Chronic) Essential hypertension (Chronic) Hyperlipidemia (Chronic) Aortic regurgitation (Chronic) GERD (gastroesophageal reflux disease) (Chronic) History of Graves' disease (Chronic) Osteoarthritis (Chronic) Anxiety (Chronic) Cigarette smoker (Chronic) Annual LDCT paused d/t cost Nummular dermatitis (Chronic) Medical History Non-ST elevation IA (NSTEMI) (~01/2023) Respiratory failure with hypoxia Depressive disorder Graves disease Surgical History Status post right knee replacement (01/20/19) S/P right knee arthroscopy (02/20/10) With partial medial meniscectomy S/P left knee arthroscopy (05/04/10) With partial medial and lateral meniscectomy S/P dilation and curettage S/P bilateral salpingo-oophorectomy S/P appendectomy S/P abdominal hysterectomy For abnormal uterine bleeding S/P lumpectomy, right breast (~1993) Family History Mother , at 77 Asthma Hypertension COPD (chronic obstructive pulmonary disease) Father , at 79 Parkinson disease Graves disease Hypertension Depression Suicide attempt Sister No problems noted. Sister , at 44 of metastatic bone cancer Metastatic bone cancer Brother , at 60 of pancreatic cancer Pancreatic cancer Diabetes Depression COPD (chronic obstructive pulmonary disease) Brother Alcohol abuse Son No problems noted. Daughter No problems noted. Maternal Grandfather Heart disease IA Maternal Grandmother Brain cancer Paternal Grandfather No problems noted. Paternal Grandmother No problems noted. Brother , age 28 - MVA No problems noted. Social History (Updated 01/07/24 @ 12:57 by Sydney Quintanilla) Smoking/Tobacco Use Status: Current every day Tobacco Type: cigarettes Years smoked: 48 Tobacco: How many years used: 48 Quit status: considering quitting Counseling given: provider counseling Smoking risk assessment performed?: Yes Alcohol Intake: current Alcohol Intake frequency: a few times a week Alcohol type: beer Details: Declined to answer all except selecting Beer Drug use: Never Substance use type: does not use Counseling given: No Counseling provided: none Adopted: No Caregiver/Support person: No Household members: spouse Housing: house Pets and animals: Yes Pets and animals: cat(s) Sexually active: Yes Do you think of yourself as: straight/heterosexual Current gender identity: female What is your relationship status?: How often do you talk on the phone with friends or family?: three or more times per week How often do you get together with friends or relatives?: twice per week Do you belong to any clubs or organized social groups?: no Panel score (0-1 are the most socially isolated patients): 2 What type of physical activity do you participate in: none Frequency: does not exercise Aida/Protestant: None Special aida needs: No Seatbelt use: always Helmet use: No Drive intox 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 roll off driver: No Firearms in home: Yes Firearms unloaded and locked: Yes Do you feel safe at home: Yes Do you feel safe in your relationship?: Yes Victim of physical abuse: No Victim of emotional abuse: No Victim of sexual abuse: No Female Reproductive History Menstrual Menopause type: surgical History History 4 Para 2 Hx # Term Pregnancies Multiple births Hx # Pregnancies Ectopic pregnancies AB induced Hx Number of Living Children 2 AB spontaneous 2 PAWSS Have you Been Recently Intoxicated or Drunk Within the Last 30 days?: No Have you Ever Experienced Previous Episodes of Alcohol Withdrawal?: No Have you ever Experienced Withdrawal Seizures?: No Have you ever Experienced Delirium Tremens(DT)s?: No Have you ever undergone Alcohol Rehabilitation Treatment (i.e, inpt ot outpatient treatment programs)?: No Have you ever Experienced Blackouts?: No Have you ever Combined Alcohol with other Downers within the last 90 days?: No Have you ever Combined Alcohol with any other Substance of Abuse during the last 90 days?: No Positive Blood Alcohol level on Presentation? [PCS.BAL]: Unable to Obtain Evidence of Increased Autonomic Activity (i.e. HR>120, tremor, sweating, agitation, nausea)?: No Result: 0
--- NOTE | 2024-04-29 17:20 | DI.CT_ITS ---
Exam(s) CT CHEST PE ABD PELVIS W EXAM: CT CHEST PE ABD PELVIS W CLINICAL HISTORY: SOB, cardiac history, pleuritic CP. TECHNIQUE: Imaging Protocol: Axial CT angiography was performed with multi-slice acquisition and mu lti-planar and/or 3D reconstructions. Computer aided detection (CAD) was utilized. CONTRAST MATERIAL: Intravenous: Omnipaque 350contrast volume:100 mL COMPARISON: CT CT CHEST PE CTA from 02/01/[address] CHEST LUNG CANCER SCREEN from 01/16/2024 FINDINGS: CHEST: Tracheobronchial tree: Patent where visualized. No evidence of bronchiectasis. Pulmonary parenchyma: No consolidation or dominant measurable mass. No architectural distortion. Ther e are atelectatic changes present. Pulmonary Arteries: No evidence of filling defect to suggest pulmonary emboli. Mediastinum and Sofy: No dominant adenopathy or fluid collection. The esophagus is unremarkable. Visualized thyroid gland: Unremarkable. Pleura: No effusion or pneumothorax. Heart: The heart is not dilated. Mild coronary artery calcification. No pericardial effusion. Aorta: Thoracic aorta non-dilated. No evidence of dissection. Atherosclerotic calcification is prese nt. Bones: Within normal limits for the patient's age. Soft tissues: Unremarkable. ABDOMEN: Liver: Normal density. No measurable mass. Portal, Superior Mesenteric, and Splenic Veins: Unremarkable. Gallbladder and Biliary Tract: No radiodense calculus or dilation. Pancreas: Normal density, no abnormal calcifications or inflammatory process. Spleen: There are calcified granuloma in the spleen. Adrenals: No masses seen. Kidneys: Normal size, contour and axis. No radiodense stones or obstructive uropathy. No masses seen. Abdominal Aorta: Abdominal portion non-dilated. Atherosclerotic calcifications are present. Bowel: No obstruction or bowel wall thickening. No evidence of appendicitis. Peritoneal Cavity: No ascites, collection or mesenteric inflammatory response. No free air. Lymph Nodes: Within normal limits. Bones: Within normal limits for the patient's age. Soft Tissues: Unremarkable. PELVIS: Bladder: Symmetric distention, no gross wall thickening. Reproductive Organs: The uterus is absent. Lymph Nodes: Within normal limits. Bones: Within normal limits. IMPRESSION: 1. No evidence pulmonary embolism, thoracic aortic dissection or aneurysm. 2. No acute pulmonary process. 3. No acute abdominal or pelvic process. RADIATION DOSE DELIVERED: 816.01mGy.cm Total DLP DATA REPOSITORY: All CT scans at this facility are submitted to the National Radiology Data Registry (NRDR) Dose Index Registry (DIR) with the [employer] (ACR). RADIATION OPTIMIZATION: All CT scans at this facility use at least one of these dose optimization te chniques: automated exposure control; mA and/or kV adjustment per patient size (includes targeted exa ms where dose is matched to clinical indication); or iterative reconstruction.
[2024-04-29 17:32] LABS: Abs Immature Grans 0.03 10^3/uL (0.0-0.06); Absolute Basophil Count 0.05 10^3/uL (0.0-0.2); Absolute Eosinophil Count 0.05 10^3/uL (0.0-0.7); Absolute Lymphocyte Count 1.81 10^3/uL (1.2-3.4); Absolute Monocyte Count 0.89 10^3/uL (0.1-0.8); Absolute Neutrophil Count 8.06 10^3/uL (1.2-6.7); BE (Venous) 4 mmol/L (-2-3); Basophils % 0.5 %; Eosinophils % 0.5 %; HCO3 (Venous) 29 mmol/L (23-28); HCT 47.4 % (36.0-46.0); HGB 16.3 g/dL (11.2-15.7); Immature Grans % 0.3 %; Lactate 1.2 mmol/L (0.6-1.4); Lymphocytes % 16.6 %; MCH 32.6 pg (27.0-33.0); MCHC 34.4 % (32.0-36.0); MCV 95 fL (80-95); MPV 9.9 fL (8.0-11.0); Monocytes % 8.2 %; Neutrophils % 73.9 %; O2 Sat (Venous) 69 %; Platelet Count 227 10^3/uL (130-400); RDW 13.9 % (11.7-14.6); TCO2 (Venous) 25 mmol/L (24-29); WBC 10.91 10^3/uL (4.4-10.8); pCO2 (Venous) 45 mmHg (41-51); pH (Venous) 7.42 (7.31-7.41); pO2 (Venous) 34 mmHg
[2024-04-29] MEDS: methylPREDNISolone SUCC 125 MG VIAL IVP (17:44)
[2024-04-29] MEDS: Ketorolac 15 MG/ML VIAL IVP (17:45)
[2024-04-29] MEDS: MAGNESIUM SULFATE 1 GM/100 ML BAG IV_INF (17:48)
[2024-04-29] MEDS: Albuterol/Ipratropium 3 ML UPD VIAL 9 ML UPD (17:51)
[2024-04-29 17:55] LABS: Bilirubin Negative (Negative); Blood Negative (Negative); Clarity Clear (Clear); Glucose Negative (Negative); Ketones Negative (Negative); Leukocyte Esterase Negative (Negative); Nitrite Negative (Negative); Urobilinogen 0.2 mg/dL (Up to 0.2)
[2024-04-29 18:01] LABS: ALT 28 U/L (14-59); AST 19 U/L (15-37); Albumin 3.6 g/dL (3.4-5.0); Alkaline Phosphatase 93 U/L (46-116); Anion Gap 9.9 mmol/L (3-11); BUN 11 mg/dL (7-18); Bilirubin, Total 0.82 mg/dL (0.2-1.0); CO2 29.1 mmol/L (21.0-32.0); CREATININE 0.9 mg/dL (0.55-1.02); Calcium 9.5 mg/dL (8.5-10.1); Chloride 105 mmol/L (98-107); Estimated GFR 73.19 (mL/min/1.73m2); Glucose 121 mg/dL (74-106); Lipase 28 U/L (16-77); Magnesium 2.1 mg/dL (1.8-2.4); NT-proBNP 1100 pg/mL (<300); Potassium 3.5 mmol/L (3.5-5.1); Sodium 144 mmol/L (136-145); Total Protein 7.5 g/dL (6.4-8.2); Troponin I 33 ng/L (<or=51)
[2024-04-29] MEDS: Normal Saline - Diluent 50 ML VIAL IJ (18:07)
[2024-04-29] MEDS: Omnipaque 350 MG/ML 100 ML BTL IJ (18:07)
[2024-04-29] MEDS: Azithromycin 250 MG TAB 500 MG PO (18:50)
[2024-04-29 18:54] LABS: Troponin I 32 ng/L (<or=51)
== END 2024-04-29 19:11 | disposition home or self-care (01) ==
PROVIDERS: Emergency Provider Physician Assistant; PCP Nurse Practitioner Family
DX: J44.1 Chronic obstructive pulmonary disease with (acute) exacerbation (principal); R10.32 Left lower quadrant pain; I25.10 Atherosclerotic heart disease of native coronary artery without angina pectoris; F17.210 Nicotine dependence, cigarettes, uncomplicated; Z79.82 Long term (current) use of aspirin
CPT/HCPCS: 36415; 71275; 74177; 80053; 82805; 83690; 93005; 94640; 96365; 96375; 99285; 81003; 83605; 83735; 83880; 84484; 85025; 93010; J1885; J2919; J3475; J3490; J7620

== ENCOUNTER 2024-07-20 00:36 | Outpatient (CLI) | payer OTHER, SELFPAY ==
--- NOTE | 2024-07-20 08:30 | DI.US_ITS ---
APPROVED REPORT EXAM: Comprehensive 2D, Doppler, and color-flow Echocardiogram Patient Location: Out-Patient [employer] Supervisor: Gucci Garcia RDCS (AE) Indications: Ischemic cardiomyopathy Other Information Study Quality: Fair Conclusion Mild concentric left ventricular hypertrophy. Ejection fraction is 55%. There are no segmental wall motion abnormalities Normal right ventricular size and function Both atria are normal in size Aortic valve is sclerotic and trileaflet. Mean gradient is 10 mmHg. There is mild aortic regurgitat ion Mild mitral annular calcification, mild mitral regurgitation Wall motion Left Ventricle The left ventricle is normal size. The left ventricular systolic function is normal. The left ventric ular ejection fraction is within the normal range. Mild concentric left ventricular hypertrophy. Ther e is normal LV segmental wall motion. There is no ventricular septal defect visualized. LVEF is 55%. Right Ventricle The right ventricle is normal size. The right ventricular systolic function is normal. Atria The left atrium size is normal. The right atrium size is normal. The interatrial septum is intact wit h no evidence for an atrial septal defect. Aortic Valve The aortic valve is sclerotic. Aortic valve is trileaflet. Mean gradient is 10 mmHg Mild aortic regur gitation. Mitral Valve Mild mitral annular calcification. No evidence of mitral valve stenosis. Mild mitral regurgitation. Tricuspid Valve The tricuspid valve is normal in structure. There is no tricuspid valve stenosis. Trace tricuspid reg urgitation. Unable to assess PA pressure. Pulmonic Valve The pulmonary valve is normal in structure. There is no pulmonic valvular stenosis. There is no pulmo jarvis valvular regurgitation. Great Vessels The aortic root is normal in size. The ascending aorta is normal in size. Aortic arch is normal in ca liber. IVC is normal in size and collapses >50% with inspiration. Pericardium There is no pericardial effusion. 2D Dimensions IVSD d PLAX 1.19 cm F: 0.6-1.0 Ao Root d 2.50 cm F: 2.7 - 3.3 LVPW d PLAX 1.23 cm F: 0.6 - 1.0 Ao Asc Diam d 2.84 cm F: 2.3 - 3.1 LVID d PLAX 5.23 cm F: 3.8 - 5.2 LVDs 3.83 cm F: 2.2 - 3.5 LV EF Teichholz 51.9 % FS 26.77 % LV EDV (Teich) 131.4 mL LV ESV (Teich) 63.2 mL Stroke Vol Index (Teich) 36.07 M-Mode TAPSE 2.79 cm (M/F) >1.7 Auto EF LV EDV A4C 180.1 mL LV EDV A2C 203.0 mL LV EDV BP LV ESV A4C 78.9 mL LV ESV A2C 95.9 mL LV ESV BP LVEF(%) A4C 56.2 % LVEF(%) A2C 52.7 % LVEF(%) BP LV SV A4C 101.2 ml LV SV A2C 107.0 ml LV SV BP LV CO A4C 12.0 L/min LV CO A2C 8.3 L/min LV CO BP HR A4C 118.43 BPM HR A2C 77.59 BPM LV EDV Index (BP) LA Volume LA Length A4C 4.7 cm LA Length A2C LA Area A4C s 14.45 cm2 LA Area A2C s LA Vol A4C A-L 37.99 mL LA Vol A2C A-L LA Vol Biplane A-L LA Vol A4C MOD 37.0 mL LA Vol A2C MOD LA Vol BP MOD RA Volume RA Area A4C 7.7 cm2 RA ESV A4C (A-L) 14.4mL RA Vol/BSA A4C A-L RA Length A4C 3.5 cm RA ESV A4C (MOD) 13.1mL LV Diastology MV E' medial 0.067 (>0.07 m/s) MV E Vmax 0.98 (0.4-1.3 m/s) MV E/E' MED 14.70 (<14) MV A Vmax 1.00 (0.4-1.3 m/s) MV E' lateral 0.046 (>0.1 m/s) E/A Ratio 1.0 MV E/E' LAT 21.34 (<14) MV E' Average 0.056 m/s MV E/E'(average) 17.41 Aortic Valve AoV Vmax 2.12 m/s LVOT Vmax 1.44 m/s AoV Peak Grad 39.5 mmHg LVOT Peak Grad 8.3 mmHg AoV Area (Vmax) 2.11 cm2 LVOT VTI 0.349 m AoV VTI 0.516 m LVOT Mean Grad 5.2 mmHg AoV Mean Elías. 1.58 m/s LVOT SV 108.65 mL AoV Mean Grad 10.9 mmHg LVOT Diam s 1.95 cm AoV Area (VTI) 2.10 cm2 AV Regurg Peak Gr. 17.97 mmHg Velocity Ratio 0.68 AR Decel [place] 1.2m/sec2 AR DT 3192 msec AR PHT 926 msec AR Vmax 3.91 m/s Mitral Valve MV DT 107 (160-240 msec) Pulmonary Valve RVOT Vmax 0.83 m/s RVOT Peak Gr. 2.7 mmHg RVOT VTI 0.186 m RVOT Mean Gr. 1.6 mmHg
== END 2024-07-20 00:56 ==
PROVIDERS: PCP Nurse Practitioner Family; Visit Provider Internal Medicine Cardiovascular Disease
DX: I50.9 Heart failure, unspecified (principal)
CPT/HCPCS: 93306

== ENCOUNTER 2024-07-27 08:39 | Emergency (ER) | payer OTHER, SELFPAY ==
[2024-07-27] VITALS (36 sets, daily range): BP systolic 154–245; BP diastolic 74–134; PULSE 63–125; RESP 5–45; TEMP 36; O2SAT 79–98
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
[2024-07-27] MEDS: fentaNYL 100 MCG/2 ML VIAL 50 MCG IVP (09:10)
[2024-07-27 09:14] LABS: Abs Immature Grans 0.07 10^3/uL (0.0-0.06); Absolute Basophil Count 0.09 10^3/uL (0.0-0.2); Absolute Eosinophil Count 0.09 10^3/uL (0.0-0.7); Absolute Lymphocyte Count 1.83 10^3/uL (1.2-3.4); Absolute Monocyte Count 1.07 10^3/uL (0.1-0.8); Basophils % 0.6 %; Eosinophils % 0.6 %; HCT 45.6 % (36.0-46.0); HGB 15.4 g/dL (11.2-15.7); Immature Grans % 0.5 %; Lymphocytes % 11.9 %; MCH 31.8 pg (27.0-33.0); MCHC 33.8 % (32.0-36.0); MCV 94 fL (80-95); MPV 10.6 fL (8.0-11.0); Neutrophils % 79.4 %; Platelet Count 224 10^3/uL (130-400); RBC 4.84 10^6/uL (3.93-5.22); RDW 14.2 % (11.7-14.6); RDW-SD 49.4 fL; WBC 15.35 10^3/uL (4.4-10.8)
[2024-07-27 09:15] LABS: Absolute Neutrophil Count 12.19 10^3/uL (1.2-6.7)
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
[2024-07-27] MEDS: Omnipaque 350 MG/ML 100 ML BTL IJ (09:21)
[2024-07-27] MEDS: Normal Saline - Diluent 50 ML VIAL IJ (09:23)
[2024-07-27 09:32] LABS: INR 0.9 (0.9-1.1); PTT Activated 25.5 sec (20.6-30.2); Prothrombin Time 9.5 sec (9.1-11.1)
--- NOTE | 2024-07-27 09:35 | DI.CT_ITS ---
Exam(s) CT HEAD CERVICAL SPINE WO EXAM: CT HEAD CERVICAL SPINE WO CLINICAL HISTORY: Trauma. TECHNIQUE: Imaging Protocol: Axial computed tomography images with coronal and sagittal reformatted images were created and reviewed COMPARISON: No exams were available for comparison FINDINGS: BRAIN: There are no skull fractures nor fluid in the visualized paranasal sinuses. There is no evidence of intracranial hemorrhage, mass effect, or shift of midline structures. There are no extra-axial fluid collections. The ventricles are not enlarged or shifted and there is no blo od within the ventricular system nor within the basal cisterns. There is a 6 x 5 hypodensity on the left side which is probably developmental sub lenticular cyst. CERVICAL SPINE: There is no evidence of fracture nor listhesis. No significant prevertebral soft tissue swelling. Small calcific density is seen off the posterior aspect of the spinous process at C7 level, either sm all avulsion fracture at this level versus calcification in the posterior Supraspinous ligament. There is no significant facet joint malalignment. No significant osseous lesions evident. IMPRESSION: No acute intracranial findings on this noninfused CT scan of the brain. No evidence of cervical spine fracture, malalignment, nor acute compromise of the cervical spinal can al. Report called by myself to ER provider 07/27/2024 at 9:54 m. RADIATION DOSE DELIVERED: 1,322mGy.cm Total DLP DATA REPOSITORY: All CT scans at this facility are submitted to the National Radiology Data Registry (NRDR) Dose Index Registry (DIR) with the [employer] (A[employer]). RADIATION OPTIMIZATION: All CT scans at this facility use at least one of these dose optimization te chniques: automated exposure control; mA and/or kV adjustment per patient size (includes targeted exa ms where dose is matched to clinical indication); or iterative reconstruction.
[2024-07-27 09:39] LABS: ALT 37 U/L (14-59); AST 27 U/L (15-37); Albumin 3.7 g/dL (3.4-5.0); Alkaline Phosphatase 96 U/L (46-116); BUN 16 mg/dL (7-18); Bilirubin, Total 0.76 mg/dL (0.2-1.0); CREATININE 0.8 mg/dL (0.55-1.02); Calcium 9.3 mg/dL (8.5-10.1); Chloride 105 mmol/L (98-107); Glucose 110 mg/dL (74-106); Lipase 24 U/L (<78); Potassium 3.9 mmol/L (3.5-5.1); Sodium 140 mmol/L (136-145); Total Protein 7.2 g/dL (6.4-8.2); Troponin I 49 ng/L (<or=51)
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
[2024-07-27 10:38] LABS: Troponin I 74 ng/L (<or=51)
[2024-07-27] MEDS: Albuterol/Ipratropium 3 ML UPD VIAL UPD (11:20)
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
== END 2024-07-27 12:13 | disposition short-term general hospital (02) ==
PROVIDERS: Emergency Provider Nurse Practitioner Family; PCP Nurse Practitioner Family
DX: M54.2 Cervicalgia (principal); J45.909 Unspecified asthma, uncomplicated; J44.9 Chronic obstructive pulmonary disease, unspecified; V48.0XXA Car driver injured in noncollision transport accident in nontraffic accident, initial encounter; R91.8 Other nonspecific abnormal finding of lung field
CPT/HCPCS: 00123; 36415; 74177; 76604; 76705; 76857; 80053; 83690; 93005; 94640; 96374; 99285; 70450; 71260; 72125; 83735; 84484; 85025; 85610; 85730; 93010; J3010; J3490; J7620

== ENCOUNTER 2024-07-31 08:54 | Inpatient (IN) | payer OTHER, SELFPAY ==
[2024-07-31] VITALS (88 sets, daily range): BP systolic 38–222; BP diastolic 20–181; PULSE 60–149; RESP 3–40; TEMP 36.3–37.8; O2SAT 89–100
--- NOTE | 2024-07-31 08:45 | RT.EKG_ITS ---
APPROVED REPORT Exam: Resting ECG Reason for Exam: dyspnea Patient Location: E HR:105 bpm ECG Measurements Heart Rate 105 AXIS OR 142 P 75 QRSd 94 QRS 28 QT 353 T 82 QTc 467 Conclusion Sinus tachycardia...rate> 99 Supraventricular bigeminy...bigeminy string>4 w/ SV complexes Probable left atrial enlargement...P >50mS, <-0.10mV V1
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
--- NOTE | 2024-07-31 09:15 | RT.EKG_ITS ---
APPROVED REPORT Exam: Resting ECG Reason for Exam: SOB Patient Location: E HR:135 bpm ECG Measurements Heart Rate 135 AXIS NH [id number] P [id number] QRSd 100 QRS 34 QT 328 T 84 QTc 492 Conclusion Atrial fibrillation...V-rate 109-153, irreg A-activity Borderline ST depression, anterolateral leads...ST <-0.07mV, I aVL V2-V6
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
[2024-07-31 09:28] LABS: Abs Immature Grans 0.05 10^3/uL (0.0-0.06); Absolute Basophil Count 0.05 10^3/uL (0.0-0.2); Absolute Eosinophil Count 0.01 10^3/uL (0.0-0.7); Absolute Lymphocyte Count 1.06 10^3/uL (1.2-3.4); Absolute Monocyte Count 0.73 10^3/uL (0.1-0.8); Absolute Neutrophil Count 11.81 10^3/uL (1.2-6.7); Basophils % 0.4 %; Eosinophils % 0.1 %; HCT 43.5 % (36.0-46.0); HGB 14.9 g/dL (11.2-15.7); Immature Grans % 0.4 %; Lymphocytes % 7.7 %; MCH 32.1 pg (27.0-33.0); MCHC 34.3 % (32.0-36.0); MCV 94 fL (80-95); MPV 10.4 fL (8.0-11.0); Monocytes % 5.3 %; Neutrophils % 86.1 %; Platelet Count 222 10^3/uL (130-400); RBC 4.64 10^6/uL (3.93-5.22); RDW 14.3 % (11.7-14.6); RDW-SD 49.2 fL; WBC 13.72 10^3/uL (4.4-10.8)
[2024-07-31] MEDS: Albuterol/Ipratropium 3 ML UPD VIAL (09:28)
[2024-07-31 09:44] LABS: ALT 36 U/L (14-59); AST 22 U/L (15-37); Albumin 3.7 g/dL (3.4-5.0); Alkaline Phosphatase 81 U/L (46-116); Anion Gap 4.5 mmol/L (3-11); BUN 16 mg/dL (7-18); Bilirubin, Total 0.77 mg/dL (0.2-1.0); CO2 30.5 mmol/L (21.0-32.0); CREATININE 0.8 mg/dL (0.55-1.02); Calcium 9.4 mg/dL (8.5-10.1); Chloride 106 mmol/L (98-107); Glucose 100 mg/dL (74-106); Magnesium 1.9 mg/dL (1.8-2.4); Potassium 3.6 mmol/L (3.5-5.1); Sodium 141 mmol/L (136-145); Total Protein 6.9 g/dL (6.4-8.2)
[2024-07-31 09:51] LABS: Troponin I 53 ng/L (<or=51)
[2024-07-31] MEDS: Omnipaque 350 MG/ML 500 ML BTL-Imaging package 100 ML IJ (09:54)
[2024-07-31] MEDS: Normal Saline - Diluent 50 ML VIAL IJ (09:55)
[2024-07-31] MEDS: LORazepam 2 MG/ML VIAL 0.5 MG IVP ×2 (10:13→14:00)
[2024-07-31] MEDS: Lactated Ringers 500 ML IV (10:15)
--- NOTE | 2024-07-31 10:15 | RT.EKG_ITS ---
APPROVED REPORT Exam: Resting ECG Reason for Exam: repeat Patient Location: E HR:149 bpm ECG Measurements Heart Rate 149 AXIS MT 106 P 90 QRSd 106 QRS -42 QT 331 T 191 QTc 521 Conclusion Sinus tachycardia...rate> 99 Left axis deviation...QRS axis (-30,-90) Prolonged QT interval...QTc >510mS ?atrial flutter
[2024-07-31] MEDS: MORPHine 4 MG/ML SYR IVP (10:44)
[2024-07-31 10:59] LABS: Troponin I 54 ng/L (<or=51)
[2024-07-31] MEDS: Levalbuterol 1.25 MG/3 ML UPD VIAL 2.5 MG UPD ×2 (11:23→13:30)
[2024-07-31 11:33] LABS: COVID-19 PCR Negative (Negative); Influenza A PCR Positive (Negative); Influenza B PCR Negative (Negative); RSV PCR Negative (Negative)
[2024-07-31 11:34] LABS: Source Nasopharynx
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
[2024-07-31 12:54] LABS: Troponin I 55 ng/L (<or=51)
[2024-07-31] MEDS: Levalbuterol 1.25 MG/3 ML UPD VIAL UPD ×2 (13:51→16:46)
[2024-07-31] MEDS: MAGNESIUM SULFATE 2 GM/50 ML BAG IV_INF (14:10)
[2024-07-31] MEDS: MORPHine 4 MG/ML SYR (14:25)
[2024-07-31 14:47] LABS: BE (Venous) 1 mmol/L (-2-3); HCO3 (Venous) 29 mmol/L (23-28); O2 Sat (Venous) 95 %; TCO2 (Venous) 26 mmol/L (24-29); pH (Venous) 7.21 (7.31-7.41); pO2 (Venous) 89 mmHg
[2024-07-31 14:50] LABS: pCO2 (Venous) 71 mmHg (41-51)
--- NOTE | 2024-07-31 15:00 | DI.RAD_ITS ---
Exam(s) XR PORTABLE CHEST AP EXAM: XR PORTABLE CHEST AP CLINICAL HISTORY: Post intubation/Confirmation of tube placement. TECHNIQUE: 2D digital imaging was performed. COMPARISON: No exams were available for comparison FINDINGS: Single AP portable view. Patient is intubated. Distal tip of the endotracheal tube is just above the federico. Heart size is upper normal. The mediastinum is not widened. No confluent infiltrates nor pleural effusions. No pneumothorax. No pneumomediastinum. Cardiac pad s noted. IMPRESSION: ET tube is just above the federico. Discussed with ER provider. DATA REPOSITORY: RADIATION DOSE DELIVERED:
[2024-07-31] MEDS: LORazepam 2 MG/ML VIAL 1 MG IVP (15:01)
[2024-07-31] MEDS: Ketamine 500 MG/10 ML VIAL (15:10)
[2024-07-31] MEDS: Norepinephrine in D5W 8 MG/250 ML BAG 15 MG IV (15:20)
[2024-07-31] MEDS: PROPOFOL 1,000 MG/100 ML BTL 5.35 MG (15:29)
--- NOTE | 2024-07-31 15:34 | W.EDPROG ---
Date of service: 07/31/24 Time of Service: 15:34 Medical Decision Making 1530 --patient was experiencing significant increased work of breathing despite continuous nebs and magnesium. Hospitalist notified and at bedside. Patient was also experiencing anxiety. She was given morphine initially. She was then given lorazepam. Patient had significant decrease in mentation and was not protecting airway. RSI was performed without complication to support respiratory function. Patient did have hypotension postintubation. She was given IV fluid bolus and started on nor epi. Blood pressure rapidly improved. Nursing to place gtube. Nursing titrating down norepi as tolerates. Quality:[facility] Health Related Social Needs: No Data to Display Procedure Airway Management Date of Procedure: 07/31/24 Time of Procedure: 15:15 Patient Consented: Emergent Case Indication: Respiratory failure and Reduced level of consciousness Provider that performed the procedure: Rolando Massey Mallampati Class: 1 Sedation administered by provider performing procedure: Yes. Induction setup: Pt. evaluated prior to induction and Head of Bed Elevated Ultrasound: Not used Airway Type: Intubation Laryngoscopy: Atraumatic Laryngoscopy and Teeth Intact. Grade: Airway Blades: Glidescope 3. Endotracheal Tube: Oral, Cuffed and 7.0mm. Secured at(cm): 26. Placement Confirmation: ETCO2 waveform present. Paralytic(indicate dose given): Rocuronium (100) Post Induction Medication Management(indicate dose given): Ketamine IV (200) Procedure Complications: None Procedure Outcome: Successful Discharge Plan Disposition Patient Disposition: Admit to [facility] Condition: Critical Discharge Details Chief Complaint: SOB Clinical Impression: Respiratory failure, COPD (chronic obstructive pulmonary disease), Pneumonia, Lung contusion, Influenza A Primary Care Provider: Racquel Fraser ED Provider: Vilma Zazueta Home Meds and New Rx's Prescriptions: No Action benzonatate 100 mg capsule 100 - 200 mg PO TID PRN (Reason: cough) Qty: 60 0RF Rx Instructions: Take 1-2 capsules by mouth three times a day as needed for cough losartan 100 mg tablet 100 mg PO DAILY Qty: 90 3RF metoprolol succinate 25 mg tablet extended release 24 hr 25 mg PO DAILY Qty: 90 3RF furosemide 20 mg tablet 20 mg PO DAILY Qty: 90 3RF citalopram 10 mg tablet 10 mg PO DAILY Qty: 90 3RF nitroglycerin 0.4 mg tablet, sublingual 0.4 mg sublingual Q5M PRN Patient Comments: 02/08/23 Per [facility] Cardiology. -hb Rx Instructions: do not exceed 3 doses per episode aspirin [Adult Aspirin Regimen] 81 mg tablet,delayed release (DR/EC) 81 mg PO DAILY Qty: 90 3RF rosuvastatin 20 mg tablet 20 mg PO DAILY Qty: 90 3RF albuterol sulfate 90 mcg/actuation HFA aerosol inhaler 2 puff Inhalation Q6H PRN (Reason: shortness of breath or wheezing) Qty: 8.5 6RF pantoprazole 20 mg tablet,delayed release (DR/EC) 20 mg PO DAILY Qty: 90 3RF budesonide-formoterol 160-4.5 mcg/actuation HFA aerosol inhaler 2 puff inhalation BID Qty: 10.2 4RF Rx Instructions: 2 puffs twice a day and may use as a reliever therapy for acute difficulty breathing, 1 to 2 puffs every 4 hours as needed. Max inhalations 12 per day ipratropium-albuterol 0.5 mg-3 mg(2.5 mg base)/3 mL solution for nebulization 3 ml UPD QID PRN (Reason: shortness of breath or wheezing) Qty: 180 3RF
--- NOTE | 2024-07-31 15:45 | DI.RAD_ITS ---
Exam(s) XR PORTABLE CHEST AP POST LINE EXAM: XR PORTABLE CHEST AP POST LINE CLINICAL HISTORY: Post NG tube placement. TECHNIQUE: 2D digital imaging was performed. COMPARISON: CR XR PORTABLE CHEST AP from 07/31/2024 FINDINGS: Single AP portable view. Multiple chest leads and pads in place. The endotracheal tube has slipped down to the federico level and should be retracted to a level above t he federico. Is difficult to determine if the NG tube is within the stomach as there are numerous other cardiac li robel. The should be moved and another image obtained. There are no confluent infiltrates nor pleural effusions. No pulmonary edema. No rib fractures. No pneumothorax. IMPRESSION: As above. Repeat image recommended with cardiac leads removed DATA REPOSITORY: RADIATION DOSE DELIVERED:
--- NOTE | 2024-07-31 15:45 | DI.RAD_ITS ---
Exam(s) XR PORTABLE CHEST AP POST LINE EXAM: XR PORTABLE CHEST AP POST LINE CLINICAL HISTORY: Post ETT adjustment. TECHNIQUE: 2D digital imaging was performed. COMPARISON: CR XR PORTABLE CHEST AP POST LINE from 07/31/2024 FINDINGS: Single AP portable view. Performed at 4:07 p.m. The endotracheal tube is now in good position above the federico. The NG tube is now in the stomach (in the fundus of the stomach). Heart size is upper normal. The mediastinum is not widened. There are COPD findings but no infiltrates nor pleural effusions. No pulmonary edema. No pneumothor ax. No rib fractures. IMPRESSION: ET tube and NG tube are in good position. COPD. No infiltrates. No pneumothorax. No pneumomediastinum. DATA REPOSITORY: RADIATION DOSE DELIVERED:
[2024-07-31] MEDS: Levalbuterol 1.25 MG/3 ML UPD VIAL (16:11)
[2024-07-31] MEDS: fentaNYL 100 MCG/2 ML VIAL IVP (16:13)
[2024-07-31] MEDS: Albuterol/Ipratropium 3 ML UPD VIAL UPD ×3 (17:03→20:05)
[2024-07-31 19:29] LABS: BE (Venous) 1 mmol/L (-2-3); HCO3 (Venous) 29 mmol/L (23-28); O2 Sat (Venous) 60 %; TCO2 (Venous) 28 mmol/L (24-29); pO2 (Venous) 37 mmHg
[2024-07-31 19:33] LABS: pCO2 (Venous) 83 mmHg (41-51); pH (Venous) 7.16 (7.31-7.41)
--- NOTE | 2024-07-31 20:53 | RESPIRATORY ---
Pt was intubated with a 7.0 tube at 26.5 at the teeth. Pt was placed on SCMV settings for pt height in inches and pt did not tolerated settings. Pt placed on low tidal volumes with increased rate; pt continued to ventilate with tidal volumes much smaller than the tidal volume was set to. Pt's tidal volumes were around 160ml on average. ETCO2 started to climb and O2 requirements increased so the respiratory rate was increased to a max of 30 with low minute volume, suctioned with lavage in line, and nebs were given in line. Peak pressures remained at 30 with poor compliance and low tidal volumes. Parameters increased to allow for less pressure limitation so that tidal volumes would increase and peak pressures climbed to 35. Pt's lungs eventually began to open heard by auscultation and tidal volumes began to slowly increase. Pt was transferred to the ICU and VBG was ordered. [ End ]
[2024-07-31] MEDS: PROPOFOL 1,000 MG/100 ML BTL 18.784 MG IV (21:03)
[2024-07-31] MEDS: cefTRIAXone 2 GM/50 ML BAG IVPB (21:05)
[2024-07-31] MEDS: Pantoprazole 40 MG VIAL IVP (21:06)
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
[2024-07-31 21:29] LABS: BE (Venous) 1 mmol/L (-2-3); HCO3 (Venous) 30 mmol/L (23-28); O2 Sat (Venous) 50 %; TCO2 (Venous) 28 mmol/L (24-29); pO2 (Venous) 31 mmHg
[2024-07-31] MEDS: Enoxaparin 40 MG/0.4 ML SYR SC (21:29)
[2024-07-31 21:31] LABS: pCO2 (Venous) 80 mmHg (41-51); pH (Venous) 7.17 (7.31-7.41)
[2024-07-31] MEDS: methylPREDNISolone SUCC 125 MG VIAL 60 MG IVP (21:38)
[2024-07-31] MEDS: Lactated Ringers 1,000 ML 100 ML IV (21:46)
[2024-07-31] MEDS: Normal Saline Flush 10 ML SYR IVP (23:15)
== END 2024-07-31 22:12 | disposition short-term general hospital (02) | DRG 871 ==
LOC: ER 17:32 → ICU 19:03
PROVIDERS: Student in an Organized Health Care Education/Training Program; Admitting Provider Hospitalist; Emergency Provider Physician Assistant; PCP Nurse Practitioner Family; Visit Provider Hospitalist
DX: A41.9 Sepsis, unspecified organism (principal); J10.00 Influenza due to other identified influenza virus with unspecified type of pneumonia; J96.01 Acute respiratory failure with hypoxia; J18.9 Pneumonia, unspecified organism; J44.0 Chronic obstructive pulmonary disease with (acute) lower respiratory infection; I50.30 Unspecified diastolic (congestive) heart failure; J98.11 Atelectasis; I25.5 Ischemic cardiomyopathy; I11.0 Hypertensive heart disease with heart failure; E78.5 Hyperlipidemia, unspecified; I35.1 Nonrheumatic aortic (valve) insufficiency; K21.9 Gastro-esophageal reflux disease without esophagitis; F17.210 Nicotine dependence, cigarettes, uncomplicated; D72.829 Elevated white blood cell count, unspecified; R74.8 Abnormal levels of other serum enzymes; I71.43 Infrarenal abdominal aortic aneurysm, without rupture; G47.33 Obstructive sleep apnea (adult) (pediatric); I25.10 Atherosclerotic heart disease of native coronary artery without angina pectoris; E05.00 Thyrotoxicosis with diffuse goiter without thyrotoxic crisis or storm; F41.9 Anxiety disorder, unspecified; L30.0 Nummular dermatitis; I25.2 Old myocardial infarction; Z96.651 Presence of right artificial knee joint; Z79.82 Long term (current) use of aspirin; Z79.899 Other long term (current) drug therapy
CPT/HCPCS: 00123; 31500; 36415; 71045; 71275; 80053; 82805; 87040; 87637; 93005; 94640; 96365; 96366; 96367; 96375; 96376; 99285; J1650; 83735; 84484; 85025; 93010; 99236; J0696; J2060; J2270; J2470; J2543; J2704; J2919; J3010; J3475; J7614; J7620

== ENCOUNTER 2024-08-21 09:28 | Outpatient (CLI) | payer OTHER, SELFPAY ==
--- NOTE | 2024-08-21 09:15 | RT.EKG_ITS ---
APPROVED REPORT Exam: Resting ECG Reason for Exam: PAF Patient Location: O HR:103 bpm ECG Measurements Heart Rate 103 AXIS IA [id number] P [id number] QRSd 139 QRS -7 QT 337 T 87 QTc 441 Conclusion Atrial fibrillation...V-rate 85-125, irreg A-activity Nonspecific T abnormalities, ...T <-0.10mV, I aVL V5 V6
== END 2024-08-21 09:29 | disposition home or self-care (01) ==
PROVIDERS: PCP Nurse Practitioner Family; Visit Provider Internal Medicine Cardiovascular Disease
DX: I48.0 Paroxysmal atrial fibrillation (principal)
CPT/HCPCS: 93010

== ENCOUNTER 2024-08-23 13:17 | Emergency (ER) | payer OTHER, SELFPAY ==
[2024-08-23] VITALS (26 sets, daily range): BP systolic 95–149; BP diastolic 51–85; PULSE 76–126; RESP 8–29; TEMP 37.2; O2SAT 90–98
--- NOTE | 2024-08-23 13:45 | DI.CT_ITS ---
Exam(s) CT CHEST/ABD/PEL W EXAM: CT CHEST/ABD/PEL W CLINICAL HISTORY: CP/SOB, abd pain, vomiting. TECHNIQUE: Imaging Protocol: Axial computed tomography images with coronal and sagittal reformatted images were created and reviewed CONTRAST MATERIAL: Intravenous: Omnipaque 350 Contrast volume:100 ml Oral: None COMPARISON: CT CT CHEST PE CTA from 07/31/2024 FINDINGS: CHEST: Not performed with pulmonary embolus protocol. There are no filling defects within the central pulmonary arteries to suggest central pulmonary embol i. The subsegmental pulmonary arteries not optimally opacified to determine if there are peripheral pulmonary emboli. Main pulmonary arteries exhibit normal size. LUNGS: There is some mild air trapping bilaterally but no confluent infiltrates nor pleural effusions . There are multiple calcified granulomas in the lung gardner, more numerous on the right side. Ther e are no spiculated lung nodules. No significant focal findings in the trachea and mainstem bronchi. No bronchiectasis.. MEDIASTINUM: There is no hilar nor mediastinal adenopathy. Partially visualized thyroid unremarkable. No hiatal hernia evident. CARDIAC: Heart size upper normal. There is mild thickening of the anterior pericardium which may ind icate a small amount of pericardial fluid.Caliber of the thoracic aorta is within normal limits and t here is no evidence of aortic dissection.. OSSEOUS: No fractures nor significant osseous lesions.. No listhesis. OTHER: There is a 1.4 x 0.9 cm nodule in the right breast. Requires further imaging. ABDOMEN: There is no ascites. LIVER: There are no focal hepatic lesions nor dilatation of intrahepatic ducts. GALLBLADDER/BILIARY: No obvious gallbladder pathology. CBD is not dilated. PANCREAS: No evidence of pancreatic mass nor dilatation of the pancreatic duct. SPLEEN: Spleen is not enlarged. There are no significant intrasplenic lesions. A few calcified splen ic granulomas are noted. The splenic and portal veins are patent. ADRENALS: There are no significant adrenal masses. KIDNEYS: No calculi nor hydronephrosis. No solid renal masses. No significant cysts evident. ABDOMINAL AORTA: The abdominal aorta is calcified and upper normal diameter. There is no aneurysmal dilatation of the iliac arteries. LYMPH NODES: There is no retroperitoneal nor paraaortic adenopathy. ABDOMINAL WALL: No evidence of significant anterior abdominal wall nor inguinal hernia. GI: There are fluid-filled small bowel loops in the pelvis which exhibit normal diameters. There is no evidence of small-bowel obstruction. No free air. No abscess. PELVIS: LYMPH NODES: There is no intrapelvic nor inguinal adenopathy. GI: No evidence of appendicitis.No evidence of sigmoid diverticulitis. URINARY BLADDER: No calculi nor masses evident. The pelvic ureters are not dilated. REPRODUCTIVE: Uterus is surgically absent. There are no abnormal adnexal masses nor free fluid in th e pelvis. OSSEOUS: No fractures nor listhesis. Moderate disc space narrowing at L2-3 level is noted. Other di sc spaces exhibit normal height in the lumbar spine. IMPRESSION: 1. No evidence of obvious central pulmonary emboli and no evidence pulmonary infarction. No evidence of aortic dissection. There is mild thickening of the anterior pericardium which may indicate a sma ll pericardial effusion. 2. There is a slightly lobulated nodule in the right breast located 1.5 cm in from the nipple and won suring approximately 14 x 9 mm. Breast imaging recommended to rule out neoplasm. 3. There is fluid in nondilated small bowel loops in the pelvis. Possible enteritis. There is, zhang kevin, no evidence of bowel obstruction, free air, nor abscess. 4. Previous hysterectomy. No abnormal adnexal masses. No ascites. RADIATION DOSE DELIVERED: 677.79mGy.cm Total DLP DATA REPOSITORY: All CT scans at this facility are submitted to the National Radiology Data Registry (NRDR) Dose Index Registry (DIR) with the [employer] (ACR). RADIATION OPTIMIZATION: All CT scans at this facility use at least one of these dose optimization te chniques: automated exposure control; mA and/or kV adjustment per patient size (includes targeted exa ms where dose is matched to clinical indication); or iterative reconstruction.
--- NOTE | 2024-08-23 13:45 | RT.EKG_ITS ---
APPROVED REPORT Exam: Resting ECG Reason for Exam: CP/SOB Patient Location: E HR:112 bpm ECG Measurements Heart Rate 112 AXIS ME [id number] P [id number] QRSd 89 QRS 54 QT 341 T 82 QTc 467 Conclusion Atrial fibrillation, rate 112 No interval abnormalities No STEMI No significant changes from priors
[2024-08-23] MEDS: Ondansetron 4 MG/2 ML VIAL IVP (13:57)
[2024-08-23] MEDS: LORazepam 1 MG TAB PO (13:57)
[2024-08-23 14:04] LABS: Abs Immature Grans 0.03 10^3/uL (0.0-0.06); Absolute Basophil Count 0.04 10^3/uL (0.0-0.2); Absolute Lymphocyte Count 1.26 10^3/uL (1.2-3.4); Absolute Monocyte Count 0.72 10^3/uL (0.1-0.8); Absolute Neutrophil Count 5.25 10^3/uL (1.2-6.7); Basophils % 0.5 %; Eosinophils % 1.4 %; HCT 42.2 % (36.0-46.0); HGB 14.5 g/dL (11.2-15.7); Immature Grans % 0.4 %; MCH 32.4 pg (27.0-33.0); MCHC 34.4 % (32.0-36.0); MCV 94 fL (80-95); MPV 9.9 fL (8.0-11.0); Monocytes % 9.7 %; Platelet Count 206 10^3/uL (130-400); RBC 4.47 10^6/uL (3.93-5.22); RDW 14.3 % (11.7-14.6); RDW-SD 50.1 fL
[2024-08-23] MEDS: Omnipaque 350 MG/ML 100 ML BTL IJ (14:17)
[2024-08-23] MEDS: Normal Saline - Diluent 50 ML VIAL IJ (14:18)
[2024-08-23 14:43] LABS: ALT 34 U/L (14-59); AST 14 U/L (15-37); Albumin 3.6 g/dL (3.4-5.0); Alkaline Phosphatase 88 U/L (46-116); Anion Gap 10.1 mmol/L (3-11); BUN 8 mg/dL (7-18); CO2 25.9 mmol/L (21.0-32.0); CREATININE 0.8 mg/dL (0.55-1.02); Calcium 9.4 mg/dL (8.5-10.1); Chloride 106 mmol/L (98-107); Glucose 109 mg/dL (74-106); Lipase 28 U/L (<78); Magnesium 1.9 mg/dL (1.8-2.4); Potassium 4.1 mmol/L (3.5-5.1); Sodium 142 mmol/L (136-145); Troponin I 30 ng/L (<or=51)
[2024-08-23 14:56] LABS: Bilirubin Negative (Negative); Blood Trace-intact (Negative); Clarity Clear (Clear); Glucose Negative (Negative); Ketones Negative (Negative); Leukocyte Esterase Negative (Negative); Nitrite Negative (Negative); Specific Gravity <= 1.005 (1.005-1.025); Urobilinogen 0.2 mg/dL (Up to 0.2); pH 5.5 (5-8)
[2024-08-23] MEDS: Acetaminophen 500 MG TAB 1000 MG PO (15:01)
[2024-08-23 15:03] LABS: Bacteria Negative HPF (Negative); C & S Indicated? No; Casts Negative LPF (Negative); Crystals Negative HPF (Negative); Epithelial Cells Negative HPF (Negative); Mucus Negative (Negative); RBC 0-2 HPF (0-2); WBC Negative HPF (0-5)
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
[2024-08-23 15:09] LABS: Troponin I 26 ng/L (<or=51)
[2024-08-23 15:15] LABS: COVID-19 PCR Negative (Negative); Influenza A PCR Negative (Negative); Influenza B PCR Negative (Negative); RSV PCR Negative (Negative)
[2024-08-23 15:17] LABS: Source Nasopharynx
--- NOTE | 2024-08-23 15:24 | DI.[facility]_ITS ---
PROCEDURE INFORMATION: Exam: CT Chest With Contrast; Diagnostic Exam date and time: 08/23/2024 2:15 PM Age: 58 years old Clinical indication: Other: Cp/sob abd pain, vomitting TECHNIQUE: Imaging protocol: Diagnostic computed tomography of the chest with contrast. 3D rendering (Not supervised by radiologist): MIP and/or 3D reconstructed images were created by the technologist. Radiation optimization: All CT scans at this facility use at least one of these dose optimization techniques: automated exposure control; mA and/or kV adjustment per patient size (includes targeted exams where dose is matched to clinical indication); or iterative reconstruction. Contrast material: OMNI 350; Contrast volume: 100 ml; Contrast route: INTRAVENOUS (IV); COMPARISON: CT CHEST PE CTA 07/31/2024 9:45 AM FINDINGS: Thyroid: The thyroid gland is normal. Lungs: There is heterogeneous attenuation of the pulmonary parenchyma, consistent with air trapping from underlying small airways disease. Tltp-sp-ydihwwgx emphysematous changes present bilaterally. Small granuloma present within the right middle lobe of the lung. There is no evidence of focal pulmonary consolidation. No evidence of pulmonary parenchymal inflammatory changes. There is no evidence of pulmonary masses. Pleural spaces: There is no evidence of pneumothorax. There are no pleural effusions present. Heart: Mild thickening of the pericardium may represent a small pericardial effusion. The cardiac structures are normal. Coronary arteries: There is mild atherosclerotic calcification of the coronary arteries. Lymph nodes: There is no evidence of lymphadenopathy. Vasculature: The aorta demonstrates moderate atherosclerotic calcification. Moderate atherosclerosis at the origins of the great vessels. There is no evidence of filling defects within the pulmonary arterial circulation to suggest pulmonary embolism. The pulmonary arteries are normal in caliber. The aorta and great vessels appear normal. Intraperitoneal space: Please see CT of the abdomen and pelvis. Bones/joints: The spine, sternum, ribs, and pectoral girdles show no evidence of acute abnormality. The thoracic spine demonstrates mild degenerative changes at multiple levels. Soft tissues: There are no soft tissue masses or fluid collections. There is 11 mm diameter nodule/mass within the right breast best demonstrated on image 18 series 5 consider mammography. Other findings: The mediastinal structures are normal. IMPRESSION: 1. There is heterogeneous attenuation of the pulmonary parenchyma, consistent with air trapping from underlying small airways disease. 2. Jpnz-ab-gkdbutam emphysematous changes present bilaterally. 3. There is no evidence of filling defects within the pulmonary arterial circulation to suggest pulmonary embolism. 4. Mild thickening of the pericardium may represent a small pericardial effusion. 5. There is 11 mm diameter nodule/mass within the right breast best demonstrated on image 18 series 5 consider mammography. PROCEDURE INFORMATION: Exam: CT Abdomen And Pelvis With Contrast Exam date and time: 08/23/2024 2:15 PM Age: 58 years old Clinical indication: Other: Cp/sob abd pain, vomitting TECHNIQUE: Imaging protocol: Computed tomography of the abdomen and pelvis with contrast. 3D rendering (Not supervised by radiologist): MIP and/or 3D reconstructed images were created by the technologist. Radiation optimization: All CT scans at this facility use at least one of these dose optimization techniques: automated exposure control; mA and/or kV adjustment per patient size (includes targeted exams where dose is matched to clinical indication); or iterative reconstruction. Contrast material: OMNI 350; Contrast volume: 100 ml; Contrast route: INTRAVENOUS (IV); COMPARISON: CT CHEST/ABD/PEL W 07/27/2024 9:30 AM FINDINGS: Lungs: Please see CT of the chest and lungs. Liver: There are no focal liver lesions present. Gallbladder and biliary ducts: There is mild intrahepatic biliary dilation. The gallbladder is normal. There is no cholelitiasis, wall thickening or pericholecystic fluid to suggest cholecystitis. Pancreas: Normal. No ductal dilation. Spleen: Calcifications within the splenic parenchyma consistent with old granulomatous exposure. The spleen is otherwise normal. Adrenal glands: The adrenal glands are normal. Kidneys and ureters: The kidneys are normal. The ureters are normal caliber and follow a normal caliber and course. Stomach and bowel: There are fluid-filled loops of small bowel with air-fluid levels. No significant bowel wall thickening or inflammatory changes. No evidence of obstruction. Consider early enteritis. There is no evidence of intestinal obstruction. Appendix: There is no evidence of appendicitis. Intraperitoneal space: There is no free intraperitoneal air. There is no evidence of free intraperitoneal or pelvic fluid. Vasculature: The aorta demonstrates moderate atherosclerotic calcification. The arterial peripheral vasculature demonstrates diffuse moderate atherosclerotic calcification. The inferior venacava appears normal.The portal, mesenteric and splenic veins are patent. Lymph nodes: There is no evidence of lymphadenopathy. Urinary bladder: The bladder is normal. The bladder is normal. Reproductive: There has been a hysterectomy. No adnexal cysts or masses are identified. Bones/joints: Efyq-fx-fynpoamz degenerative changes of the lumbar spine. No acute fracture. Soft tissues: The soft tissues of the extra-abdominal region are unremarkable. IMPRESSION: There are fluid-filled loops of small bowel with air-fluid levels. No significant bowel wall thickening or inflammatory changes. No evidence of obstruction. Consider early enteritis. Dictated and Authenticated by: Manny Hutson MD. Orderin [facility] Robbin Medina MD
--- NOTE | 2024-08-25 09:25 | NUR.NOTE ---
Patient EKG was performed after time change. It is 1 hour off. Nursing Note:
== END 2024-08-23 16:07 | disposition home or self-care (01) ==
PROVIDERS: Emergency Provider Emergency Medicine; PCP Nurse Practitioner Family
DX: I25.10 Atherosclerotic heart disease of native coronary artery without angina pectoris; I50.20 Unspecified systolic (congestive) heart failure; I48.0 Paroxysmal atrial fibrillation; J44.89 Other specified chronic obstructive pulmonary disease; I10 Essential (primary) hypertension; E78.5 Hyperlipidemia, unspecified; K52.9 Noninfective gastroenteritis and colitis, unspecified; K21.9 Gastro-esophageal reflux disease without esophagitis
CPT/HCPCS: 36415; 74177; 80053; 83690; 87637; 93005; 96374; 99285; 71260; 81003; 81015; 83735; 84484; 85025; 93010; 99284; J2405; J3490

== ENCOUNTER 2024-08-31 07:51 | Outpatient (CLI) | payer OTHER, SELFPAY | END 2024-08-31 07:52 | disposition home or self-care (01) | PROVIDERS: PCP Nurse Practitioner Family; Visit Provider Nurse Practitioner Family | DX: I48.0 Paroxysmal atrial fibrillation (principal) | CPT/HCPCS: 93246 ==

== ENCOUNTER 2024-09-22 07:35 | Outpatient (CLI) | payer OTHER, SELFPAY ==
--- NOTE | 2024-09-22 08:46 | W.CARDEVENT ---
Date of service: 09/22/24 Time of Service: 08:47 Cardiac Event Recorder Referring Provider:: Racquel Fraser Indications:: Atrial fibrillation Cardiac Event Note: This is a cardiac event monitor. Patient was monitored for 12 days and 2 hours. Atrial fibrillation was present throughout with an average heart rate 89. Minimum was 51, maximum 150. 42% of the time the rate of atrial fibrillation was elevated. There were rare ventricular ectopic beats. There were no cardiac symptoms
== END 2024-09-22 07:36 | disposition home or self-care (01) ==
LOC: CARDOPNVT 07:35
PROVIDERS: PCP Nurse Practitioner Family; Visit Provider Internal Medicine Cardiovascular Disease
DX: I48.0 Paroxysmal atrial fibrillation (principal)
CPT/HCPCS: 93248

== ENCOUNTER 2024-09-23 01:17 | Outpatient (CLI) | payer OTHER, SELFPAY ==
--- NOTE | 2024-09-23 07:00 | DI.MAMMO_ITS ---
Exam(s) US BREAST RT COMPLETE MG MAMMO DIAGNOSTIC BI EXAM: MG MAMMO DIAGNOSTIC BI and U/S breast RT complete CLINICAL HISTORY: Nodule right breast,rt breast lump,n63.10. TECHNIQUE: Craniocaudal and mediolateral oblique Full Field Digital Mammography views with Computer Aided Diagnosis followed by Tomosynthesis and complete right breast ultrasound. All 4 quadrants of t he right breast were evaluated sonographically. The retroareolar region and right axilla were also i nterrogated. COMPARISON: Comparison is made with prior examinations. FINDINGS: Mammography/Tomosynthesis: Masses/Architectural Distortion: There are bilateral breast nodules which appears stable. The nodule in the upper outer retroareolar region of the right breast is stable. No new breast nodules are see n. Biopsy clips are seen in the right breast. Microcalcifictions: No suspicious pleomorphic-type are seen. Skin Thickening/Nipple Retraction: None. Complete right breast US: Echotexture: Normal appearance of the glandular tissue. Shadowing: No suspicious foci. Cyst: None. Solid lesions: At the 10 o'clock position of the right breast there is again seen a 1.3 cm hypoechoic avascular solid nodule measuring 1.3 x 0.9 x 1.7 cm. This is been present on prior ultrasound exami nations. It is unchanged. There are areas seen at the 11 o'clock position of the right breast in th e retroareolar region and the 8 o'clock position 4 cm from the nipple which appear to represent fibro glandular tissue. There is an ovoid hypoechoic well-circumscribed avascular nodule at the 10 o'clock position 5 cm from the nipple measuring 0.7 cm. It has benign appearance. No suspicious solid mass es are seen. Ductal dilation: None. IMPRESSION: 1. No definite evidence of malignancy is noted. 2. Unless there is more urgent need, follow-up screening mammography is recommended, as per [place] [employer] guidelines. 3. The findings were discussed with the patient on the date of the examination. BI-RADS Category 2 - Benign Findings Breast Density - Category B - Scattered areas of fibroglandular density Breast density Category C or D implies that the patient has dense breast tissue. Dense breast tissue can make it harder to find cancer on a mammogram. Dense breast tissue is also associated with an incr eased risk of breast cancer. This information about the result of the mammogram report was provided to the patient to raise their awareness. Use this report when you speak with the patient about their risks for breast cancer, which includes their family history. At that time, you may recommend additional screening tests (Ultrasoun d or MRI) as these tests may add significant information. A negative radiographic report should not delay biopsy if a dominant or clinically suspicious mass is present. Up to ten percent of cancers are not identified on mammography. A negative report may reinforce clinical impression. Adenosis and dense breasts may obscure an underlying neoplasm. False positive reports average 6 to 10%. Patient will receive a letter notifying them of these results.
== END 2024-09-23 01:37 ==
LOC: DI 01:17
PROVIDERS: PCP Nurse Practitioner Family; Visit Provider Nurse Practitioner Family
DX: N63.41 Unspecified lump in right breast, subareolar (principal); R92.321 Mammographic fibroglandular density, right breast; Z12.31 Encounter for screening mammogram for malignant neoplasm of breast
CPT/HCPCS: 76642; 77062; 77066; G0279

== ENCOUNTER 2024-10-05 02:01 | Outpatient (CLI) | payer OTHER, SELFPAY ==
--- NOTE | 2024-10-05 08:58 | DI.RAD_ITS ---
Exam(s) XR CHEST 2V PA LATERAL EXAM: XR CHEST 2V PA LATERAL CLINICAL HISTORY: SOB,asthma copd overlap syndrome,j44.89 TECHNIQUE: 2D digital imaging was performed of the chest. Two images were obtained. PA and lateral views were obtained. COMPARISON: CR XR CHEST 2V PA LATERAL from 08/13/2018 CR,XR XR PORTABLE CHEST AP from 12/30/2022 CR XR PORTABLE CHEST AP POST LINE from 07/31/2024 FINDINGS: MEDIASTINUM: Normal. HEART: Normal. PULMONARY VASCULATURE: Normal. LUNGS: The lungs are hyperinflated suggesting underlying COPD. No focal consolidating infiltrates ar e present. PLEURAL SPACE: No pleural effusion or pneumothorax. BONE:Within normal limits for the patient's age. OTHER FINDINGS:Normal. IMPRESSION: 1. No acute pulmonary findings. 2. Hyperinflation of the lungs suggesting underlying COPD. DATA REPOSITORY: RADIATION DOSE DELIVERED:
== END 2024-10-05 02:21 ==
LOC: DI 02:02
PROVIDERS: PCP Nurse Practitioner Family; Visit Provider Nurse Practitioner Family
DX: J44.89 Other specified chronic obstructive pulmonary disease (principal)
CPT/HCPCS: 71046

== ENCOUNTER 2024-10-31 22:12 | Inpatient (IN) | payer OTHER, SELFPAY ==
[2024-10-31] VITALS (30 sets, daily range): BP systolic 94–135; BP diastolic 49–85; PULSE 76–102; RESP 10–35; TEMP 36.1; O2SAT 92–98
--- NOTE | 2024-10-31 22:00 | RT.EKG_ITS ---
APPROVED REPORT Exam: Resting ECG Reason for Exam: Difficulty breathing Patient Location: E HR:83 bpm ECG Measurements Heart Rate 83 AXIS ID 154 P 72 QRSd 103 QRS -15 QT 392 T 119 QTc 462 Conclusion Sinus rhythm...normal P axis, V-rate 60- 99 Multiple ventricular premature complexes...V complexes w/ short R-R intervls Probable left atrial enlargement...P >50mS, <-0.10mV V1 Anteroseptal infarct, age indeterminate...Q >35mS, T neg, V1-V2 Physician: no stemi
--- NOTE | 2024-10-31 22:00 | DI.RAD_ITS ---
Exam(s) XR PORTABLE CHEST AP EXAM: XR PORTABLE CHEST AP CLINICAL HISTORY: sob TECHNIQUE: 2D digital imaging was performed of the chest. One image was obtained. An AP view was ob tained. COMPARISON: CR XR CHEST 2V PA LATERAL from 10/05/2024 FINDINGS: Study is limited secondary to overlying monitoring equipment. MEDIASTINUM: Normal. HEART: The heart is at the upper limits of normal in size. PULMONARY VASCULATURE: There is prominence of the pulmonary vasculature bilaterally. LUNGS: There is diffuse prominent interstitial markings in the lungs which may represent edema or pos sible pneumonitis. No focal consolidating infiltrates are seen. PLEURAL SPACE: No pleural effusion or pneumothorax. BONE:Within normal limits for the patient's age. OTHER FINDINGS:Normal. IMPRESSION: 1. Mild diffuse interstitial prominence which can be seen with pulmonary edema or possibly pneumoniti s. Please correlate clinically. 2. No focal consolidating infiltrates are present. 3. The preliminary [facility] report was reviewed. DATA REPOSITORY: RADIATION DOSE DELIVERED:
[2024-10-31 22:18] LABS: Abs Immature Grans 0.07 10^3/uL (0.0-0.06); Absolute Basophil Count 0.06 10^3/uL (0.0-0.2); Absolute Eosinophil Count 0.05 10^3/uL (0.0-0.7); Absolute Lymphocyte Count 1.26 10^3/uL (1.2-3.4); Absolute Monocyte Count 0.63 10^3/uL (0.1-0.8); Absolute Neutrophil Count 9.26 10^3/uL (1.2-6.7); BE (Venous) -3 mmol/L (-2-3); Basophils % 0.5 %; Eosinophils % 0.4 %; HCO3 (Venous) 25 mmol/L (23-28); HCT 43.5 % (36.0-46.0); HGB 14.2 g/dL (11.2-15.7); Immature Grans % 0.6 %; Lactate 1.5 mmol/L (<or=2.0); Lymphocytes % 11.1 %; MCH 31.8 pg (27.0-33.0); MCHC 32.6 % (32.0-36.0); MCV 98 fL (80-95); MPV 10.4 fL (8.0-11.0); Monocytes % 5.6 %; Neutrophils % 81.8 %; O2 Sat (Venous) > 99 %; Platelet Count 201 10^3/uL (130-400); RBC 4.46 10^6/uL (3.93-5.22); RDW 13.8 % (11.7-14.6); RDW-SD 50.3 fL; TCO2 (Venous) 23 mmol/L (24-29); WBC 11.32 10^3/uL (4.4-10.8); pH (Venous) 7.22 (7.31-7.41); pO2 (Venous) 184 mmHg
[2024-10-31 22:20] LABS: pCO2 (Venous) 61 mmHg (41-51)
[2024-10-31 22:30] LABS: Magnesium 1.9 mg/dL (1.8-2.4)
[2024-10-31 22:33] LABS: INR 1.1 (0.9-1.1); PTT Activated 24.3 sec (20.6-30.2); Prothrombin Time 10.8 sec (9.1-11.1)
[2024-10-31 22:48] LABS: ALT 49 U/L (14-59); AST 26 U/L (15-37); Alkaline Phosphatase 111 U/L (46-116); Anion Gap 5.6 mmol/L (3-11); BUN 10 mg/dL (7-18); Bilirubin, Total 0.9 mg/dL (0.2-1.0); CO2 28.4 mmol/L (21.0-32.0); CREATININE 1.1 mg/dL (0.55-1.02); Calcium 8.3 mg/dL (8.5-10.1); Chloride 108 mmol/L (98-107); Estimated GFR 57.52 (mL/min/1.73m2); Glucose 259 mg/dL (74-106); NT-proBNP 1464 pg/mL (<300); Potassium 4.2 mmol/L (3.5-5.1); Sodium 142 mmol/L (136-145); TSH (W/Ref FT4) 2.84 uIU/mL (0.36-3.74); Total Protein 6.1 g/dL (6.4-8.2); Troponin I 22 ng/L (<or=51)
[2024-10-31 22:57] LABS: COVID-19 PCR Negative (Negative); Influenza A PCR Negative (Negative); Influenza B PCR Negative (Negative); RSV PCR Negative (Negative); Source Nasopharynx
--- NOTE | 2024-10-31 23:02 | TELEP.MEDR_ITS ---
Date of service: 10/31/24 Time of Service: 23:02 Telepharmacy Home Med Rec Allergies Allergies: amlodipine Adverse Reaction (Intermediate, Verified 10/31/24 22:29) Peripheral edema Interview Person Interviewed: * Patient is non-responsive and ellie doesn't know her medications. Med rec was done via reviewing chart notes and pharmacy fill history Quality Quality of Interview/Accuracy of Medication List: Good (n/a) Changes made to Home Medication List: ADDITIONS: * none DELETIONS: * Trelegy * Nicotine CHANGES: * none Additional Notes Additional Notes: * none Recommended Changes Recommended Changes(reason for recommendation): none Attestation: The home medication list is now updated to the best of my knowledge and is ready to be reconciled by the provider. Please contact the TelePharmacy Medication Reconciliation Pharmacist at for any questions.
[2024-10-31] MEDS: Furosemide 20 MG/2 ML VIAL IVP (23:03)
[2024-10-31 23:04] LABS: Procalcitonin < 0.10 ng/mL
--- NOTE | 2024-10-31 23:09 | ED.GENADUL_ITS ---
Discharge Plan Disposition Patient Disposition: Admit to [facility] Discharge Details Chief Complaint: SOB Clinical Impression: Atrial fibrillation with rapid ventricular response, Acute exacerbation of CHF (congestive heart failure), Acute respiratory acidosis Primary Care Provider: Racquel Fraser ED Provider: Aram Ramos Home Meds and New Rx's Prescriptions: No Action citalopram 20 mg tablet 20 mg PO DAILY Qty: 90 3RF losartan 100 mg tablet 100 mg PO DAILY Qty: 90 3RF furosemide 20 mg tablet 20 mg PO DAILY Qty: 90 3RF Eliquis 5 mg tablet 5 mg PO BID Qty: 180 3RF metoprolol succinate 50 mg tablet extended release 24 hr 50 mg PO DAILY Qty: 90 3RF nicotine 21 mg/24 hr patch 24 hour 1 patch transdermal DAILY Qty: 42 0RF Rx Instructions: Apply 1 patch daily for 6 weeks budesonide-formoterol 160-4.5 mcg/actuation HFA aerosol inhaler 2 puff inhalation BID Qty: 10.2 4RF Rx Instructions: 2 puffs twice a day and may use as a reliever therapy for acute difficulty breathing, 1 to 2 puffs every 4 hours as needed. Max inhalations 12 per day rosuvastatin 20 mg tablet 20 mg PO DAILY Qty: 90 3RF nitroglycerin 0.4 mg tablet, sublingual 0.4 mg sublingual Q5M PRN Patient Comments: 02/08/23 Per [facility] Cardiology. -hb Rx Instructions: do not exceed 3 doses per episode pantoprazole 20 mg tablet,delayed release (DR/EC) 20 mg PO DAILY Qty: 90 3RF albuterol sulfate 90 mcg/actuation HFA aerosol inhaler 2 puff Inhalation Q6H PRN (Reason: shortness of breath or wheezing) Qty: 8.5 6RF ipratropium-albuterol 0.5 mg-3 mg(2.5 mg base)/3 mL solution for nebulization 3 ml UPD QID PRN (Reason: shortness of breath or wheezing) Qty: 180 3RF lorazepam 1 mg tablet 1 mg PO BID PRN (Reason: panic attack(s)) Qty: 30 0RF ondansetron 4 mg tablet,disintegrating 4 mg PO Q8H PRNQty: 10 0RF HPI General Date/Time Provider Initiated Documentation: 05/17/25 22:12 . HPI Narrative: This is a 58-year-old female with past medical history of COPD and asthma with hypoxic respiratory failure in the past, on a baseline of 2 L of oxygen, previous pulmonary embolism, paroxysmal A-fib on apixaban, abdominal aortic aneurysm, obstructive sleep apnea on nighttime CPAP, congestive heart failure/ischemic cardiomyopathy with an EF of 55% on echo on 07/20/2024, coronary artery disease, hypertension, who presents today for shortness of breath. states that patient was sitting on her tablet this evening when she suddenly became quite short of breath. EMS was called and upon their arrival they noted her heart rate to be in the 170s. She was tripoding with significant work of breathing however her oxygenation was in the low 90s at 4 L on her supplemental oxygen. Blood pressure was stable initially, and she was given 3 doses of metoprolol for a total of 15 mg. Unfortunately she had no improvement of her rate with this. Shortly thereafter her blood pressure began to drop has her heart rate continued to stay high, and the EMS made the decision to perform electrical cardioversion secondary to the patient's unstable nature. She was shocked with a single synchronized cardioversion, she tolerated this well, and heart rate transitioned to the 80s, and blood pressure stayed in the high 90s/low 100 systolic. She was complaining of pain after the event, and was treated with 5 of Versed and 100 of fentanyl. She was also given a breathing treatment, 700 cc bolus. Upon arrival here the patient is notably sedated but otherwise has an intact gag reflex and is breathing independently. Patient has no complaints, and is not able to add to the history at this time. Related Data Home Medications ?Medication ?Instructions ?Recorded ?Confirmed nitroglycerin 0.4 mg sublingual 0.4 mg sublingual Q5M PRN 02/08/23 10/31/24 tablet furosemide 20 mg tablet 20 mg PO DAILY #90 tabs 01/20/24 10/31/24 losartan 100 mg tablet 100 mg PO DAILY #90 tabs 01/20/24 10/31/24 pantoprazole 20 mg tablet,delayed 20 mg PO DAILY #90 tabs 05/04/24 10/31/24 release apixaban 5 mg tablet (Eliquis) 5 mg PO BID #180 tabs 08/13/24 10/31/24 metoprolol succinate 50 mg 50 mg PO DAILY #90 tabs 08/13/24 10/31/24 tablet,extended release 24 hr ondansetron 4 mg disintegrating 4 mg PO Q8H PRN #10 tabs 08/23/24 10/31/24 tablet citalopram 20 mg tablet 20 mg PO DAILY #90 tabs 08/24/24 10/31/24 albuterol sulfate 90 mcg/actuation 2 puff inhalation Q6H PRN 09/23/24 10/31/24 aerosol inhaler shortness of breath or wheezing #8.5 grams ipratropium 0.5 mg-albuterol 3 mg 3 ml UPD QID PRN shortness of 09/28/24 10/31/24 (2.5 mg base)/3 mL nebulization breath or wheezing #180 mL soln nicotine 21 mg/24 hr daily 1 patch transdermal DAILY #42 ea 10/01/24 10/31/24 transdermal patch lorazepam 1 mg tablet 1 mg PO BID PRN panic attack(s) 10/06/24 10/31/24 #30 tabs budesonide-formoterol HFA 160 2 puff inhalation BID #10.2 grams 10/29/24 10/31/24 mcg-4.5 mcg/actuation aerosol inhaler rosuvastatin 20 mg tablet 20 mg PO DAILY #90 tabs 10/29/24 10/31/24 Previous Rx's ?Medication ?Instructions ?Recorded furosemide 20 mg tablet 20 mg PO DAILY #90 tabs 01/20/24 losartan 100 mg tablet 100 mg PO DAILY #90 tabs 01/20/24 pantoprazole 20 mg tablet,delayed 20 mg PO DAILY #90 tabs 05/04/24 release apixaban 5 mg tablet (Eliquis) 5 mg PO BID #180 tabs 08/13/24 metoprolol succinate 50 mg 50 mg PO DAILY #90 tabs 08/13/24 tablet,extended release 24 hr ondansetron 4 mg disintegrating 4 mg PO Q8H PRN #10 tabs 08/23/24 tablet citalopram 20 mg tablet 20 mg PO DAILY #90 tabs 08/24/24 albuterol sulfate 90 mcg/actuation 2 puff inhalation Q6H PRN 09/23/24 aerosol inhaler shortness of breath or wheezing #8.5 grams ipratropium 0.5 mg-albuterol 3 mg 3 ml UPD QID PRN shortness of 09/28/24 (2.5 mg base)/3 mL nebulization breath or wheezing #180 mL soln nicotine 21 mg/24 hr daily 1 patch transdermal DAILY #42 ea 10/01/24 transdermal patch lorazepam 1 mg tablet 1 mg PO BID PRN panic attack(s) 10/06/24 #30 tabs budesonide-formoterol HFA 160 2 puff inhalation BID #10.2 grams 10/29/24 mcg-4.5 mcg/actuation aerosol inhaler rosuvastatin 20 mg tablet 20 mg PO DAILY #90 tabs 10/29/24 Allergies Allergy/AdvReac Type Severity Reaction Status Date / Time amlodipine AdvReac Intermediate Peripheral Verified 10/31/24 22:29 edema General Stated Complaint: SOB JOSE JUAN: 2 Exam Narrative Exam Narrative: 1.Const: Well-nourished, Well-developed, appearing stated age 2.Eyes: PERRL, no conjunctival injection, and symmetrical lids. 3.ENT: Atraumatic external nose and ears. Moist MM. Neck: Symmetric, trachea midline, No thyromegaly. 4.CVS: +S1/S2, Peripheral pulses 2+ and equal in all extremities. Brisk capillary refill in all extremities. 5.RESP: Rhonchorous breath sounds, mild wheezes, and scattered rhonchi diffusely. 6.GI: Soft, Nontender/Nondistended, No hepatosplenomegaly. No guarding or rebound. 7.MSK: Normocephalic/Atraumatic, Extremities w/o deformity or ttp No cyanosis or clubbing, Normal movement of all extremities, +1 pitting edema in lower extremities 8.Skin: Warm, Dry. No rashes or lesions. 9.Neuro: helix coil winder II-XII grossly intact. Sensation grossly intact, no focal neurologic deficits. 10.Psych: (AAO) x0. Notably sedated Course Vital Signs Vital signs: Vital Signs Temperature 36.1 C L 10/31/24 22:12 Pulse 76 10/31/24 22:12 Respiratory Rate 24 10/31/24 22:12 Blood Pressure 111/64 10/31/24 22:12 Pulse Oximetry 98 10/31/24 22:12 Temperature 36.1 C L 10/31/24 22:37 Temperature Source Tympanic 10/31/24 22:37 Pulse 88 10/31/24 22:40 Pulse 88 10/31/24 22:40 Respiratory Rate 31 H 10/31/24 22:40 Respiratory Effort Short of Breath 10/31/24 22:20 Respiratory Pattern Tachypnea 10/31/24 22:20 Blood Pressure 120/85 10/31/24 22:37 Blood Pressure Mean 76 10/31/24 22:31 Blood Pressure Position Sitting 10/31/24 22:12 Pulse Oximetry 93 10/31/24 22:40 Respiratory End-tidal CO2 36 10/31/24 22:40 Oxygen Delivery Method Nasal Cannula 10/31/24 22:12 Oxygen Flow Rate 5 10/31/24 22:37 Pain Level 0 10/31/24 22:12 Lab/Test Results Lab/Test Results: Laboratory Tests Range/Units 10/31/24 10/31/24 22:10 22:18 WBC (4.4-10.8) 10^3/uL 11.32 H RBC (3.93-5.22) 10^6/uL 4.46 Hgb (11.2-15.7) g/dL 14.2 Hct (36.0-46.0) % 43.5 MCV (80-95) fL 98 H MCH (27.0-33.0) pg 31.8 MCHC (32.0-36.0) % 32.6 RDW (11.7-14.6) % 13.8 Plt Count (130-400) 10^3/uL 201 MPV (8.0-11.0) fL 10.4 Immature Gran % % 0.6 Neutrophils % % 81.8 Lymphocytes % % 11.1 Monocytes % % 5.6 Eosinophils % % 0.4 Basophils % % 0.5 Nucleated RBC % (0.0-0.3) % 0.0 Absolute Neutrophils (1.2-6.7) 10^3/uL 9.26 H Absolute Lymphocytes (1.2-3.4) 10^3/uL 1.26 Absolute Monocytes (0.1-0.8) 10^3/uL 0.63 Absolute Eosinophils (0.0-0.7) 10^3/uL 0.05 Absolute Basophils (0.0-0.2) 10^3/uL 0.06 PT (9.1-11.1) sec 10.8 INR (0.9-1.1) 1.1 APTT (20.6-30.2) sec 24.3 VBG pH (7.31-7.41) 7.22 L VBG pCO2 (41-51) mmHg 61 H VBG pO2 mmHg 184 VBG HCO3 (23-28) mmol/L 25 VBG Total CO2 (24-29) mmol/L 23 L VBG O2 Saturation % > 99 VBG Base Excess (-2-3) mmol/L -3 L VBG Lactate (<or=2.0) mmol/L 1.5 Sodium (136-145) mmol/L 142 Potassium (3.5-5.1) mmol/L 4.2 Chloride (98-107) mmol/L 108 H Carbon Dioxide (21.0-32.0) mmol/L 28.4 Anion Gap (3-11) mmol/L 5.6 BUN (7-18) mg/dL 10 Creatinine (0.55-1.02) mg/dL 1.1 H Est GFR (CKD-EPI 2020) (mL/min/1.73m2) 57.52 Glucose (74-106) mg/dL 259 H Calcium (8.5-10.1) mg/dL 8.3 L Magnesium (1.8-2.4) mg/dL 1.9 Total Bilirubin (0.2-1.0) mg/dL 0.9 AST (15-37) U/L 26 ALT (14-59) U/L 49 Alkaline Phosphatase (46-116) U/L 111 Troponin I (<or=51) ng/L 22 NT-Pro-B Natriuret Pep (<300) pg/mL 1464 H Total Protein (6.4-8.2) g/dL 6.1 L Albumin (3.4-5.0) g/dL 3.0 L Procalcitonin ng/mL < 0.10 TSH (0.36-3.74) uIU/mL 2.84 COVID-19 Source Nasopharynx SARS-CoV-2 (PCR) (Negative) Negative Influenza Type A (PCR) (Negative) Negative Influenza Type B (PCR) (Negative) Negative RSV (PCR) (Negative) Negative Medical Decision Making This is a 58-year-old female with past medical history of COPD and asthma with hypoxic respiratory failure in the past, on a baseline of 2 L of oxygen, previous pulmonary embolism, paroxysmal A-fib on apixaban, abdominal aortic aneurysm, obstructive sleep apnea on nighttime CPAP, congestive heart failure/ischemic cardiomyopathy with an EF of 55% on echo on 07/20/2024, coronary artery disease, hypertension, who presents today for shortness of breath. states that patient was sitting on her tablet this evening when she jaspal denly became quite short of breath. EMS was called and upon their arrival they noted her heart rate to be in the 170s. She was tripoding with significant work of breathing however her oxygenation was in the low 90s at 4 L on her supplemental oxygen. Blood pressure was stable initially, and she was given 3 doses of metoprolol for a total of 15 mg. Unfortunately she had no improvement of her rate with this. Shortly thereafter her blood pressure began to drop has her heart rate continued to stay high, and the EMS made the decision to perform electrical cardioversion secondary to the patient's unstable nature. She was shocked with a single synchronized cardioversion, she tolerated this well, and heart rate transitioned to the 80s, and blood pressure stayed in the high 90s/low 100 systolic. She was complaining of pain after the event, and was treated with 5 of Versed and 100 of fentanyl. She was also given a breathing treatment, 700 cc bolus. Upon arrival here the patient is notably sedated but otherwise has an intact gag reflex and is breathing independently. Patient has no complaints, and is not able to add to the history at this time. Physical exam demonstrates a notably sedated patient, breathing independently with an intact gag reflex. Suspect the altered mental status is from the sedation as EMS reports that she was totally normal before hand. Currently oxygenation is good, however she is notably rhonchorous breath sounds with associated wheezes and crackles throughout. She has mild +1 pitting edema. Differential includes CHF, less likely pneumonia as she has no fever. Concern with the elevated heart rate which was cardioverted for her A-fib with RVR. Concern for potential ischemic etiology. Additionally I suspect there is also a component of COPD as well bringing about some of her symptoms. With the notably mixed picture we will evaluate for these etiologies in an attempt to further differentiate. She has multiple PVCs at this time and we will evaluate for electrolyte abnormality potentially causing this. Will monitor closely and reassess. With an intact gag reflex and good oxygenation I do not see an indication for intubation at this time. Heart rate remains stable. We will perform bedside POCUS to reevaluate heart functionality 11:36 PM Laboratory workup demonstrates quite a mixed picture. She has no white count of significance or procalcitonin or fever to suggest pneumonia. Chest x-ray shows pulmonary vascular congestion concerning for CHF which correlates clinically. proBNP is elevated at 1400 which is slightly higher than normal. COVID flu and RSV negative. Will give 20 of Lasix. I am uncertain if this is chronic fluid overload or acute secondary to the 700 cc fluid bolus that was appropriately given due to her elevated heart rate initially. Bedside POCUS was performed and she demonstrates a notable change in her ejection fraction. Ejection fraction at this time appears to be around 20% which is significantly reduced compared to her prior 50% EF. Pulmonary embolism unlikely due to her anticoagulated status. She denies missing any doses of her medications at home whatsoever. In addition to this her VBG demonstrates evidence of an acute respiratory acidosis, with a pH of 7.2 and PCO2 of 61, however I do not know if this is chronic COPD, versus an acute respiratory component secondary to the sedation that then worsened her respiratory acidosis. Certainly may be a mixed picture. She will be given Solu-Medrol for the COPD component, and she has already received breathing treatments via EMS. In addition to all this the patient's EKG shows no evidence of STEMI, there is some flattening of the T waves, but no evidence of significant ST elevation or depression otherwise. Patient does have a slightly low calcium at 8.3, uncertain if this could have been a component of the PVCs or the A-fib with RVR, we will replace with 1 amp of calcium gluconate. Patient has had no return of her A-fib with RVR. She is in sinus rhythm now. I do feel that with her multisystem organ failures, she would benefit from admission and continued observation, medication titration, and repeat echo. Discussed the case with hospitalist Dr. García and he agrees with the assessment and plan. I did repeat the VBG, pH is now 7.33, pCO2 is down to 52, which does lead to a higher likelihood that this was secondary to the sedating components of the medication. Regardless we will start her on her nighttime CPAP/BiPAP. I have extensively reviewed the treatment plan with the patient. I have addressed all patient concerns at this time. I have also discussed the plan with the admitting physician and they agree with the current assessment and plan and have agreed to assume responsibility for the patient. All parties demonstrate verbal understanding and agreement with our assessment and plan at this time. The documentation in this chart was dictated using [employer] dictation software. Please excuse any dictation errors. FINDINGS: Lungs: Pulmonary vascular congestion and mild interstitial edema. Pleural spaces: Unremarkable. No pleural effusion. No pneumothorax. Heart/Mediastinum: Heart is prominent. Bones/joints: Unremarkable. IMPRESSION: Pulmonary vascular congestion/mild interstitial edema. Thank you for allowing us to participate in the care of your patient. Dictated and Authenticated by: Danielito Silverman MD 10/31/2024 11:31 PM Eastern Time ([place] & [place]) Quality:SDOH Health Related Social Needs: No Data to Display Critical Care Time Critical Care Time Critical Care Time: Yes Total Critical Care Time: 45 Attestation: Upon my evaluation, this patient had a high probability of imminent or life- threatening deterioration, which required my direct attention, intervention, and personal management. I have personally provided 45 minutes of critical care time exclusive of time spent on separately billable procedures. Time includes review of laboratory data, radiology results, discussion with consultants, and monitoring for potential decompensation. Interventions were performed as documented. PFSH All Active Problems (Updated 10/31/24 @ 23:45 by Aram Ramos DO) Acute respiratory acidosis (Acute) Acute exacerbation of CHF (congestive heart failure) (Acute) Atrial fibrillation with rapid ventricular response (Acute) Acute hyperglycemia (Acute) Acute on chronic respiratory failure with hypoxia and hypercapnia (Acute) Acute exacerbation of COPD with asthma (Acute) CHF exacerbation (Acute) Paroxysmal atrial fibrillation with RVR (Acute) Atrial fibrillation (Chronic ~07/2024) Coronary artery disease (Chronic) Heart failure with reduced ejection fraction (Chronic) Ischemic cardiomyopathy (Chronic) Pulmonary embolism (Chronic ~07/2024) AAA (abdominal aortic aneurysm) (Chronic) Infrarenal, measuring 2.5cm 2024 LIBBY (obstructive sleep apnea) (Chronic) Nonrheumatic aortic (valve) stenosis (Acute) Aortic regurgitation (Chronic) Asthma-COPD overlap syndrome (Chronic) Essential hypertension (Chronic) Generalized anxiety disorder with panic attacks (Chronic) Hyperlipidemia (Chronic) GERD (gastroesophageal reflux disease) (Chronic) History of Graves' disease (Chronic) Osteoarthritis (Chronic) Cigarette smoker (Chronic) Annual LDCT paused d/t cost Nummular dermatitis (Chronic) Medical History Non-ST elevation IN (NSTEMI) (~01/2023) Respiratory failure with hypoxia Depressive disorder Graves disease Surgical History Status post right knee replacement (01/20/19) S/P right knee arthroscopy (02/20/10) With partial medial meniscectomy S/P left knee arthroscopy (05/04/10) With partial medial and lateral meniscectomy S/P dilation and curettage S/P bilateral salpingo-oophorectomy S/P appendectomy S/P abdominal hysterectomy For abnormal uterine bleeding S/P lumpectomy, right breast (~1993) Family History Mother , at 77 Asthma Hypertension COPD (chronic obstructive pulmonary disease) Father , at 79 Parkinson disease Graves disease Hypertension Depression Suicide attempt Sister No problems noted. Sister , at 44 of metastatic bone cancer Metastatic bone cancer Brother , at 60 of pancreatic cancer Pancreatic cancer Diabetes Depression COPD (chronic obstructive pulmonary disease) Brother Alcohol abuse Son No problems noted. Daughter No problems noted. Maternal Grandfather Heart disease IN Maternal Grandmother Brain cancer Paternal Grandfather No problems noted. Paternal Grandmother No problems noted. Brother , age 28 - MVA No problems noted. Social History Smoking/Tobacco Use Status: Current every day Tobacco Type: cigarettes Smoking packs per day: 1 Smoking cigarettes per day: 20.0 Years smoked: 47 Smoking pack- years: 47.00 Tobacco: How many years used: 47 Quit status: considering quitting Counseling given: provider counseling Smoking risk assessment performed?: Yes Alcohol Intake: current Alcohol Intake frequency: a few times a week Alcohol type: beer Details: Declined to answer all except selecting Beer Drug use: Never Substance use type: does not use Counseling given: No Counseling provided: none Adopted: No Caregiver/Support person: No Household members: spouse Housing: house Pets and animals: Yes Pets and animals: cat(s) Sexually active: Yes Do you think of yourself as: straight/heterosexual Current gender identity: female What is your relationship status?: How often do you talk on the phone with friends or family?: three or more times per week How often do you get together with friends or relatives?: twice per week Do you belong to any clubs or organized social groups?: no Panel score (0-1 are the most socially isolated patients): 2 What type of physical activity do you participate in: none Frequency: does not exercise Aida/Episcopal: None Special aida needs: No Seatbelt use: always Helmet use: No Drive intox 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 tow motor driver: No Firearms in home: Yes Firearms unloaded and locked: Yes Do you feel safe at home: Yes Do you feel safe in your relationship?: Yes Victim of physical abuse: No Victim of emotional abuse: No Victim of sexual abuse: No Female Reproductive History Menstrual Menopause type: surgical History History 4 Para 2 Hx # Term Pregnancies Multiple births Hx # Pregnancies Ectopic pregnancies AB induced Hx Number of Living Children 2 AB spontaneous 2 POCUS Exam (ED) Limited Cardiac Exam DATE OF EXAM: 10/31/24 TIME OF EXAM: 23:43 PROVIDER THAT PERFORMED THE STUDY: Aram Ramos IS THIS A REPEAT EXAM DURING THIS ENCOUNTER: no REASON FOR EXAM: Congestive heart failure, Dyspnea, Evaluation of LV function and Hypotension VISUALIZED STRUCTURES: Left ventricle, Right ventricle and Interventricular septum VIEW OBTAINED: Parasternal long-axis PERTINENT FINDINGS/IMPRESSION: LV dysfunction :severe DIFFERENTIAL DIAGNOSES: Notable worsening of ejection fraction compared to documented findings 3 months ago on echo. Ejection fraction appears to be around 20% at this time. Exam complete
[2024-10-31] MEDS: Calcium Gluconate 4.65 MEQ/10 ML VIAL 4.65 MG IVP (23:15)
[2024-10-31] MEDS: Normal Saline 50 ML 100 ML (23:17)
[2024-10-31] MEDS: methylPREDNISolone SUCC 125 MG VIAL IVP (23:24)
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
--- NOTE | 2024-10-31 23:32 | DI.VRAD_ITS ---
PROCEDURE INFORMATION: Exam: XR Chest Exam date and time: 10/31/2024 10:31 PM Age: 58 years old Clinical indication: Shortness of breath; SOB TECHNIQUE: Imaging protocol: Radiologic exam of the chest. Views: 1 view. COMPARISON: CR XR CHEST 2V PA LATERAL 10/05/2024 8:55 AM FINDINGS: Lungs: Pulmonary vascular congestion and mild interstitial edema. Pleural spaces: Unremarkable. No pleural effusion. No pneumothorax. Heart/Mediastinum: Heart is prominent. Bones/joints: Unremarkable. IMPRESSION: Pulmonary vascular congestion/mild interstitial edema. Dictated and Authenticated by: Danielito Silverman MD. Orderin Richard Chiu MD
[2024-10-31 23:33] LABS: BE (Venous) 1 mmol/L (-2-3); HCO3 (Venous) 27 mmol/L (23-28); O2 Sat (Venous) 77 %; TCO2 (Venous) 25 mmol/L (24-29); pCO2 (Venous) 52 mmHg (41-51); pH (Venous) 7.33 (7.31-7.41); pO2 (Venous) 44 mmHg
[2024-10-31 23:40] LABS: Troponin I 26 ng/L (<or=51)
[2024-11-01] VITALS (81 sets, daily range): BP systolic 106–153; BP diastolic 49–78; PULSE 60–88; RESP 3–94; TEMP 36.3–36.8; O2SAT 91–97
[2024-11-01 01:29] LABS: Troponin I 30 ng/L (<or=51)
[2024-11-01] MEDS: Metoprolol 25 MG TAB PO ×4 (01:40→19:43)
[2024-11-01] MEDS: Normal Saline Flush 10 ML SYR IVP ×3 (01:40→19:50)
[2024-11-01] MEDS: MAGNESIUM SULFATE 2 GM/50 ML BAG IV_INF (01:40)
[2024-11-01] MEDS: Albuterol/Ipratropium 3 ML UPD VIAL UPD ×4 (03:01→20:05)
[2024-11-01 05:53] LABS: HCT 42.5 % (36.0-46.0); HGB 14.1 g/dL (11.2-15.7); MCH 31.5 pg (27.0-33.0); MCHC 33.2 % (32.0-36.0); MCV 95 fL (80-95); MPV 10.6 fL (8.0-11.0); Platelet Count 181 10^3/uL (130-400); RBC 4.47 10^6/uL (3.93-5.22); RDW 13.8 % (11.7-14.6); RDW-SD 48.6 fL
[2024-11-01 06:23] LABS: ALT 48 U/L (14-59); AST 24 U/L (15-37); Albumin 3.2 g/dL (3.4-5.0); Alkaline Phosphatase 107 U/L (46-116); Anion Gap 5.6 mmol/L (3-11); BUN 17 mg/dL (7-18); CO2 28.4 mmol/L (21.0-32.0); CREATININE 0.8 mg/dL (0.55-1.02); Calcium 8.9 mg/dL (8.5-10.1); Chloride 105 mmol/L (98-107); Glucose 166 mg/dL (74-106); Magnesium 2.7 mg/dL (1.8-2.4); Potassium 3.9 mmol/L (3.5-5.1); Sodium 139 mmol/L (136-145); Total Protein 6.4 g/dL (6.4-8.2); Troponin I 31 ng/L (<or=51)
[2024-11-01 07:19] LABS: TSH 0.22 uIU/mL (0.36-3.74)
[2024-11-01] MEDS: Budesonide/Formoterol 160/4.5 6 GM 60 PUFF INH IH ×2 (08:04→19:51)
--- NOTE | 2024-11-01 08:16 | RESPIRATORY ---
Addendum entered by Claudia Arita 11/01/24 13:33: Patient has CPAP auto titrating 6-16 with no O2 bleed in, DME: [employer]. Home unit not at hospital- pt comfortable with using [id number] until discharged.Disucssed with patient that hospital machine does not have auto-titrating mode. Will discuss with night RT. Original Note: Pt advised she wears 1-2L O2 PRN (does not require O2 very often per patient), DME: [employer]
[2024-11-01] MEDS: methylPREDNISolone SUCC 125 MG VIAL 80 MG IVP (08:28)
[2024-11-01] MEDS: Pantoprazole 20 MG TABCR PO (08:29)
[2024-11-01] MEDS: Furosemide 40 MG/4 ML VIAL IVP ×2 (08:29→15:53)
[2024-11-01] MEDS: Losartan 50 MG TAB 100 MG PO (08:29)
[2024-11-01] MEDS: Apixaban 5 MG TAB PO ×2 (08:29→19:43)
[2024-11-01] MEDS: Citalopram 20 MG TAB PO (08:29)
[2024-11-01] MEDS: Insulin Aspart 300 UNITS/3 ML PEN SC ×2 (08:48→22:47)
--- NOTE | 2024-11-01 08:57 | PDOC.CMIN ---
Date of service: 11/01/24 Time of Service: 08:57 Care Management Initial Assmt Initial Assessment Reason for Hospitalization: PAF/RVR. CHF exacerbation with acute respiratory Functional Status/Living Situation Patient Presentation: Jaelyn was lying in bed, when CM arrived. She presented to the ED after a sudden onset of shortness of breath. She states today, that she is feeling much better. Jaelyn lives in a single family home in [place] with her Guru. She reports that she has O2 at home but does not like to use it and typically does not require it, at baseline. She reports she does not have home supports at this time and does not feel a need for them. Jaelyn states that she is eager to get home, when she is medically ready. CM will continue to follow. Town of Residence: [place] Resides with: Spouse (Guru) Significant Other/Family: Local Natural Supports: Her adult children, , and family. Employment Status: Retired ([employer] ) Instrumental Activities of Daily Living (ADLs): Independent Activities/Hobbies/SocialSupport: playing games on her tablet, taking her grand-dog for walks, and going bowling Medications Medication Management: No Issues/Barriers identified Physical Functioning/Mobility Assistive Device: None Advance Directives Advance Directives: Do you have an Advance Directive: N 04/15/13 12:26 AD On File at [facility]: N 04/15/13 12:26 Date Asked 10/02/24 10/02/24 12:07 AD Date Reviewed COLST On File at [facility] COLST Date Scanned Code Status Resuscitation Status Full Code Insurance Coverage/Financial Issues Insurance: MVP Financial Issues: none Care Team Visit Care Team Role Provider Type Francesco Milton MD MD [facility] STAFF PHYSICIAN Racquel Fraser NP Primary Care Provider NURSE PRACTITIONER Aram Ramos DO Emergency Provider [facility] STAFF PHYSICIAN Grady García Admit Provider NON-[facility] STAFF PHYSICIAN Attending Provider Discharge Potential Discharge Needs: PCP F/U Appt Anticipated Barriers to Discharge: None Identified Patient/Family Education Needs: Review discharge instructions, discuss Ask Me Three Transportation: Private vehicle Plan: Anticipate Jaelyn will return home once medically stable. She will follow up with her community providers and continue per her plan of care. Jaelyn will be transported via private vehicle by her . CM will continue to follow and support with discharge planning. Social Determinants of Health Screening Social Determinants of health last assessed in clinic: 11/01/24 Will the Patient Participate in the Screening?: Yes Do you worry about having a steady place to live?: no Problems where you live: no known problems In the past 12 months, have you had to go without electric, gas, oil or water in your home?: no 1. Within the past 12 months, we worried whether our food would run out before we got money to buy more.: Never true 2. Within the past 12 months, the food we bought just didn't last and we didn't have money to get more.: Never true Has lack of transportation kept you from medical appointments or from doing things needed for daily living?: no Has anyone in your life made you feel unsafe or unsupported?: no How hard is it for you to pay for the very basics like food, housing, medical care, and heating? Would you say it is:: Not hard at all Do you want help finding or keeping work or a job?: I do not need or want help If for any reason you need help with day-to-day activities such as bathing, preparing meals, shopping, managing finances, etc., do you get the help you need?: I get all the help I need How often do you feel lonely or isolated from those around you?: Never Do you speak a language other than Grenadian at home?: No Does the patient want assistance with any of the above?: No PFSH All Active Problems Acute respiratory acidosis (Acute) Acute exacerbation of CHF (congestive heart failure) (Acute) Atrial fibrillation with rapid ventricular response (Acute) Acute hyperglycemia (Acute) Acute on chronic respiratory failure with hypoxia and hypercapnia (Acute) Acute exacerbation of COPD with asthma (Acute) CHF exacerbation (Acute) Paroxysmal atrial fibrillation with RVR (Acute) Atrial fibrillation (Chronic ~07/2024) Coronary artery disease (Chronic) Heart failure with reduced ejection fraction (Chronic) Ischemic cardiomyopathy (Chronic) Pulmonary embolism (Chronic ~07/2024) AAA (abdominal aortic aneurysm) (Chronic) Infrarenal, measuring 2.5cm 2024 LIBBY (obstructive sleep apnea) (Chronic) Nonrheumatic aortic (valve) stenosis (Acute) Aortic regurgitation (Chronic) Asthma-COPD overlap syndrome (Chronic) Essential hypertension (Chronic) Generalized anxiety disorder with panic attacks (Chronic) Hyperlipidemia (Chronic) GERD (gastroesophageal reflux disease) (Chronic) History of Graves' disease (Chronic) Osteoarthritis (Chronic) Cigarette smoker (Chronic) Annual LDCT paused d/t cost Nummular dermatitis (Chronic) Medical History Non-ST elevation [place] (NSTEMI) (~01/2023) Respiratory failure with hypoxia Depressive disorder Graves disease Surgical History Status post right knee replacement (01/20/19) S/P right knee arthroscopy (02/20/10) With partial medial meniscectomy S/P left knee arthroscopy (05/04/10) With partial medial and lateral meniscectomy S/P dilation and curettage S/P bilateral salpingo-oophorectomy S/P appendectomy S/P abdominal hysterectomy For abnormal uterine bleeding S/P lumpectomy, right breast (~1993) Family History Mother , at 77 Asthma Hypertension COPD (chronic obstructive pulmonary disease) Father , at 79 Parkinson disease Graves disease Hypertension Depression Suicide attempt Sister No problems noted. Sister , at 44 of metastatic bone cancer Metastatic bone cancer Brother , at 60 of pancreatic cancer Pancreatic cancer Diabetes Depression COPD (chronic obstructive pulmonary disease) Brother Alcohol abuse Son No problems noted. Daughter No problems noted. Maternal Grandfather Heart disease [place] Maternal Grandmother Brain cancer Paternal Grandfather No problems noted. Paternal Grandmother No problems noted. Brother , age 28 - MVA No problems noted. Social History Smoking/Tobacco Use Status: Current every day Tobacco Type: cigarettes Smoking packs per day: 1 Smoking cigarettes per day: 20.0 Years smoked: 47 Smoking pack-years: 47.00 Tobacco: How many years used: 47 Quit status: considering quitting Counseling given: provider counseling Smoking risk assessment performed?: Yes Alcohol Intake: current Alcohol Intake frequency: a few times a week Alcohol type: beer Details: Declined to answer all except selecting Beer Drug use: Never Substance use type: does not use Counseling given: No Counseling provided: none Adopted: No Caregiver/Support person: No Household members: spouse Housing: house Pets and animals: Yes Pets and animals: cat(s) Sexually active: Yes Do you think of yourself as: straight/heterosexual Current gender identity: female What is your relationship status?: How often do you talk on the phone with friends or family?: three or more times per week How often do you get together with friends or relatives?: twice per week Do you belong to any clubs or organized social groups?: no Panel score (0-1 are the most socially isolated patients): 2 What type of physical activity do you participate in: none Frequency: does not exercise Aida/Amish: None Special aida needs: No Seatbelt use: always Helmet use: No Drive intox 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 jinriksha driver: No Firearms in home: Yes Firearms unloaded and locked: Yes Do you feel safe at home: Yes Do you feel safe in your relationship?: Yes Victim of physical abuse: No Victim of emotional abuse: No Victim of sexual abuse: No Female Reproductive History Menstrual Menopause type: surgical History History 4 Para 2 Hx # Term Pregnancies Multiple births Hx # Pregnancies Ectopic pregnancies AB induced Hx Number of Living Children 2 AB spontaneous 2 Readmission Within the Past 30 Days Yes or No: No
[2024-11-01 10:05] LABS: Lab Add On Test DONE
[2024-11-01 10:24] LABS: *AMPHETAMINES SCREEN URINE Negative (Negative); *BARBITURATES SCREEN URINE Negative (Negative); *BENZODIAZEPINES SCREEN URINE Positive (Negative); Cannabinoids THC Negative (Negative); Cocaine Screen,Urine Negative (Negative); METHADONE URINE SCREEN Negative (Negative); OPIATES URINE SCREEN Negative (Negative)
[2024-11-01 10:25] LABS: Tricyclic Antidepressants Negative (Negative)
--- NOTE | 2024-11-01 10:59 | W.PM.PROGNOT ---
Date of Service Date of service: 11/01/24 Time of Service: 10:59 Assessment and Plan Assessment and plan (1) Acute on chronic respiratory failure with hypoxia and hypercapnia: Start date: 10/31/24 Status: Acute Assessment and plan: This is a 58-year-old lady with recent events exacerbate her pulmonary and cardiovascular status who had sudden onset of respiratory distress at home at rest. Her troponins were negative upon presentation to the ED revealing no exacerbation of her CAD but she did have a significant acute reduction in her left ventricular ejection fraction by POCUS as compared to recent echocardiogram and appeared to be in acute CHF exacerbated by paroxysmal atrial fibrillation with RVR which was cardioverted in the field. She also had what appeared to be exacerbation of her COPD with continued tobacco use. In the ED she did receive 20 mg of Lasix IV and no further fluid and being given 700 cc in the field. We treated for exacerbation of COPD with Solu-Medrol and nebulizer treatments. She also was placed on her home CPAP which helped begin to normalize her VBG. Patient was less hypoxic but still requiring increased oxygen supplement compared to her 2 L/min nasal cannula at home. He does continue to smoke at home. No pulmonary infiltrates were found and she had no evidence of acute infection. Patient was oversedated from IV Versed and fentanyl given in the field and this was cleared at the time I saw her with CPAP to be used at night for her LIBBY. She will be continued on close cardiac monitoring and respiratory support with CPAP as well as initiating IV Lasix in the morning for CHF exacerbation. She should have a repeat echocardiogram when available. Will continue to trend troponins. There is no evidence of acute ischemia though she has a significant acute drop in her left ventricular ejection fraction. Patient is a full code. 11/01/24 switched from iv steroids to prednisone continue with albuterol/duoneb/steroids (2) Paroxysmal atrial fibrillation with RVR: Start date: 10/31/24 Status: Acute Assessment and plan: Recent onset with patient on metoprolol and Eliquis chronically which will be continued in the hospital. Her metoprolol was be split dosing. 11/01/24 On eliquis. HR at 86. On metoprolol (3) CHF exacerbation: Start date: 10/31/24 Status: Acute Assessment and plan: IV Lasix 40 mg twice daily monitoring blood pressure and renal function. Follow-up echocardiogram. 11/01/24 Pt on BB/ARB/lasix. Will add jardiance. Formal echo is pending (4) Acute exacerbation of COPD with asthma: Start date: 10/31/24 Status: Acute Assessment and plan: IV Solu-Medrol be continued with nebulizer treatments and CPAP at night for LIBBY. (5) Acute hyperglycemia: Start date: 10/31/24 Status: Acute Assessment and plan: No overt diagnosis of diabetes mellitus but has had hyperglycemia in the past. Glucometer measurements before meals and at bedtime with moderate sliding scale short acting insulin coverage if needed while patient is on Solu-Medrol. This significant elevation may also have been from the stress of her acute event. (6) Ischemic cardiomyopathy: Status: Chronic Assessment and plan: No evidence of acute ischemia but patient appeared to have dropped her left ventricular ejection fraction from the 50% range to the 30% range. Formal echocardiogram needs to be performed when available. Continue to trend troponins. EKG showed no acute ischemic changes. 11/01/24 Echo from 07/20/24 EXAM: Comprehensive 2D, Doppler, and color-flow Echocardiogram Patient Location: Out-Patient [facility] Principal: Gucci Garcia RDCS (AE) Indications: Ischemic cardiomyopathy Other Information Study Quality: Fair Conclusion Mild concentric left ventricular hypertrophy. Ejection fraction is 55%. There are no segmental wall motion abnormalities Normal right ventricular size and function Both atria are normal in size Aortic valve is sclerotic and trileaflet. Mean gradient is 10 mmHg. There is mild aortic regurgitation Mild mitral annular calcification, mild mitral regurgitation (7) Essential hypertension: Status: Chronic Assessment and plan: Continue metoprolol split dose and losartan adjusting as needed. (8) Hyperlipidemia: Status: Chronic Assessment and plan: Continue statin therapy. (9) LIBBY (obstructive sleep apnea): Status: Chronic Assessment and plan: Continue CPAP at night. (10) GERD (gastroesophageal reflux disease): Status: Chronic Assessment and plan: Continue PPI. (11) Cigarette smoker: Status: Chronic Assessment and plan: Patient continues to smoke tobacco daily and a nicotine patch cannot be ordered unless needed to avoid exacerbating possible cardiac ischemia. She does have Ativan as needed for anxiety. (12) Generalized anxiety disorder with panic attacks: Status: Chronic Assessment and plan: Recently on chronic Ativan for anxiety which does have some risk with patient's respiratory disease with exacerbation of her anxiety because of recent accident and prolonged hospitalizations. VPMS was reviewed and was appropriate for prescribing with urine drug screen done upon admission because of increased sedation with Versed and Duragesic IV because of pain after cardioversion from AVR with PAF. Patient appeared to have moderate risk for medication misuse because of depression with anxiety and recent traumas. Continue as needed Ativan cautiously while hospitalized. Subjective Subjective Interval history since last seen: Pt states that her SOB has essentially resolved. No inciting event elicited Exam Narrative Exam Narrative: NCAT MMM EOMI PERRLA NO JVD NO THYROIDMEGALY RRR NO MRG BILAT WHEEZE WITH EXPIRATION, COARSE, NO AMU [id number] 1PLUS GUILLERMINA BILAT AAOX3 Objective Last Vital Signs Temp 36.8 C 11/01/24 08:25 Pulse 60 11/01/24 10:01 Resp 19 11/01/24 10:01 BP 125/69 11/01/24 10:01 Pulse Ox 91 L 11/01/24 10:01 Laboratory Results - last 24 hr 10/31/24 10/31/24 10/31/24 22:10 22:18 23:11 WBC 11.32 H RBC 4.46 Hgb 14.2 Hct 43.5 MCV 98 H MCH 31.8 MCHC 32.6 RDW 13.8 Plt Count 201 MPV 10.4 Immature Gran % 0.6 Neutrophils % 81.8 Lymphocytes % 11.1 Monocytes % 5.6 Eosinophils % 0.4 Basophils % 0.5 Nucleated RBC % 0.0 Absolute Neutrophils 9.26 H Absolute Lymphocytes 1.26 Absolute Monocytes 0.63 Absolute Eosinophils 0.05 Absolute Basophils 0.06 PT 10.8 INR 1.1 APTT 24.3 VBG pH 7.22 L VBG pCO2 61 H VBG pO2 184 VBG HCO3 25 VBG Total CO2 23 L VBG O2 Saturation > 99 VBG Base Excess -3 L VBG Lactate 1.5 Sodium 142 Potassium 4.2 Chloride 108 H Carbon Dioxide 28.4 Anion Gap 5.6 BUN 10 Creatinine 1.1 H Est GFR (CKD-EPI 2020) 57.52 Glucose 259 H Calcium 8.3 L Magnesium 1.9 Total Bilirubin 0.9 AST 26 ALT 49 Alkaline Phosphatase 111 Troponin I 22 26 NT-Pro-B Natriuret Pep 1464 H Total Protein 6.1 L Albumin 3.0 L Procalcitonin < 0.10 TSH 2.84 Urine Opiates Screen Urine Methadone Screen Ur Barbiturates Screen Ur Tricyclics Screen Ur Amphetamines Screen U Benzodiazepines Scrn Urine Cocaine Screen Ur THC Screen COVID-19 Source Nasopharynx SARS-CoV-2 (PCR) Negative Influenza Type A (PCR) Negative Influenza Type B (PCR) Negative RSV (PCR) Negative Add-On Test Request 10/31/24 11/01/24 11/01/24 23:30 01:02 05:20 WBC 11.30 H RBC 4.47 Hgb 14.1 Hct 42.5 MCV 95 MCH 31.5 MCHC 33.2 RDW 13.8 Plt Count 181 MPV 10.6 Immature Gran % Neutrophils % Lymphocytes % Monocytes % Eosinophils % Basophils % Nucleated RBC % Absolute Neutrophils Absolute Lymphocytes Absolute Monocytes Absolute Eosinophils Absolute Basophils PT INR APTT VBG pH 7.33 VBG pCO2 52 H VBG pO2 44 VBG HCO3 27 VBG Total CO2 25 VBG O2 Saturation 77 VBG Base Excess 1 VBG Lactate Sodium 139 Potassium 3.9 Chloride 105 Carbon Dioxide 28.4 Anion Gap 5.6 BUN 17 Creatinine 0.8 Est GFR (CKD-EPI 2020) 84.30 Glucose 166 H Calcium 8.9 Magnesium 2.7 H Total Bilirubin 1.0 AST 24 ALT 48 Alkaline Phosphatase 107 Troponin I 30 31 NT-Pro-B Natriuret Pep Total Protein 6.4 Albumin 3.2 L Procalcitonin TSH Urine Opiates Screen Urine Methadone Screen Ur Barbiturates Screen Ur Tricyclics Screen Ur Amphetamines Screen U Benzodiazepines Scrn Urine Cocaine Screen Ur THC Screen COVID-19 Source SARS-CoV-2 (PCR) Influenza Type A (PCR) Influenza Type B (PCR) RSV (PCR) Add-On Test Request 11/01/24 11/01/24 05:46 09:45 WBC RBC Hgb Hct MCV MCH MCHC RDW Plt Count MPV Immature Gran % Neutrophils % Lymphocytes % Monocytes % Eosinophils % Basophils % Nucleated RBC % Absolute Neutrophils Absolute Lymphocytes Absolute Monocytes Absolute Eosinophils Absolute Basophils PT INR APTT VBG pH VBG pCO2 VBG pO2 VBG HCO3 VBG Total CO2 VBG O2 Saturation VBG Base Excess VBG Lactate Sodium Potassium Chloride Carbon Dioxide Anion Gap BUN Creatinine Est GFR (CKD-EPI 2020) Glucose Calcium Magnesium Total Bilirubin AST ALT Alkaline Phosphatase Troponin I NT-Pro-B Natriuret Pep Total Protein Albumin Procalcitonin TSH 0.22 L Urine Opiates Screen Negative Urine Methadone Screen Negative Ur Barbiturates Screen Negative Ur Tricyclics Screen Negative Ur Amphetamines Screen Negative U Benzodiazepines Scrn Positive A Urine Cocaine Screen Negative Ur THC Screen Negative COVID-19 Source SARS-CoV-2 (PCR) Influenza Type A (PCR) Influenza Type B (PCR) RSV (PCR) Add-On Test Request DONE PAWSS Have you Been Recently Intoxicated or Drunk Within the Last 30 days?: No Have you Ever Experienced Previous Episodes of Alcohol Withdrawal?: No Have you ever Experienced Withdrawal Seizures?: No Have you ever Experienced Delirium Tremens(DT)s?: No Have you ever undergone Alcohol Rehabilitation Treatment (i.e, inpt ot outpatient treatment programs)?: No Have you ever Experienced Blackouts?: No Have you ever Combined Alcohol with other Downers within the last 90 days?: No Have you ever Combined Alcohol with any other Substance of Abuse during the last 90 days?: No Positive Blood Alcohol level on Presentation? [PCS.BAL]: No Evidence of Increased Autonomic Activity (i.e. HR>120, tremor, sweating, agitation, nausea)?: No Result: 0 Time Spent with Patient Time Spent with Patient: 25-34 minutes Time was spent: preparing to see the patient(eg.review tests), obtaining and/or reviewing separately otained hiistory, ordering medications,tests, procedures, referring, communicating with other health clinical manager home care, indepentently interpreting results, counseling the patient and care coordination
[2024-11-01 11:31] LABS: FREE T4 1.37 ng/dL (0.76-1.46)
[2024-11-01] MEDS: predniSONE 20 MG TAB 40 MG PO ×2 (13:44→19:54)
--- NOTE | 2024-11-01 14:51 | W.PC.ACHO ---
Registration Status: Primary Language: Preferred Language: ED Information & Data Chief Complaint SOB 10/31/24 23:18 Triage Note PT was SOB and hr was in 10/31/24 22:12 170s afib RVR for EMS. PT was given 3 5mg doses of metoprolol. PTs HR did not decrease. PTs BP dropped and PT was sync cardioverted. PTs HR was then decreases to 80. PT was given 2 2.5mg doses of versed and 2 50mcg doses of fentanyl. PT was A& OX4 prior to med administration. Medical / Surgical History (Last Reviewed 11/01/24 @ 06:09 by Grady García) Non-ST elevation [place] (NSTEMI) (~01/2023) Respiratory failure with hypoxia Depressive disorder Graves disease (Last Reviewed 11/01/24 @ 06:09 by Grady García) Status post right knee replacement (01/20/19) S/P right knee arthroscopy (02/20/10) S/P left knee arthroscopy (05/04/10) S/P dilation and curettage S/P bilateral salpingo-oophorectomy S/P appendectomy S/P abdominal hysterectomy S/P lumpectomy, right breast (~1993) Most Recent Vital Signs Temperature 36.3 C L 11/01/24 14:36 Temperature Source Temporal Artery Scan 11/01/24 14:36 Pulse 71 11/01/24 14:36 Pulse 71 11/01/24 11:00 Respiratory Rate 18 11/01/24 14:36 Respiratory Effort Normal 11/01/24 00:45 Respiratory Depth Normal 11/01/24 00:45 Respiratory Pattern Normal 11/01/24 00:45 Blood Pressure 137/75 11/01/24 14:36 Blood Pressure Mean 95 11/01/24 14:36 Blood Pressure Position Supine 11/01/24 00:45 Pulse Oximetry 93 11/01/24 14:36 Respiratory End-tidal CO2 37 10/31/24 23:42 Oxygen Delivery Method Room Air 11/01/24 14:36 Oxygen Flow Rate 0 11/01/24 14:36 Fraction of Inspired Oxygen (FIO2) 28 11/01/24 03:03 Pain Level 0 11/01/24 14:36 Allergies amlodipine Adverse Reaction (Intermediate, Verified 10/31/24 22:29) Peripheral edema Active Medications Generic Name Dose Route Start Last Admin Trade Name Freq PRN Reason Stop Dose Admin Albuterol/Ipratropium 3 ml 11/01/24 02:00 11/01/24 13:18 Albuterol/Ipratropium 3 Ml Upd Vial UPD 3 ml Q6H CELESTE Administration Apixaban 5 mg 11/01/24 08:30 11/01/24 08:29 Apixaban 5 Mg Tab PO 5 mg BID CELESTE Administration Budesonide/Formoterol Fumarate 2 puff 11/01/24 08:30 11/01/24 08:04 Budesonide/Formoterol 160/4.5 6 Gm 60 Puff Inh IH 2 puffs BID CELESTE Administration Citalopram Hydrobromide 20 mg 11/01/24 08:30 11/01/24 08:29 Citalopram 20 Mg Tab PO 20 mg DAILY CELESTE Administration Furosemide 40 mg 11/01/24 08:00 11/01/24 08:29 Furosemide 40 Mg/4 Ml Vial IVP 40 mg BID@0800,1600 CELESTE Administration Insulin Aspart 0 units 11/01/24 08:00 11/01/24 12:12 Insulin Aspart 300 Units/3 Ml Pen SC Not Given 0800,1200,1700,2200 [facility] Protocol Losartan Potassium 100 mg 11/01/24 08:30 11/01/24 08:29 Losartan 50 Mg Tab PO 100 mg DAILY CELESTE Administration Metoprolol Tartrate 25 mg 11/01/24 01:30 11/01/24 13:44 Metoprolol 25 Mg Tab PO 25 mg Q6H CELESTE Administration Pantoprazole Sodium 20 mg 11/01/24 08:30 11/01/24 08:29 Pantoprazole 20 Mg Tabcr PO 20 mg DAILY CELESTE Administration Prednisone 40 mg 11/01/24 14:00 11/01/24 13:44 Prednisone 20 Mg Tab PO 40 mg TID CELESTE Administration Sodium Chloride 0 ml 11/01/24 00:58 11/01/24 01:40 Normal Saline Flush 10 Ml Syr IVP 20 ml PRN PRN Administration Sodium Chloride 0 ml 11/01/24 08:30 11/01/24 08:28 Normal Saline Flush 10 Ml Syr IVP 20 ml BID CELESTE Administration IV IV Catheter Type [Left Forearm Peripheral IV ] IV Catheter Type [Right Peripheral IV Antecubital] IV Catheter Gauge [Left 18 Forearm] IV Catheter Gauge [Right 18 Antecubital] Diet Orders Category Date Time Status Diabetes Consistent CHO/Heart Healthy [DIET] Nutrition 11/01/24 Breakfast Active Diagnostics 11/01/24 11/01/24 11/01/24 Range/Units 09:45 05:58 05:46 WBC (4.4-10.8) 10^3/uL RBC (3.93-5.22) 10^6/uL Hgb (11.2-15.7) g/dL Hct (36.0-46.0) % MCV (80-95) fL MCH (27.0-33.0) pg MCHC (32.0-36.0) % RDW (11.7-14.6) % Plt Count (130-400) 10^3/uL MPV (8.0-11.0) fL Immature Gran % % Neutrophils % % Lymphocytes % % Monocytes % % Eosinophils % % Basophils % % Nucleated RBC % (0.0-0.3) % Absolute Neutrophils (1.2-6.7) 10^3/uL Absolute Lymphocytes (1.2-3.4) 10^3/uL Absolute Monocytes (0.1-0.8) 10^3/uL Absolute Eosinophils (0.0-0.7) 10^3/uL Absolute Basophils (0.0-0.2) 10^3/uL PT (9.1-11.1) sec INR (0.9-1.1) APTT (20.6-30.2) sec VBG pH (7.31-7.41) VBG pCO2 (41-51) mmHg VBG pO2 mmHg VBG HCO3 (23-28) mmol/L VBG Total CO2 (24-29) mmol/L VBG O2 Saturation % VBG Base Excess (-2-3) mmol/L VBG Lactate (<or=2.0) mmol/L Sodium (136-145) mmol/L Potassium (3.5-5.1) mmol/L Chloride (98-107) mmol/L Carbon Dioxide (21.0-32.0) mmol/L Anion Gap (3-11) mmol/L BUN (7-18) mg/dL Creatinine (0.55-1.02) mg/dL Est GFR (CKD-EPI 2020) (mL/min/1.73m2) Glucose (74-106) mg/dL Calcium (8.5-10.1) mg/dL Magnesium (1.8-2.4) mg/dL Total Bilirubin (0.2-1.0) mg/dL AST (15-37) U/L ALT (14-59) U/L Alkaline Phosphatase (46-116) U/L Troponin I (<or=51) ng/L NT-Pro-B Natriuret Pep (<300) pg/mL Total Protein (6.4-8.2) g/dL Albumin (3.4-5.0) g/dL Procalcitonin ng/mL TSH 0.22 L (0.36-3.74) uIU/mL Free T4 (0.76-1.46) ng/dL Urine Opiates Screen Negative Cancelled Urine Methadone Screen Negative Cancelled Ur Barbiturates Screen Negative Cancelled Ur Tricyclics Screen Negative Cancelled Ur Amphetamines Screen Negative Cancelled U Benzodiazepines Scrn Positive A Cancelled Urine Cocaine Screen Negative Cancelled Ur THC Screen Negative Cancelled COVID-19 Source SARS-CoV-2 (PCR) (Negative) Influenza Type A (PCR) (Negative) Influenza Type B (PCR) (Negative) RSV (PCR) (Negative) Add-On Test Request DONE 11/01/24 11/01/24 10/31/24 Range/Units 05:20 01:02 23:30 WBC 11.30 H (4.4-10.8) 10^3/uL RBC 4.47 (3.93-5.22) 10^6/uL Hgb 14.1 (11.2-15.7) g/dL Hct 42.5 (36.0-46.0) % MCV 95 (80-95) fL MCH 31.5 (27.0-33.0) pg MCHC 33.2 (32.0-36.0) % RDW 13.8 (11.7-14.6) % Plt Count 181 (130-400) 10^3/uL MPV 10.6 (8.0-11.0) fL Immature Gran % % Neutrophils % % Lymphocytes % % Monocytes % % Eosinophils % % Basophils % % Nucleated RBC % (0.0-0.3) % Absolute Neutrophils (1.2-6.7) 10^3/uL Absolute Lymphocytes (1.2-3.4) 10^3/uL Absolute Monocytes (0.1-0.8) 10^3/uL Absolute Eosinophils (0.0-0.7) 10^3/uL Absolute Basophils (0.0-0.2) 10^3/uL PT (9.1-11.1) sec INR (0.9-1.1) APTT (20.6-30.2) sec VBG pH 7.33 (7.31-7.41) VBG pCO2 52 H (41-51) mmHg VBG pO2 44 mmHg VBG HCO3 27 (23-28) mmol/L VBG Total CO2 25 (24-29) mmol/L VBG O2 Saturation 77 % VBG Base Excess 1 (-2-3) mmol/L VBG Lactate (<or=2.0) mmol/L Sodium 139 (136-145) mmol/L Potassium 3.9 (3.5-5.1) mmol/L Chloride 105 (98-107) mmol/L Carbon Dioxide 28.4 (21.0-32.0) mmol/L Anion Gap 5.6 (3-11) mmol/L BUN 17 (7-18) mg/dL Creatinine 0.8 (0.55-1.02) mg/dL Est GFR (CKD-EPI 2020) 84.30 (mL/min/1.73m2) Glucose 166 H (74-106) mg/dL Calcium 8.9 (8.5-10.1) mg/dL Magnesium 2.7 H (1.8-2.4) mg/dL Total Bilirubin 1.0 (0.2-1.0) mg/dL AST 24 (15-37) U/L ALT 48 (14-59) U/L Alkaline Phosphatase 107 (46-116) U/L Troponin I 31 30 (<or=51) ng/L NT-Pro-B Natriuret Pep (<300) pg/mL Total Protein 6.4 (6.4-8.2) g/dL Albumin 3.2 L (3.4-5.0) g/dL Procalcitonin ng/mL TSH (0.36-3.74) uIU/mL Free T4 1.37 (0.76-1.46) ng/dL Urine Opiates Screen Urine Methadone Screen Ur Barbiturates Screen Ur Tricyclics Screen Ur Amphetamines Screen U Benzodiazepines Scrn Urine Cocaine Screen Ur THC Screen COVID-19 Source SARS-CoV-2 (PCR) (Negative) Influenza Type A (PCR) (Negative) Influenza Type B (PCR) (Negative) RSV (PCR) (Negative) Add-On Test Request 10/31/24 10/31/24 10/31/24 Range/Units 23:11 22:18 22:10 WBC 11.32 H (4.4-10.8) 10^3/uL RBC 4.46 (3.93-5.22) 10^6/uL Hgb 14.2 (11.2-15.7) g/dL Hct 43.5 (36.0-46.0) % MCV 98 H (80-95) fL MCH 31.8 (27.0-33.0) pg MCHC 32.6 (32.0-36.0) % RDW 13.8 (11.7-14.6) % Plt Count 201 (130-400) 10^3/uL MPV 10.4 (8.0-11.0) fL Immature Gran % 0.6 % Neutrophils % 81.8 % Lymphocytes % 11.1 % Monocytes % 5.6 % Eosinophils % 0.4 % Basophils % 0.5 % Nucleated RBC % 0.0 (0.0-0.3) % Absolute Neutrophils 9.26 H (1.2-6.7) 10^3/uL Absolute Lymphocytes 1.26 (1.2-3.4) 10^3/uL Absolute Monocytes 0.63 (0.1-0.8) 10^3/uL Absolute Eosinophils 0.05 (0.0-0.7) 10^3/uL Absolute Basophils 0.06 (0.0-0.2) 10^3/uL PT 10.8 (9.1-11.1) sec INR 1.1 (0.9-1.1) APTT 24.3 (20.6-30.2) sec VBG pH 7.22 L (7.31-7.41) VBG pCO2 61 H (41-51) mmHg VBG pO2 184 mmHg VBG HCO3 25 (23-28) mmol/L VBG Total CO2 23 L (24-29) mmol/L VBG O2 Saturation > 99 % VBG Base Excess -3 L (-2-3) mmol/L VBG Lactate 1.5 (<or=2.0) mmol/L Sodium 142 (136-145) mmol/L Potassium 4.2 (3.5-5.1) mmol/L Chloride 108 H (98-107) mmol/L Carbon Dioxide 28.4 (21.0-32.0) mmol/L Anion Gap 5.6 (3-11) mmol/L BUN 10 (7-18) mg/dL Creatinine 1.1 H (0.55-1.02) mg/dL Est GFR (CKD-EPI 2020) 57.52 (mL/min/1.73m2) Glucose 259 H (74-106) mg/dL Calcium 8.3 L (8.5-10.1) mg/dL Magnesium 1.9 (1.8-2.4) mg/dL Total Bilirubin 0.9 (0.2-1.0) mg/dL AST 26 (15-37) U/L ALT 49 (14-59) U/L Alkaline Phosphatase 111 (46-116) U/L Troponin I 26 22 (<or=51) ng/L NT-Pro-B Natriuret Pep 1464 H (<300) pg/mL Total Protein 6.1 L (6.4-8.2) g/dL Albumin 3.0 L (3.4-5.0) g/dL Procalcitonin < 0.10 ng/mL TSH 2.84 (0.36-3.74) uIU/mL Free T4 (0.76-1.46) ng/dL Urine Opiates Screen Urine Methadone Screen Ur Barbiturates Screen Ur Tricyclics Screen Ur Amphetamines Screen U Benzodiazepines Scrn Urine Cocaine Screen Ur THC Screen COVID-19 Source Nasopharynx SARS-CoV-2 (PCR) Negative (Negative) Influenza Type A (PCR) Negative (Negative) Influenza Type B (PCR) Negative (Negative) RSV (PCR) Negative (Negative) Add-On Test Request [id number] Documentation Fingerstick Glucose Start: 11/01/24 00:58 Freq: .ACHS Status: Active Protocol: Activity Type Activity Date Activity User E-sign Co-sign Detail Recorded Client Recorded Date Recorded By Document 11/01/24 11:51 SHERIE BARAHONA(3) [id number] 11/01/24 11:54 BKG DAEMON(4) Intake and Output - 24 Hour Total 10/31/24 22:12 thru 11/01/24 14:42 Intake Total 1410 Output Total 2600 Balance -1190 Weight 82.9 kg Intake: IV 50 Oral 1360 Output: Urine 2600 Other: Urine Color Yellow Urine Appearance Clear Urine Odor Normal Falls Risk Assessment History of Falls No History 11/01/24 00:45 Contributing Factors No Factors 11/01/24 00:45 Ambulatory Aids Independent 11/01/24 00:45 Tubes/Lines W/no contributing factors 11/01/24 00:45 Gait Evaluation No gait disturbance 11/01/24 00:45 Cognition No cognitive impairment 11/01/24 00:45 Fall Total Score 10 11/01/24 00:45 Level of Risk Standard/Low Risk 11/01/24 00:45 Problems Acute respiratory acidosis (Acute) Acute exacerbation of CHF (congestive heart failure) (Acute) Atrial fibrillation with rapid ventricular response (Acute) Acute hyperglycemia (Acute) Acute on chronic respiratory failure with hypoxia and hypercapnia (Acute) Acute exacerbation of COPD with asthma (Acute) CHF exacerbation (Acute) Paroxysmal atrial fibrillation with RVR (Acute) Ischemic cardiomyopathy (Chronic) LIBBY (obstructive sleep apnea) (Chronic) Essential hypertension (Chronic) Generalized anxiety disorder with panic attacks (Chronic) Hyperlipidemia (Chronic) GERD (gastroesophageal reflux disease) (Chronic) Cigarette smoker (Chronic) Notes 11/01/24 08:16 Respiratory by Claudia Arita Addendum entered by Claudia Arita 11/01/24 13:33: Patient has CPAP auto titrating 6-16 with no O2 bleed in, DME: [facility]. Home unit not at hospital- pt comfortable with using [id number] until discharged.Disucssed with patient that hospital machine does not have auto-titrating mode. Will discuss with night RT. Original Note: Pt advised she wears 1-2L O2 PRN (does not require O2 very often per patient), DME: [facility] Initialized on 11/01/24 08:16 - END OF NOTE v v v v v v v v v Sending and/or Receiving Nurses: Please use comment section below to note any information pertinent to the patient hand-off not included above. Information / Comments: report received all questions answered. Report received from: from GREG Rodrigues at [id number]
[2024-11-01] MEDS: LORazepam 1 MG TAB PO (16:52)
[2024-11-01] MEDS: Albuterol 2.5 MG/3 ML INH SOLN VIAL UPD (17:04)
[2024-11-01] MEDS: Rosuvastatin 10 MG TAB 20 MG PO (19:54)
[2024-11-02] VITALS (13 sets, daily range): BP systolic 121–163; BP diastolic 66–93; PULSE 64–96; RESP 3–24; TEMP 36.1–36.6; O2SAT 89–95
[2024-11-02] MEDS: Metoprolol 25 MG TAB PO ×4 (01:34→20:05)
[2024-11-02] MEDS: Albuterol/Ipratropium 3 ML UPD VIAL UPD ×4 (02:06→20:16)
[2024-11-02 06:36] LABS: Abs Immature Grans 0.07 10^3/uL (0.0-0.06); Absolute Basophil Count 0.03 10^3/uL (0.0-0.2); Absolute Eosinophil Count 0.01 10^3/uL (0.0-0.7); Absolute Lymphocyte Count 0.76 10^3/uL (1.2-3.4); Absolute Monocyte Count 0.76 10^3/uL (0.1-0.8); Basophils % 0.2 %; Eosinophils % 0.1 %; HCT 44.1 % (36.0-46.0); Immature Grans % 0.5 %; Lymphocytes % 5.4 %; MCH 31.5 pg (27.0-33.0); MCV 93 fL (80-95); MPV 10.4 fL (8.0-11.0); Monocytes % 5.4 %; Neutrophils % 88.4 %; Platelet Count 224 10^3/uL (130-400); RBC 4.76 10^6/uL (3.93-5.22); RDW 13.2 % (11.7-14.6); RDW-SD 45.6 fL; WBC 13.99 10^3/uL (4.4-10.8)
[2024-11-02] MEDS: Albuterol 2.5 MG/3 ML INH SOLN VIAL UPD ×2 (06:37→17:43)
[2024-11-02 06:40] LABS: Absolute Neutrophil Count 12.37 10^3/uL (1.2-6.7)
[2024-11-02 07:14] LABS: ALT 39 U/L (14-59); AST 16 U/L (15-37); Albumin 3.2 g/dL (3.4-5.0); Alkaline Phosphatase 103 U/L (46-116); Anion Gap 9.8 mmol/L (3-11); BUN 18 mg/dL (7-18); Bilirubin, Total 0.8 mg/dL (0.2-1.0); CO2 28.2 mmol/L (21.0-32.0); CREATININE 0.7 mg/dL (0.55-1.02); Calcium 9.7 mg/dL (8.5-10.1); Chloride 103 mmol/L (98-107); Estimated GFR 98.95 (mL/min/1.73m2); Glucose 156 mg/dL (74-106); Magnesium 2.3 mg/dL (1.8-2.4); Potassium 3.4 mmol/L (3.5-5.1); Sodium 141 mmol/L (136-145); Total Protein 6.6 g/dL (6.4-8.2)
--- NOTE | 2024-11-02 07:23 | NUR.NOTE ---
Accessed chart to reconcile orders for EKG with EKG?s in [facility]. Duplicate order cancelled. Nursing Note:
[2024-11-02] MEDS: Losartan 50 MG TAB 100 MG PO (07:51)
[2024-11-02] MEDS: Furosemide 40 MG/4 ML VIAL IVP ×2 (07:51→16:19)
[2024-11-02] MEDS: Apixaban 5 MG TAB PO ×2 (07:52→20:05)
[2024-11-02] MEDS: Citalopram 20 MG TAB PO (07:52)
[2024-11-02] MEDS: predniSONE 20 MG TAB 40 MG PO ×3 (07:52→20:04)
[2024-11-02] MEDS: Normal Saline Flush 10 ML SYR IVP ×3 (07:53→20:11)
[2024-11-02] MEDS: Pantoprazole 20 MG TABCR PO (09:00)
[2024-11-02] MEDS: Budesonide/Formoterol 160/4.5 6 GM 60 PUFF INH IH ×2 (09:20→20:05)
--- NOTE | 2024-11-02 10:04 | PDOC.CMPRO ---
Date of service: 11/02/24 Time of Service: 10:05 Care Management Progress Note Progress Note Text Progress Note Text: Jaelyn was awake and sitting up in bed when CM met with her. She is pleasant and engages in conversation. She is back on RA and stating to feel better. She has home O2 through [employer] and is planning to discharge home when medically ready for discharge. CM will follow. Discharge Potential Discharge Needs: PCP F/U Appt Anticipated Barriers to Discharge: None Identified Patient/Family Education Needs: Review discharge instructions, discuss Ask Me Three Transportation: Private vehicle Plan: Anticipate Jaelyn will return home once medically stable. She will follow up with her community providers and continue per her plan of care. Jaelyn will be transported via private vehicle by her . CM will continue to follow and support with discharge planning. Social Determinants of Health Screening Social Determinants of health last assessed in clinic: 11/02/24 Will the Patient Participate in the Screening?: Yes Do you worry about having a steady place to live?: no Problems where you live: no known problems In the past 12 months, have you had to go without electric, gas, oil or water in your home?: no 1. Within the past 12 months, we worried whether our food would run out before we got money to buy more.: Never true 2. Within the past 12 months, the food we bought just didn't last and we didn't have money to get more.: Never true Has lack of transportation kept you from medical appointments or from doing things needed for daily living?: no Has anyone in your life made you feel unsafe or unsupported?: no How hard is it for you to pay for the very basics like food, housing, medical care, and heating? Would you say it is:: Not hard at all Do you want help finding or keeping work or a job?: I do not need or want help If for any reason you need help with day-to-day activities such as bathing, preparing meals, shopping, managing finances, etc., do you get the help you need?: I get all the help I need How often do you feel lonely or isolated from those around you?: Never Do you speak a language other than Mongolian at home?: No Does the patient want assistance with any of the above?: No
--- NOTE | 2024-11-02 12:02 | PDOC.CMDIS ---
Date of service: 11/02/24 Time of Service: 12:02 LACE Index Scoring Tool Questions: Length of Stay (in days): 2 Was the patient admitted via the E.D.?: Yes Comorbidities: Congestive Heart Failure and Chronic Pulmonary Disease E.D. Visits: 4 Answers: Total Score: 14 Risk of Readmission: High Risk Care Management Discharge Plan Reason for Hospitalization: PAF/RVR. CHF exacerbation with acute respiratory Discharge Plan: Discharge home via private vehicle with family. Follow up with community providers and discharge plan of care as directed. No new services are ordered prior to discharge. Patient/Family Education Needs: Review discharge instructions, limitations, medications and plan to follow up with community providers. Discuss ask me three. SDOH Health Related Social Needs: No Data to Display
--- NOTE | 2024-11-02 13:40 | NUR.NOTE ---
Nursing Note: Reviewed documentation by student Elizabeth JENNINGS. Agree with assessment.
[2024-11-02] MEDS: LORazepam 1 MG TAB PO (16:19)
[2024-11-02] MEDS: Rosuvastatin 10 MG TAB 20 MG PO (20:04)
[2024-11-02] MEDS: Benzonatate 100 MG CAP PO (20:05)
[2024-11-02] MEDS: guaiFENesin 600 MG TABCR PO (20:05)
[2024-11-02] MEDS: Insulin Aspart 300 UNITS/3 ML PEN SC (22:22)
[2024-11-03] MEDS: Metoprolol 25 MG TAB PO ×3 (01:36→13:41)
[2024-11-03 02:25] VITALS: RESP 9; O2SAT 93
[2024-11-03] MEDS: Albuterol/Ipratropium 3 ML UPD VIAL UPD ×3 (02:25→13:30)
[2024-11-03 02:40] VITALS: PULSE 69; RESP 15; O2SAT 93
[2024-11-03 06:30] VITALS: RESP 2; RESP 5
[2024-11-03 06:58] LABS: HGB 15.7 g/dL (11.2-15.7); MCH 32.2 pg (27.0-33.0); MCHC 34.9 % (32.0-36.0); MCV 92 fL (80-95); MPV 10.7 fL (8.0-11.0); Platelet Count 251 10^3/uL (130-400); RBC 4.88 10^6/uL (3.93-5.22); RDW 13.3 % (11.7-14.6); RDW-SD 45.6 fL; WBC 11.31 10^3/uL (4.4-10.8)
[2024-11-03 07:18] LABS: ALT 38 U/L (14-59); AST 13 U/L (15-37); Albumin 3.1 g/dL (3.4-5.0); Alkaline Phosphatase 94 U/L (46-116); Anion Gap 9.5 mmol/L (3-11); BUN 21 mg/dL (7-18); Bilirubin, Total 0.8 mg/dL (0.2-1.0); CO2 31.5 mmol/L (21.0-32.0); CREATININE 0.7 mg/dL (0.55-1.02); Calcium 9.4 mg/dL (8.5-10.1); Chloride 102 mmol/L (98-107); Estimated GFR 98.95 (mL/min/1.73m2); Glucose 141 mg/dL (74-106); Magnesium 2.1 mg/dL (1.8-2.4); Sodium 143 mmol/L (136-145); Total Protein 6.5 g/dL (6.4-8.2)
[2024-11-03 07:58] VITALS: BP 127/81; PULSE 106; RESP 18; TEMP 36.8; O2SAT 92
[2024-11-03] MEDS: Furosemide 40 MG/4 ML VIAL IVP (07:59)
[2024-11-03] MEDS: Apixaban 5 MG TAB PO (08:00)
[2024-11-03] MEDS: Losartan 50 MG TAB 100 MG PO (08:00)
[2024-11-03] MEDS: Pantoprazole 20 MG TABCR PO (08:00)
[2024-11-03] MEDS: Citalopram 20 MG TAB PO (08:00)
[2024-11-03] MEDS: guaiFENesin 600 MG TABCR PO (08:00)
[2024-11-03] MEDS: predniSONE 20 MG TAB 40 MG PO ×2 (08:00→13:42)
[2024-11-03] MEDS: Benzonatate 100 MG CAP PO ×2 (08:00→13:42)
[2024-11-03] MEDS: Normal Saline Flush 10 ML SYR IVP (08:01)
[2024-11-03] MEDS: Budesonide/Formoterol 160/4.5 6 GM 60 PUFF INH IH (08:07)
--- NOTE | 2024-11-03 09:13 | PDOC.CMPRO ---
Date of service: 11/03/24 Time of Service: 09:13 Care Management Progress Note Discharge Potential Discharge Needs: PCP F/U Appt Anticipated Barriers to Discharge: None Identified Patient/Family Education Needs: Review discharge instructions, discuss Ask Me Three Transportation: Private vehicle Plan: Anticipate Jaelyn will return home once medically stable. She will follow up with her community providers and continue per her plan of care. Jaelyn will be transported via private vehicle by her . CM will continue to follow and support with discharge planning. Social Determinants of Health Screening Social Determinants of health last assessed in clinic: 11/03/24 Will the Patient Participate in the Screening?: Yes Do you worry about having a steady place to live?: no Problems where you live: no known problems In the past 12 months, have you had to go without electric, gas, oil or water in your home?: no 1. Within the past 12 months, we worried whether our food would run out before we got money to buy more.: Never true 2. Within the past 12 months, the food we bought just didn't last and we didn't have money to get more.: Never true Has lack of transportation kept you from medical appointments or from doing things needed for daily living?: no Has anyone in your life made you feel unsafe or unsupported?: no How hard is it for you to pay for the very basics like food, housing, medical care, and heating? Would you say it is:: Not hard at all Do you want help finding or keeping work or a job?: I do not need or want help If for any reason you need help with day-to-day activities such as bathing, preparing meals, shopping, managing finances, etc., do you get the help you need?: I get all the help I need How often do you feel lonely or isolated from those around you?: Never Do you speak a language other than Amharic at home?: No Does the patient want assistance with any of the above?: No
[2024-11-03] MEDS: LORazepam 1 MG TAB PO (10:50)
[2024-11-03 10:53] VITALS: O2SAT 92
[2024-11-03] MEDS: Insulin Aspart 300 UNITS/3 ML PEN SC (12:30)
[2024-11-03 13:30] VITALS: RESP 8
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
--- NOTE | 2024-11-03 14:02 | PGE_ITS ---
Date of Service Date of service: 11/02/24 Time of Service: 13:00 Assessment and Plan Assessment and plan (1) Acute on chronic respiratory failure with hypoxia and hypercapnia: Start date: 10/31/24 Status: Acute Assessment and plan: This is a 58-year-old lady with recent events exacerbate her pulmonary and cardiovascular status who had sudden onset of respiratory distress at home at rest. Her troponins were negative upon presentation to the ED revealing no exacerbation of her CAD but she did have a significant acute reduction in her left ventricular ejection fraction by POCUS as compared to recent echocardiogram and appeared to be in acute CHF exacerbated by paroxysmal atrial fibrillation with RVR which was cardioverted in the field. She also had what appeared to be exacerbation of her COPD with continued tobacco use. In the ED she did receive 20 mg of Lasix IV and no further fluid and being given 700 cc in the field. We treated for exacerbation of COPD with Solu-Medrol and nebulizer treatments. She also was placed on her home CPAP which helped begin to normalize her VBG. Patient was less hypoxic but still requiring increased oxygen supplement compared to her 2 L/min nasal cannula at home. He does continue to smoke at home. No pulmonary infiltrates were found and she had no evidence of acute infection. Patient was oversedated from IV Versed and fentanyl given in the field and this was cleared at the time I saw her with CPAP to be used at night for her LIBBY. She will be continued on close cardiac monitoring and respiratory support with CPAP as well as initiating IV Lasix in the morning for CHF exacerbation. She should have a repeat echocardiogram when available. Will continue to trend troponins. There is no evidence of acute ischemia though she has a significant acute drop in her left ventricular ejection fraction. Patient is a full code. 11/01/24 switched from iv steroids to prednisone continue with albuterol/duoneb/steroids (2) Paroxysmal atrial fibrillation with RVR: Start date: 10/31/24 Status: Acute Assessment and plan: Recent onset with patient on metoprolol and Eliquis chronically which will be continued in the hospital. Her metoprolol was be split dosing. 11/01/24 On eliquis. HR at 86. On metoprolol (3) CHF exacerbation: Start date: 10/31/24 Status: Acute Assessment and plan: IV Lasix 40 mg twice daily monitoring blood pressure and renal function. Follow-up echocardiogram. 11/01/24 Pt on BB/ARB/lasix. Will add jardiance. Formal echo is pending (4) Acute exacerbation of COPD with asthma: Start date: 10/31/24 Status: Acute Assessment and plan: IV Solu-Medrol be continued with nebulizer treatments and CPAP at night for LIBBY. (5) Acute hyperglycemia: Start date: 10/31/24 Status: Acute Assessment and plan: No overt diagnosis of diabetes mellitus but has had hyperglycemia in the past. Glucometer measurements before meals and at bedtime with moderate sliding scale short acting insulin coverage if needed while patient is on Solu-Medrol. This significant elevation may also have been from the stress of her acute event. (6) Ischemic cardiomyopathy: Status: Chronic Assessment and plan: No evidence of acute ischemia but patient appeared to have dropped her left ventricular ejection fraction from the 50% range to the 30% range. Formal echocardiogram needs to be performed when available. Continue to trend troponins. EKG showed no acute ischemic changes. 11/01/24 Echo from 07/20/24 EXAM: Comprehensive 2D, Doppler, and color-flow Echocardiogram Patient Location: Out-Patient Bench Press Operator: Gucci Garcia RDCS (AE) Indications: Ischemic cardiomyopathy Other Information Study Quality: Fair Conclusion Mild concentric left ventricular hypertrophy. Ejection fraction is 55%. There are no segmental wall motion abnormalities Normal right ventricular size and function Both atria are normal in size Aortic valve is sclerotic and trileaflet. Mean gradient is 10 mmHg. There is mild aortic regurgitation Mild mitral annular calcification, mild mitral regurgitation (7) Essential hypertension: Status: Chronic Assessment and plan: Continue metoprolol split dose and losartan adjusting as needed. (8) Hyperlipidemia: Status: Chronic Assessment and plan: Continue statin therapy. (9) LIBBY (obstructive sleep apnea): Status: Chronic Assessment and plan: Continue CPAP at night. (10) GERD (gastroesophageal reflux disease): Status: Chronic Assessment and plan: Continue PPI. (11) Cigarette smoker: Status: Chronic Assessment and plan: Patient continues to smoke tobacco daily and a nicotine patch cannot be ordered unless needed to avoid exacerbating possible cardiac ischemia. She does have Ativan as needed for anxiety. (12) Generalized anxiety disorder with panic attacks: Status: Chronic Assessment and plan: Recently on chronic Ativan for anxiety which does have some risk with patient's respiratory disease with exacerbation of her anxiety because of recent accident and prolonged hospitalizations. VPMS was reviewed and was appropriate for prescribing with urine drug screen done upon admission because of increased sedation with Versed and Duragesic IV because of pain after cardioversion from AVR with PAF. Patient appeared to have moderate risk for medication misuse because of depression with anxiety and recent traumas. Continue as needed Ativan cautiously while hospitalized. Subjective Subjective Interval history since last seen: no complaints Exam Narrative Exam Narrative: NCAT MMM EOMI PERRLA NO JVD NO THYROIDMEGALY RRR NO MRG BILAT WHEEZE WITH EXPIRATION, COARSE, NO AMU SNTNDBSA 1PLUS GUILLERMINA BILAT AAOX3 Psych Mental Status: mental status grossly normal Speech and Movement: speech and movement normal Mood: congruent mood Affect: normal affect Objective Last Vital Signs Temp 36.8 C 11/03/24 07:58 Pulse 106 H 11/03/24 07:58 Resp 18 11/03/24 07:58 BP 127/81 11/03/24 07:58 Pulse Ox 92 11/03/24 10:53 Laboratory Results - last 24 hr 11/03/24 06:13 WBC 11.31 H RBC 4.88 Hgb 15.7 Hct 45.0 MCV 92 MCH 32.2 MCHC 34.9 RDW 13.3 Plt Count 251 MPV 10.7 Sodium 143 Potassium 3.0 L Chloride 102 Carbon Dioxide 31.5 Anion Gap 9.5 BUN 21 H Creatinine 0.7 Est GFR (CKD-EPI 2020) 98.95 Glucose 141 H Calcium 9.4 Magnesium 2.1 Total Bilirubin 0.8 AST 13 L ALT 38 Alkaline Phosphatase 94 Total Protein 6.5 Albumin 3.1 L PAWSS Have you Been Recently Intoxicated or Drunk Within the Last 30 days?: No Have you Ever Experienced Previous Episodes of Alcohol Withdrawal?: No Have you ever Experienced Withdrawal Seizures?: No Have you ever Experienced Delirium Tremens(DT)s?: No Have you ever undergone Alcohol Rehabilitation Treatment (i.e, inpt ot outpatient treatment programs)?: No Have you ever Experienced Blackouts?: No Have you ever Combined Alcohol with other Downers within the last 90 days?: No Have you ever Combined Alcohol with any other Substance of Abuse during the last 90 days?: No Positive Blood Alcohol level on Presentation? [PCS.BAL]: No Evidence of Increased Autonomic Activity (i.e. HR>120, tremor, sweating, agitation, nausea)?: No Result: 0 Time Spent with Patient Time Spent with Patient: <25 minutes Time was spent: preparing to see the patient(eg.review tests), obtaining and/or reviewing separately otained hiistory, ordering medications,tests, procedures, referring, communicating with other health before and after school daycare worker, indepentently interpreting results, counseling the patient and care coordination
--- NOTE | 2024-11-03 14:12 | PDOC.CMDIS ---
Date of service: 11/03/24 Time of Service: 14:12 LACE Index Scoring Tool Questions: Length of Stay (in days): 3 Was the patient admitted via the E.D.?: Yes Comorbidities: Congestive Heart Failure and Chronic Pulmonary Disease E.D. Visits: 4 Answers: Total Score: 15 Risk of Readmission: High Risk Care Management Discharge Plan Reason for Hospitalization: PAF/RVR. CHF exacerbation with acute respiratory F Discharge Plan: Jaelyn will return home today; she will follow up with her community providers and continue per her plan of care. Jaelyn will be transported via private vehicle by her daughter. Patient/Family Education Needs: Review of discharge instructions, activity, limitations, and discharge plan of care. Discuss Ask Me Three. [facility] Health Related Social Needs: No Data to Display
== END 2024-11-03 14:51 | disposition home or self-care (01) | DRG 291 ==
LOC: ER 23:55 → ICU 11-01 00:41 → MS 11-01 14:10
PROVIDERS: Admitting Provider Family Medicine; Emergency Provider Student in an Organized Health Care Education/Training Program; PCP Nurse Practitioner Family; Responsible Provider Hospitalist; Visit Provider Family Medicine
DX: I11.0 Hypertensive heart disease with heart failure (principal); I50.23 Acute on chronic systolic (congestive) heart failure; J96.21 Acute and chronic respiratory failure with hypoxia; J96.22 Acute and chronic respiratory failure with hypercapnia; J44.1 Chronic obstructive pulmonary disease with (acute) exacerbation; I25.5 Ischemic cardiomyopathy; E05.00 Thyrotoxicosis with diffuse goiter without thyrotoxic crisis or storm; E78.2 Mixed hyperlipidemia; I48.0 Paroxysmal atrial fibrillation; G47.33 Obstructive sleep apnea (adult) (pediatric); K21.9 Gastro-esophageal reflux disease without esophagitis; F17.210 Nicotine dependence, cigarettes, uncomplicated; F41.0 Panic disorder [episodic paroxysmal anxiety]; R73.9 Hyperglycemia, unspecified; Z99.81 Dependence on supplemental oxygen; I25.10 Atherosclerotic heart disease of native coronary artery without angina pectoris; Z79.01 Long term (current) use of anticoagulants; Z79.899 Other long term (current) drug therapy; Z86.711 Personal history of pulmonary embolism; I71.43 Infrarenal abdominal aortic aneurysm, without rupture; I35.2 Nonrheumatic aortic (valve) stenosis with insufficiency; I25.2 Old myocardial infarction
CPT/HCPCS: 00123; 36415; 80053; 80307; 82805; 84145; 85027; 87637; 93005; 93308; 94640; 96374; 96375; 99291; 71045; 83605; 83735; 83880; 84439; 84443; 84484; 85025; 85610; 85730; 93010; 94660; 94664; 94760; 99223; 99231; 99232; 99239; J0612; J1815; J1938; J2919; J3475; J7512; J7613; J7620

== ENCOUNTER 2024-11-11 19:05 | Inpatient (IN) | payer OTHER, SELFPAY ==
[2024-11-11] VITALS (54 sets, daily range): BP systolic 110–167; BP diastolic 58–112; PULSE 64–134; RESP 17–32; TEMP 36.9; O2SAT 91–98
--- NOTE | 2024-11-11 19:00 | RT.EKG_ITS ---
APPROVED REPORT Exam: Resting ECG Reason for Exam: Chest Pain Patient Location: E HR:109 bpm ECG Measurements Heart Rate 109 AXIS IN [id number] P [id number] QRSd 89 QRS 31 QT 298 T -87 QTc 401 Conclusion Atrial fibrillation, rate 109 No interval abnormalities No STEMI Compared to priors, A-fib has replaced NSR
--- NOTE | 2024-11-11 19:30 | DI.RAD_ITS ---
Exam(s) XR CHEST 2V PA LATERAL EXAM: XR CHEST 2V PA LATERAL CLINICAL HISTORY: Chest pain. TECHNIQUE: 2D digital imaging was performed. COMPARISON: No exams were available for comparison FINDINGS: 2 views: Heart size is upper normal. The mediastinum is not widened. Mild pulmonary venous hypertension pattern. No airspace pulmonary edema. No pleural effusions. No infiltrates. IMPRESSION: Mild pulmonary venous hypertension pattern. No airspace pulmonary edema DATA REPOSITORY: RADIATION DOSE DELIVERED:
[2024-11-11 19:50] LABS: Abs Immature Grans 0.05 10^3/uL (0.0-0.06); Absolute Basophil Count 0.05 10^3/uL (0.0-0.2); Absolute Eosinophil Count 0.06 10^3/uL (0.0-0.7); Absolute Lymphocyte Count 2.12 10^3/uL (1.2-3.4); Absolute Monocyte Count 0.92 10^3/uL (0.1-0.8); Absolute Neutrophil Count 8.07 10^3/uL (1.2-6.7); Basophils % 0.4 %; Eosinophils % 0.5 %; HCT 49.2 % (36.0-46.0); HGB 16.5 g/dL (11.2-15.7); Immature Grans % 0.4 %; Lymphocytes % 18.8 %; MCH 31.6 pg (27.0-33.0); MCHC 33.5 % (32.0-36.0); MCV 94 fL (80-95); MPV 10.5 fL (8.0-11.0); Monocytes % 8.2 %; Neutrophils % 71.7 %; Platelet Count 240 10^3/uL (130-400); RBC 5.22 10^6/uL (3.93-5.22); RDW 13.2 % (11.7-14.6); RDW-SD 46.3 fL; WBC 11.25 10^3/uL (4.4-10.8)
[2024-11-11 19:54] LABS: Bilirubin Negative (Negative); Blood Negative (Negative); Clarity Clear (Clear); Glucose 500 mg/dL (Negative); Ketones Negative (Negative); Leukocyte Esterase Negative (Negative); Nitrite Negative (Negative); Urobilinogen 0.2 mg/dL (Up to 0.2)
[2024-11-11 20:02] LABS: Prothrombin Time 10.3 sec (9.1-11.1)
--- NOTE | 2024-11-11 20:08 | ED.GENADUL_ITS ---
Discharge Plan Disposition Patient Disposition: Admit to [facility] Condition: Stable Discharge Details Chief Complaint: Chest Pain Clinical Impression: Chest pain, Atrial fibrillation with rapid ventricular response, Heart failure with reduced ejection fraction Primary Care Provider: Racquel Fraser ED Provider: Carol Goyal Home Meds and New Rx's Prescriptions: No Action citalopram 20 mg tablet 20 mg PO DAILY Qty: 90 3RF losartan 100 mg tablet 100 mg PO DAILY Qty: 90 3RF furosemide 20 mg tablet 20 mg PO DAILY Qty: 90 3RF Eliquis 5 mg tablet 5 mg PO BID Qty: 180 3RF metoprolol succinate 50 mg tablet extended release 24 hr 50 mg PO DAILY Qty: 90 3RF nicotine 21 mg/24 hr patch 24 hour 1 patch transdermal DAILY Qty: 42 0RF Rx Instructions: Apply 1 patch daily for 6 weeks budesonide-formoterol 160-4.5 mcg/actuation HFA aerosol inhaler 2 puff inhalation BID Qty: 10.2 4RF Rx Instructions: 2 puffs twice a day and may use as a reliever therapy for acute difficulty breathing, 1 to 2 puffs every 4 hours as needed. Max inhalations 12 per day rosuvastatin 20 mg tablet 20 mg PO DAILY Qty: 90 3RF nitroglycerin 0.4 mg tablet, sublingual 0.4 mg sublingual Q5M PRN Patient Comments: 02/08/23 Per [facility] [place] Cardiology. -hb Rx Instructions: do not exceed 3 doses per episode pantoprazole 20 mg tablet,delayed release (DR/EC) 20 mg PO DAILY Qty: 90 3RF albuterol sulfate 90 mcg/actuation HFA aerosol inhaler 2 puff Inhalation Q6H PRN (Reason: shortness of breath or wheezing) Qty: 8.5 6RF ipratropium-albuterol 0.5 mg-3 mg(2.5 mg base)/3 mL solution for nebulization 3 ml UPD QID PRN (Reason: shortness of breath or wheezing) Qty: 180 3RF lorazepam 1 mg tablet 1 mg PO BID PRN (Reason: panic attack(s)) Qty: 30 0RF ondansetron 4 mg tablet,disintegrating 4 mg PO Q8H PRNQty: 10 0RF potassium chloride 20 mEq tablet extended release 20 meq PO DAILY Qty: 30 0RF Jardiance 10 mg tablet 10 mg PO DAILY Qty: 30 0RF HPI General Mode of arrival: ambulatory . Date/Time Provider Initiated Documentation: 11/11/24 19:15 . Limitations to Documentation: no limitations . Information obtained by: patient, family and old records reviewed . HPI Narrative: This is a 58-year-old female patient with a past medical history significant for recent development of atrial fibrillation, pulmonary embolism both of which are treated with oral apixaban, history of CAD, HFrEF, LIBBY, COPD, hypertension, and hyperlipidemia. She was discharged from our facility on the of this month, just over a week ago, with a CHF and COPD exacerbation with no hypoxia. She presents for care today with 1 day of chest heaviness and worsening of her shortness of breath. The patient reports that the symptoms developed over the course of the morning. She notes that they are associated with a few days of diarrhea, she wonders if that is due to the initiation of empagliflozin at discharge. She reports that she has felt chills at night, has not had a measured fever. She has not noted any dysuria or hematuria, nausea or vomiting, and has not had a cough or change in sputum. She has been taking all of her medications as prescribed. Her chest pain does not radiate, and is not worsened by deep breath or palpation. Related Data Home Medications ?Medication ?Instructions ?Recorded ?Confirmed nitroglycerin 0.4 mg sublingual 0.4 mg sublingual Q5M PRN 02/08/23 11/11/24 tablet furosemide 20 mg tablet 20 mg PO DAILY #90 tabs 01/20/24 11/11/24 losartan 100 mg tablet 100 mg PO DAILY #90 tabs 01/20/24 11/11/24 pantoprazole 20 mg tablet,delayed 20 mg PO DAILY #90 tabs 05/04/24 11/11/24 release apixaban 5 mg tablet (Eliquis) 5 mg PO BID #180 tabs 08/13/24 11/11/24 metoprolol succinate 50 mg 50 mg PO DAILY #90 tabs 08/13/24 11/11/24 tablet,extended release 24 hr ondansetron 4 mg disintegrating 4 mg PO Q8H PRN #10 tabs 08/23/24 11/11/24 tablet citalopram 20 mg tablet 20 mg PO DAILY #90 tabs 08/24/24 11/11/24 albuterol sulfate 90 mcg/actuation 2 puff inhalation Q6H PRN 09/23/24 11/11/24 aerosol inhaler shortness of breath or wheezing #8.5 grams ipratropium 0.5 mg-albuterol 3 mg 3 ml UPD QID PRN shortness of 09/28/24 11/11/24 (2.5 mg base)/3 mL nebulization breath or wheezing #180 mL soln nicotine 21 mg/24 hr daily 1 patch transdermal DAILY #42 ea 10/01/24 11/11/24 transdermal patch budesonide-formoterol HFA 160 2 puff inhalation BID #10.2 grams 10/29/24 11/11/24 mcg-4.5 mcg/actuation aerosol inhaler rosuvastatin 20 mg tablet 20 mg PO DAILY #90 tabs 10/29/24 11/11/24 empagliflozin 10 mg tablet 10 mg PO DAILY #30 tabs 11/03/24 11/11/24 (Jardiance) potassium chloride 20 mEq 20 meq PO DAILY #30 tabs 11/03/24 11/11/24 tablet,extended release lorazepam 1 mg tablet 1 mg PO BID PRN panic attack(s) 11/11/24 11/11/24 #30 tabs Previous Rx's ?Medication ?Instructions ?Recorded furosemide 20 mg tablet 20 mg PO DAILY #90 tabs 01/20/24 losartan 100 mg tablet 100 mg PO DAILY #90 tabs 01/20/24 pantoprazole 20 mg tablet,delayed 20 mg PO DAILY #90 tabs 05/04/24 release apixaban 5 mg tablet (Eliquis) 5 mg PO BID #180 tabs 08/13/24 metoprolol succinate 50 mg 50 mg PO DAILY #90 tabs 08/13/24 tablet,extended release 24 hr ondansetron 4 mg disintegrating 4 mg PO Q8H PRN #10 tabs 08/23/24 tablet citalopram 20 mg tablet 20 mg PO DAILY #90 tabs 08/24/24 albuterol sulfate 90 mcg/actuation 2 puff inhalation Q6H PRN 09/23/24 aerosol inhaler shortness of breath or wheezing #8.5 grams ipratropium 0.5 mg-albuterol 3 mg 3 ml UPD QID PRN shortness of 09/28/24 (2.5 mg base)/3 mL nebulization breath or wheezing #180 mL soln nicotine 21 mg/24 hr daily 1 patch transdermal DAILY #42 ea 10/01/24 transdermal patch budesonide-formoterol HFA 160 2 puff inhalation BID #10.2 grams 10/29/24 mcg-4.5 mcg/actuation aerosol inhaler rosuvastatin 20 mg tablet 20 mg PO DAILY #90 tabs 10/29/24 empagliflozin 10 mg tablet 10 mg PO DAILY #30 tabs 11/03/24 (Jardiance) potassium chloride 20 mEq 20 meq PO DAILY #30 tabs 11/03/24 tablet,extended release lorazepam 1 mg tablet 1 mg PO BID PRN panic attack(s) 11/11/24 #30 tabs Allergies Allergy/AdvReac Type Severity Reaction Status Date / Time amlodipine AdvReac Intermediate Peripheral Verified 11/11/24 20:22 edema General Stated Complaint: Chest Pain JOSE JUAN: 3 Exam Narrative Exam Narrative: Gen: Awake and alert, in no apparent distress HEENT: Non-icteric sclera Neck: Supple Lungs: No apparent respiratory distress but notable tachypnea without hypoxia. Lung sounds clear and equal bilaterally. CV: Appears well perfused, heart with irregularly irregular rate and tachycardic rhythm. Strong distal pulses. Abdomen: Non-distended MSK: Moves 4 extremities without apparent limitation in ROM. No peripheral ed myra, no unilateral leg swelling or tenderness. Skin: Visualized skin without rashes, cyanosis. Neuro: Normal Gait, no obvious focal deficits or facial asymmetry. Speaks in full, clear sentences. Psych: Appropriate for situation. Course Vital Signs Vital signs: Vital Signs Temperature 36.9 C 11/11/24 19:07 Pulse 102 H 11/11/24 19:07 Respiratory Rate 20 11/11/24 19:07 Blood Pressure 152/84 H 11/11/24 19:07 Pulse Oximetry 95 11/11/24 19:07 Temperature 36.9 C 11/11/24 19:07 Pulse 102 H 11/11/24 19:07 Respiratory Rate 23 11/11/24 19:26 Respiratory Effort Labored, Incrsd Work of Breathing 11/11/24 19:26 Respiratory Depth Normal 11/11/24 19:26 Respiratory Pattern Normal 11/11/24 19:26 Blood Pressure 152/84 H 11/11/24 19:07 Blood Pressure Position Sitting 11/11/24 19:07 Pulse Oximetry 95 11/11/24 19:07 Oxygen Delivery Method Room Air 11/11/24 19:07 Oxygen Flow Rate 0 11/11/24 19:07 Lab/Test Results Lab/Test Results: Laboratory Tests Range/Units 11/11/24 11/11/24 19:20 19:45 WBC (4.4-10.8) 10^3/uL 11.25 H RBC (3.93-5.22) 10^6/uL 5.22 Hgb (11.2-15.7) g/dL 16.5 H Hct (36.0-46.0) % 49.2 H MCV (80-95) fL 94 MCH (27.0-33.0) pg 31.6 MCHC (32.0-36.0) % 33.5 RDW (11.7-14.6) % 13.2 Plt Count (130-400) 10^3/uL 240 MPV (8.0-11.0) fL 10.5 Immature Gran % % 0.4 Neutrophils % % 71.7 Lymphocytes % % 18.8 Monocytes % % 8.2 Eosinophils % % 0.5 Basophils % % 0.4 Nucleated RBC % (0.0-0.3) % 0.0 Absolute Neutrophils (1.2-6.7) 10^3/uL 8.07 H Absolute Lymphocytes (1.2-3.4) 10^3/uL 2.12 Absolute Monocytes (0.1-0.8) 10^3/uL 0.92 H Absolute Eosinophils (0.0-0.7) 10^3/uL 0.06 Absolute Basophils (0.0-0.2) 10^3/uL 0.05 PT (9.1-11.1) sec 10.3 INR (0.9-1.1) 1.0 Urine Color (Yellow) Yellow Urine Clarity (Clear) Clear Urine pH (5-8) 6.0 Ur Specific [place] (1.005-1.025) 1.010 Urine Protein (Neg-Trace) mg/dL Negative Urine Ketones (Negative) mg/dL Negative Urine Blood (Negative) Negative Urine Nitrite (Negative) Negative Urine Bilirubin (Negative) Negative Urine Urobilinogen (Up to 0.2) mg/dL 0.2 Ur Leukocyte Esterase (Negative) Negative Urine Glucose (Negative) mg/dL 500 H Medical Decision Making This is a 58 y.o F presenting for evaluation of CP and shortness of breath. Differential includes but is not limited to ACS, arrhythmia, shawanda/myocarditis, CHF exacerbation. No wheezing to suggest COPD exacerbation. PE considered though pt is already anticoagulated. No GI symptoms to suggest Bor[place]aves, PUD, pancr eatitis. Considered metabolic and electrolyte derangement, kidney injury, liver disease. Considered MSK conditions including chest wall pain, costochondritis. EKG reviewed, showing A-fib with RVR and non-specific ST changes, likely rate related. Most recent prior EKG NSR. No STEMI - Labs obtained, notable for a mild leukocytosis, No anemia or thrombocytopenia. Chemistry panel without electrolyte derangements, evidence of kidney dysfunction or liver disease. Troponin was negative and trended at 1 and 3 hours without interval increase. BNP is elevated to 1094 but downtrending, lipase is low and urine is noninfectious. X-ray shows stable pulmonary vascular congestion and cardiomegaly. POCUS as noted below, revealing moderately reduced ejection fraction, no B-lines but a plethoric appearing IVC. 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 She has not missed any doses of her Eliquis and if she was to become hemodynamically unstable and require cardioversion that could be safely performed. I discussed the case with the hospitalist service who is graciously accepted this patient for admission to their service for ongoing workup and management. Her dose of Lasix and a sublingual nitro will be provided in the emergency department. She was transferred to the care of the hospitalist team without incident. Carol Goyal MD Quality:SDOH Health Related Social Needs: No Data to Display PFSH All Active Problems (Updated 11/11/24 @ 23:48 by Carol Goyal MD) Chest pain (Acute) Atrial fibrillation with rapid ventricular response (Acute) Acute hyperglycemia (Acute) Atrial fibrillation (Chronic ~07/2024) Coronary artery disease (Chronic) Heart failure with reduced ejection fraction (Chronic) Pulmonary embolism (Chronic ~07/2024) AAA (abdominal aortic aneurysm) (Chronic) Infrarenal, measuring 2.5cm 2024 LIBBY (obstructive sleep apnea) (Chronic) Nonrheumatic aortic (valve) stenosis (Acute) Aortic regurgitation (Chronic) Asthma-COPD overlap syndrome (Chronic) Essential hypertension (Chronic) Generalized anxiety disorder with panic attacks (Chronic) Hyperlipidemia (Chronic) GERD (gastroesophageal reflux disease) (Chronic) History of Graves' disease (Chronic) Osteoarthritis (Chronic) Cigarette smoker (Chronic) Annual LDCT paused d/t cost Nummular dermatitis (Chronic) Medical History Non-ST elevation [place] (NSTEMI) (~01/2023) Respiratory failure with hypoxia Depressive disorder Graves disease Surgical History Status post right knee replacement (01/20/19) S/P right knee arthroscopy (02/20/10) With partial medial meniscectomy S/P left knee arthroscopy (05/04/10) With partial medial and lateral meniscectomy S/P dilation and curettage S/P bilateral salpingo-oophorectomy S/P appendectomy S/P abdominal hysterectomy For abnormal uterine bleeding S/P lumpectomy, right breast (~1993) Family History Mother , at 77 Asthma Hypertension COPD (chronic obstructive pulmonary disease) Father , at 79 Parkinson disease Graves disease Hypertension Depression Suicide attempt Sister No problems noted. Sister , at 44 of metastatic bone cancer Metastatic bone cancer Brother , at 60 of pancreatic cancer Pancreatic cancer Diabetes Depression COPD (chronic obstructive pulmonary disease) Brother Alcohol abuse Son No problems noted. Daughter No problems noted. Maternal Grandfather Heart disease [place] Maternal Grandmother Brain cancer Paternal Grandfather No problems noted. Paternal Grandmother No problems noted. Brother , age 28 - MVA No problems noted. Social History Smoking/Tobacco Use Status: Current every day Tobacco Type: cigarettes Smoking packs per day: 1 Smoking cigarettes per day: 20.0 Years smoked: 47 Smoking pack-years: 47.00 Tobacco: How many years used: 47 Quit status: considering quitting Counseling given: provider counseling Smoking risk assessment performed?: Yes Alcohol Intake: current Alcohol Intake frequency: a few times a week Alcohol type: beer Details: Declined to answer all except selecting Beer Drug use: Never Substance use type: does not use Counseling given: No Counseling provided: none Adopted: No Caregiver/Support person: No Household members: spouse Housing: house Pets and animals: Yes Pets and animals: cat(s) Sexually active: Yes Do you think of yourself as: straight/heterosexual Current gender identity: female What is your relationship status?: How often do you talk on the phone with friends or family?: three or more times per week How often do you get together with friends or relatives?: twice per week Do you belong to any clubs or organized social groups?: no Panel score (0-1 are the most socially isolated patients): 2 What type of physical activity do you participate in: none Frequency: does not exercise Aida/Synagogue: None Special aida needs: No Seatbelt use: always Helmet use: No Drive intox 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 electric 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 driver 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: No Firearms in home: Yes Firearms unloaded and locked: Yes Do you feel safe at home: Yes Do you feel safe in your relationship?: Yes Victim of physical abuse: No Victim of emotional abuse: No Victim of sexual abuse: No Female Reproductive History Menstrual Menopause type: surgical History History 4 Para 2 Hx # Term Pregnancies Multiple births Hx # Pregnancies Ectopic pregnancies AB induced Hx Number of Living Children 2 AB spontaneous 2 POCUS Exam (ED) Limited Cardiac Exam DATE OF EXAM: 11/11/24 TIME OF EXAM: 20:30 PROVIDER THAT PERFORMED THE STUDY: Carol Goyal IS THIS A REPEAT EXAM DURING THIS ENCOUNTER: no REASON FOR EXAM: Chest pain, Congestive heart failure and Dyspnea VISUALIZED STRUCTURES: Four Chambers, LVOT, Aortic valve, Mitral valve, Interventricular septum, IVC and Other structure: b/l lung apices VIEW OBTAINED: Apical 4-Chamber, Parasternal long-axis, Parasternal short-axis, Subxiphoid and Other (IVC, lung apices) PERTINENT FINDINGS/IMPRESSION: IVC inspiratory collapsability, LV dysfunction :moderate and Plethoric IVC; No pericardial effusion INCIDENTAL FINDINGS: LV dilation, no B-lines Exam complete
--- NOTE | 2024-11-11 20:20 | DI.VRAD_ITS ---
PROCEDURE INFORMATION: Exam: XR Chest Exam date and time: 11/11/2024 19:47 Age: 58 years old Clinical indication: Other: Chest pain TECHNIQUE: Imaging protocol: Radiologic exam of the chest. Views: 2 views. COMPARISON: CR XR PORTABLE CHEST AP 10/31/2024 22:31 FINDINGS: Lungs: The lungs appear hyperinflated. No airspace consolidation. Pleural spaces: No pleural effusion. No pneumothorax. Heart/Mediastinum: Mild cardiomegaly with mild central vascular congestion, similar to prior. Bones/joints: No acute fracture. IMPRESSION: Mild cardiomegaly with mild central vascular congestion, similar to prior. Dictated and Authenticated by: Rosangela Garza MD. Orderin [facility] Robbin Medina MD
[2024-11-11 20:22] LABS: ALT 33 U/L (14-59); AST 19 U/L (15-37); Albumin 3.6 g/dL (3.4-5.0); Alkaline Phosphatase 104 U/L (46-116); BUN 10 mg/dL (7-18); Bilirubin, Total 0.6 mg/dL (0.2-1.0); CREATININE 0.9 mg/dL (0.55-1.02); Calcium 9.6 mg/dL (8.5-10.1); Chloride 103 mmol/L (98-107); Estimated GFR 73.19 (mL/min/1.73m2); Glucose 115 mg/dL (74-106); Lipase 25 U/L (<78); NT-proBNP 1094 pg/mL (<300); Potassium 3.7 mmol/L (3.5-5.1); Sodium 140 mmol/L (136-145); Total Protein 7.6 g/dL (6.4-8.2); Troponin I 20 ng/L (<or=51)
[2024-11-11 21:19] LABS: Troponin I 18 ng/L (<or=51)
[2024-11-11] MEDS: LORazepam 1 MG TAB PO (21:52)
[2024-11-11 23:22] LABS: Troponin I 22 ng/L (<or=51)
--- NOTE | 2024-11-11 23:41 | W.PM.HP.N ---
Date of service: 11/11/24 Time of Service: 23:42 Assessment and Plan Assessment and plan (1) Atypical chest pain: Start date: 11/11/24 Status: Acute Assessment and plan: This is a 58-year-old lady presenting with retrosternal chest pressure which seems to be associated with atrial fibrillation and rapid ventricular response as well as CHF upon presentation. Her troponins are negative and she has no ischemic changes on EKG. Will continue rate control and diurese with IV Lasix. She has a history of A-fib and is on apixaban and is not requiring cardioversion because of stable hemodynamic state at this time. Cardiac consultation in the morning to consider rate control issues and discussion of more definitive therapy such as antiarrhythmic therapy versus ablation therapy. Patient is a full code. (2) Atrial fibrillation with rapid ventricular response: Start date: 11/11/24 Status: Acute Assessment and plan: Cardiology consultation as above. Patient did present with tachycardia but is now more stable. Split dosing of metoprolol and follow cardiology recommendations when available. Continue apixaban. (3) Heart failure with reduced ejection fraction: Status: Chronic Assessment and plan: Lasix IV for more aggressive diuresis per cardiology recommendations from [facility] through the ED. Follow-up echocardiogram as indicated. Recent echocardiogram did show left ventricular ejection fraction at about 40% which POCUS also showed in ED upon admission. (4) Coronary artery disease: Status: Chronic Assessment and plan: Chest discomfort not responsive to nitroglycerin with patient to be treated for anxiety and attempt to relieve pain with morphine IV. She is comfortable at this point. Troponins are negative and will be trended. (5) Pulmonary embolism: Status: Chronic Assessment and plan: Continue apixaban lifelong. (6) Essential hypertension: Status: Chronic Assessment and plan: Continue outpatient medical therapy adjusting as needed. Cardiology consultation. (7) Hyperlipidemia: Status: Chronic Assessment and plan: Continue statin therapy as per outpatient. (8) LIBBY (obstructive sleep apnea): Status: Chronic Assessment and plan: Continue home CPAP settings with home CPAP. (9) GERD (gastroesophageal reflux disease): Status: Chronic Assessment and plan: Continue Protonix as per outpatient. History of Present Illness History of Present Illness Chief Complaint: 1 day history of retrosternal chest tightness and worsening dyspnea. Narrative: This is a 58-year-old female patient who was recently hospitalized for CHF and COPD exacerbation without hypoxemia and has a history of atrial fibrillation, pulmonary embolus on anticoagulation which also covers atrial fibrillation, history of CAD with previous OH which had atypical presentation and reduced ejection fraction heart failure with LIBBY on CPAP at night, COPD, hypertension and hyperlipidemia. He was discharged from this facility on November 03 and presents again with a 1 day history of retrosternal chest tightness and worsening dyspnea. In the ED she continued to have chest discomfort which did not respond to nitroglycerin sublingually which she has never taken since her previous heart attack. She did have an Ativan which somewhat helped her discomfort and will be given morphine for treatment of her discomfort. Her discomfort was not radiating and she had no other cardiovascular or respiratory complaints other than slight shortness of breath worsening prior to presentation. She had no focal neurological complaint, GI or complaints. She denies fever or productive cough. Her troponins were negative and she remained in atrial fibrillation with tachycardia improving in in the ED. proBNP was over 1000 but stable and trending down from her previous measurements. Chest x-ray did reveal cardiomegaly. [facility] cardiology was consulted and did advise admission with trending troponins, more aggressive diuresis for CHF which was begun in the ED with IV Lasix 40 mg and follow-up with her outpatient magnetic resonance imaging director for better rate control and possible cardioversion. Patient is on Eliquis as mentioned. If she became hemodynamically unstable she would require cardioversion. She was admitted to ICU for closer monitoring while she was diuresed with her intermittent tachycardia with atrial fibrillation. This time I saw the patient she had minimal chest discomfort and would receive morphine for complete control of her discomfort having not responded to nitroglycerin as stated. Her troponins remained negative but will be trended. She was much more comfortable. She is a full code. Review of Systems Narrative: 13 point review of systems otherwise unrevealing or stable. [facility] All Active Problems COPD (chronic obstructive pulmonary disease) (Chronic) Atypical chest pain (Acute) Chest pain (Acute) Atrial fibrillation with rapid ventricular response (Acute) Acute hyperglycemia (Acute) Atrial fibrillation (Chronic ~07/2024) Coronary artery disease (Chronic) Heart failure with reduced ejection fraction (Chronic) Pulmonary embolism (Chronic ~07/2024) AAA (abdominal aortic aneurysm) (Chronic) Infrarenal, measuring 2.5cm 2024 LIBBY (obstructive sleep apnea) (Chronic) Nonrheumatic aortic (valve) stenosis (Acute) Aortic regurgitation (Chronic) Asthma-COPD overlap syndrome (Chronic) Essential hypertension (Chronic) Generalized anxiety disorder with panic attacks (Chronic) Hyperlipidemia (Chronic) GERD (gastroesophageal reflux disease) (Chronic) History of Graves' disease (Chronic) Osteoarthritis (Chronic) Cigarette smoker (Chronic) Annual LDCT paused d/t cost Nummular dermatitis (Chronic) Medical History Non-ST elevation [place] (NSTEMI) (~01/2023) Respiratory failure with hypoxia Depressive disorder Graves disease Surgical History Status post right knee replacement (01/20/19) S/P right knee arthroscopy (02/20/10) With partial medial meniscectomy S/P left knee arthroscopy (05/04/10) With partial medial and lateral meniscectomy S/P dilation and curettage S/P bilateral salpingo-oophorectomy S/P appendectomy S/P abdominal hysterectomy For abnormal uterine bleeding S/P lumpectomy, right breast (~1993) Family History Mother , at 77 Asthma Hypertension COPD (chronic obstructive pulmonary disease) Father , at 79 Parkinson disease Graves disease Hypertension Depression Suicide attempt Sister No problems noted. Sister , at 44 of metastatic bone cancer Metastatic bone cancer Brother , at 60 of pancreatic cancer Pancreatic cancer Diabetes Depression COPD (chronic obstructive pulmonary disease) Brother Alcohol abuse Son No problems noted. Daughter No problems noted. Maternal Grandfather Heart disease OH Maternal Grandmother Brain cancer Paternal Grandfather No problems noted. Paternal Grandmother No problems noted. Brother , age 28 - MVA No problems noted. Social History Smoking/Tobacco Use Status: Current every day Tobacco Type: cigarettes Smoking packs per day: 1 Smoking cigarettes per day: 20.0 Years smoked: 47 Smoking pack-years: 47.00 Tobacco: How many years used: 47 Quit status: considering quitting Counseling given: provider counseling Smoking risk assessment performed?: Yes Alcohol Intake: current Alcohol Intake frequency: a few times a week Alcohol type: beer Details: Declined to answer all except selecting Beer Drug use: Never Substance use type: does not use Counseling given: No Counseling provided: none Adopted: No Caregiver/Support person: No Household members: spouse Housing: house Pets and animals: Yes Pets and animals: cat(s) Sexually active: Yes Do you think of yourself as: straight/heterosexual Current gender identity: female What is your relationship status?: How often do you talk on the phone with friends or family?: three or more times per week How often do you get together with friends or relatives?: twice per week Do you belong to any clubs or organized social groups?: no Panel score (0-1 are the most socially isolated patients): 2 What type of physical activity do you participate in: none Frequency: does not exercise Aida/Sikhism: None Special aida needs: No Seatbelt use: always Helmet use: No Drive intox 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 Firearms in home: Yes Firearms unloaded and locked: Yes Do you feel safe at home: Yes Do you feel safe in your relationship?: Yes Victim of physical abuse: No Victim of emotional abuse: No Victim of sexual abuse: No Female Reproductive History Menstrual Menopause type: surgical History History 4 Para 2 Hx # Term Pregnancies Multiple births Hx # Pregnancies Ectopic pregnancies AB induced Hx Number of Living Children 2 AB spontaneous 2 Meds Allergies and Home Medications Allergies Allergy/AdvReac Type Severity Reaction Status Date / Time amlodipine AdvReac Intermediate Peripheral Verified 11/11/24 20:22 edema Home Medications ?Medication ?Instructions ?Recorded ?Confirmed ?Type nitroglycerin 0.4 mg sublingual 0.4 mg sublingual Q5M PRN 02/08/23 11/11/24 History tablet furosemide 20 mg tablet 20 mg PO DAILY #90 tabs 01/20/24 11/11/24 Rx losartan 100 mg tablet 100 mg PO DAILY #90 tabs 01/20/24 11/11/24 Rx pantoprazole 20 mg tablet,delayed 20 mg PO DAILY #90 tabs 05/04/24 11/11/24 Rx release apixaban 5 mg tablet (Eliquis) 5 mg PO BID #180 tabs 08/13/24 11/11/24 Rx metoprolol succinate 50 mg 50 mg PO DAILY #90 tabs 08/13/24 11/11/24 Rx tablet,extended release 24 hr ondansetron 4 mg disintegrating 4 mg PO Q8H PRN #10 tabs 08/23/24 11/11/24 Rx tablet citalopram 20 mg tablet 20 mg PO DAILY #90 tabs 08/24/24 11/11/24 Rx albuterol sulfate 90 mcg/actuation 2 puff inhalation Q6H PRN 09/23/24 11/11/24 Rx aerosol inhaler shortness of breath or wheezing #8.5 grams ipratropium 0.5 mg-albuterol 3 mg 3 ml UPD QID PRN shortness of 09/28/24 11/11/24 Rx (2.5 mg base)/3 mL nebulization breath or wheezing #180 mL soln nicotine 21 mg/24 hr daily 1 patch transdermal DAILY #42 ea 10/01/24 11/11/24 Rx transdermal patch budesonide-formoterol HFA 160 2 puff inhalation BID #10.2 grams 10/29/24 11/11/24 Rx mcg-4.5 mcg/actuation aerosol inhaler rosuvastatin 20 mg tablet 20 mg PO DAILY #90 tabs 10/29/24 11/11/24 Rx empagliflozin 10 mg tablet 10 mg PO DAILY #30 tabs 11/03/24 11/11/24 Rx (Jardiance) potassium chloride 20 mEq 20 meq PO DAILY #30 tabs 11/03/24 11/11/24 Rx tablet,extended release lorazepam 1 mg tablet 1 mg PO BID PRN panic attack(s) 11/11/24 11/11/24 Rx #30 tabs Exam Narrative Exam Narrative: General: Patient appears appropriate for age, alert and oriented x 3 and in no acute distress. HEENT: Normocephalic, eyes with pupils equal and react to light specially, extraocular movement intact and sclera anicteric. Oropharynx with moist mucosa and good dentition. Patient appears to have denture plate as above and below. Neck: Supple without JVD. Back: Stooped posture without CVA tenderness. Lungs: Aeration essentially clear with no focalizing rales or rhonchi. No decreased aeration of the bases. No expiratory wheeze. Breast: Exam deferred. Heart: Irregular irregular rhythm with normal rate at the time of my exam. No appreciable murmur or gallop. Abdomen: Slightly obese contour, soft and nontender to palpation no palpable hepatosplenomegaly. Genitalia/rectal: Exam deferred. Extremities: Without clubbing, cyanosis or soft, pitting edema with mild, nonpitting edema both lower extremities. Fair cap refill. Skin: Normal color, warm and dry. Neuro: Cranial nerves II through XII gross intact, no focal motor deficits. No tremor. Psych: Normal affect and mood. No abnormal thought processes. Remote recent memory intact. Results Imaging Imaging Studies: Exam: XR Chest Exam date and time: 11/11/2024 19:47 Age: 58 years old Clinical indication: Other: Chest pain TECHNIQUE: Imaging protocol: Radiologic exam of the chest. Views: 2 views. COMPARISON: CR XR PORTABLE CHEST AP 10/31/2024 22:31 FINDINGS: Lungs: The lungs appear hyperinflated. No airspace consolidation. Pleural spaces: No pleural effusion. No pneumothorax. Heart/Mediastinum: Mild cardiomegaly with mild central vascular congestion, similar to prior. Bones/joints: No acute fracture. IMPRESSION: Mild cardiomegaly with mild central vascular congestion, similar to prior. Labs 11/12/24 05:50 11/12/24 05:50 Labs: Laboratory Results - last 24 hr 11/11/24 11/11/24 11/11/24 19:20 19:45 20:30 WBC 11.25 H RBC 5.22 Hgb 16.5 H Hct 49.2 H MCV 94 MCH 31.6 MCHC 33.5 RDW 13.2 Plt Count 240 MPV 10.5 Immature Gran % 0.4 Neutrophils % 71.7 Lymphocytes % 18.8 Monocytes % 8.2 Eosinophils % 0.5 Basophils % 0.4 Nucleated RBC % 0.0 Absolute Neutrophils 8.07 H Absolute Lymphocytes 2.12 Absolute Monocytes 0.92 H Absolute Eosinophils 0.06 Absolute Basophils 0.05 PT 10.3 INR 1.0 Sodium 140 Potassium 3.7 Chloride 103 Carbon Dioxide 30.0 Anion Gap 7.0 BUN 10 Creatinine 0.9 Est GFR (CKD-EPI 2020) 73.19 Glucose 115 H Calcium 9.6 Magnesium 2.0 Total Bilirubin 0.6 AST 19 ALT 33 Alkaline Phosphatase 104 Troponin I 20 18 NT-Pro-B Natriuret Pep 1094 H Total Protein 7.6 Albumin 3.6 Lipase 25 Urine Color Yellow Urine Clarity Clear Urine pH 6.0 Ur Specific [place] 1.010 Urine Protein Negative Urine Ketones Negative Urine Blood Negative Urine Nitrite Negative Urine Bilirubin Negative Urine Urobilinogen 0.2 Ur Leukocyte Esterase Negative Urine Glucose 500 H 11/11/24 23:00 WBC RBC Hgb Hct MCV MCH MCHC RDW Plt Count MPV Immature Gran % Neutrophils % Lymphocytes % Monocytes % Eosinophils % Basophils % Nucleated RBC % Absolute Neutrophils Absolute Lymphocytes Absolute Monocytes Absolute Eosinophils Absolute Basophils PT INR Sodium Potassium Chloride Carbon Dioxide Anion Gap BUN Creatinine Est GFR (CKD-EPI 2020) Glucose Calcium Magnesium Total Bilirubin AST ALT Alkaline Phosphatase Troponin I 22 NT-Pro-B Natriuret Pep Total Protein Albumin Lipase Urine Color Urine Clarity Urine pH Ur Specific [place] Urine Protein Urine Ketones Urine Blood Urine Nitrite Urine Bilirubin Urine Urobilinogen Ur Leukocyte Esterase Urine Glucose Last Vital Signs Temp 36.9 C 11/11/24 19:07 Pulse 98 H 11/11/24 20:31 Resp 29 H 11/11/24 20:31 BP 128/89 11/11/24 20:31 Pulse Ox 95 11/11/24 20:31 Time Spent Time spent with Patient: >75 minutes Time was spent: preparing to see the patient(eg.review tests), obtaining and/or reviewing separately otained hiistory, ordering medications,tests, procedures, indepentently interpreting results and care coordination
[2024-11-12] VITALS (36 sets, daily range): BP systolic 91–146; BP diastolic 59–117; PULSE 0–98; RESP 2–29; TEMP 36.2–37.3; O2SAT 89–94
[2024-11-12] MEDS: Furosemide 40 MG/4 ML VIAL IVP ×3 (00:13→15:31)
[2024-11-12] MEDS: nitroGLYcerin 0.4 MG TAB SL (00:14)
--- NOTE | 2024-11-12 00:25 | NUR.NOTE ---
paged Dr. García at [phone] in response to request of an update after S/L nitro. pt felt no difference in chest discomfort after S/L nitro. Provider stated that he had written for morphine however that could be given upstairs on admission.
--- NOTE | 2024-11-12 02:32 | W.PC.ACHO ---
Registration Status: Primary Language: Preferred Language: ED Information & Data Chief Complaint Chest Pain 11/11/24 20:08 Other Complaint SOB/SuddenOnset 11/11/24 19:07 Triage Note PT reports sudden onset 11/11/24 19:07 shortness of breath and pressure in her chest starting 1500 today. PT Reports Hx of a.fib along with anxiety with several recent anxiety attacks. Ran out of anxiety meds (last admin yesterday morning) Medical / Surgical History (Last Reviewed 11/11/24 @ 23:42 by Grady García) Non-ST elevation [place] (NSTEMI) (~01/2023) Respiratory failure with hypoxia Depressive disorder Graves disease (Last Reviewed 11/11/24 @ 23:42 by Grady García) Status post right knee replacement (01/20/19) S/P right knee arthroscopy (02/20/10) S/P left knee arthroscopy (05/04/10) S/P dilation and curettage S/P bilateral salpingo-oophorectomy S/P appendectomy S/P abdominal hysterectomy S/P lumpectomy, right breast (~1993) Most Recent Vital Signs Temperature 36.8 C 11/12/24 01:02 Temperature Source Temporal Artery Scan 11/12/24 00:59 Pulse 83 11/12/24 01:02 Pulse 94 H 11/12/24 00:31 Respiratory Rate 26 H 11/12/24 01:02 Respiratory Effort Normal 11/12/24 00:59 Respiratory Depth Normal 11/12/24 00:59 Respiratory Pattern Normal 11/12/24 00:59 Blood Pressure 126/87 11/12/24 01:02 Blood Pressure Mean 98 11/12/24 00:31 Blood Pressure Position Sitting 11/11/24 19:07 Pulse Oximetry 92 11/12/24 01:02 Oxygen Delivery Method Room Air 11/12/24 00:59 Oxygen Flow Rate 0 11/12/24 00:59 Pain Level 6 11/12/24 01:02 Allergies amlodipine Adverse Reaction (Intermediate, Verified 11/11/24 20:22) Peripheral edema Precautions Isolation Standard precaution 11/11/24 19:28 IV IV Catheter Type [Right Peripheral IV Antecubital] IV Catheter Gauge [Right 18 Antecubital] Diet Orders Category Date Time Status Heart Healthy Eating [DIET] Nutrition 11/13/24 Breakfast Ordered Diagnostics 11/12/24 11/12/24 11/12/24 Range/Units 06:00 05:35 03:00 WBC Pending (4.4-10.8) 10^3/uL RBC Pending (3.93-5.22) 10^6/uL Hgb Pending (11.2-15.7) g/dL Hct Pending (36.0-46.0) % MCV Pending (80-95) fL MCH Pending (27.0-33.0) pg MCHC Pending (32.0-36.0) % RDW Pending (11.7-14.6) % Plt Count Pending (130-400) 10^3/uL MPV Pending (8.0-11.0) fL Immature Gran % % Neutrophils % % Lymphocytes % % Monocytes % % Eosinophils % % Basophils % % Nucleated RBC % (0.0-0.3) % Absolute Neutrophils (1.2-6.7) 10^3/uL Absolute Lymphocytes (1.2-3.4) 10^3/uL Absolute Monocytes (0.1-0.8) 10^3/uL Absolute Eosinophils (0.0-0.7) 10^3/uL Absolute Basophils (0.0-0.2) 10^3/uL PT (9.1-11.1) sec INR (0.9-1.1) Sodium Pending (136-145) mmol/L Potassium Pending (3.5-5.1) mmol/L Chloride Pending (98-107) mmol/L Carbon Dioxide Pending (21.0-32.0) mmol/L Anion Gap Pending (3-11) mmol/L BUN Pending (7-18) mg/dL Creatinine Pending (0.55-1.02) mg/dL Est GFR (CKD-EPI 2020) Pending (mL/min/1.73m2) Glucose Pending (74-106) mg/dL Calcium Pending (8.5-10.1) mg/dL Magnesium Pending (1.8-2.4) mg/dL Total Bilirubin Pending (0.2-1.0) mg/dL AST Pending (15-37) U/L ALT Pending (14-59) U/L Alkaline Phosphatase Pending (46-116) U/L Troponin I Pending Pending (<or=51) ng/L NT-Pro-B Natriuret Pep (<300) pg/mL Total Protein Pending (6.4-8.2) g/dL Albumin Pending (3.4-5.0) g/dL Lipase (<78) U/L Urine Color (Yellow) Urine Clarity (Clear) Urine pH (5-8) Ur Specific [place] (1.005-1.025) Urine Protein (Neg-Trace) mg/dL Urine Ketones (Negative) mg/dL Urine Blood (Negative) Urine Nitrite (Negative) Urine Bilirubin (Negative) Urine Urobilinogen (Up to 0.2) mg/dL Ur Leukocyte Esterase (Negative) Urine Glucose (Negative) mg/dL 11/11/24 11/11/24 11/11/24 Range/Units 23:00 20:30 19:45 WBC (4.4-10.8) 10^3/uL RBC (3.93-5.22) 10^6/uL Hgb (11.2-15.7) g/dL Hct (36.0-46.0) % MCV (80-95) fL MCH (27.0-33.0) pg MCHC (32.0-36.0) % RDW (11.7-14.6) % Plt Count (130-400) 10^3/uL MPV (8.0-11.0) fL Immature Gran % % Neutrophils % % Lymphocytes % % Monocytes % % Eosinophils % % Basophils % % Nucleated RBC % (0.0-0.3) % Absolute Neutrophils (1.2-6.7) 10^3/uL Absolute Lymphocytes (1.2-3.4) 10^3/uL Absolute Monocytes (0.1-0.8) 10^3/uL Absolute Eosinophils (0.0-0.7) 10^3/uL Absolute Basophils (0.0-0.2) 10^3/uL PT (9.1-11.1) sec INR (0.9-1.1) Sodium (136-145) mmol/L Potassium (3.5-5.1) mmol/L Chloride (98-107) mmol/L Carbon Dioxide (21.0-32.0) mmol/L Anion Gap (3-11) mmol/L BUN (7-18) mg/dL Creatinine (0.55-1.02) mg/dL Est GFR (CKD-EPI 2020) (mL/min/1.73m2) Glucose (74-106) mg/dL Calcium (8.5-10.1) mg/dL Magnesium (1.8-2.4) mg/dL Total Bilirubin (0.2-1.0) mg/dL AST (15-37) U/L ALT (14-59) U/L Alkaline Phosphatase (46-116) U/L Troponin I 22 18 (<or=51) ng/L NT-Pro-B Natriuret Pep (<300) pg/mL Total Protein (6.4-8.2) g/dL Albumin (3.4-5.0) g/dL Lipase (<78) U/L Urine Color Yellow (Yellow) Urine Clarity Clear (Clear) Urine pH 6.0 (5-8) Ur Specific [place] 1.010 (1.005-1.025) Urine Protein Negative (Neg-Trace) mg/dL Urine Ketones Negative (Negative) mg/dL Urine Blood Negative (Negative) Urine Nitrite Negative (Negative) Urine Bilirubin Negative (Negative) Urine Urobilinogen 0.2 (Up to 0.2) mg/dL Ur Leukocyte Esterase Negative (Negative) Urine Glucose 500 H (Negative) mg/dL 11/11/24 Range/Units 19:20 WBC 11.25 H (4.4-10.8) 10^3/uL RBC 5.22 (3.93-5.22) 10^6/uL Hgb 16.5 H (11.2-15.7) g/dL Hct 49.2 H (36.0-46.0) % MCV 94 (80-95) fL MCH 31.6 (27.0-33.0) pg MCHC 33.5 (32.0-36.0) % RDW 13.2 (11.7-14.6) % Plt Count 240 (130-400) 10^3/uL MPV 10.5 (8.0-11.0) fL Immature Gran % 0.4 % Neutrophils % 71.7 % Lymphocytes % 18.8 % Monocytes % 8.2 % Eosinophils % 0.5 % Basophils % 0.4 % Nucleated RBC % 0.0 (0.0-0.3) % Absolute Neutrophils 8.07 H (1.2-6.7) 10^3/uL Absolute Lymphocytes 2.12 (1.2-3.4) 10^3/uL Absolute Monocytes 0.92 H (0.1-0.8) 10^3/uL Absolute Eosinophils 0.06 (0.0-0.7) 10^3/uL Absolute Basophils 0.05 (0.0-0.2) 10^3/uL PT 10.3 (9.1-11.1) sec INR 1.0 (0.9-1.1) Sodium 140 (136-145) mmol/L Potassium 3.7 (3.5-5.1) mmol/L Chloride 103 (98-107) mmol/L Carbon Dioxide 30.0 (21.0-32.0) mmol/L Anion Gap 7.0 (3-11) mmol/L BUN 10 (7-18) mg/dL Creatinine 0.9 (0.55-1.02) mg/dL Est GFR (CKD-EPI 2020) 73.19 (mL/min/1.73m2) Glucose 115 H (74-106) mg/dL Calcium 9.6 (8.5-10.1) mg/dL Magnesium 2.0 (1.8-2.4) mg/dL Total Bilirubin 0.6 (0.2-1.0) mg/dL AST 19 (15-37) U/L ALT 33 (14-59) U/L Alkaline Phosphatase 104 (46-116) U/L Troponin I 20 (<or=51) ng/L NT-Pro-B Natriuret Pep 1094 H (<300) pg/mL Total Protein 7.6 (6.4-8.2) g/dL Albumin 3.6 (3.4-5.0) g/dL Lipase 25 (<78) U/L Urine Color (Yellow) Urine Clarity (Clear) Urine pH (5-8) Ur Specific [place] (1.005-1.025) Urine Protein (Neg-Trace) mg/dL Urine Ketones (Negative) mg/dL Urine Blood (Negative) Urine Nitrite (Negative) Urine Bilirubin (Negative) Urine Urobilinogen (Up to 0.2) mg/dL Ur Leukocyte Esterase (Negative) Urine Glucose (Negative) mg/dL [id number] Documentation Fingerstick Glucose Start: 11/12/24 01:37 Freq: Status: Active Protocol: Activity Type Activity Date Activity User E-sign Co-sign Detail Recorded Client Recorded Date Recorded By Document 11/12/24 01:36 SHERIE DAMALINION(5) [id number] 11/12/24 01:37 BKG DAEMON(6) Intake and Output - 24 Hour Total 11/11/24 19:05 thru 11/12/24 01:10 Output Total 550 Balance -550 Weight 76.8 kg Output: Urine 550 Other: Urine Color Pale Urine Appearance Clear Urine Odor Normal Falls Risk Assessment History of Falls No History 11/12/24 00:59 Contributing Factors No Factors 11/12/24 00:59 Ambulatory Aids Independent 11/12/24 00:59 Tubes/Lines W/no contributing factors 11/12/24 00:59 Gait Evaluation No gait disturbance 11/12/24 00:59 Cognition No cognitive impairment 11/12/24 00:59 Fall Total Score 10 11/12/24 00:59 Level of Risk Standard/Low Risk 11/12/24 00:59 Problems (Last Reviewed 11/11/24 @ 23:42 by Grady García) Atrial fibrillation with rapid ventricular response (Acute) Coronary artery disease (Chronic) Heart failure with reduced ejection fraction (Chronic) Pulmonary embolism (Chronic ~07/2024) LIBBY (obstructive sleep apnea) (Chronic) Essential hypertension (Chronic) Hyperlipidemia (Chronic) GERD (gastroesophageal reflux disease) (Chronic) Notes 11/12/24 00:25 Nursing Notes by Stephanie Jade paged Dr. García at [phone] in response to request of an update after S/L nitro. pt felt no difference in chest discomfort after S/L nitro. Provider stated that he had written for morphine however that could be given upstairs on admission. Initialized on 11/12/24 00:25 - END OF NOTE v v v v v v v v v Sending and/or Receiving Nurses: Please use comment section below to note any information pertinent to the patient hand-off not included above. Information / Comments: Report received from: Stephanie Jade RN
[2024-11-12 03:57] LABS: Troponin I 22 ng/L (<or=51)
[2024-11-12] MEDS: Albuterol/Ipratropium 3 ML UPD VIAL UPD ×3 (05:23→23:45)
[2024-11-12 06:14] LABS: HCT 46.6 % (36.0-46.0); HGB 15.5 g/dL (11.2-15.7); MCH 30.9 pg (27.0-33.0); MCHC 33.3 % (32.0-36.0); MCV 93 fL (80-95); MPV 10.3 fL (8.0-11.0); Platelet Count 223 10^3/uL (130-400); RBC 5.02 10^6/uL (3.93-5.22); RDW 13.3 % (11.7-14.6); RDW-SD 45.1 fL; WBC 9.69 10^3/uL (4.4-10.8)
[2024-11-12 06:33] LABS: ALT 28 U/L (14-59); AST 16 U/L (15-37); Albumin 3.3 g/dL (3.4-5.0); Alkaline Phosphatase 96 U/L (46-116); Anion Gap 11.1 mmol/L (3-11); BUN 7 mg/dL (7-18); Bilirubin, Total 0.8 mg/dL (0.2-1.0); CO2 26.9 mmol/L (21.0-32.0); CREATININE 0.8 mg/dL (0.55-1.02); Calcium 9.4 mg/dL (8.5-10.1); Chloride 103 mmol/L (98-107); Glucose 101 mg/dL (74-106); Potassium 3.5 mmol/L (3.5-5.1); Sodium 141 mmol/L (136-145); Total Protein 6.9 g/dL (6.4-8.2)
[2024-11-12 06:36] LABS: Troponin I 22 ng/L (<or=51)
[2024-11-12] MEDS: Metoprolol 12.5 MG TAB PO ×4 (06:55→23:44)
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
[2024-11-12] MEDS: Budesonide/Formoterol 160/4.5 6 GM 60 PUFF INH IH ×2 (08:44→20:54)
--- NOTE | 2024-11-12 08:45 | PDOC.CMIN ---
Date of service: 11/12/24 Time of Service: 08:46 Care Management Initial Assmt Initial Assessment Reason for Hospitalization: PAF with RVR, CAD with atypical chest pain Functional Status/Living Situation Patient Presentation: Jaelyn was lying in bed and watching TV when CM arrived. Jaelyn presented to the ED with 1 day of chest heaviness and worsening of her shortness of breath. She was discharged from this facility 11/03/24 after being treated for CHF. Jaelyn was pleasant and willing to engage in conversation. She states that she had not been feeling well, all day yesterday; she wanted to wait until her got home prior to visiting the ED. Jaelyn states that she is has a trip planned for next week, to travel to [facility] and [place], [place]; Jaelyn states that she is fearful she wont be able to attend this trip. Jaelyn currently has no serivces in her home and does not think they would be helpful for her. CM will continue to follow. Town of Residence: [place] Resides with: Spouse (Guru) Significant Other/Family: Local Natural Supports: Her adult children, , and family. Employment Status: Retired ([employer] ) Instrumental Activities of Daily Living (ADLs): Independent Activities/Hobbies/SocialSupport: playing games on her tablet, taking her grand-dog for walks, and going bowling Medications Medication Management: No Issues/Barriers identified Advance Directives Advance Directives: Do you have an Advance Directive: N 04/15/13 12:26 AD On File at [facility]: N 04/15/13 12:26 Date Asked 11/11/24 11/11/24 19:42 AD Date Reviewed COLST On File at [facility] COLST Date Scanned Code Status Resuscitation Status Full Code Portal Pt does not currently have a portal and education provided: Yes Insurance Coverage/Financial Issues Insurance: [facility] Care Team Visit Care Team Role Provider Type Dorian Garcias MD [facility] STAFF PHYSICIAN Racquel Fraser NP Primary Care Provider NURSE PRACTITIONER Carol oGyal MD Emergency Provider [facility] STAFF PHYSICIAN Grady García Admit Provider NON-[facility] STAFF PHYSICIAN Attending Provider Discharge Potential Discharge Needs: PCP F/U Appt Anticipated Barriers to Discharge: Medical Status Patient/Family Education Needs: Review discharge instructions, discuss Ask Me Three Transportation: Private vehicle Plan: Anticipate Jaelyn will return home once medically stable. She will follow up with her community providers and continue per her plan of care. Jaelyn will be transported via private vehicle by her . CM will continue to follow and support with discharge planning. Social Determinants of Health Screening Social Determinants of health last assessed in clinic: 11/12/24 Will the Patient Participate in the Screening?: Yes Do you worry about having a steady place to live?: no Problems where you live: no known problems In the past 12 months, have you had to go without electric, gas, oil or water in your home?: no 1. Within the past 12 months, we worried whether our food would run out before we got money to buy more.: Never true 2. Within the past 12 months, the food we bought just didn't last and we didn't have money to get more.: Never true Has lack of transportation kept you from medical appointments or from doing things needed for daily living?: no Has anyone in your life made you feel unsafe or unsupported?: no How hard is it for you to pay for the very basics like food, housing, medical care, and heating? Would you say it is:: Not hard at all Do you want help finding or keeping work or a job?: I do not need or want help If for any reason you need help with day-to-day activities such as bathing, preparing meals, shopping, managing finances, etc., do you get the help you need?: I don?t need any help How often do you feel lonely or isolated from those around you?: Never Do you speak a language other than Ecuadorean at home?: No Does the patient want assistance with any of the above?: No PFSH All Active Problems COPD (chronic obstructive pulmonary disease) (Chronic) Atypical chest pain (Acute) Chest pain (Acute) Atrial fibrillation with rapid ventricular response (Acute) Acute hyperglycemia (Acute) Atrial fibrillation (Chronic ~07/2024) Coronary artery disease (Chronic) Heart failure with reduced ejection fraction (Chronic) Pulmonary embolism (Chronic ~07/2024) AAA (abdominal aortic aneurysm) (Chronic) Infrarenal, measuring 2.5cm 2024 LIBBY (obstructive sleep apnea) (Chronic) Nonrheumatic aortic (valve) stenosis (Acute) Aortic regurgitation (Chronic) Asthma-COPD overlap syndrome (Chronic) Essential hypertension (Chronic) Generalized anxiety disorder with panic attacks (Chronic) Hyperlipidemia (Chronic) GERD (gastroesophageal reflux disease) (Chronic) History of Graves' disease (Chronic) Osteoarthritis (Chronic) Cigarette smoker (Chronic) Annual LDCT paused d/t cost Nummular dermatitis (Chronic) Medical History Non-ST elevation [place] (NSTEMI) (~01/2023) Respiratory failure with hypoxia Depressive disorder Graves disease Surgical History Status post right knee replacement (01/20/19) S/P right knee arthroscopy (02/20/10) With partial medial meniscectomy S/P left knee arthroscopy (05/04/10) With partial medial and lateral meniscectomy S/P dilation and curettage S/P bilateral salpingo-oophorectomy S/P appendectomy S/P abdominal hysterectomy For abnormal uterine bleeding S/P lumpectomy, right breast (~1993) Family History Mother , at 77 Asthma Hypertension COPD (chronic obstructive pulmonary disease) Father , at 79 Parkinson disease Graves disease Hypertension Depression Suicide attempt Sister No problems noted. Sister , at 44 of metastatic bone cancer Metastatic bone cancer Brother , at 60 of pancreatic cancer Pancreatic cancer Diabetes Depression COPD (chronic obstructive pulmonary disease) Brother Alcohol abuse Son No problems noted. Daughter No problems noted. Maternal Grandfather Heart disease [place] Maternal Grandmother Brain cancer Paternal Grandfather No problems noted. Paternal Grandmother No problems noted. Brother , age 28 - MVA No problems noted. Social History Smoking/Tobacco Use Status: Current every day Tobacco Type: cigarettes Smoking packs per day: 1 Smoking cigarettes per day: 20.0 Years smoked: 47 Smoking pack-years: 47.00 Tobacco: How many years used: 47 Quit status: considering quitting Counseling given: provider counseling Smoking risk assessment performed?: Yes Alcohol Intake: current Alcohol Intake frequency: a few times a week Alcohol type: beer Details: Declined to answer all except selecting Beer Drug use: Never Substance use type: does not use Counseling given: No Counseling provided: none Adopted: No Caregiver/Support person: No Household members: spouse Housing: house Pets and animals: Yes Pets and animals: cat(s) Sexually active: Yes Do you think of yourself as: straight/heterosexual Current gender identity: female What is your relationship status?: How often do you talk on the phone with friends or family?: three or more times per week How often do you get together with friends or relatives?: twice per week Do you belong to any clubs or organized social groups?: no Panel score (0-1 are the most socially isolated patients): 2 What type of physical activity do you participate in: none Frequency: does not exercise Aida/Scientology: None Special aida needs: No Seatbelt use: always Helmet use: No Drive intox 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 front loader residential driver: No Firearms in home: Yes Firearms unloaded and locked: Yes Do you feel safe at home: Yes Do you feel safe in your relationship?: Yes Victim of physical abuse: No Victim of emotional abuse: No Victim of sexual abuse: No Female Reproductive History Menstrual Menopause type: surgical History History 4 Para 2 Hx # Term Pregnancies Multiple births Hx # Pregnancies Ectopic pregnancies AB induced Hx Number of Living Children 2 AB spontaneous 2 Readmission Within the Past 30 Days Yes or No: Yes Date of First Admission Date of 1st Admission: 10/31/24 Date of this Admission Date of Admission: 11/11/24 This admission was: Through ED Office Visit Since 1st Admission Have you seen your PCP in the office since discharge?: No Date of PCP Appointment: 11/13/24 Had an appointment Been Scheduled?: Yes Date of Scheduled Appointment: 11/13/24 Speicalist Appointments Have you seen any other specialist since your 1st Admission?: No I. Interview patient and/or Family Difficulty reaching your doctor or getting an office appt?: No Have you had trouble purchasing/ or taking medication?: No How do you take your medications and set up your pills?: Daily Have you had trouble with getting meals at home?: No Did you feel ready for discharge when you left the last time: Yes Were services received that you thought were set up on disch: Yes What services were received?: No services were needed Reason there were no orders at discharge: None needed at that time. Did you call your physician beore you came to the ED?: No Did your physician tell you to come in?: No How do you think you became sick enough to come back?: Patient states, I just didn't feel good all day. I waiting for my to get home and then tried to make dinner, when I got moving around I really didn't feel good. That's when I asked him to bring me to the ED ED visits How many ED visits in the past 12 months: 6 Assessment for Readmission Summary of readmission circumstances, based upon interviews: Jaelyn was discharged after her treatment for CHF, she is now back with A-fib. New medications are going to be started.
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
[2024-11-12] MEDS: Citalopram 20 MG TAB PO (09:02)
[2024-11-12] MEDS: Apixaban 5 MG TAB PO ×2 (09:03→20:54)
[2024-11-12] MEDS: Potassium Chloride 20 MEQ TABCR PO (09:03)
[2024-11-12] MEDS: Empaglifozin 10 MG TAB PO (09:03)
[2024-11-12] MEDS: Pantoprazole 20 MG TABCR PO (09:03)
[2024-11-12] MEDS: Losartan 50 MG TAB 100 MG PO (09:03)
[2024-11-12] MEDS: Normal Saline Flush 10 ML SYR IVP ×2 (09:03→20:55)
[2024-11-12] MEDS: Rosuvastatin 20 MG TAB PO (09:03)
[2024-11-12] MEDS: Amiodarone 200 MG TAB PO ×2 (10:17→20:54)
--- NOTE | 2024-11-12 13:53 | PHACLINREV_ITS ---
Pharmacy Admission Review Admission Clinical Review Admission Pharmacy Review: Atypical chest pain (Acute) Atrial fibrillation with rapid ventricular response (Acute) amlodipine Adverse Reaction (Intermediate, Verified 11/11/24 20:22) Peripheral edema Resuscitation Status Full Code Height 5 ft 3 in Weight 76.8 kg Pharmacy Admission Review Renal Dosing Renal Dosing: BUN 7 mg/dL (7-18) 11/12/24 05:50 Creatinine 0.8 mg/dL (0.55-1.02) 11/12/24 05:50 Medications needing adjustments: Reviewed Anticoagulation Anticoagulation: Hgb 15.5 g/dL (11.2-15.7) 11/12/24 05:50 Hct 46.6 % (36.0-46.0) H 11/12/24 05:50 Plt Count 223 10^3/uL (130-400) 11/12/24 05:50 INR 1.0 (0.9-1.1) 11/11/24 19:20 Creatinine 0.8 mg/dL (0.55-1.02) 11/12/24 05:50 Medications: Apixaban Opiate Usage Evaluate Pain Scale/Pains Meds: Reviewed (hasn't received in 24 hours) Scheduled Bowel Reg ordered if on Opiates?: Yes (on colace) Relevant Labs Relevant Labs: Sodium 141 mmol/L (136-145) 11/12/24 05:50 Potassium 3.5 mmol/L (3.5-5.1) 11/12/24 05:50 Chloride 103 mmol/L (98-107) 11/12/24 05:50 Magnesium 2.0 mg/dL (1.8-2.4) 11/12/24 05:50 Electrolytes, C-Reactive P, ESR: Intervened (Will recommend to replete p otassium) DM Control DM Control: glucose=95 DM Control: Reviewed Cardiac Review Cardiac Review: Pt started on amiodarone for afib. Provider aware of interaction with apixaban (monitor for increased risk of bleeding). Troponin I 22 ng/L (<or=51) 11/12/24 05:50 NT-Pro-B Natriuret Pep 1094 pg/mL (<300) H 11/11/24 19:20 QTc Review QTc: Reviewed List meds needing interventions: [id number]. Monitor w/ amiodarone and citalopram. Home Meds Home Med List reviewed: Reviewed Relevent Home Meds Not ordered & why?: nicotine patch-pt doesn't want a patch; Luis refilled 10/29 but was d'cd on 10/31. Current Meds Current Medication Order Review: Reviewed Pharmacy Antibiotic Review Relevant Labs: no antibiotics
[2024-11-12] MEDS: LORazepam 1 MG TAB PO (15:31)
--- NOTE | 2024-11-12 16:37 | CHAPLAIN ---
I had a brief visit with Jaelyn this morning. She was quite tired and wanted to rest. I explained my role and offered support.
--- NOTE | 2024-11-12 17:32 | W.PC.ACHO ---
Registration Status: Primary Language: Preferred Language: ED Information & Data Chief Complaint Chest Pain 11/11/24 20:08 Other Complaint SOB/SuddenOnset 11/11/24 19:07 Triage Note PT reports sudden onset 11/11/24 19:07 shortness of breath and pressure in her chest starting 1500 today. PT Reports Hx of a.fib along with anxiety with several recent anxiety attacks. Ran out of anxiety meds (last admin yesterday morning) Medical / Surgical History (Last Reviewed 11/12/24 @ 09:11 by Grady García) Non-ST elevation AL (NSTEMI) (~01/2023) Respiratory failure with hypoxia Depressive disorder Graves disease (Last Reviewed 11/12/24 @ 09:11 by Grady García) Status post right knee replacement (01/20/19) S/P right knee arthroscopy (02/20/10) S/P left knee arthroscopy (05/04/10) S/P dilation and curettage S/P bilateral salpingo-oophorectomy S/P appendectomy S/P abdominal hysterectomy S/P lumpectomy, right breast (~1993) Most Recent Vital Signs Temperature 36.9 C 11/12/24 11:50 Temperature Source Temporal Artery Scan 11/12/24 11:50 Pulse 81 11/12/24 13:03 Pulse 83 11/12/24 13:03 Respiratory Rate 24 11/12/24 13:03 Respiratory Effort Normal 11/12/24 00:59 Respiratory Depth Normal 11/12/24 00:59 Respiratory Pattern Normal 11/12/24 00:59 Blood Pressure 91/75 L 11/12/24 13:03 Blood Pressure Mean 82 11/12/24 13:03 Blood Pressure Position Sitting 11/11/24 19:07 Pulse Oximetry 94 11/12/24 13:03 Oxygen Delivery Method Room Air 11/12/24 11:50 Oxygen Flow Rate 0 11/12/24 11:50 Pain Level 6 11/12/24 01:02 Allergies amlodipine Adverse Reaction (Intermediate, Verified 11/11/24 20:22) Peripheral edema Precautions Isolation Standard precaution 11/11/24 19:28 Active Medications Generic Name Dose Route Start Last Admin Trade Name Freq PRN Reason Stop Dose Admin Apixaban 5 mg 11/12/24 08:30 11/12/24 09:03 Apixaban 5 Mg Tab PO 5 mg BID CELESTE Administration Budesonide/Formoterol Fumarate 2 puff 11/12/24 08:30 11/12/24 08:44 Budesonide/Formoterol 160/4.5 6 Gm 60 Puff Inh IH 2 inh BID CELESTE Administration Citalopram Hydrobromide 20 mg 11/12/24 08:30 11/12/24 09:02 Citalopram 20 Mg Tab PO 20 mg DAILY CELESTE Administration Empagliflozin 10 mg 11/12/24 08:30 11/12/24 09:03 Empaglifozin 10 Mg Tab PO 10 mg DAILY CELESTE Administration Furosemide 40 mg 11/12/24 08:00 11/12/24 15:31 Furosemide 40 Mg/4 Ml Vial IVP 40 mg BID@0800,1600 CELESTE Administration Lorazepam 1 mg 11/12/24 15:20 11/12/24 15:31 Lorazepam 1 Mg Tab PO 1 mg BID PRN PRN Administration panic attack(s) Losartan Potassium 100 mg 11/12/24 08:30 11/12/24 09:03 Losartan 50 Mg Tab PO 100 mg DAILY CELESTE Administration Metoprolol Tartrate 12.5 mg 11/12/24 06:00 11/12/24 12:13 Metoprolol 12.5 Mg Tab PO 12.5 mg Q6H CELESTE Administration Potassium Chloride 20 meq 11/12/24 08:30 11/12/24 09:03 Potassium Chloride 20 Meq Tabcr PO 20 meq DAILY CELESTE Administration Rosuvastatin Calcium 20 mg 11/12/24 08:30 11/12/24 09:03 Rosuvastatin 20 Mg Tab PO 20 mg DAILY CELESTE Administration Sodium Chloride 0 ml 11/12/24 08:30 11/12/24 09:03 Normal Saline Flush 10 Ml Syr IVP 20 ml BID CELESTE Administration IV IV Catheter Type [Right Saline Lock Antecubital] IV Catheter Gauge [Right 18 Antecubital] Diagnostics 11/12/24 11/12/24 11/11/24 Range/Units 05:50 03:33 23:00 WBC 9.69 (4.4-10.8) 10^3/uL RBC 5.02 (3.93-5.22) 10^6/uL Hgb 15.5 (11.2-15.7) g/dL Hct 46.6 H (36.0-46.0) % MCV 93 (80-95) fL MCH 30.9 (27.0-33.0) pg MCHC 33.3 (32.0-36.0) % RDW 13.3 (11.7-14.6) % Plt Count 223 (130-400) 10^3/uL MPV 10.3 (8.0-11.0) fL Immature Gran % % Neutrophils % % Lymphocytes % % Monocytes % % Eosinophils % % Basophils % % Nucleated RBC % (0.0-0.3) % Absolute Neutrophils (1.2-6.7) 10^3/uL Absolute Lymphocytes (1.2-3.4) 10^3/uL Absolute Monocytes (0.1-0.8) 10^3/uL Absolute Eosinophils (0.0-0.7) 10^3/uL Absolute Basophils (0.0-0.2) 10^3/uL PT (9.1-11.1) sec INR (0.9-1.1) Sodium 141 (136-145) mmol/L Potassium 3.5 (3.5-5.1) mmol/L Chloride 103 (98-107) mmol/L Carbon Dioxide 26.9 (21.0-32.0) mmol/L Anion Gap 11.1 H (3-11) mmol/L BUN 7 (7-18) mg/dL Creatinine 0.8 (0.55-1.02) mg/dL Est GFR (CKD-EPI 2020) 84.30 (mL/min/1.73m2) Glucose 101 (74-106) mg/dL Calcium 9.4 (8.5-10.1) mg/dL Magnesium 2.0 (1.8-2.4) mg/dL Total Bilirubin 0.8 (0.2-1.0) mg/dL AST 16 (15-37) U/L ALT 28 (14-59) U/L Alkaline Phosphatase 96 (46-116) U/L Troponin I 22 22 22 (<or=51) ng/L NT-Pro-B Natriuret Pep (<300) pg/mL Total Protein 6.9 (6.4-8.2) g/dL Albumin 3.3 L (3.4-5.0) g/dL Lipase (<78) U/L Urine Color (Yellow) Urine Clarity (Clear) Urine pH (5-8) Ur Specific [place] (1.005-1.025) Urine Protein (Neg-Trace) mg/dL Urine Ketones (Negative) mg/dL Urine Blood (Negative) Urine Nitrite (Negative) Urine Bilirubin (Negative) Urine Urobilinogen (Up to 0.2) mg/dL Ur Leukocyte Esterase (Negative) Urine Glucose (Negative) mg/dL 11/11/24 11/11/24 11/11/24 Range/Units 20:30 19:45 19:20 WBC 11.25 H (4.4-10.8) 10^3/uL RBC 5.22 (3.93-5.22) 10^6/uL Hgb 16.5 H (11.2-15.7) g/dL Hct 49.2 H (36.0-46.0) % MCV 94 (80-95) fL MCH 31.6 (27.0-33.0) pg MCHC 33.5 (32.0-36.0) % RDW 13.2 (11.7-14.6) % Plt Count 240 (130-400) 10^3/uL MPV 10.5 (8.0-11.0) fL Immature Gran % 0.4 % Neutrophils % 71.7 % Lymphocytes % 18.8 % Monocytes % 8.2 % Eosinophils % 0.5 % Basophils % 0.4 % Nucleated RBC % 0.0 (0.0-0.3) % Absolute Neutrophils 8.07 H (1.2-6.7) 10^3/uL Absolute Lymphocytes 2.12 (1.2-3.4) 10^3/uL Absolute Monocytes 0.92 H (0.1-0.8) 10^3/uL Absolute Eosinophils 0.06 (0.0-0.7) 10^3/uL Absolute Basophils 0.05 (0.0-0.2) 10^3/uL PT 10.3 (9.1-11.1) sec INR 1.0 (0.9-1.1) Sodium 140 (136-145) mmol/L Potassium 3.7 (3.5-5.1) mmol/L Chloride 103 (98-107) mmol/L Carbon Dioxide 30.0 (21.0-32.0) mmol/L Anion Gap 7.0 (3-11) mmol/L BUN 10 (7-18) mg/dL Creatinine 0.9 (0.55-1.02) mg/dL Est GFR (CKD-EPI 2020) 73.19 (mL/min/1.73m2) Glucose 115 H (74-106) mg/dL Calcium 9.6 (8.5-10.1) mg/dL Magnesium 2.0 (1.8-2.4) mg/dL Total Bilirubin 0.6 (0.2-1.0) mg/dL AST 19 (15-37) U/L ALT 33 (14-59) U/L Alkaline Phosphatase 104 (46-116) U/L Troponin I 18 20 (<or=51) ng/L NT-Pro-B Natriuret Pep 1094 H (<300) pg/mL Total Protein 7.6 (6.4-8.2) g/dL Albumin 3.6 (3.4-5.0) g/dL Lipase 25 (<78) U/L Urine Color Yellow (Yellow) Urine Clarity Clear (Clear) Urine pH 6.0 (5-8) Ur Specific [place] 1.010 (1.005-1.025) Urine Protein Negative (Neg-Trace) mg/dL Urine Ketones Negative (Negative) mg/dL Urine Blood Negative (Negative) Urine Nitrite Negative (Negative) Urine Bilirubin Negative (Negative) Urine Urobilinogen 0.2 (Up to 0.2) mg/dL Ur Leukocyte Esterase Negative (Negative) Urine Glucose 500 H (Negative) mg/dL [id number] Documentation Fingerstick Glucose Start: 11/12/24 01:37 Freq: Status: Complete Protocol: Activity Type Activity Date Activity User E-sign Co-sign Detail Recorded Client Recorded Date Recorded By Document 11/12/24 01:36 SHERIE DAEMON [id number] 11/12/24 01:37 SHERIE DAEMON(2) Intake and Output - 24 Hour Total 11/11/24 19:05 thru 11/12/24 17:29 Intake Total 970 Output Total 2550 Balance -1580 Weight 76.8 kg Intake: Oral 970 Output: Urine 2550 Other: Urine Color Yellow Urine Appearance Clear Urine Odor None Falls Risk Assessment History of Falls No History 11/12/24 00:59 Contributing Factors No Factors 11/12/24 00:59 Ambulatory Aids Independent 11/12/24 00:59 Tubes/Lines W/no contributing factors 11/12/24 00:59 Gait Evaluation No gait disturbance 11/12/24 00:59 Cognition No cognitive impairment 11/12/24 00:59 Fall Total Score 10 11/12/24 00:59 Level of Risk Standard/Low Risk 11/12/24 00:59 Problems (Last Reviewed 11/12/24 @ 09:11 by Grady García) COPD (chronic obstructive pulmonary disease) (Chronic) Atypical chest pain (Acute) Atrial fibrillation with rapid ventricular response (Acute) Atrial fibrillation (Chronic ~07/2024) Coronary artery disease (Chronic) Heart failure with reduced ejection fraction (Chronic) Pulmonary embolism (Chronic ~07/2024) LIBBY (obstructive sleep apnea) (Chronic) Essential hypertension (Chronic) Hyperlipidemia (Chronic) GERD (gastroesophageal reflux disease) (Chronic) Notes 11/12/24 00:25 Nursing Notes by Stephanie Jade Dr. at 0022 in response to request of an update after S/L nitro. pt felt no difference in chest discomfort after S/L nitro. Provider stated that he had written for morphine however that could be given upstairs on admission. Initialized on 11/12/24 00:25 - END OF NOTE v v v v v v v v v Sending and/or Receiving Nurses: Please use comment section below to note any information pertinent to the patient hand-off not included above. Information / Comments: report received all questions answered. Report received from: Rob Ruiz, RN @ [id number]
[2024-11-13] VITALS (7 sets, daily range): BP systolic 107–130; BP diastolic 50–78; PULSE 67–82; RESP 16–28; TEMP 36.6–37; O2SAT 92–98
[2024-11-13] MEDS: Normal Saline Flush 10 ML SYR IVP ×2 (05:58→09:01)
[2024-11-13] MEDS: Metoprolol 12.5 MG TAB PO (05:58)
[2024-11-13 07:47] LABS: Anion Gap 7.1 mmol/L (3-11); BUN 16 mg/dL (7-18); CO2 28.9 mmol/L (21.0-32.0); CREATININE 0.8 mg/dL (0.55-1.02); Calcium 9.3 mg/dL (8.5-10.1); Chloride 102 mmol/L (98-107); Glucose 109 mg/dL (74-106); Potassium 3.7 mmol/L (3.5-5.1); Sodium 138 mmol/L (136-145)
[2024-11-13 07:53] LABS: Calculated LDL 63 mg/dL (<100); Cholesterol 118 mg/dL (<200); HDL Cholesterol 46 mg/dL (>or=50); Triglyceride 48 mg/dL (<150)
[2024-11-13] MEDS: Budesonide/Formoterol 160/4.5 6 GM 60 PUFF INH IH (08:45)
[2024-11-13] MEDS: Potassium Chloride 20 MEQ TABCR PO (09:00)
[2024-11-13] MEDS: Amiodarone 200 MG TAB PO (09:00)
[2024-11-13] MEDS: Losartan 50 MG TAB 100 MG PO (09:00)
[2024-11-13] MEDS: Citalopram 20 MG TAB PO (09:00)
[2024-11-13] MEDS: Apixaban 5 MG TAB PO (09:00)
[2024-11-13] MEDS: Pantoprazole 20 MG TABCR PO (09:00)
[2024-11-13] MEDS: Empaglifozin 10 MG TAB PO (09:00)
[2024-11-13] MEDS: Rosuvastatin 20 MG TAB PO (09:00)
[2024-11-13] MEDS: Furosemide 40 MG/4 ML VIAL IVP (09:01)
[2024-11-13] MEDS: Spironolactone 25 MG TAB 12.5 MG PO (10:33)
[2024-11-13] MEDS: Varenicline 1 MG TAB 0.5 MG PO (11:44)
[2024-11-13] MEDS: Metoprolol CR 50 MG TABCR PO (11:44)
--- NOTE | 2024-11-13 14:13 | IN_ITS ---
PT Notes Visit Reasons: PAF with RVR, CAD with atypical chest pain Inpatient Physical Therapy Evaluation Date: 11/13/24 Referring Doctor: Dr. Garcias PT Orders: PT CONSULT: CHF/COPD, multiple recent admissions Precautions: significant cardiac history Patient Profile/Admitting Diagnosis: PAF with RVR, CAD with atypical chest pain Subjective: Pt admitted with SOB and chest pain. She has had many recent cardiac episodes including an PA in July. Work up in the ED showed negative Troponins and a normal EKG. She states she lives locally with her . She does normally manage stairs without any issues. She does not use any form of AD. She normally is fully independent although her family is doing more for her since having her PA. Objective: General Observation: standing up, hoping to leave soon Mental Status: A+Ox4 Pain: no pain noted Vital Signs: spO2 96% and 82 HR in the static stance position, no significant change with walking activities ROM: Full motion through bilat UE and LEs Strength: Able to perform hip flexion, knee extension, ankle DF against gravity Bed Mobility/Transfers: sit to stand independently stand to sit independently sitting to supine independently Gait: ambulates 200 ft with a slow gait speed independently w/o any form of AD ascends/descends a total of 5 stairs w/o any difficulty w/SBA Balance: performs feet together and tandem stance for >10 seconds bilaterally Special Tests: Mobility Limitations Standardized Measure [facility] AM-PAC 6 clicks Basic Mobility Inpatient Short Form: Raw Score: 23 CMS Score: 11.20% Informed Consent/Education: Patient instructed in purpose of PT consult and plan of care. Assessment: Patient is doing well functionally and can return home without any further PT services when medically cleared. She ambulated and performed stairs w/o any issue or assistance. Vitals remained stable throughout the evaluation today. She was encouraged to look into cardiac rehab on an outpatient basis to help with her endurance and breathing which she is agreeable to. Her balance is very good and she does not require any form of AD. She can be d/c'd when it is appropriate medically. Patient is assessed as a [x] Low 19536 complexity based on the following: History: Low Examination: Low Presentation: Low Decision Making: Low Goals: No goals necessary as patient is fully functional Plan of Care/Treatment Plan: 1-2x/day, 7 days/week x 1 week. Plan of care has been reviewed with the [employer] INSPECTOR providing the service under Physical Therapy direction. Initiate Physical Therapy intervention for strengthening, bed mobility, transfers, gait, stairs, balance training, use of assistive device. DISCHARGE RECOMMENDATIONS: [x] Home with no services TREATMENT CODE/TIME: Mahesh Robb x1 (41738) - 21 minutes
--- NOTE | 2024-11-13 16:46 | PDOC.CMDIS ---
Date of service: 11/13/24 Time of Service: 16:46 LACE Index Scoring Tool Questions: Length of Stay (in days): 1 Was the patient admitted via the E.D.?: Yes Comorbidities: Previous M.I., Congestive Heart Failure and Chronic Pulmonary Disease E.D. Visits: 6 Answers: Total Score: 13 Risk of Readmission: High Risk Care Management Discharge Plan Reason for Hospitalization: paroxysmal afib with RVR, CHF Discharge Plan: Jaelyn will be discharging this afternoon with no new services. She was offered services, but declined. She met with the cardiac rehab liason nurse today, and will be starting cardiac rehab. She is closely followed by both cardiology and pulmonology. Jaelyn will f/u with her PCP and continue per her plan of care. She will transport home with her . Patient/Family Education Needs: Review of discharge instructions, activity, limitations and discuss Ask me 3. SDOH Health Related Social Needs: No Data to Display
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
== END 2024-11-13 17:20 | disposition home or self-care (01) | DRG 309 ==
LOC: ER 11-12 00:25 → ICU 11-12 00:50 → MS 11-12 17:08
PROVIDERS: Admitting Provider Family Medicine; Emergency Provider Emergency Medicine; PCP Nurse Practitioner Family; Responsible Provider Family Medicine; Visit Provider Family Medicine
DX: I48.19 Other persistent atrial fibrillation (principal); I27.82 Chronic pulmonary embolism; I50.22 Chronic systolic (congestive) heart failure; I25.10 Atherosclerotic heart disease of native coronary artery without angina pectoris; J44.9 Chronic obstructive pulmonary disease, unspecified; I11.0 Hypertensive heart disease with heart failure; G47.33 Obstructive sleep apnea (adult) (pediatric); K21.9 Gastro-esophageal reflux disease without esophagitis; R07.89 Other chest pain; Z96.651 Presence of right artificial knee joint; F17.210 Nicotine dependence, cigarettes, uncomplicated; I71.40 Abdominal aortic aneurysm, without rupture, unspecified; I35.2 Nonrheumatic aortic (valve) stenosis with insufficiency; F41.0 Panic disorder [episodic paroxysmal anxiety]; E78.5 Hyperlipidemia, unspecified; I25.2 Old myocardial infarction; L40.0 Psoriasis vulgaris; E05.00 Thyrotoxicosis with diffuse goiter without thyrotoxic crisis or storm; Z79.01 Long term (current) use of anticoagulants
CPT/HCPCS: 00123; 36415; 80048; 80053; 80061; 83690; 85027; 93005; 93308; 94640; 96374; 97161; 99285; 71046; 81003; 83735; 83880; 84484; 85025; 85610; 93010; 94664; 94760; 99223; 99233; 99239; J1938; J3490; J7620

== ENCOUNTER 2024-11-21 20:49 | Inpatient (IN) | payer OTHER, SELFPAY ==
[2024-11-21] VITALS (37 sets, daily range): BP systolic 85–196; BP diastolic 35–110; PULSE 71–120; RESP 3–36; O2SAT 78–96
--- NOTE | 2024-11-21 20:45 | RT.EKG_ITS ---
APPROVED REPORT Exam: Resting ECG Reason for Exam: chest pain Patient Location: E HR:124 bpm ECG Measurements Heart Rate 124 AXIS AR [id number] P [id number] QRSd 102 QRS 0 QT 341 T 63 QTc 491 Conclusion Atrial fibrillation RVR 124 no stemi
[2024-11-21 21:07] LABS: BE (Venous) -6 mmol/L (-2-3); HCO3 (Venous) 22 mmol/L (23-28); O2 Sat (Venous) 85 %; TCO2 (Venous) 20 mmol/L (24-29); pCO2 (Venous) 55 mmHg (41-51); pH (Venous) 7.21 (7.31-7.41); pO2 (Venous) 57 mmHg
[2024-11-21 21:10] LABS: Abs Immature Grans 0.08 10^3/uL (0.0-0.06); Absolute Basophil Count 0.09 10^3/uL (0.0-0.2); Absolute Lymphocyte Count 3.91 10^3/uL (1.2-3.4); Absolute Monocyte Count 0.96 10^3/uL (0.1-0.8); Absolute Neutrophil Count 9.13 10^3/uL (1.2-6.7); Basophils % 0.6 %; Eosinophils % 0.7 %; HCT 50.1 % (36.0-46.0); HGB 16.5 g/dL (11.2-15.7); Immature Grans % 0.6 %; Lymphocytes % 27.4 %; MCH 31.4 pg (27.0-33.0); MCHC 32.9 % (32.0-36.0); MCV 95 fL (80-95); MPV 10.2 fL (8.0-11.0); Monocytes % 6.7 %; Platelet Count 235 10^3/uL (130-400); RBC 5.25 10^6/uL (3.93-5.22); RDW 13.6 % (11.7-14.6); WBC 14.27 10^3/uL (4.4-10.8)
[2024-11-21] MEDS: Albuterol/Ipratropium 3 ML UPD VIAL (21:22)
[2024-11-21 21:24] LABS: PTT Activated 26.8 sec (20.6-30.2); Prothrombin Time 10.4 sec (9.1-11.1)
[2024-11-21] MEDS: Albuterol/Ipratropium 3 ML UPD VIAL UPD ×3 (21:26→21:27)
--- NOTE | 2024-11-21 21:30 | DI.RAD_ITS ---
Exam(s) XR PORTABLE CHEST AP EXAM: XR PORTABLE CHEST AP CLINICAL HISTORY: sob TECHNIQUE: 2D digital imaging was performed of the chest. One image was obtained. An AP view was ob tained. COMPARISON: CR,XR XR PORTABLE CHEST AP from 12/30/2022 CR,XR XR CHEST 2V PA LATERAL from 11/11/2024 FINDINGS: MEDIASTINUM: Normal. HEART: Heart size is within normal limits given the AP projection. PULMONARY VASCULATURE: Normal. LUNGS: No focal consolidating infiltrates. There is increased prominence of the interstitial marking s diffusely. This may in part be due to the technique. Underlying interstitial edema cannot be excl uded. Please correlate clinically. PLEURAL SPACE: No pleural effusion or pneumothorax. BONE:Within normal limits for the patient's age. OTHER FINDINGS:Normal. IMPRESSION: 1. No focal consolidating infiltrates. 2. Apparent prominence of the interstitium which may in part be due to technique. An interstitial ed myra should also be considered. 3. The preliminary [facility] report was reviewed. DATA REPOSITORY: RADIATION DOSE DELIVERED:
[2024-11-21 21:32] LABS: ALT 33 U/L (14-59); AST 17 U/L (15-37); Albumin 3.8 g/dL (3.4-5.0); Alkaline Phosphatase 105 U/L (46-116); BUN 16 mg/dL (7-18); Bilirubin, Total 0.8 mg/dL (0.2-1.0); CREATININE 1.2 mg/dL (0.55-1.02); Calcium 9.4 mg/dL (8.5-10.1); Chloride 102 mmol/L (98-107); Estimated GFR 51.82 (mL/min/1.73m2); Glucose 181 mg/dL (74-106); Magnesium 2.4 mg/dL (1.8-2.4); NT-proBNP 1525 pg/mL (<300); Potassium 4.6 mmol/L (3.5-5.1); Sodium 138 mmol/L (136-145); Total Protein 7.6 g/dL (6.4-8.2); Troponin I 18 ng/L (<or=51)
--- NOTE | 2024-11-21 21:45 | W.ED.GENAD ---
Discharge Plan Disposition Patient Disposition: Admit to [facility] Condition: Serious Discharge Details Clinical Impression: COPD (chronic obstructive pulmonary disease), Heart failure with reduced ejection fraction, Respiratory failure Primary Care Provider: Racquel Fraser ED Provider: Anamaria Molina Home Meds and New Rx's Prescriptions: No Action citalopram 20 mg tablet 20 mg PO DAILY Qty: 90 3RF losartan 100 mg tablet 100 mg PO DAILY Qty: 90 3RF furosemide 20 mg tablet 20 mg PO DAILY Qty: 90 3RF Eliquis 5 mg tablet 5 mg PO BID Qty: 180 3RF metoprolol succinate 50 mg tablet extended release 24 hr 50 mg PO DAILY Qty: 90 3RF nicotine 21 mg/24 hr patch 24 hour 1 patch transdermal DAILY Qty: 42 0RF Rx Instructions: Apply 1 patch daily for 6 weeks budesonide-formoterol 160-4.5 mcg/actuation HFA aerosol inhaler 2 puff inhalation BID Qty: 10.2 4RF Rx Instructions: 2 puffs twice a day and may use as a reliever therapy for acute difficulty breathing, 1 to 2 puffs every 4 hours as needed. Max inhalations 12 per day rosuvastatin 20 mg tablet 20 mg PO DAILY Qty: 90 3RF nitroglycerin 0.4 mg tablet, sublingual 0.4 mg sublingual Q5M PRN Patient Comments: 02/08/23 Per [facility] [place] [place] Cardiology. -hb Rx Instructions: do not exceed 3 doses per episode pantoprazole 20 mg tablet,delayed release (DR/EC) 20 mg PO DAILY Qty: 90 3RF albuterol sulfate 90 mcg/actuation HFA aerosol inhaler 2 puff Inhalation Q6H PRN (Reason: shortness of breath or wheezing) Qty: 8.5 6RF ipratropium-albuterol 0.5 mg-3 mg(2.5 mg base)/3 mL solution for nebulization 3 ml UPD QID PRN (Reason: shortness of breath or wheezing) Qty: 180 3RF lorazepam 1 mg tablet 1 mg PO BID PRN (Reason: panic attack(s)) Qty: 30 0RF ondansetron 4 mg tablet,disintegrating 4 mg PO Q8H PRNQty: 10 0RF Jardiance 10 mg tablet 10 mg PO DAILY Qty: 30 0RF amiodarone [Pacerone] 200 mg Tablet 200 mg PO BID 30 Days Qty: 60 0RF spironolactone 25 mg Tablet 12.5 mg PO DAILY Qty: 30 0RF varenicline tartrate 0.5 mg (11)- 1 mg (42) tablets,dose pack See Rx Instructions .ROUTE .COMPLEX Qty: 53 0RF Rx Instructions: orally per package directions HPI General Date/Time Provider Initiated Documentation: 11/21/24 21:01. Limitations to Documentation: physical limitation. Information obtained by: patient and family. HPI Narrative: 58-year-old female with past medical history of A-fib, COPD, heart failure, hypertension presents for evaluation of acute onset shortness of breath. provides the history and states that shortly before their arrival, she began complaining of severe shortness of breath. She attempted to use her nebulizer at home without any relief. She was not complaining of chest pain but they did note it home that her heart rate became very elevated. The states that this frequently happens with her A-fib and her COPD. He drove her straight to the emergency department for evaluation. She has not had any recent illnesses or URI symptoms. She had been feeling well until she started feeling very short of breath. Related Data Home Medications ?Medication ?Instructions ?Recorded ?Confirmed nitroglycerin 0.4 mg sublingual 0.4 mg sublingual Q5M PRN 02/08/23 11/20/24 tablet furosemide 20 mg tablet 20 mg PO DAILY #90 tabs 01/20/24 11/20/24 losartan 100 mg tablet 100 mg PO DAILY #90 tabs 01/20/24 11/20/24 pantoprazole 20 mg tablet,delayed 20 mg PO DAILY #90 tabs 05/04/24 11/20/24 release apixaban 5 mg tablet (Eliquis) 5 mg PO BID #180 tabs 08/13/24 11/20/24 metoprolol succinate 50 mg 50 mg PO DAILY #90 tabs 08/13/24 11/20/24 tablet,extended release 24 hr ondansetron 4 mg disintegrating 4 mg PO Q8H PRN #10 tabs 08/23/24 11/20/24 tablet citalopram 20 mg tablet 20 mg PO DAILY #90 tabs 08/24/24 11/20/24 albuterol sulfate 90 mcg/actuation 2 puff inhalation Q6H PRN 09/23/24 11/20/24 aerosol inhaler shortness of breath or wheezing #8.5 grams ipratropium 0.5 mg-albuterol 3 mg 3 ml UPD QID PRN shortness of 09/28/24 11/20/24 (2.5 mg base)/3 mL nebulization breath or wheezing #180 mL soln nicotine 21 mg/24 hr daily 1 patch transdermal DAILY #42 ea 10/01/24 11/20/24 transdermal patch budesonide-formoterol HFA 160 2 puff inhalation BID #10.2 grams 10/29/24 11/20/24 mcg-4.5 mcg/actuation aerosol inhaler rosuvastatin 20 mg tablet 20 mg PO DAILY #90 tabs 10/29/24 11/20/24 empagliflozin 10 mg tablet 10 mg PO DAILY #30 tabs 11/03/24 11/20/24 (Jardiance) lorazepam 1 mg tablet 1 mg PO BID PRN panic attack(s) 11/11/24 11/20/24 #30 tabs amiodarone 200 mg tablet (Pacerone) 200 mg PO BID 30 days #60 tabs 11/13/24 11/20/24 spironolactone 25 mg tablet 12.5 mg (1/2 x 25 mg) PO DAILY #30 11/13/24 11/20/24 tabs varenicline tartrate 0.5 mg (11)-1 See Rx Instructions PO .COMPLEX 11/13/24 11/20/24 mg (42) tablets in a dose pack #53 dose pk Previous Rx's ?Medication ?Instructions ?Recorded furosemide 20 mg tablet 20 mg PO DAILY #90 tabs 01/20/24 losartan 100 mg tablet 100 mg PO DAILY #90 tabs 01/20/24 pantoprazole 20 mg tablet,delayed 20 mg PO DAILY #90 tabs 05/04/24 release apixaban 5 mg tablet (Eliquis) 5 mg PO BID #180 tabs 08/13/24 metoprolol succinate 50 mg 50 mg PO DAILY #90 tabs 08/13/24 tablet,extended release 24 hr ondansetron 4 mg disintegrating 4 mg PO Q8H PRN #10 tabs 08/23/24 tablet citalopram 20 mg tablet 20 mg PO DAILY #90 tabs 08/24/24 albuterol sulfate 90 mcg/actuation 2 puff inhalation Q6H PRN 09/23/24 aerosol inhaler shortness of breath or wheezing #8.5 grams ipratropium 0.5 mg-albuterol 3 mg 3 ml UPD QID PRN shortness of 09/28/24 (2.5 mg base)/3 mL nebulization breath or wheezing #180 mL soln nicotine 21 mg/24 hr daily 1 patch transdermal DAILY #42 ea 10/01/24 transdermal patch budesonide-formoterol HFA 160 2 puff inhalation BID #10.2 grams 10/29/24 mcg-4.5 mcg/actuation aerosol inhaler rosuvastatin 20 mg tablet 20 mg PO DAILY #90 tabs 10/29/24 empagliflozin 10 mg tablet 10 mg PO DAILY #30 tabs 11/03/24 (Jardiance) lorazepam 1 mg tablet 1 mg PO BID PRN panic attack(s) 11/11/24 #30 tabs amiodarone 200 mg tablet (Pacerone) 200 mg PO BID 30 days #60 tabs 11/13/24 spironolactone 25 mg tablet 12.5 mg (1/2 x 25 mg) PO DAILY #30 11/13/24 tabs varenicline tartrate 0.5 mg (11)-1 See Rx Instructions PO .COMPLEX 11/13/24 mg (42) tablets in a dose pack #53 dose pk Allergies Allergy/AdvReac Type Severity Reaction Status Date / Time amlodipine AdvReac Intermediate Peripheral Verified 11/11/24 20:22 edema General Stated Complaint: SOB/SuddenOnset JOSE JUAN: 2 Exam Narrative Exam Narrative: Review of Systems: All systems reviewed & are unremarkable except as noted in HPI and below Well-developed, severe distress NCAT Tachycardic irregular Respiratory distress, tripoding, unable to speak in complete sentences, poor air movement with wheezing noted bilaterally. Hypoxic at 78% on room air Nondistended abdomen Extremities w/o edema no focal neurologic deficits Course Vital Signs Vital signs: Vital Signs Pulse 118 H 11/21/24 20:52 Respiratory Rate 34 H 11/21/24 20:52 Pulse Oximetry 78 L 11/21/24 20:52 Pulse 108 H 11/21/24 21:26 Respiratory Rate 36 H 11/21/24 21:26 Pulse Oximetry 94 06/07/25 21:26 Oxygen Delivery Method Bi-pap 11/21/24 21:26 Oxygen Flow Rate 0 11/21/24 20:52 Fraction of Inspired Oxygen (FIO2) 30 11/21/24 21:26 Lab/Test Results Lab/Test Results: Laboratory Tests Range/Units 11/21/24 21:00 WBC (4.4-10.8) 10^3/uL 14.27 H RBC (3.93-5.22) 10^6/uL 5.25 H Hgb (11.2-15.7) g/dL 16.5 H Hct (36.0-46.0) % 50.1 H MCV (80-95) fL 95 MCH (27.0-33.0) pg 31.4 MCHC (32.0-36.0) % 32.9 RDW (11.7-14.6) % 13.6 Plt Count (130-400) 10^3/uL 235 MPV (8.0-11.0) fL 10.2 Immature Gran % % 0.6 Neutrophils % % 64.0 Lymphocytes % % 27.4 Monocytes % % 6.7 Eosinophils % % 0.7 Basophils % % 0.6 Nucleated RBC % (0.0-0.3) % 0.0 Absolute Neutrophils (1.2-6.7) 10^3/uL 9.13 H Absolute Lymphocytes (1.2-3.4) 10^3/uL 3.91 H Absolute Monocytes (0.1-0.8) 10^3/uL 0.96 H Absolute Eosinophils (0.0-0.7) 10^3/uL 0.10 Absolute Basophils (0.0-0.2) 10^3/uL 0.09 PT (9.1-11.1) sec 10.4 INR (0.9-1.1) 1.0 APTT (20.6-30.2) sec 26.8 VBG pH (7.31-7.41) 7.21 L VBG pCO2 (41-51) mmHg 55 H VBG pO2 mmHg 57 VBG HCO3 (23-28) mmol/L 22 L VBG Total CO2 (24-29) mmol/L 20 L VBG O2 Saturation % 85 VBG Base Excess (-2-3) mmol/L -6 L Sodium (136-145) mmol/L 138 Potassium (3.5-5.1) mmol/L 4.6 Chloride (98-107) mmol/L 102 Carbon Dioxide (21.0-32.0) mmol/L 25.0 Anion Gap (3-11) mmol/L 11.0 BUN (7-18) mg/dL 16 Creatinine (0.55-1.02) mg/dL 1.2 H Est GFR (CKD-EPI 2020) (mL/min/1.73m2) 51.82 Glucose (74-106) mg/dL 181 H Calcium (8.5-10.1) mg/dL 9.4 Magnesium (1.8-2.4) mg/dL 2.4 Total Bilirubin (0.2-1.0) mg/dL 0.8 AST (15-37) U/L 17 ALT (14-59) U/L 33 Alkaline Phosphatase (46-116) U/L 105 Troponin I (<or=51) ng/L 18 NT-Pro-B Natriuret Pep (<300) pg/mL 1525 H Total Protein (6.4-8.2) g/dL 7.6 Albumin (3.4-5.0) g/dL 3.8 Medical Decision Making Emergent evaluation of acute respiratory distress. The patient does have history of A-fib and COPD. She presents with significant hypoxia. She was immediately placed on a nonrebreather mask and then quickly transitioned to DuoNeb bronchodilator inhalation treatment. This seemed to improve her oxygen saturation fairly quickly. The initial differential includes COPD exacerbation, pneumonia, tacky dysrhythmia. The patient will be monitored closely for any decompensation. But was started on BiPAP and this seemed to stabilize her fairly quickly regarding her respiratory status. I anticipate admission for this patient. Patient's rate seems fairly well-controlled she is in the low 1 teens which given the amount of albuterol she has had I do not feel is necessarily secondary to RVR. She has some mild leukocytosis at 14. VBG 7.. She has a creatinine of 1.2 which is slightly worse than her baseline. Her BNP is also slightly elevated over 1500 which is also's worse than her last visit. Her troponin is not elevated. Chest x-ray reviewed and I am concerned for possible right lower lobe infiltrate. Given her recent hospitalization, an elevated white blood cell count, I will go ahead and culture her and cover for hospital-acquired pneumonia. discussed [facility] hospitalist and will admit. Quality:SDOH Health Related Social Needs: No Data to Display Critical Care Time Critical Care Time Critical Care Time: Yes Total Critical Care Time: 35 Attestation: CRITICAL CARE Upon my evaluation, this patient had a high probability of imminent or life-threatening deterioration due to respiratory failure which required my direct attention, intervention, and personal management. I have personally provided 35 minutes of critical care time exclusive of time spent on separately billable procedures. Time includes review of laboratory data, radiology results, discussion with consultants, and monitoring for potential decompensation. Interventions were performed as documented above [facility] All Active Problems (Updated 11/21/24 @ 21:57 by Anamaria Molina MD) Respiratory failure (Acute) COPD (chronic obstructive pulmonary disease) (Chronic) Chest pain (Acute) Acute hyperglycemia (Acute) Atrial fibrillation (Chronic ~07/2024) Coronary artery disease (Chronic) Heart failure with reduced ejection fraction (Chronic) Pulmonary embolism (Chronic ~07/2024) AAA (abdominal aortic aneurysm) (Chronic) Infrarenal, measuring 2.5cm 2024 LIBBY (obstructive sleep apnea) (Chronic) Nonrheumatic aortic (valve) stenosis (Acute) Aortic regurgitation (Chronic) Asthma-COPD overlap syndrome (Chronic) Essential hypertension (Chronic) Generalized anxiety disorder with panic attacks (Chronic) Hyperlipidemia (Chronic) GERD (gastroesophageal reflux disease) (Chronic) History of Graves' disease (Chronic) Osteoarthritis (Chronic) Cigarette smoker (Chronic) Annual LDCT paused d/t cost Nummular dermatitis (Chronic) Medical History Non-ST elevation ND (NSTEMI) (~01/2023) Respiratory failure with hypoxia Depressive disorder Graves disease Surgical History Status post right knee replacement (01/20/19) S/P right knee arthroscopy (02/20/10) With partial medial meniscectomy S/P left knee arthroscopy (05/04/10) With partial medial and lateral meniscectomy S/P dilation and curettage S/P bilateral salpingo-oophorectomy S/P appendectomy S/P abdominal hysterectomy For abnormal uterine bleeding S/P lumpectomy, right breast (~1993) Family History Mother , at 77 Asthma Hypertension COPD (chronic obstructive pulmonary disease) Father , at 79 Parkinson disease Graves disease Hypertension Depression Suicide attempt Sister No problems noted. Sister , at 44 of metastatic bone cancer Metastatic bone cancer Brother , at 60 of pancreatic cancer Pancreatic cancer Diabetes Depression COPD (chronic obstructive pulmonary disease) Brother Alcohol abuse Son No problems noted. Daughter No problems noted. Maternal Grandfather Heart disease ND Maternal Grandmother Brain cancer Paternal Grandfather No problems noted. Paternal Grandmother No problems noted. Brother , age 28 - MVA No problems noted. Social History Smoking/Tobacco Use Status: Current every day Tobacco Type: cigarettes Smoking packs per day: 1 Smoking cigarettes per day: 20.0 Years smoked: 47 Smoking pack-years: 47.00 Tobacco: How many years used: 47 Quit status: considering quitting Counseling given: provider counseling Smoking risk assessment performed?: Yes Alcohol Intake: current Alcohol Intake frequency: a few times a week Alcohol type: beer Details: Declined to answer all except selecting Beer Drug use: Never Substance use type: does not use Counseling given: No Counseling provided: none Adopted: No Caregiver/Support person: No Household members: spouse Housing: house Pets and animals: Yes Pets and animals: cat(s) Sexually active: Yes Do you think of yourself as: straight/heterosexual Current gender identity: female What is your relationship status?: How often do you talk on the phone with friends or family?: three or more times per week How often do you get together with friends or relatives?: twice per week Do you belong to any clubs or organized social groups?: no Panel score (0-1 are the most socially isolated patients): 2 What type of physical activity do you participate in: none Frequency: does not exercise Aida/Yazidism: None Special aida needs: No Seatbelt use: always Helmet use: No Drive intox 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 pick up driver: No Firearms in home: Yes Firearms unloaded and locked: Yes Do you feel safe at home: Yes Do you feel safe in your relationship?: Yes Victim of physical abuse: No Victim of emotional abuse: No Victim of sexual abuse: No Female Reproductive History Menstrual Menopause type: surgical History History 4 Para 2 Hx # Term Pregnancies Multiple births Hx # Pregnancies Ectopic pregnancies AB induced Hx Number of Living Children 2 AB spontaneous 2
--- NOTE | 2024-11-21 22:32 | DI.VRAD_ITS ---
PROCEDURE INFORMATION: Exam: XR Chest Exam date and time: 11/21/2024 9:51 PM Age: 58 years old Clinical indication: Shortness of breath TECHNIQUE: Imaging protocol: Radiologic exam of the chest. Views: 1 view. COMPARISON: CR XR CHEST 2V PA LATERAL 11/11/2024 7:47 PM FINDINGS: Lungs: Bilateral interstitial infiltrates may represent atelectasis or edema. Linear bibasilar opacities most consistent with subsegmental atelectasis. Pleural spaces: Unremarkable. No pleural effusion. No pneumothorax. Heart/Mediastinum: The heart demonstrates diffuse enlargement. Bones/joints: No acute osseous abnormality. Soft tissues: Soft tissues are unremarkable as visualized. IMPRESSION: Bilateral interstitial infiltrates may represent atelectasis or edema. Dictated and Authenticated by: Samara Rudd MD. Orderin Jesse Alford MD
--- NOTE | 2024-11-21 22:38 | HPE_ITS ---
Date of service: 11/21/24 Time of Service: 22:39 Assessment and Plan Assessment and plan (1) COPD (chronic obstructive pulmonary disease): Status: Acute Assessment and plan: The patient comes in with acute onset of dyspnea w/ hx of recurrent COPD exacerbations. She is currently on Bipap w/ improving symptoms. She has been tx w/ Lasix 80mg IV x1, Vancomycin/Cefepime and DuoNebs x3. -Cont w/ Duonebs prn -Cont w/ Bipap -Consider Solumedrol if needed -ER has given Lasix 80mg x1 - monitor Cr 1.2 (2) Atrial fibrillation: Status: Chronic Assessment and plan: -Cont w/ Amiodarone 200mg bid -Cont w/ Eliquis 5mg bid (3) Heart failure with reduced ejection fraction: Status: Chronic Assessment and plan: -Cont w/ Metoprolol Succinate 50mg daily -Hold Aldactone 12.5mg daily -Hold Cozaar 100mg daily (4) Essential hypertension: Status: Chronic Assessment and plan: -Hold Cozaar 100mg daily d/t elevated Cr -Cont w/ Metoprolol Succinate 50mg daily (5) Hyperlipidemia: Status: Chronic Assessment and plan: -Hold Rosuvastatin 20mg daily History of Present Illness History of Present Illness Chief Complaint: Shortness of breath Narrative: The patient is a 58 y/o C F w/ PMH A-fib, COPD, heart failure, hypertension presents for evaluation of acute onset shortness of breath which began earlier this event at 8pm. She did not have any recent illness or sick contacts. Earlier in the day she was doing well without any issues. Associated symptoms include dyspnea and wheezing but no chest pain, palpitations, coughing, weight gain or increased lower extremity edema. He has no fever, chills or night sweats. She denies any recent travel history. Review of Systems Constitutional Constitutional: Denies chills, Denies fever(s), Denies night sweats and Denies weight loss Eyes Eyes: Denies diplopia and Denies eye pain ENT Ears, Nose, Mouth, and Throat: Denies mouth pain, Denies odynophagia, Denies sore throat and Denies throat swelling Cardiovascular Cardiovascular: Denies chest pain, Denies irregular heart rhythm and Reports dyspnea Respiratory Respiratory: Reports dyspnea and Reports wheezing Gastrointestinal Gastrointestinal: Reports abdominal pain, Denies melena, Denies hematochezia, Denies diarrhea, Denies nausea, Denies odynophagia, Denies vomiting and Denies hematemesis Musculoskeletal Musculoskeletal: Denies arthralgias and Denies joint swelling Neurologic Neurologic: Denies abnormal speech Allergic/Immunologic Allergic/Immunologic: Denies throat swelling and Reports wheezing [facility] All Active Problems (Updated 11/21/24 @ 22:48 by Husam Solis MD) Respiratory failure (Acute) COPD (chronic obstructive pulmonary disease) (Acute) Chest pain (Acute) Acute hyperglycemia (Acute) Atrial fibrillation (Chronic ~07/2024) Coronary artery disease (Chronic) Heart failure with reduced ejection fraction (Chronic) Pulmonary embolism (Chronic ~07/2024) AAA (abdominal aortic aneurysm) (Chronic) Infrarenal, measuring 2.5cm 2024 LIBBY (obstructive sleep apnea) (Chronic) Nonrheumatic aortic (valve) stenosis (Acute) Aortic regurgitation (Chronic) Asthma-COPD overlap syndrome (Chronic) Essential hypertension (Chronic) Generalized anxiety disorder with panic attacks (Chronic) Hyperlipidemia (Chronic) GERD (gastroesophageal reflux disease) (Chronic) History of Graves' disease (Chronic) Osteoarthritis (Chronic) Cigarette smoker (Chronic) Annual LDCT paused d/t cost Nummular dermatitis (Chronic) Medical History Non-ST elevation [place] (NSTEMI) (~01/2023) Respiratory failure with hypoxia Depressive disorder Graves disease Surgical History Status post right knee replacement (01/20/19) S/P right knee arthroscopy (02/20/10) With partial medial meniscectomy S/P left knee arthroscopy (05/04/10) With partial medial and lateral meniscectomy S/P dilation and curettage S/P bilateral salpingo-oophorectomy S/P appendectomy S/P abdominal hysterectomy For abnormal uterine bleeding S/P lumpectomy, right breast (~1993) Family History Mother , at 77 Asthma Hypertension COPD (chronic obstructive pulmonary disease) Father , at 79 Parkinson disease Graves disease Hypertension Depression Suicide attempt Sister No problems noted. Sister , at 44 of metastatic bone cancer Metastatic bone cancer Brother , at 60 of pancreatic cancer Pancreatic cancer Diabetes Depression COPD (chronic obstructive pulmonary disease) Brother Alcohol abuse Son No problems noted. Daughter No problems noted. Maternal Grandfather Heart disease NV Maternal Grandmother Brain cancer Paternal Grandfather No problems noted. Paternal Grandmother No problems noted. Brother , age 28 - MVA No problems noted. Social History Smoking/Tobacco Use Status: Current every day Tobacco Type: cigarettes Smoking packs per day: 1 Smoking cigarettes per day: 20.0 Years smoked: 47 Smoking pack- years: 47.00 Tobacco: How many years used: 47 Quit status: considering quitting Counseling given: provider counseling Smoking risk assessment performed?: Yes Alcohol Intake: current Alcohol Intake frequency: a few times a week Alcohol type: beer Details: Declined to answer all except selecting Beer Drug use: Never Substance use type: does not use Counseling given: No Counseling provided: none Adopted: No Caregiver/Support person: No Household members: spouse Housing: house Pets and animals: Yes Pets and animals: cat(s) Sexually active: Yes Do you think of yourself as: straight/heterosexual Current gender identity: female What is your relationship status?: How often do you talk on the phone with friends or family?: three or more times per week How often do you get together with friends or relatives?: twice per week Do you belong to any clubs or organized social groups?: no Panel score (0-1 are the most socially isolated patients): 2 What type of physical activity do you participate in: none Frequency: does not exercise Aida/Christianity: None Special aida needs: No Seatbelt use: always Helmet use: No Drive intox 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 motorcycle delivery driver: No Firearms in home: Yes Firearms unloaded and locked: Yes Do you feel safe at home: Yes Do you feel safe in your relationship?: Yes Victim of physical abuse: No Victim of emotional abuse: No Victim of sexual abuse: No Female Reproductive History Menstrual Menopause type: surgical History History 2 4 Para 2 Hx # Term Pregnancies Multiple births Hx # Pregnancies Ectopic pregnancies AB induced Hx Number of Living Children 2 AB spontaneous 2 Meds Allergies and Home Medications Allergies Allergy/AdvReac Type Severity Reaction Status Date / Time amlodipine AdvReac Intermediate Peripheral Verified 11/11/24 20:22 edema Home Medications ?Medication ?Instructions ?Recorded ?Confirmed ?Type nitroglycerin 0.4 mg sublingual 0.4 mg sublingual Q5M PRN 02/08/23 11/20/24 History tablet furosemide 20 mg tablet 20 mg PO DAILY #90 tabs 01/20/24 11/20/24 Rx losartan 100 mg tablet 100 mg PO DAILY #90 tabs 01/20/24 11/20/24 Rx pantoprazole 20 mg tablet,delayed 20 mg PO DAILY #90 tabs 05/04/24 11/20/24 Rx release apixaban 5 mg tablet (Eliquis) 5 mg PO BID #180 tabs 08/13/24 11/20/24 Rx metoprolol succinate 50 mg 50 mg PO DAILY #90 tabs 08/13/24 11/20/24 Rx tablet,extended release 24 hr ondansetron 4 mg disintegrating 4 mg PO Q8H PRN #10 tabs 08/23/24 11/20/24 Rx tablet citalopram 20 mg tablet 20 mg PO DAILY #90 tabs 08/24/24 11/20/24 Rx albuterol sulfate 90 mcg/actuation 2 puff inhalation Q6H PRN 09/23/24 11/20/24 Rx aerosol inhaler shortness of breath or wheezing #8.5 grams ipratropium 0.5 mg-albuterol 3 mg 3 ml UPD QID PRN shortness of 09/28/24 11/20/24 Rx (2.5 mg base)/3 mL nebulization breath or wheezing #180 mL soln nicotine 21 mg/24 hr daily 1 patch transdermal DAILY #42 ea 10/01/24 11/20/24 Rx transdermal patch budesonide-formoterol HFA 160 2 puff inhalation BID #10.2 grams 10/29/24 11/20/24 Rx mcg-4.5 mcg/actuation aerosol inhaler rosuvastatin 20 mg tablet 20 mg PO DAILY #90 tabs 10/29/24 11/20/24 Rx empagliflozin 10 mg tablet 10 mg PO DAILY #30 tabs 11/03/24 11/20/24 Rx (Jardiance) lorazepam 1 mg tablet 1 mg PO BID PRN panic attack(s) 11/11/24 11/20/24 Rx #30 tabs amiodarone 200 mg tablet (Pacerone) 200 mg PO BID 30 days #60 tabs 11/13/24 11/20/24 Rx spironolactone 25 mg tablet 12.5 mg (1/2 x 25 mg) PO DAILY #30 11/13/24 11/20/24 Rx tabs varenicline tartrate 0.5 mg (11)-1 See Rx Instructions PO .COMPLEX 11/13/24 11/20/24 Rx mg (42) tablets in a dose pack #53 dose pk Exam Const General: cooperative HENMT Head: normal to inspection Ears: hearing grossly normal bilaterally General nose exam: external nose normal Face and sinus: normal facial exam Eyes General: appearance normal, both eyes and all related structures Eyelids: eyelids normal Neck Neck: normal visual inspection Resp Auscultation: diminished lung sounds Other: On Bipap for respiratory distress Cardio Rate: tachycardic Rhythm: regular rhythm GI Inspection: normal to inspection Palpation: soft Percussion: normal to percussion Auscultation: normal bowel sounds Skin General skin exam: no rashes or lesions noted Extrem General: normal to inspection Results Imaging Imaging Studies: CXR Bilateral interstitial infiltrates may represent atelectasis or edema. Concern for pulmonary congestion Labs 11/21/24 21:00 11/21/24 21:00 Labs: Laboratory Results - last 24 hr 11/21/24 21:00 WBC 14.27 H RBC 5.25 H Hgb 16.5 H Hct 50.1 H MCV 95 MCH 31.4 MCHC 32.9 RDW 13.6 Plt Count 235 MPV 10.2 Immature Gran % 0.6 Neutrophils % 64.0 Lymphocytes % 27.4 Monocytes % 6.7 Eosinophils % 0.7 Basophils % 0.6 Nucleated RBC % 0.0 Absolute Neutrophils 9.13 H Absolute Lymphocytes 3.91 H Absolute Monocytes 0.96 H Absolute Eosinophils 0.10 Absolute Basophils 0.09 PT 10.4 INR 1.0 APTT 26.8 VBG pH 7.21 L VBG pCO2 55 H VBG pO2 57 VBG HCO3 22 L VBG Total CO2 20 L VBG O2 Saturation 85 VBG Base Excess -6 L Sodium 138 Potassium 4.6 Chloride 102 Carbon Dioxide 25.0 Anion Gap 11.0 BUN 16 Creatinine 1.2 H Est GFR (CKD-EPI 2020) 51.82 Glucose 181 H Calcium 9.4 Magnesium 2.4 Total Bilirubin 0.8 AST 17 ALT 33 Alkaline Phosphatase 105 Troponin I 18 NT-Pro-B Natriuret Pep 1525 H Total Protein 7.6 Albumin 3.8 Last Vital Signs Pulse 98 H 11/21/24 22:09 Resp 36 H 11/21/24 22:09 Pulse Ox 95 11/21/24 22:09 Time Spent Time spent with Patient: 40-54 minutes Time was spent: preparing to see the patient(eg.review tests), obtaining and/or reviewing separately [facility], ordering medications,tests, procedures, referring, communicating with other health career and guidance counselor, indepentently interpreting results and counseling the patient
[2024-11-21] MEDS: Furosemide 100 MG/10 ML VIAL 80 MG IVP (22:40)
[2024-11-21] MEDS: CEFEPIME 1 GM in Normal Saline 50 ML IVPB (22:41)
[2024-11-21 22:48] LABS: Troponin I 17 ng/L (<or=51)
[2024-11-21] MEDS: VANCOMYCIN 1,000 MG in Normal Saline 250 ML 166.6666 MG IVPB (23:15)
[2024-11-22] VITALS (44 sets, daily range): BP systolic 90–138; BP diastolic 42–87; PULSE 56–120; RESP 5–32; TEMP 36–37.1; O2SAT 89–97
--- NOTE | 2024-11-22 00:41 | W.PC.ACHO ---
Registration Status: Primary Language: Preferred Language: ED Information & Data Chief Complaint SOB/SuddenOnset 11/22/24 00:30 Chief Complaint SOB/SuddenOnset 11/21/24 21:48 Triage Note patient SEJAL states 11/21/24 20:52 she has afib with RVR at times. started about 20 mins ago Medical / Surgical History (Last Reviewed 11/12/24 @ 09:11 by Grady García) Non-ST elevation [place] (NSTEMI) (~01/2023) Respiratory failure with hypoxia Depressive disorder Graves disease (Last Reviewed 11/12/24 @ 09:11 by Grady García) Status post right knee replacement (01/20/19) S/P right knee arthroscopy (02/20/10) S/P left knee arthroscopy (05/04/10) S/P dilation and curettage S/P bilateral salpingo-oophorectomy S/P appendectomy S/P abdominal hysterectomy S/P lumpectomy, right breast (~1993) Most Recent Vital Signs Pulse 92 H 11/22/24 00:30 Pulse 93 H 11/22/24 00:20 Respiratory Rate 30 H 11/22/24 00:30 Respiratory Effort Short of Breath 11/22/24 00:30 Respiratory Depth Normal 11/22/24 00:30 Respiratory Pattern Normal 11/22/24 00:30 Blood Pressure 90/42 L 11/22/24 00:16 Blood Pressure Mean 55 11/22/24 00:16 Pulse Oximetry 97 11/22/24 00:30 Oxygen Delivery Method Bi-pap 11/21/24 21:26 Oxygen Flow Rate 0 11/21/24 20:52 Fraction of Inspired Oxygen (FIO2) 30 11/21/24 22:09 Allergies amlodipine Adverse Reaction (Intermediate, Verified 11/22/24 00:36) Peripheral edema IV IV Catheter Type [Right Saline Lock Antecubital] IV Catheter Gauge [Right 18 Antecubital] Diet Orders Category Date Time Status Regular/Normal [DIET] Nutrition 11/22/24 Breakfast Active Diagnostics 11/22/24 11/21/24 11/21/24 Range/Units 00:01 22:08 21:00 WBC 14.27 H (4.4-10.8) 10^3/uL RBC 5.25 H (3.93-5.22) 10^6/uL Hgb 16.5 H (11.2-15.7) g/dL Hct 50.1 H (36.0-46.0) % MCV 95 (80-95) fL MCH 31.4 (27.0-33.0) pg MCHC 32.9 (32.0-36.0) % RDW 13.6 (11.7-14.6) % Plt Count 235 (130-400) 10^3/uL MPV 10.2 (8.0-11.0) fL Immature Gran % 0.6 % Neutrophils % 64.0 % Lymphocytes % 27.4 % Monocytes % 6.7 % Eosinophils % 0.7 % Basophils % 0.6 % Nucleated RBC % 0.0 (0.0-0.3) % Absolute Neutrophils 9.13 H (1.2-6.7) 10^3/uL Absolute Lymphocytes 3.91 H (1.2-3.4) 10^3/uL Absolute Monocytes 0.96 H (0.1-0.8) 10^3/uL Absolute Eosinophils 0.10 (0.0-0.7) 10^3/uL Absolute Basophils 0.09 (0.0-0.2) 10^3/uL PT 10.4 (9.1-11.1) sec INR 1.0 (0.9-1.1) APTT 26.8 (20.6-30.2) sec VBG pH 7.21 L (7.31-7.41) VBG pCO2 55 H (41-51) mmHg VBG pO2 57 mmHg VBG HCO3 22 L (23-28) mmol/L VBG Total CO2 20 L (24-29) mmol/L VBG O2 Saturation 85 % VBG Base Excess -6 L (-2-3) mmol/L Sodium 138 (136-145) mmol/L Potassium 4.6 (3.5-5.1) mmol/L Chloride 102 (98-107) mmol/L Carbon Dioxide 25.0 (21.0-32.0) mmol/L Anion Gap 11.0 (3-11) mmol/L BUN 16 (7-18) mg/dL Creatinine 1.2 H (0.55-1.02) mg/dL Est GFR (CKD-EPI 2020) 51.82 (mL/min/1.73m2) Glucose 181 H (74-106) mg/dL Calcium 9.4 (8.5-10.1) mg/dL Magnesium 2.4 (1.8-2.4) mg/dL Total Bilirubin 0.8 (0.2-1.0) mg/dL AST 17 (15-37) U/L ALT 33 (14-59) U/L Alkaline Phosphatase 105 (46-116) U/L Troponin I Pending 17 18 (<or=51) ng/L NT-Pro-B Natriuret Pep 1525 H (<300) pg/mL Total Protein 7.6 (6.4-8.2) g/dL Albumin 3.8 (3.4-5.0) g/dL 11/21/24 22:20 Blood Culture - Pending Blood 11/21/24 22:08 Blood Culture - Pending Blood Intake and Output - 24 Hour Total 11/21/24 20:49 thru 11/21/24 23:20 Intake Total 50 Balance 50 Weight 77.111 kg Intake: IV 50 Falls Risk Assessment History of Falls No History 11/22/24 00:30 Contributing Factors No Factors 11/22/24 00:30 Ambulatory Aids Independent 11/22/24 00:30 Tubes/Lines None 11/22/24 00:30 Gait Evaluation No gait disturbance 11/22/24 00:30 Cognition No cognitive impairment 11/22/24 00:30 Fall Total Score 0 11/22/24 00:30 Level of Risk Standard/Low Risk 11/22/24 00:30 Problems (Last Reviewed 11/12/24 @ 09:11 by Grady García) COPD (chronic obstructive pulmonary disease) (Acute) Atrial fibrillation (Chronic ~07/2024) Heart failure with reduced ejection fraction (Chronic) Essential hypertension (Chronic) Hyperlipidemia (Chronic) v v v v v v v v v Sending and/or Receiving Nurses: Please use comment section below to note any information pertinent to the patient hand-off not included above. Information / Comments: Report received from: Joe Fay, EMT-P
[2024-11-22] MEDS: Amiodarone 200 MG TAB PO ×3 (01:20→19:37)
[2024-11-22] MEDS: Apixaban 5 MG TAB PO ×3 (01:20→19:37)
[2024-11-22 01:38] LABS: Troponin I 29 ng/L (<or=51)
[2024-11-22 07:05] LABS: BE (Venous) 2 mmol/L (-2-3); HCO3 (Venous) 26 mmol/L (23-28); O2 Sat (Venous) 91 %; TCO2 (Venous) 23 mmol/L (24-29); pCO2 (Venous) 41 mmHg (41-51); pH (Venous) 7.41 (7.31-7.41); pO2 (Venous) 57 mmHg
[2024-11-22 07:50] LABS: Anion Gap 8.3 mmol/L (3-11); BUN 18 mg/dL (7-18); CO2 27.7 mmol/L (21.0-32.0); Calcium 8.9 mg/dL (8.5-10.1); Chloride 102 mmol/L (98-107); Estimated GFR 64.49 (mL/min/1.73m2); Glucose 95 mg/dL (74-106); Potassium 3.6 mmol/L (3.5-5.1); Sodium 138 mmol/L (136-145)
[2024-11-22 08:37] LABS: Lab Add On Test DONE
[2024-11-22 08:53] LABS: Troponin I 32 ng/L (<or=51)
--- NOTE | 2024-11-22 08:55 | INITIAL_ITS ---
Date of service: 11/22/24 Time of Service: 08:55 Care Management Initial Assmt Initial Assessment Reason for Hospitalization: COPD exacerbation Functional Status/Living Situation Patient Presentation: Jaelyn presented to the ED with her yesterday. She had c/o acute shortness of breath. Her nebulizer did not help at home. Reportedly, she had been feeling well until then. Of note, Jaelyn was just discharged on 11/13 and had PCP f/u on 11/20 where she reported feeling well. Jaelyn was sitting up in bed when CM met with her today. Her , Guru was visiting. Both were very pleasant. Jaelyn is known to this from previous admissions. Jaelyn looked well today. She was not wearing any O2, and her HR was stable. She stated she felt well, and had been feeling well, when a chest tightness occurred out of no where. She stated that she was sweating, and knew she needed to come to the ER. She did not feel that she had enough time to call EMS, so her drove her. She stated really hoping that she can find the answers to the cause of her problem. She is worried that one of these times she will not make it to the hospital. Jaelyn stated that respiratory was going to work with her on breathing techniques, especially for when she has these episodes and is feeling so anxious that she forgets to breathe. Jaelyn again declined HH services. She feels she has adequate follow up, and does not feel that HH RN will prevent any of her episodes. Town of Residence: [place] Resides with: Spouse ([place]) Significant Other/Family: Local Natural Supports: adult children, , and family. Employment Status: Retired (worked at [employer]) Instrumental Activities of Daily Living (ADLs): Independent Activities/Hobbies/SocialSupport: loves to bowl and have a beer with friends, enjoys walking her grand-dogs and also playing games on her tablet Medications Medication Management: No Issues/Barriers identified Advance Directives Advance Directives: Do you have an Advance Directive: N 04/15/13 12:26 AD On File at [facility]: N 04/15/13 12:26 Date Asked 11/21/24 11/21/24 20:54 AD Date Reviewed COLST On File at [facility] COLST Date Scanned Code Status Resuscitation Status Full Code Insurance Coverage/Financial Issues Insurance: [facility] Care Team Visit Care Team Role Provider Type Racquel Fraser NP Primary Care Provider NURSE PRACTITIONER Anamaria Molina MD Emergency Provider [facility] STAFF PHYSICIAN Dorian Garcias Admit Provider [facility] STAFF PHYSICIAN Attending Provider Discharge Potential Discharge Needs: PCP F/U Appt and Other (pulmonology visit scheduled for 12/09, cardiology on 12/10) Anticipated Barriers to Discharge: None Identified Patient/Family Education Needs: Review discharge instructions, discuss Ask Me Three Transportation: Private vehicle Plan: Anticipate Jaelyn will return home once medically stable. She will follow up with her community providers and continue per her plan of care. Jaelyn has a pulmonology appt on 12/09, and cardiology on 12/10. She should be starting cardiac rehab in about a month. Jaelyn will be transported home via private vehicle by her . CM will continue to follow and support with discharge planning. Social Determinants of Health Screening Will the Patient Participate in the Screening?: Unable to obtain Health Related Social Needs Health related social needs details: Survey postponed for when patient is not on bipap. PFSH All Active Problems (Updated 11/22/24 @ 11:53 by Dorian Garcias) Acute hypercapnic respiratory failure (Acute) Respiratory failure (Acute) COPD (chronic obstructive pulmonary disease) (Acute) Chest pain (Acute) Acute hyperglycemia (Acute) Atrial fibrillation (Chronic ~07/2024) Coronary artery disease (Chronic) Heart failure with reduced ejection fraction (Chronic) Pulmonary embolism (Chronic ~07/2024) AAA (abdominal aortic aneurysm) (Chronic) Infrarenal, measuring 2.5cm 2024 LIBBY (obstructive sleep apnea) (Chronic) Nonrheumatic aortic (valve) stenosis (Acute) Aortic regurgitation (Chronic) Asthma-COPD overlap syndrome (Chronic) Essential hypertension (Chronic) Generalized anxiety disorder with panic attacks (Chronic) Hyperlipidemia (Chronic) GERD (gastroesophageal reflux disease) (Chronic) History of Graves' disease (Chronic) Osteoarthritis (Chronic) Cigarette smoker (Chronic) Annual LDCT paused d/t cost Nummular dermatitis (Chronic) Medical History Non-ST elevation [place] (NSTEMI) (~01/2023) Respiratory failure with hypoxia Depressive disorder Graves disease Surgical History Status post right knee replacement (01/20/19) S/P right knee arthroscopy (02/20/10) With partial medial meniscectomy S/P left knee arthroscopy (05/04/10) With partial medial and lateral meniscectomy S/P dilation and curettage S/P bilateral salpingo-oophorectomy S/P appendectomy S/P abdominal hysterectomy For abnormal uterine bleeding S/P lumpectomy, right breast (~1993) Family History Mother , at 77 Asthma Hypertension COPD (chronic obstructive pulmonary disease) Father , at 79 Parkinson disease Graves disease Hypertension Depression Suicide attempt Sister No problems noted. Sister , at 44 of metastatic bone cancer Metastatic bone cancer Brother , at 60 of pancreatic cancer Pancreatic cancer Diabetes Depression COPD (chronic obstructive pulmonary disease) Brother Alcohol abuse Son No problems noted. Daughter No problems noted. Maternal Grandfather Heart disease SD Maternal Grandmother Brain cancer Paternal Grandfather No problems noted. Paternal Grandmother No problems noted. Brother , age 28 - MVA No problems noted. Social History Smoking/Tobacco Use Status: Current every day Tobacco Type: cigarettes Smoking packs per day: 1 Smoking cigarettes per day: 20.0 Years smoked: 47 Smoking pack- years: 47.00 Tobacco: How many years used: 47 Quit status: considering quitting Counseling given: provider counseling Smoking risk assessment performed?: Yes Alcohol Intake: current Alcohol Intake frequency: a few times a week Alcohol type: beer Details: Declined to answer all except selecting Beer Drug use: Never Substance use type: does not use Counseling given: No Counseling provided: none Adopted: No Caregiver/Support person: No Household members: spouse Housing: house Pets and animals: Yes Pets and animals: cat(s) Sexually active: Yes Do you think of yourself as: straight/heterosexual Current gender identity: female What is your relationship status?: How often do you talk on the phone with friends or family?: three or more times per week How often do you get together with friends or relatives?: twice per week Do you belong to any clubs or organized social groups?: no Panel score (0-1 are the most socially isolated patients): 2 What type of physical activity do you participate in: none Frequency: does not exercise Aida/Restorationist: None Special aida needs: No Seatbelt use: always Helmet use: No Drive intox 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 mobile lounge driver or operator: No Firearms in home: Yes Firearms unloaded and locked: Yes Do you feel safe at home: Yes Do you feel safe in your relationship?: Yes Victim of physical abuse: No Victim of emotional abuse: No Victim of sexual abuse: No Female Reproductive History Menstrual Menopause type: surgical History History 4 Para 2 Hx # Term Pregnancies Multiple births Hx # Pregnancies Ectopic pregnancies AB induced Hx Number of Living Children 2 AB spontaneous 2 Readmission Within the Past 30 Days Yes or No: Yes Date of First Admission Date of 1st Admission: 11/12/24 Date of this Admission Date of Admission: 11/21/24 This admission was: Through ED Office Visit Since 1st Admission Have you seen your PCP in the office since discharge?: Yes Date of PCP Appointment: 11/20/24 Speicalist Appointments Have you seen any other specialist since your 1st Admission?: No I. Interview patient and/or Family Difficulty reaching your doctor or getting an office appt?: No Have you had trouble purchasing/ or taking medication?: No Have you had trouble with getting meals at home?: No Did you feel ready for discharge when you left the last time: Yes Why weren't services received?: pt declined offer of services How do you think you became sick enough to come back?: not sure, happened very quickly ED visits How many ED visits in the past 12 months: 7 Assessment for Readmission Summary of readmission circumstances, based upon interviews: long history of COPD
[2024-11-22] MEDS: Empaglifozin 10 MG TAB PO (09:55)
[2024-11-22] MEDS: Spironolactone 25 MG TAB 12.5 MG PO (09:55)
[2024-11-22] MEDS: Losartan 50 MG TAB 100 MG PO (09:56)
[2024-11-22] MEDS: Nicotine 21 MG/24 HR PATCH TD (09:56)
[2024-11-22] MEDS: Rosuvastatin 20 MG TAB PO (09:56)
[2024-11-22] MEDS: Metoprolol CR 50 MG TABCR PO (09:56)
[2024-11-22] MEDS: Citalopram 20 MG TAB PO (09:56)
[2024-11-22] MEDS: Normal Saline Flush 10 ML SYR IVP ×2 (09:58→20:31)
[2024-11-22] MEDS: Budesonide/Formoterol 160/4.5 6 GM 60 PUFF INH IH ×2 (10:15→19:47)
[2024-11-22] MEDS: Albuterol/Ipratropium 3 ML UPD VIAL UPD ×2 (10:16→19:50)
[2024-11-22] MEDS: Varenicline 1 MG TAB PO ×2 (10:32→19:38)
[2024-11-22] MEDS: LORazepam 1 MG TAB PO ×2 (10:33→19:38)
[2024-11-22] MEDS: Acetaminophen 325 MG TAB 650 MG PO ×2 (10:33→19:38)
[2024-11-22] MEDS: predniSONE 20 MG TAB 40 MG PO (10:57)
[2024-11-22] MEDS: Doxycycline Hyclate 100 MG CAP PO ×2 (10:57→19:37)
--- NOTE | 2024-11-22 11:09 | PHA.REVIEW2 ---
Pharmacy Admission Review Admission Clinical Review Admission Pharmacy Review: COPD (chronic obstructive pulmonary disease) (Acute) amlodipine Adverse Reaction (Intermediate, Verified 11/22/24 00:36) Peripheral edema Resuscitation Status Full Code Height 5 ft 8 in Weight 77.5 kg Comments Comments/Follow Ups: Per morning meeting changing to MS status Pharmacy Admission Review Renal Dosing Renal Dosing: BUN 18 mg/dL (7-18) 11/22/24 06:55 Creatinine 1.0 mg/dL (0.55-1.02) 11/22/24 06:55 Medications needing adjustments: Reviewed (CrCl 65.45 mL/min, SCr decreased from 1.2) List of meds needing interventions: Current medications are okay Anticoagulation Anticoagulation: Hgb 16.5 g/dL (11.2-15.7) H 11/21/24 21:00 Hct 50.1 % (36.0-46.0) H 11/21/24 21:00 Plt Count 235 10^3/uL (130-400) 11/21/24 21:00 INR 1.0 (0.9-1.1) 11/21/24 21:00 Creatinine 1.0 mg/dL (0.55-1.02) 11/22/24 06:55 DVT Prophylaxis: Reviewed Medications: Apixaban (5mg PO BID) Relevant Labs Relevant Labs: Sodium 138 mmol/L (136-145) 11/22/24 06:55 Potassium 3.6 mmol/L (3.5-5.1) D 11/22/24 06:55 Chloride 102 mmol/L (98-107) 11/22/24 06:55 Magnesium 2.4 mg/dL (1.8-2.4) 11/21/24 21:00 Electrolytes, C-Reactive P, ESR: Reviewed Cardiac Review Cardiac Review: Troponin I 32 ng/L (<or=51) 11/22/24 06:55 NT-Pro-B Natriuret Pep 1525 pg/mL (<300) H 11/21/24 21:00 BP, HR, EF%: Reviewed (HR and BP WNL) List meds needing interventions: Has orders for amiodarone 200mg BID, losartan 100mg daily, metoprolol XL 50mg daily and spironolactone 12.5mg daily QTc Review QTc: Reviewed (491 from 11/21/24) IV to PO Switch IV Medications: Reviewed Home Meds Home Med List reviewed: Intervened Relevent Home Meds Not ordered & why?: furosemide Sent message to provider this morning as patient had many home meds that were not ordered (spironolactone, rosuvastatin, Jardiance, Symbicort, citalopram, losartan, furosemide, lorazepam, pantoprazole and Chantix) - orders were put in for all but furosemide Called nurse to ask about about Chantix - filled the starter box on 11/13 (taper). Per patients she was on day 8 of taper - 1mg BID. Current Meds Current Medication Order Review: Intervened Comments: Changed IV ED access order Discontinued duplicate Duoneb order Pharmacy Antibiotic Review Relevant Labs: WBC 14.27 10^3/uL (4.4-10.8) H 11/21/24 21:00 Temperature 36.9 C Pharmacy Antibiotic Activity: C/S review and Reviewed, no change Comments: Patient is on doxycycline PO, day 1, for COPD exacerbation. Blood cultures pending. Comments Comments/Follow Ups: Per morning meeting changing to MS status
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
[2024-11-22] MEDS: Calcium Carbonate *TUMS* 500 MG CHEW 1000 MG PO (19:37)
[2024-11-23] VITALS (9 sets, daily range): BP systolic 83–146; BP diastolic 66–124; PULSE 51–78; RESP 18–29; TEMP 37.3; O2SAT 90
[2024-11-23 07:12] LABS: Anion Gap 7.1 mmol/L (3-11); BUN 18 mg/dL (7-18); CO2 27.9 mmol/L (21.0-32.0); CREATININE 0.8 mg/dL (0.55-1.02); Calcium 9.3 mg/dL (8.5-10.1); Chloride 102 mmol/L (98-107); Glucose 97 mg/dL (74-106); Potassium 3.8 mmol/L (3.5-5.1); Sodium 137 mmol/L (136-145)
[2024-11-23] MEDS: Spironolactone 25 MG TAB 12.5 MG PO (07:42)
[2024-11-23] MEDS: Apixaban 5 MG TAB PO (07:43)
[2024-11-23] MEDS: Metoprolol CR 50 MG TABCR PO (07:43)
[2024-11-23] MEDS: Doxycycline Hyclate 100 MG CAP PO (07:43)
[2024-11-23] MEDS: Amiodarone 200 MG TAB PO (07:43)
[2024-11-23] MEDS: Losartan 50 MG TAB 100 MG PO (07:43)
[2024-11-23] MEDS: Citalopram 20 MG TAB PO (07:43)
[2024-11-23] MEDS: predniSONE 20 MG TAB 40 MG PO (07:44)
[2024-11-23] MEDS: Rosuvastatin 20 MG TAB PO (07:44)
[2024-11-23] MEDS: Pantoprazole 20 MG TABCR PO (07:44)
[2024-11-23] MEDS: Normal Saline Flush 10 ML SYR IVP (07:44)
[2024-11-23] MEDS: Varenicline 1 MG TAB PO (07:44)
[2024-11-23] MEDS: Empaglifozin 10 MG TAB PO (07:44)
[2024-11-23] MEDS: Budesonide/Formoterol 160/4.5 6 GM 60 PUFF INH IH (08:19)
[2024-11-23] MEDS: Furosemide 20 MG TAB PO (09:49)
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
--- NOTE | 2024-11-23 10:07 | CMDISCH_ITS ---
Date of service: 11/23/24 Time of Service: 10:07 LACE Index Scoring Tool Questions: Length of Stay (in days): 2 Was the patient admitted via the E.D.?: Yes Comorbidities: Chronic Pulmonary Disease E.D. Visits: 6 Answers: Total Score: 11 Risk of Readmission: High Risk Care Management Discharge Plan Reason for Hospitalization: COPD exacerbation Discharge Plan: Jaelyn will return home today. She will follow up with her community providers and continue per her plan of care. Jaelyn has a pulmonology appt on 12/09, and cardiology on 12/10. She should be starting cardiac rehab in about a month. Jaelyn will be transported home via private vehicle by her . Patient/Family Education Needs: Review of discharge instructions, activity, limitation, and plan of care. Discuss Ask Me Three. Services Needed at Discharge: Outpatient Therapy (pulmonology, cardiology ) SDOH Health Related Social Needs: Health related social needs details Survey postponed f or when patient is not on bipap. Health related social needs details: Survey postponed for when patient is not on bipap.
== END 2024-11-23 10:20 | disposition home or self-care (01) | DRG 190 ==
LOC: ER 23:56 → ICU 11-22 00:44
PROVIDERS: Student in an Organized Health Care Education/Training Program; Admitting Provider Family Medicine; Emergency Provider Emergency Medicine; PCP Nurse Practitioner Family; Responsible Provider Family Medicine; Visit Provider Family Medicine
DX: J44.1 Chronic obstructive pulmonary disease with (acute) exacerbation (principal); J96.02 Acute respiratory failure with hypercapnia; I50.22 Chronic systolic (congestive) heart failure; I48.91 Unspecified atrial fibrillation; Z79.01 Long term (current) use of anticoagulants; Z79.84 Long term (current) use of oral hypoglycemic drugs; I11.0 Hypertensive heart disease with heart failure; I25.10 Atherosclerotic heart disease of native coronary artery without angina pectoris; G47.33 Obstructive sleep apnea (adult) (pediatric); I35.8 Other nonrheumatic aortic valve disorders; Z86.711 Personal history of pulmonary embolism; I71.43 Infrarenal abdominal aortic aneurysm, without rupture; F17.210 Nicotine dependence, cigarettes, uncomplicated; K21.9 Gastro-esophageal reflux disease without esophagitis; E78.5 Hyperlipidemia, unspecified; I25.2 Old myocardial infarction; Z96.651 Presence of right artificial knee joint
CPT/HCPCS: 00123; 36415; 80048; 80053; 82805; 87040; 93005; 94640; 96365; 96367; 96375; 99291; 71045; 83735; 83880; 84443; 84484; 85025; 85610; 85730; 93010; 94660; 94664; 99223; 99233; 99239; J0692; J1938; J3370; J7512; J7620

== ENCOUNTER 2024-11-26 15:40 | Outpatient (REF) | payer OTHER, SELFPAY ==
[2024-11-26 16:59] LABS: TSH (W/Ref FT4) 0.72 uIU/mL (0.36-3.74)
[2024-11-27 18:57] LABS: IgE 71 IU/mL (<158)
== END 2024-11-26 15:41 | disposition home or self-care (01) ==
LOC: LBN 15:40
PROVIDERS: Nurse Practitioner Family; PCP Nurse Practitioner Family; Visit Provider Physician Assistant Surgical
DX: J44.89 Other specified chronic obstructive pulmonary disease (principal); I21.4 Non-ST elevation (NSTEMI) myocardial infarction
CPT/HCPCS: 82785; 83735; 84443

== ENCOUNTER 2024-12-07 02:02 | Outpatient (CLI) | payer OTHER, SELFPAY ==
--- NOTE | 2024-12-07 06:45 | DI.NM_ITS ---
APPROVED REPORT Exam: Pharmacologic Patient Location: Out-Patient Room/Bed: Stress Nurse: Florecita Lopes RN Ordering Provider:CARLO BLANKABE, Contact Number: [phone] BMI: 30.46 Baseline Rhythm: Sinus Bradycardia Indications: h/o NSTEMI, worsening, EF, COPD Medical History Medical History: respiratory failure, COPD, CAD, HFrEF, PE, AAA, LIBBY, nonrheumatic aortic valve stenosis, HTN, CELIO w/ panic attacks, HLD, GERD, Graves disease, cigarette smoker, NSTEMI, depression Cardiac Medications: albuterol sulfate, amiodarone, apixaban, budesonide- formoterol, citalopram, jardiance, furosemide, lorazepam, losartan, metoprolol succinate, nicotine, pantoprazole, rosuvastatin Allergies: amlodipine Cardiac Risk Factors: family hx, HTN, asthma, HLD, COPD, smoker, CVD Previous Cardiac Procedures: none Pretest Chest Pain Characteristics: No chest pain Exercise History: Indeterminate Physical Disabilities: Hip Lung Sounds: Clear to auscultation Heart Sounds: Regular Stress Test Details Test: Exercise stress converted to pharmacologic stress due to failure to obtain a diagnostic stress test. Reason for pharmacologic stress test: changed from exercise stress test due to inability to reach target heart rate. Nuclear Acquisition: Rest Tc-99m/Stress Tc-99m 1 day Rest Isotope: Tc-99m Sestamibi. Dose: 10.0 Date: 12/07/2024 Injection Time: 0830 Stress Isotope: Tc-99m Sestamibi. Dose: 30.0 Date: 12/07/2024 Injection Time: 1000 HR Resting HR Supine: 50 bpm Max Heart Rate (APMHR): 159 bpm Resting HR Standin bpm Target HR (85% APMHR): 135 bpm Max HR Achieved: 109 bpm % of APMHR: 69 Recovery HR: 66 bpm HR response to stress: Normal HR response to stress BP Resting BP Supine: 152/82 mmHg Resting BP Standin/78 mmHg Max BP: 216/88 mmHg Recovery BP: 158/78 mmHg BP response to stress: l hypertensive response to stress. ECG Resting ECG: Sinus Bradycardia Ectopy: none Stress ECG: Sinus Tachycardia ST Change: Nondiagnostic low heart rate Arrhythmia: None Recovery ECG: Sinus Rhythm Recovery ST Change: Nondiagnostic low heart rate Recovery Arrhythmia: rare PVC Clinical Reason for Termination: Dyspnea Stress Symptoms: Dyspnea Angina Score: None Rate Pressure Product: [id number] Stress ECG Conclusion 1. Resting electrocardiogram showed poor R wave progression, possible old anterior infarct 2. Patient underwent testing using pharmacologic stress with regadenoson. Peak heart rate achieved was 69% of maximal predicted for age 3. Blood pressure response to testing was hypertensive 4. The electrocardiographic portion of the test was nondiagnostic 5. See MPI report Stress Test Summary STAGE Time (mins) Speed (mph) Grade (%) HR BP SpO2 SYMPTOMS METS Supine 50 152/82 92 Standing 59 148/78 1 3 1.7 10 99 162/88 94 mod-severe SOB, gen. fatigue 4.5 1 min post Lexiscan injection 96 216/88 97 mild SOB 3 min post Lexiscan injection 79 184/82 97 6 min post Lexiscan injection 66 158/78 97 Test had to be converted from Aamir protocol to lexiscan injection due to patient request r/t mod-severe SOB and general fatigue. Pt was able to continue walking at a slow pace. All symptoms resolved by end of test and patient left ambulatory in no acute distress. MPI Conclusion Myocardial perfusion shows no evidence of myocardial ischemia or prior infarction Ejection fraction is 42%. There is mild global hypokinesis
[2024-12-07] MEDS: Regadenoson 0.4 MG/5 ML SYR IVP (10:00)
== END 2024-12-07 02:22 ==
LOC: DI 02:02
PROVIDERS: PCP Nurse Practitioner Family; Visit Provider Internal Medicine Cardiovascular Disease
DX: J44.9 Chronic obstructive pulmonary disease, unspecified (principal)
CPT/HCPCS: 78452; 93017; J2785

== ENCOUNTER 2024-12-11 20:23 | Inpatient (IN) | payer OTHER, SELFPAY ==
[2024-12-11] VITALS (71 sets, daily range): BP systolic 99–174; BP diastolic 40–148; PULSE 59–111; RESP 12–36; O2SAT 89–99
--- NOTE | 2024-12-11 20:30 | RT.EKG_ITS ---
APPROVED REPORT Exam: Resting ECG Reason for Exam: SOB Patient Location: E HR:102 bpm ECG Measurements Heart Rate 102 AXIS ME 169 P 70 QRSd 109 QRS -57 QT 378 T 64 QTc 493 Conclusion Sinus tachycardia [address] changes no stemi
[2024-12-11] MEDS: Albuterol/Ipratropium 3 ML UPD VIAL UPD ×3 (20:36→20:37)
[2024-12-11] MEDS: MAGNESIUM SULFATE 2 GM/50 ML BAG IVINF (20:41)
[2024-12-11] MEDS: methylPREDNISolone SUCC 125 MG VIAL IVP (20:41)
[2024-12-11 20:43] LABS: BE (Venous) -2 mmol/L (-2-3); HCO3 (Venous) 26 mmol/L (23-28); O2 Sat (Venous) 71 %; TCO2 (Venous) 23 mmol/L (24-29); pH (Venous) 7.21 (7.31-7.41); pO2 (Venous) 43 mmHg
[2024-12-11 20:44] LABS: Abs Immature Grans 0.05 10^3/uL (0.0-0.06); Absolute Basophil Count 0.08 10^3/uL (0.0-0.2); Absolute Eosinophil Count 0.15 10^3/uL (0.0-0.7); Absolute Lymphocyte Count 4.09 10^3/uL (1.2-3.4); Absolute Neutrophil Count 6.92 10^3/uL (1.2-6.7); Basophils % 0.6 %; Eosinophils % 1.2 %; HCT 48.9 % (36.0-46.0); HGB 16.1 g/dL (11.2-15.7); Immature Grans % 0.4 %; Lymphocytes % 32.5 %; MCH 31.2 pg (27.0-33.0); MCHC 32.9 % (32.0-36.0); MCV 95 fL (80-95); MPV 10.3 fL (8.0-11.0); Monocytes % 10.3 %; Platelet Count 215 10^3/uL (130-400); RBC 5.16 10^6/uL (3.93-5.22); RDW 14.1 % (11.7-14.6); RDW-SD 49.5 fL; WBC 12.58 10^3/uL (4.4-10.8)
[2024-12-11 20:45] LABS: pCO2 (Venous) 65 mmHg (41-51)
[2024-12-11] MEDS: LORazepam 20 MG/10 ML VIAL IVP (20:56)
[2024-12-11 21:09] LABS: ALT 35 U/L (14-59); AST 18 U/L (15-37); Albumin 3.7 g/dL (3.4-5.0); Alkaline Phosphatase 106 U/L (46-116); Anion Gap 10.4 mmol/L (3-11); BUN 17 mg/dL (7-18); Bilirubin, Total 0.5 mg/dL (0.2-1.0); CO2 27.6 mmol/L (21.0-32.0); Calcium 9.4 mg/dL (8.5-10.1); Chloride 104 mmol/L (98-107); Estimated GFR 64.09 (mL/min/1.73m2); Glucose 138 mg/dL (74-106); Magnesium 2.3 mg/dL (1.8-2.4); NT-proBNP 333 pg/mL (<300); Potassium 4.6 mmol/L (3.5-5.1); Sodium 142 mmol/L (136-145); Total Protein 7.5 g/dL (6.4-8.2); Troponin I 15 ng/L (<or=51)
--- NOTE | 2024-12-11 21:21 | DI.RAD_ITS ---
Exam(s) XR PORTABLE CHEST AP EXAM: XR PORTABLE CHEST AP CLINICAL HISTORY: sob TECHNIQUE: 2D digital imaging was performed. COMPARISON: CR,XR XR PORTABLE CHEST AP from 11/21/2024 FINDINGS: Overlying monitoring leads. LUNGS: Pulmonary vascular prominence and increased interstitial markings throughout consistent with pulmonary edema. No pleural abnormality seen. HEART: Mildly enlarged. AORTA: Normal diameter. BONES: Unremarkable for age. Soft tissues: Unremarkable. IMPRESSION: Findings consistent with pulmonary edema. The preliminary [facility] report was reviewed. DATA REPOSITORY: RADIATION DOSE DELIVERED:
--- NOTE | 2024-12-11 21:29 | W.ED.GENAD ---
Discharge Plan Disposition Patient Disposition: Admit to [facility] Condition: Serious Discharge Details Clinical Impression: COPD (chronic obstructive pulmonary disease), Respiratory failure, Acute respiratory failure with hypoxia and hypercarbia Primary Care Provider: Racquel Fraser ED Provider: Anamaria Molina Home Meds and New Rx's Prescriptions: No Action citalopram 20 mg tablet 20 mg PO DAILY Qty: 90 3RF losartan 100 mg tablet 100 mg PO DAILY Qty: 90 3RF Eliquis 5 mg tablet 5 mg PO BID Qty: 180 3RF metoprolol succinate 50 mg tablet extended release 24 hr 50 mg PO DAILY Qty: 90 3RF nicotine 21 mg/24 hr patch 24 hour 1 patch transdermal DAILY Qty: 42 0RF Rx Instructions: Apply 1 patch daily for 6 weeks budesonide-formoterol 160-4.5 mcg/actuation HFA aerosol inhaler 2 puff inhalation BID Qty: 10.2 4RF Rx Instructions: 2 puffs twice a day and may use as a reliever therapy for acute difficulty breathing, 1 to 2 puffs every 4 hours as needed. Max inhalations 12 per day rosuvastatin 20 mg tablet 20 mg PO DAILY Qty: 90 3RF amiodarone [Pacerone] 200 mg tablet 200 mg PO BID 30 Days Qty: 60 0RF Jardiance 10 mg tablet 10 mg PO DAILY Qty: 30 0RF loratadine [Claritin] 10 mg tablet 10 mg PO DAILY Qty: 1 0RF pantoprazole 20 mg tablet,delayed release (DR/EC) 20 mg PO DAILY Qty: 90 3RF albuterol sulfate 90 mcg/actuation HFA aerosol inhaler 2 puff Inhalation Q6H PRN (Reason: shortness of breath or wheezing) Qty: 8.5 6RF lorazepam 1 mg tablet 1 mg PO BID PRN (Reason: panic attack(s)) Qty: 30 0RF ipratropium-albuterol 0.5 mg-3 mg(2.5 mg base)/3 mL solution for nebulization 3 ml UPD QID PRN (Reason: shortness of breath or wheezing) Qty: 180 3RF Spiriva Respimat 2.5 mcg/actuation Mist 2 puff inhalation DAILY Qty: 1 2RF furosemide 20 mg tablet 40 mg PO DAILY Qty: 90 3RF spironolactone 25 mg Tablet 12.5 mg PO DAILY Qty: 30 0RF varenicline tartrate 0.5 mg (11)- 1 mg (42) tablets,dose pack See Rx Instructions .ROUTE .COMPLEX Qty: 53 0RF Rx Instructions: orally per package directions HPI General Date/Time Provider Initiated Documentation: 12/11/24 20:27. Limitations to Documentation: physical limitation. Information obtained by: patient. HPI Narrative: 59-year-old female with past medical history of CAD, A-fib, COPD, tobacco abuse presents for evaluation of acute shortness of breath. She reports that she was at a baseball game with family when she had shortness of breath. She reports that her last use of nebulizer was around 3 PM. She states that she does have an inhaler with her, but she did not use this when she became short of breath. She denies any chest pain at this time. Related Data Home Medications ?Medication ?Instructions ?Recorded ?Confirmed losartan 100 mg tablet 100 mg PO DAILY #90 tabs 01/20/24 12/11/24 pantoprazole 20 mg tablet,delayed 20 mg PO DAILY #90 tabs 05/04/24 12/11/24 release apixaban 5 mg tablet (Eliquis) 5 mg PO BID #180 tabs 08/13/24 12/11/24 metoprolol succinate 50 mg 50 mg PO DAILY #90 tabs 08/13/24 12/11/24 tablet,extended release 24 hr citalopram 20 mg tablet 20 mg PO DAILY #90 tabs 08/24/24 12/11/24 albuterol sulfate 90 mcg/actuation 2 puff inhalation Q6H PRN 09/23/24 12/11/24 aerosol inhaler shortness of breath or wheezing #8.5 grams nicotine 21 mg/24 hr daily 1 patch transdermal DAILY #42 ea 10/01/24 12/11/24 transdermal patch budesonide-formoterol HFA 160 2 puff inhalation BID #10.2 grams 10/29/24 12/11/24 mcg-4.5 mcg/actuation aerosol inhaler rosuvastatin 20 mg tablet 20 mg PO DAILY #90 tabs 10/29/24 12/11/24 lorazepam 1 mg tablet 1 mg PO BID PRN panic attack(s) 05/28/25 06/27/25 #30 tabs spironolactone 25 mg tablet 12.5 mg (1/2 x 25 mg) PO DAILY #30 11/13/24 12/11/24 tabs varenicline tartrate 0.5 mg (11)-1 See Rx Instructions PO .COMPLEX 11/13/24 12/11/24 mg (42) tablets in a dose pack #53 dose pk furosemide 20 mg tablet 40 mg (2 x 20 mg) PO DAILY #90 tabs 11/23/24 12/11/24 tiotropium bromide 2.5 2 puff inhalation DAILY #1 inh 11/23/24 12/11/24 mcg/actuation mist for inhalation (Spiriva Respimat) ipratropium 0.5 mg-albuterol 3 mg 3 ml UPD QID PRN shortness of 11/30/24 12/11/24 (2.5 mg base)/3 mL nebulization breath or wheezing #180 mL soln amiodarone 200 mg tablet (Pacerone) 200 mg PO BID 30 days #60 tabs 12/03/24 12/11/24 empagliflozin 10 mg tablet 10 mg PO DAILY #30 tabs 12/03/24 12/11/24 (Jardiance) loratadine 10 mg tablet (Claritin) 10 mg PO DAILY #1 tab 12/03/24 12/11/24 Previous Rx's ?Medication ?Instructions ?Recorded losartan 100 mg tablet 100 mg PO DAILY #90 tabs 01/20/24 pantoprazole 20 mg tablet,delayed 20 mg PO DAILY #90 tabs 05/04/24 release apixaban 5 mg tablet (Eliquis) 5 mg PO BID #180 tabs 08/13/24 metoprolol succinate 50 mg 50 mg PO DAILY #90 tabs 08/13/24 tablet,extended release 24 hr citalopram 20 mg tablet 20 mg PO DAILY #90 tabs 08/24/24 albuterol sulfate 90 mcg/actuation 2 puff inhalation Q6H PRN 09/23/24 aerosol inhaler shortness of breath or wheezing #8.5 grams nicotine 21 mg/24 hr daily 1 patch transdermal DAILY #42 ea 10/01/24 transdermal patch budesonide-formoterol HFA 160 2 puff inhalation BID #10.2 grams 10/29/24 mcg-4.5 mcg/actuation aerosol inhaler rosuvastatin 20 mg tablet 20 mg PO DAILY #90 tabs 10/29/24 lorazepam 1 mg tablet 1 mg PO BID PRN panic attack(s) 11/11/24 #30 tabs spironolactone 25 mg tablet 12.5 mg (1/2 x 25 mg) PO DAILY #30 11/13/24 tabs varenicline tartrate 0.5 mg (11)-1 See Rx Instructions PO .COMPLEX 11/13/24 mg (42) tablets in a dose pack #53 dose pk furosemide 20 mg tablet 40 mg (2 x 20 mg) PO DAILY #90 tabs 11/23/24 tiotropium bromide 2.5 2 puff inhalation DAILY #1 inh 11/23/24 mcg/actuation mist for inhalation (Spiriva Respimat) ipratropium 0.5 mg-albuterol 3 mg 3 ml UPD QID PRN shortness of 11/30/24 (2.5 mg base)/3 mL nebulization breath or wheezing #180 mL soln amiodarone 200 mg tablet (Pacerone) 200 mg PO BID 30 days #60 tabs 12/03/24 empagliflozin 10 mg tablet 10 mg PO DAILY #30 tabs 12/03/24 (Jardiance) loratadine 10 mg tablet (Claritin) 10 mg PO DAILY #1 tab 12/03/24 Allergies Allergy/AdvReac Type Severity Reaction Status Date / Time amlodipine AdvReac Intermediate Peripheral Verified 12/11/24 20:39 edema General Stated Complaint: SOB JOSE JUAN: 3 Exam Narrative Exam Narrative: Review of Systems: All systems reviewed & are unremarkable except as noted in HPI and below Well-developed, acute distress NCAT rrrNo murmur, Acute respiratory distress, tachypnea, accessory muscle use, wheezing diffusely and hypoxia down to 78% Nondistended abdomen Extremities w/o edema + Anxious Course Vital Signs Vital signs: Vital Signs Pulse 102 H 12/11/24 20:33 Respiratory Rate 12/11/24 20:33 Blood Pressure 173/132 H 12/11/24 20:33 Pulse Oximetry 90 L 12/11/24 20:33 Pulse 98 H 12/11/24 21:10 Pulse 98 H 12/11/24 21:10 Respiratory Rate 32 H 12/11/24 21:10 Respiratory Effort Short of Breath 12/11/24 20:40 Respiratory Pattern Tachypnea 12/11/24 20:40 Blood Pressure 174/102 H 12/11/24 21:01 Blood Pressure Mean 128 12/11/24 21:01 Blood Pressure Position Sitting 12/11/24 20:33 Pulse Oximetry 92 12/11/24 21:10 Oxygen Delivery Method Nasal Cannula 12/11/24 20:33 Oxygen Flow Rate 4 12/11/24 20:33 Fraction of Inspired Oxygen (FIO2) 40 12/11/24 20:55 Lab/Test Results Lab/Test Results: Laboratory Tests Range/Units 12/11/24 20:35 WBC (4.4-10.8) 10^3/uL 12.58 H RBC (3.93-5.22) 10^6/uL 5.16 Hgb (11.2-15.7) g/dL 16.1 H Hct (36.0-46.0) % 48.9 H MCV (80-95) fL 95 MCH (27.0-33.0) pg 31.2 MCHC (32.0-36.0) % 32.9 RDW (11.7-14.6) % 14.1 Plt Count (130-400) 10^3/uL 215 MPV (8.0-11.0) fL 10.3 Immature Gran % % 0.4 Neutrophils % % 55.0 Lymphocytes % % 32.5 Monocytes % % 10.3 Eosinophils % % 1.2 Basophils % % 0.6 Nucleated RBC % (0.0-0.3) % 0.0 Absolute Neutrophils (1.2-6.7) 10^3/uL 6.92 H Absolute Lymphocytes (1.2-3.4) 10^3/uL 4.09 H Absolute Monocytes (0.1-0.8) 10^3/uL 1.30 H Absolute Eosinophils (0.0-0.7) 10^3/uL 0.15 Absolute Basophils (0.0-0.2) 10^3/uL 0.08 VBG pH (7.31-7.41) 7.21 L VBG pCO2 (41-51) mmHg 65 H* VBG pO2 mmHg 43 VBG HCO3 (23-28) mmol/L 26 VBG Total CO2 (24-29) mmol/L 23 L VBG O2 Saturation % 71 VBG Base Excess (-2-3) mmol/L -2 Sodium (136-145) mmol/L 142 Potassium (3.5-5.1) mmol/L 4.6 Chloride (98-107) mmol/L 104 Carbon Dioxide (21.0-32.0) mmol/L 27.6 Anion Gap (3-11) mmol/L 10.4 BUN (7-18) mg/dL 17 Creatinine (0.55-1.02) mg/dL 1.0 Est GFR (CKD-EPI 2020) (mL/min/1.73m2) 64.09 Glucose (74-106) mg/dL 138 H Calcium (8.5-10.1) mg/dL 9.4 Magnesium (1.8-2.4) mg/dL 2.3 Total Bilirubin (0.2-1.0) mg/dL 0.5 AST (15-37) U/L 18 ALT (14-59) U/L 35 Alkaline Phosphatase (46-116) U/L 106 Troponin I (<or=51) ng/L 15 NT-Pro-B Natriuret Pep (<300) pg/mL 333 H Total Protein (6.4-8.2) g/dL 7.5 Albumin (3.4-5.0) g/dL 3.7 Medical Decision Making Emergent evaluation of acute respiratory distress. Initial differential includes flash pulmonary edema, COPD exacerbation, CHF exacerbation. Patient has wheezing and hypoxia on examination. She is still actively smoking and I suspect that this is more of a COPD exacerbation. Patient was emergently placed on supplemental oxygen until neb treatment and BiPAP could get initiated. She did require some Ativan to help tolerate the BiPAP mask, but was able to appear more comfortable and less tachypneic with the mask on. Bronchodilators, steroids and magnesium were given lab work does not reveal an acute abnormality, there is mild elevation in BNP. No elevation in troponin. Patient covered with doxycycline for atypical coverage of a COPD exacerbation. At this time patient has stabilized and will be admitted to the hospital for further management and BiPAP weaning. Quality:SDOH Health Related Social Needs: Health related social needs details Survey postponed for when patient is not on bipap. Critical Care Time Critical Care Time Critical Care Time: Yes Total Critical Care Time: 35 Attestation: CRITICAL CARE Upon my evaluation, this patient had a high probability of imminent or life-threatening deterioration due to acute hypoxic hypercapnic respiratory failure which required my direct attention, intervention, and personal management. I have personally provided 35 minutes of critical care time exclusive of time spent on separately billable procedures. Time includes review of laboratory data, radiology results, discussion with consultants, and monitoring for potential decompensation. Interventions were performed as documented above [facility] All Active Problems (Updated 12/11/24 @ 23:26 by Anamaria Molina MD) Acute respiratory failure with hypoxia and hypercarbia (Acute) Respiratory failure (Acute) COPD (chronic obstructive pulmonary disease) (Acute) Acute hyperglycemia (Acute) Atrial fibrillation (Chronic ~07/2024) Coronary artery disease (Chronic) nonobstructive, LAD stenosis Heart failure with reduced ejection fraction (Chronic) moderate Pulmonary embolism (Chronic ~07/2024) AAA (abdominal aortic aneurysm) (Chronic) Infrarenal, measuring 2.5cm 2024 LIBBY (obstructive sleep apnea) (Chronic) Nonrheumatic aortic (valve) stenosis (Acute) Aortic regurgitation (Chronic) Asthma-COPD overlap syndrome (Chronic) Essential hypertension (Chronic) Generalized anxiety disorder with panic attacks (Chronic) Hyperlipidemia (Chronic) GERD (gastroesophageal reflux disease) (Chronic) History of Graves' disease (Chronic) Osteoarthritis (Chronic) Cigarette smoker (Chronic) Annual LDCT paused d/t cost Nummular dermatitis (Chronic) Medical History Non-ST elevation [place] (NSTEMI) (~01/2023) Respiratory failure with hypoxia Depressive disorder Graves disease Surgical History Status post right knee replacement (01/20/19) S/P right knee arthroscopy (02/20/10) With partial medial meniscectomy S/P left knee arthroscopy (05/04/10) With partial medial and lateral meniscectomy S/P dilation and curettage S/P bilateral salpingo-oophorectomy S/P appendectomy S/P abdominal hysterectomy For abnormal uterine bleeding S/P lumpectomy, right breast (~1993) Family History Mother , at 77 Asthma Hypertension COPD (chronic obstructive pulmonary disease) Father , at 79 Parkinson disease Graves disease Hypertension Depression Suicide attempt Sister No problems noted. Sister , at 44 of metastatic bone cancer Metastatic bone cancer Brother , at 60 of pancreatic cancer Pancreatic cancer Diabetes Depression COPD (chronic obstructive pulmonary disease) Brother Alcohol abuse Son No problems noted. Daughter No problems noted. Maternal Grandfather Heart disease [place] Maternal Grandmother Brain cancer Paternal Grandfather No problems noted. Paternal Grandmother No problems noted. Brother , age 28 - MVA No problems noted. Social History Smoking/Tobacco Use Status: Current every day Tobacco Type: cigarettes Smoking packs per day: 1 Smoking cigarettes per day: 20.0 Years smoked: 47 Smoking pack-years: 47.00 Tobacco: How many years used: 47 Quit status: considering quitting Counseling given: provider counseling Smoking risk assessment performed?: Yes Alcohol Intake: current Alcohol Intake frequency: a few times a week Alcohol type: beer Details: Declined to answer all except selecting Beer Drug use: Never Substance use type: does not use Counseling given: No Counseling provided: none Adopted: No Caregiver/Support person: No Household members: spouse Housing: house Pets and animals: Yes Pets and animals: cat(s) Sexually active: Yes Do you think of yourself as: straight/heterosexual Current gender identity: female What is your relationship status?: How often do you talk on the phone with friends or family?: three or more times per week How often do you get together with friends or relatives?: twice per week Do you belong to any clubs or organized social groups?: no Panel score (0-1 are the most socially isolated patients): 2 What type of physical activity do you participate in: none Frequency: does not exercise Aida/Episcopalian: None Special aida needs: No Seatbelt use: always Helmet use: No Drive intox 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 parts driver: No Firearms in home: Yes Firearms unloaded and locked: Yes Do you feel safe at home: Yes Do you feel safe in your relationship?: Yes Victim of physical abuse: No Victim of emotional abuse: No Victim of sexual abuse: No Female Reproductive History Menstrual Menopause type: surgical History History 4 Para 2 Hx # Term Pregnancies Multiple births Hx # Pregnancies Ectopic pregnancies AB induced Hx Number of Living Children 2 AB spontaneous 2
--- NOTE | 2024-12-11 21:58 | DI.[facility]_ITS ---
PROCEDURE INFORMATION: Exam: XR Chest Exam date and time: 12/11/2024 9:20 PM Age: 59 years old Clinical indication: Shortness of breath; SOB TECHNIQUE: Imaging protocol: Radiologic exam of the chest. Views: 1 view. COMPARISON: CR XR PORTABLE CHEST AP 11/21/2024 9:51 PM FINDINGS: Lungs: Increased septal thickening noted with increased interstitial lung markings noted throughout, with Zaria-B lines, suggestive of pulmonary edema. These findings appear slightly more prominent than the prior examination. Pleural spaces: No large pleural effusion seen. No pneumothorax. Heart/Mediastinum: The heart is slightly prominent in size, at least in part due to AP technique. Bones/joints: Unremarkable. IMPRESSION: 1. Findings concerning for acute interstitial pulmonary edema. 2. No large pleural effusion. Dictated and Authenticated by: Charity Springer MD. Orderin Jesse Alford MD
[2024-12-11 22:11] LABS: Troponin I 17 ng/L (<or=51)
[2024-12-11] MEDS: DOXYCYCLINE 100 MG in Normal Saline 100 ML IVPB (22:35)
--- NOTE | 2024-12-11 22:58 | W.PM.HP.N ---
Date of service: 12/11/24 Time of Service: 22:58 Assessment and Plan Assessment and plan (1) Acute respiratory failure with hypoxia and hypercarbia: Start date: 12/11/24 Status: Acute Assessment and plan: This is a 59-year-old lady who continues to smoke who has asthma COPD and a history of CHF with chronic atrial fibrillation. She had sudden onset of shortness of breath watching a baseball game and will be treated for exacerbation of COPD and possible exacerbation of heart failure though her BNP is only slightly elevated. Chest x-ray suggested curly B-lines and vascular congestion with CHF. Monitor closely with telemetry. Patient have a slight elevation in her troponin which will be rechecked in the morning this most likely is a secondary troponin leak with no evidence of acute ischemia though she does have a history of CAD. PE is unlikely with patient being on Eliquis but consider CTA of the chest if not improving. Patient is a full code. (2) Asthma-COPD overlap syndrome: Status: Chronic Assessment and plan: Aggressive nebulizer treatments with continued Symbicort and IV Solu-Medrol for exacerbation with respiratory failure. This appears to be acute. (3) Heart failure with reduced ejection fraction: Status: Chronic Assessment and plan: BNP is only slightly elevated but chest x-ray suggest overload of fluid with curly B-lines, IV Lasix at increased dose. (4) Essential hypertension: Status: Chronic Assessment and plan: Continue outpatient medical therapy advancing metoprolol. (5) Cigarette smoker: Status: Chronic Assessment and plan: Continue nicotine supplement topically. (6) Atrial fibrillation: Status: Chronic Assessment and plan: Continue apixaban and metoprolol at increased dose. (7) Coronary artery disease: Status: Chronic Assessment and plan: Continue statin and outpatient medical therapy advancing metoprolol for hypertension. Patient did have a slight increase in troponins which appear to be noncardiac but this will be trended along with cardiac monitoring while hospitalized. (8) LIBBY (obstructive sleep apnea): Status: Chronic Assessment and plan: Patient usually wears CPAP at night but now is on BiPAP with her acute respiratory failure. History of Present Illness History of Present Illness Chief Complaint: Sudden onset of shortness of breath at rest watching a baseball game. Narrative: This is a 59-year-old female patient who has a diagnosis of COPD continue to smoke 1 to 2 cigarettes a day and CAD with cardiac catheterization in the past not resulting in stenting because of lack of significant occlusion but having progressive CHF with her left-ventricular ejection fraction following from 40 to 45% in July 2024 to 30 to 35% in October 2024. She denies any recent edema and she has had no chest pain. She has not had a slight cough with the change in weather. She denied chest pain at the time of her acute shortness of breath and she is on apixaban with chronic atrial fibrillation. She has been taking her medicines as scheduled. She also is on Lasix for CHF. She reports to the ED and was diagnosed with acute exacerbation of her COPD but chest x-ray did suggest possible CHF exacerbation with curly B-lines and vascular congestion. Her BNP was not markedly elevated being below 500. EKG was unrevealing and her initial troponin was negative with her second troponin slightly elevated at 55. She was mated to ICU for close observation of her respiratory status with BiPAP being applied because of her acute hypoxic and hypercapnic respiratory failure. She does wear CPAP at home for sleep apnea. She is not on home O2. She was comfortable at the time I examined her and had no further complaints. She is a full code. Review of Systems Narrative: 13 point review of systems otherwise unrevealing or stable. PFSH All Active Problems Acute respiratory failure with hypoxia and hypercarbia (Acute) Respiratory failure (Acute) COPD (chronic obstructive pulmonary disease) (Acute) Acute hyperglycemia (Acute) Atrial fibrillation (Chronic ~07/2024) Coronary artery disease (Chronic) nonobstructive, LAD stenosis Heart failure with reduced ejection fraction (Chronic) moderate Pulmonary embolism (Chronic ~07/2024) AAA (abdominal aortic aneurysm) (Chronic) Infrarenal, measuring 2.5cm 2024 LIBBY (obstructive sleep apnea) (Chronic) Nonrheumatic aortic (valve) stenosis (Acute) Aortic regurgitation (Chronic) Asthma-COPD overlap syndrome (Chronic) Essential hypertension (Chronic) Generalized anxiety disorder with panic attacks (Chronic) Hyperlipidemia (Chronic) GERD (gastroesophageal reflux disease) (Chronic) History of Graves' disease (Chronic) Osteoarthritis (Chronic) Cigarette smoker (Chronic) Annual LDCT paused d/t cost Nummular dermatitis (Chronic) Medical History Non-ST elevation [place] (NSTEMI) (~01/2023) Respiratory failure with hypoxia Depressive disorder Graves disease Surgical History Status post right knee replacement (01/20/19) S/P right knee arthroscopy (02/20/10) With partial medial meniscectomy S/P left knee arthroscopy (05/04/10) With partial medial and lateral meniscectomy S/P dilation and curettage S/P bilateral salpingo-oophorectomy S/P appendectomy S/P abdominal hysterectomy For abnormal uterine bleeding S/P lumpectomy, right breast (~1993) Family History Mother , at 77 Asthma Hypertension COPD (chronic obstructive pulmonary disease) Father , at 79 Parkinson disease Graves disease Hypertension Depression Suicide attempt Sister No problems noted. Sister , at 44 of metastatic bone cancer Metastatic bone cancer Brother , at 60 of pancreatic cancer Pancreatic cancer Diabetes Depression COPD (chronic obstructive pulmonary disease) Brother Alcohol abuse Son No problems noted. Daughter No problems noted. Maternal Grandfather Heart disease [place] Maternal Grandmother Brain cancer Paternal Grandfather No problems noted. Paternal Grandmother No problems noted. Brother , age 28 - MVA No problems noted. Social History Smoking/Tobacco Use Status: Current every day Tobacco Type: cigarettes Smoking packs per day: 1 Smoking cigarettes per day: 20.0 Years smoked: 47 Smoking pack-years: 47.00 Tobacco: How many years used: 47 Quit status: considering quitting Counseling given: provider counseling Smoking risk assessment performed?: Yes Alcohol Intake: current Alcohol Intake frequency: a few times a week Alcohol type: beer Details: Declined to answer all except selecting Beer Drug use: Never Substance use type: does not use Counseling given: No Counseling provided: none Adopted: No Caregiver/Support person: No Household members: spouse Housing: house Pets and animals: Yes Pets and animals: cat(s) Sexually active: Yes Do you think of yourself as: straight/heterosexual Current gender identity: female What is your relationship status?: How often do you talk on the phone with friends or family?: three or more times per week How often do you get together with friends or relatives?: twice per week Do you belong to any clubs or organized social groups?: no Panel score (0-1 are the most socially isolated patients): 2 What type of physical activity do you participate in: none Frequency: does not exercise Aida/Yazidi: None Special aida needs: No Seatbelt use: always Helmet use: No Drive intox 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 Firearms in home: Yes Firearms unloaded and locked: Yes Do you feel safe at home: Yes Do you feel safe in your relationship?: Yes Victim of physical abuse: No Victim of emotional abuse: No Victim of sexual abuse: No Female Reproductive History Menstrual Menopause type: surgical History History 4 Para 2 Hx # Term Pregnancies Multiple births Hx # Pregnancies Ectopic pregnancies AB induced Hx Number of Living Children 2 AB spontaneous 2 Meds Allergies and Home Medications Allergies Allergy/AdvReac Type Severity Reaction Status Date / Time amlodipine AdvReac Intermediate Peripheral Verified 12/11/24 20:39 edema Home Medications ?Medication ?Instructions ?Recorded ?Confirmed ?Type losartan 100 mg tablet 100 mg PO DAILY #90 tabs 01/20/24 12/11/24 Rx pantoprazole 20 mg tablet,delayed 20 mg PO DAILY #90 tabs 05/04/24 12/11/24 Rx release apixaban 5 mg tablet (Eliquis) 5 mg PO BID #180 tabs 08/13/24 12/11/24 Rx metoprolol succinate 50 mg 50 mg PO DAILY #90 tabs 08/13/24 12/11/24 Rx tablet,extended release 24 hr citalopram 20 mg tablet 20 mg PO DAILY #90 tabs 08/24/24 12/11/24 Rx albuterol sulfate 90 mcg/actuation 2 puff inhalation Q6H PRN 09/23/24 12/11/24 Rx aerosol inhaler shortness of breath or wheezing #8.5 grams nicotine 21 mg/24 hr daily 1 patch transdermal DAILY #42 ea 10/01/24 12/11/24 Rx transdermal patch budesonide-formoterol HFA 160 2 puff inhalation BID #10.2 grams 10/29/24 12/11/24 Rx mcg-4.5 mcg/actuation aerosol inhaler rosuvastatin 20 mg tablet 20 mg PO DAILY #90 tabs 10/29/24 12/11/24 Rx lorazepam 1 mg tablet 1 mg PO BID PRN panic attack(s) 11/11/24 12/11/24 Rx #30 tabs spironolactone 25 mg tablet 12.5 mg (1/2 x 25 mg) PO DAILY #30 11/13/24 12/11/24 Rx tabs varenicline tartrate 0.5 mg (11)-1 See Rx Instructions PO .COMPLEX 11/13/24 12/11/24 Rx mg (42) tablets in a dose pack #53 dose pk furosemide 20 mg tablet 40 mg (2 x 20 mg) PO DAILY #90 tabs 11/23/24 12/11/24 Rx tiotropium bromide 2.5 2 puff inhalation DAILY #1 inh 11/23/24 12/11/24 Rx mcg/actuation mist for inhalation (Spiriva Respimat) ipratropium 0.5 mg-albuterol 3 mg 3 ml UPD QID PRN shortness of 11/30/24 12/11/24 Rx (2.5 mg base)/3 mL nebulization breath or wheezing #180 mL soln amiodarone 200 mg tablet (Pacerone) 200 mg PO BID 30 days #60 tabs 12/03/24 12/11/24 Rx empagliflozin 10 mg tablet 10 mg PO DAILY #30 tabs 12/03/24 12/11/24 Rx (Jardiance) loratadine 10 mg tablet (Claritin) 10 mg PO DAILY #1 tab 12/03/24 12/11/24 Rx Exam Narrative Exam Narrative: General: Patient is moderately obese, alert and oriented x 3 and in no acute distress with BiPAP in place. HEENT: Normocephalic, eyes with pupils equal and reactive to light symmetrically, extraocular movement intact and sclera anicteric. Oropharynx with moist mucosa and fair dentition. Neck: Supple without JVD. Back: Stooped posture without CVA tenderness. Lungs: Bronchovesicular breath sounds diffusely with fair aeration, no focalizing rales or rhonchi occasional coarse crackle bilaterally lower gardner. No expiratory wheeze but slightly increased expiratory phase. No intercostal retraction. Breast: Exam deferred. Heart: Regular rate and rhythm with no appreciable murmur or gallop. Abdomen: Obese contour, soft and nontender to palpation with no palpable hepatosplenomegaly. Bowel sounds positive in all quadrants. Genitalia/rectal: Exam deferred. Skin: Normal color, warm and dry. Rough texture with actinic changes over sun exposed areas. Extremities: Without clubbing, cyanosis or pitting edema. Nonpitting edema both lower extremities. Fair capillary refill. Neuro: Cranial nerves II through XII gross intact, no focalized motor deficits and no tremor. Psych: Slightly anxious, normal mood. No abnormal thought processes. Remote and recent memory intact. Results Imaging Imaging Studies: Exam: XR Chest Exam date and time: 12/11/2024 9:20 PM Age: 59 years old Clinical indication: Shortness of breath; SOB TECHNIQUE: Imaging protocol: Radiologic exam of the chest. Views: 1 view. COMPARISON: CR XR PORTABLE CHEST AP 11/21/2024 9:51 PM FINDINGS: Lungs: Increased septal thickening noted with increased interstitial lung markings noted throughout with Zaria-B lines, suggestive of pulmonary edema. These findings appear slightly more prominent than the prior examination. Pleural spaces: No large pleural effusion seen. No pneumothorax. Heart/Mediastinum: The heart is slightly prominent in size, at least in part due to AP technique. Bones/joints: Unremarkable. IMPRESSION: 1. Findings concerning for acute interstitial pulmonary edema. 2. No large pleural effusion. Labs 12/11/24 20:35 12/11/24 20:35 Labs: Laboratory Results - last 24 hr 12/11/24 12/11/24 20:35 21:42 WBC 12.58 H RBC 5.16 Hgb 16.1 H Hct 48.9 H MCV 95 MCH 31.2 MCHC 32.9 RDW 14.1 Plt Count 215 MPV 10.3 Immature Gran % 0.4 Neutrophils % 55.0 Lymphocytes % 32.5 Monocytes % 10.3 Eosinophils % 1.2 Basophils % 0.6 Nucleated RBC % 0.0 Absolute Neutrophils 6.92 H Absolute Lymphocytes 4.09 H Absolute Monocytes 1.30 H Absolute Eosinophils 0.15 Absolute Basophils 0.08 VBG pH 7.21 L VBG pCO2 65 H* VBG pO2 43 VBG HCO3 26 VBG Total CO2 23 L VBG O2 Saturation 71 VBG Base Excess -2 Sodium 142 Potassium 4.6 Chloride 104 Carbon Dioxide 27.6 Anion Gap 10.4 BUN 17 Creatinine 1.0 Est GFR (CKD-EPI 2020) 64.09 Glucose 138 H Calcium 9.4 Magnesium 2.3 Total Bilirubin 0.5 AST 18 ALT 35 Alkaline Phosphatase 106 Troponin I 15 17 NT-Pro-B Natriuret Pep 333 H Total Protein 7.5 Albumin 3.7 Last Vital Signs Pulse 88 12/11/24 21:40 Resp 33 H 12/11/24 21:40 BP 174/102 H 12/11/24 21:01 Pulse Ox 94 12/11/24 21:40 Time Spent Time spent with Patient: >75 minutes Time was spent: preparing to see the patient(eg.review tests), obtaining and/or reviewing separately otained hiistory, ordering medications,tests, procedures, indepentently interpreting results, counseling the patient and care coordination
[2024-12-11 23:01] LABS: COVID-19 PCR Negative (Negative); Influenza A PCR Negative (Negative); Influenza B PCR Negative (Negative); RSV PCR Negative (Negative)
[2024-12-11 23:02] LABS: Source Nasopharynx
[2024-12-12] VITALS (73 sets, daily range): BP systolic 99–148; BP diastolic 53–85; PULSE 54–74; RESP 2–33; TEMP 36.8–37.1; O2SAT 92–99
[2024-12-12 00:31] LABS: Troponin I 55 ng/L (<or=51)
[2024-12-12 07:26] LABS: HCT 44.8 % (36.0-46.0); HGB 14.8 g/dL (11.2-15.7); MCH 30.3 pg (27.0-33.0); MCV 92 fL (80-95); MPV 10.4 fL (8.0-11.0); Platelet Count 197 10^3/uL (130-400); RBC 4.89 10^6/uL (3.93-5.22); RDW 13.8 % (11.7-14.6); RDW-SD 46.9 fL; WBC 6.92 10^3/uL (4.4-10.8)
[2024-12-12 07:53] LABS: ALT 35 U/L (14-59); AST 17 U/L (15-37); Albumin 3.2 g/dL (3.4-5.0); Alkaline Phosphatase 96 U/L (46-116); Anion Gap 9.6 mmol/L (3-11); BUN 20 mg/dL (7-18); Bilirubin, Total 0.6 mg/dL (0.2-1.0); CO2 24.4 mmol/L (21.0-32.0); CREATININE 0.6 mg/dL (0.55-1.02); Calcium 9.1 mg/dL (8.5-10.1); Chloride 105 mmol/L (98-107); Estimated GFR 102.06 (mL/min/1.73m2); Glucose 146 mg/dL (74-106); Magnesium 2.4 mg/dL (1.8-2.4); Potassium 4.5 mmol/L (3.5-5.1); Sodium 139 mmol/L (136-145); Total Protein 6.7 g/dL (6.4-8.2)
[2024-12-12 07:56] LABS: TSH (W/Ref FT4) 0.32 uIU/mL (0.36-3.74)
[2024-12-12 08:12] LABS: Troponin I 65 ng/L (<or=51)
[2024-12-12] MEDS: Albuterol/Ipratropium 3 ML UPD VIAL UPD ×2 (08:37→11:35)
[2024-12-12] MEDS: Budesonide/Formoterol 160/4.5 6 GM 60 PUFF INH IH (08:37)
[2024-12-12 08:52] LABS: FREE T4 1.31 ng/dL (0.76-1.46)
[2024-12-12 08:59] LABS: BE (Venous) -1 mmol/L (-2-3); HCO3 (Venous) 24 mmol/L (23-28); O2 Sat (Venous) 93 %; TCO2 (Venous) 21 mmol/L (24-29); pCO2 (Venous) 36 mmHg (41-51); pH (Venous) 7.43 (7.31-7.41); pO2 (Venous) 59 mmHg
[2024-12-12] MEDS: predniSONE 20 MG TAB 40 MG PO (09:54)
[2024-12-12] MEDS: Spironolactone 25 MG TAB 12.5 MG PO (09:54)
[2024-12-12] MEDS: Apixaban 5 MG TAB PO (09:54)
[2024-12-12] MEDS: Empaglifozin 10 MG TAB PO (09:55)
[2024-12-12] MEDS: Pantoprazole 20 MG TABCR PO (09:55)
[2024-12-12] MEDS: Amiodarone 200 MG TAB PO (09:56)
[2024-12-12] MEDS: Loratidine 10 MG TAB PO (09:56)
[2024-12-12] MEDS: Losartan 50 MG TAB 100 MG PO (09:56)
[2024-12-12] MEDS: Citalopram 20 MG TAB PO (09:56)
[2024-12-12] MEDS: Furosemide 40 MG TAB PO (09:57)
[2024-12-12] MEDS: DOXYCYCLINE 100 MG in Normal Saline 100 ML IVPB (09:57)
[2024-12-12] MEDS: Rosuvastatin 20 MG TAB PO (09:57)
[2024-12-12] MEDS: Normal Saline Flush 10 ML SYR IVP (09:57)
--- NOTE | 2024-12-12 10:07 | PDOC.CMIN ---
Date of service: 12/12/24 Time of Service: 10:08 Care Management Initial Assmt Initial Assessment Reason for Hospitalization: Respiratory failure with hypoxia and hypercarbia Functional Status/Living Situation Town of Residence: [facility] Resides with: Spouse (Guru) Significant Other/Family: Local Natural Supports: , Guru daughter, Stefany Employment Status: Retired Instrumental Activities of Daily Living (ADLs): Independent Medications Medication Management: No Issues/Barriers identified Advance Directives Advance Directives: Do you have an Advance Directive: N 04/15/13, 12:26 AD On File at [facility]: N 04/15/13, 12:26 Date Asked 12/11/24 12/11/24, 20:37 AD Date Reviewed COLST On File at [facility] COLST Date Scanned Code Status Resuscitation Status Full Code Care Team Visit Care Team Role Provider Type Kali Page MD MD [facility] STAFF PHYSICIAN Racquel Fraser NP Primary Care Provider NURSE PRACTITIONER Anamaria Molina MD Emergency Provider [facility] STAFF PHYSICIAN Grady García Admit Provider NON-[facility] STAFF PHYSICIAN Attending Provider Social Determinants of Health Screening Social Determinants of health last assessed in clinic: 12/12/24 Will the Patient Participate in the Screening?: Yes Do you worry about having a steady place to live?: no Problems where you live: no known problems In the past 12 months, have you had to go without electric, gas, oil or water in your home?: no Has lack of transportation kept you from medical appointments or from doing things needed for daily living?: no Has anyone in your life made you feel unsafe or unsupported?: no How hard is it for you to pay for the very basics like food, housing, medical care, and heating? Would you say it is:: Not hard at all Do you want help finding or keeping work or a job?: I do not need or want help If for any reason you need help with day-to-day activities such as bathing, preparing meals, shopping, managing finances, etc., do you get the help you need?: I get all the help I need How often do you feel lonely or isolated from those around you?: Never Do you speak a language other than Surinamese at home?: No Does the patient want assistance with any of the above?: No PFSH All Active Problems Acute respiratory failure with hypoxia and hypercarbia (Acute) Respiratory failure (Acute) COPD (chronic obstructive pulmonary disease) (Acute) Acute hyperglycemia (Acute) Atrial fibrillation (Chronic ~07/2024) Coronary artery disease (Chronic) nonobstructive, LAD stenosis Heart failure with reduced ejection fraction (Chronic) moderate Pulmonary embolism (Chronic ~07/2024) AAA (abdominal aortic aneurysm) (Chronic) Infrarenal, measuring 2.5cm 2024 LIBBY (obstructive sleep apnea) (Chronic) Nonrheumatic aortic (valve) stenosis (Acute) Aortic regurgitation (Chronic) Asthma-COPD overlap syndrome (Chronic) Essential hypertension (Chronic) Generalized anxiety disorder with panic attacks (Chronic) Hyperlipidemia (Chronic) GERD (gastroesophageal reflux disease) (Chronic) History of Graves' disease (Chronic) Osteoarthritis (Chronic) Cigarette smoker (Chronic) Annual LDCT paused d/t cost Nummular dermatitis (Chronic) Medical History Non-ST elevation [place] (NSTEMI) (~01/2023) Respiratory failure with hypoxia Depressive disorder Graves disease Surgical History Status post right knee replacement (01/20/19) S/P right knee arthroscopy (02/20/10) With partial medial meniscectomy S/P left knee arthroscopy (05/04/10) With partial medial and lateral meniscectomy S/P dilation and curettage S/P bilateral salpingo-oophorectomy S/P appendectomy S/P abdominal hysterectomy For abnormal uterine bleeding S/P lumpectomy, right breast (~1993) Family History Mother , at 77 Asthma Hypertension COPD (chronic obstructive pulmonary disease) Father , at 79 Parkinson disease Graves disease Hypertension Depression Suicide attempt Sister No problems noted. Sister , at 44 of metastatic bone cancer Metastatic bone cancer Brother , at 60 of pancreatic cancer Pancreatic cancer Diabetes Depression COPD (chronic obstructive pulmonary disease) Brother Alcohol abuse Son No problems noted. Daughter No problems noted. Maternal Grandfather Heart disease [place] Maternal Grandmother Brain cancer Paternal Grandfather No problems noted. Paternal Grandmother No problems noted. Brother , age 28 - MVA No problems noted. Social History Smoking/Tobacco Use Status: Current every day Tobacco Type: cigarettes Smoking packs per day: 1 Smoking cigarettes per day: 20.0 Years smoked: 47 Smoking pack-years: 47.00 Tobacco: How many years used: 47 Quit status: considering quitting Counseling given: provider counseling Smoking risk assessment performed?: Yes Alcohol Intake: current Alcohol Intake frequency: a few times a week Alcohol type: beer Details: Declined to answer all except selecting Beer Drug use: Never Substance use type: does not use Counseling given: No Counseling provided: none Adopted: No Caregiver/Support person: No Household members: spouse Housing: house Pets and animals: Yes Pets and animals: cat(s) Sexually active: Yes Do you think of yourself as: straight/heterosexual Current gender identity: female What is your relationship status?: How often do you talk on the phone with friends or family?: three or more times per week How often do you get together with friends or relatives?: twice per week Do you belong to any clubs or organized social groups?: no Panel score (0-1 are the most socially isolated patients): 2 What type of physical activity do you participate in: none Frequency: does not exercise Aida/Jehovah'S Witness: None Special aida needs: No Seatbelt use: always Helmet use: No Drive 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
[2024-12-12] MEDS: Acetaminophen 325 MG TAB PO (10:29)
[2024-12-12 10:54] LABS: Bilirubin Negative (Negative); Blood Negative (Negative); Clarity Sl Cloudy (Clear); Glucose >=1000 mg/dL (Negative); Ketones Negative (Negative); Leukocyte Esterase Negative (Negative); Nitrite Negative (Negative); Urobilinogen 0.2 mg/dL (Up to 0.2)
[2024-12-12 11:01] LABS: Bacteria Moderate HPF (Negative); C & S Indicated? No; Casts Negative LPF (Negative); Crystals Negative HPF (Negative); Epithelial Cells Moderate HPF (Negative); Mucus Trace (Negative); RBC 0-2 HPF (0-2); WBC 0-2 HPF (0-5)
[2024-12-12] MEDS: Metoprolol 50 MG TAB PO (12:01)
--- NOTE | 2024-12-12 12:18 | DSE_ITS ---
Date of service: 12/12/24 Time of Service: 12:18 DS: Diagnosis Discharge Diagnosis (1) Acute respiratory failure with hypoxia and hypercarbia: Status: Acute (2) Asthma-COPD overlap syndrome: Status: Chronic (3) Heart failure with reduced ejection fraction: Status: Chronic (4) Essential hypertension: Status: Chronic (5) Cigarette smoker: Status: Chronic (6) Atrial fibrillation: Status: Chronic (7) Coronary artery disease: Status: Chronic (8) LIBBY (obstructive sleep apnea): Status: Chronic Discharge Plan Disposition Patient Disposition: Home Condition: Good Discharge Details Reason For Visit: Respiratory failure with hypoxia and hypercarbia Admit Date/Time: 12/11/24 23:14 Admit Provider: Grady García Attending Provider: Grady García Primary Care Provider: [facility] Hospital Course Hospital Course: Patient initially presented with signs and symptoms consistent with acute exacerbation of COPD with acute hypoxic and hypercapnic respiratory failure. She briefly required BiPAP therapy and was very rapidly transition to nasal cannula and then subsequently room air. She was able to ambulate around the room significantly without desaturation or experiencing any episodes of shortness of breath. Therefore, it was determined that she was stable for discharge home and will have an additional 5 days of 40 mg p.o. prednisone. Home Meds and New Rx's Prescriptions: New prednisone 20 mg Tablet 40 mg PO DAILY 5 Days Qty: 10 0RF Continued citalopram 20 mg tablet 20 mg PO DAILY Qty: 90 3RF losartan 100 mg tablet 100 mg PO DAILY Qty: 90 3RF Eliquis 5 mg tablet 5 mg PO BID Qty: 180 3RF metoprolol succinate 50 mg tablet extended release 24 hr 50 mg PO DAILY Qty: 90 3RF nicotine 21 mg/24 hr patch 24 hour 1 patch transdermal DAILY Qty: 42 0RF Rx Instructions: Apply 1 patch daily for 6 weeks budesonide-formoterol 160-4.5 mcg/actuation HFA aerosol inhaler 2 puff inhalation BID Qty: 10.2 4RF Rx Instructions: 2 puffs twice a day and may use as a reliever therapy for acute difficulty breathing, 1 to 2 puffs every 4 hours as needed. Max inhalations 12 per day rosuvastatin 20 mg tablet 20 mg PO DAILY Qty: 90 3RF amiodarone [Pacerone] 200 mg tablet 200 mg PO BID 30 Days Qty: 60 0RF Jardiance 10 mg tablet 10 mg PO DAILY Qty: 30 0RF loratadine [Claritin] 10 mg tablet 10 mg PO DAILY Qty: 1 0RF pantoprazole 20 mg tablet,delayed release (DR/EC) 20 mg PO DAILY Qty: 90 3RF albuterol sulfate 90 mcg/actuation HFA aerosol inhaler 2 puff Inhalation Q6H PRN (Reason: shortness of breath or wheezing) Qty: 8.5 6RF lorazepam 1 mg tablet 1 mg PO BID PRN (Reason: panic attack(s)) Qty: 30 0RF ipratropium-albuterol 0.5 mg-3 mg(2.5 mg base)/3 mL solution for nebulization 3 ml UPD QID PRN (Reason: shortness of breath or wheezing) Qty: 180 3RF Spiriva Respimat 2.5 mcg/actuation Mist 2 puff inhalation DAILY Qty: 1 2RF furosemide 20 mg tablet 40 mg PO DAILY Qty: 90 3RF spironolactone 25 mg Tablet 12.5 mg PO DAILY Qty: 30 0RF varenicline tartrate 0.5 mg (11)- 1 mg (42) tablets,dose pack See Rx Instructions .ROUTE .COMPLEX Qty: 53 0RF Rx Instructions: orally per package directions Discharge Instructions Activity:: Activity as Tolerated Equipment/Supplies:: No Equipment Needed Diet:: As Tolerated Discharge Orders Discharge Orders: Discharge Order (Routine); Ordered 12/12/24 Ordered By: Kali Page DS: Summary Time Spent with Patient providing and/or coordinating discharge services: Greater than 30 minutes Status at Discharge Functional status at discharge: independent ambulation Overall status at discharge: patient is back to baseline Mental Status: mental status grossly normal Speech and Movement: speech and movement normal Mood: congruent mood Affect: normal affect Quality:SDOH Health Related Social Needs: Health related social needs details Survey postponed f or when patient is not on bipap. Exam Narrative Exam Narrative: Well-appearing female sitting up at the edge of the bed in no acute distress, ANO x 4, heart regular rhythm, lungs good auscultation bilaterally, abdomen soft, nontender, nondistended Psych Mental Status: mental status grossly normal Speech and Movement: speech and movement normal Mood: congruent mood Affect: normal affect DS: Data Vitals/I&O Vitals and I&O: Vital Signs Temperature 98.8 F 12/12/24 08:45 Temperature Source Temporal Artery Scan 12/12/24 08:45 Pulse 66 12/12/24 11:35 Pulse 66 12/12/24 11:02 Respiratory Rate 20 12/12/24 11:35 Respiratory Effort Normal, Non-Labored 12/12/24 00:45 Respiratory Depth Normal 12/12/24 00:45 Respiratory Pattern Tachypnea 12/12/24 00:45 Blood Pressure 130/65 12/12/24 11:01 Blood Pressure Mean 82 12/12/24 11:01 Blood Pressure Position Sitting 12/11/24 20:33 Pulse Oximetry 95 12/12/24 11:35 Oxygen Delivery Method Room Air 12/12/24 11:35 Oxygen Flow Rate 0 12/12/24 11:35 Fraction of Inspired Oxygen (FIO2) 21 12/12/24 08:37 Pain Level 8 12/12/24 10:29 Intake & Output 12/11/24 12/12/24 12/12/24 17:59 05:59 17:59 Intake Total 300 / 300 100 / 100 Output Total 375 / 375 500 / 500 Balance -75 / -75 -400 / -400 Weight 170 lb 6.677 oz Intake: IV 150 / 150 100 / 100 Oral 150 / 150 Output: Urine 375 / 375 500 / 500 Other: Urine Color Straw Light Yolanda Urine Appearance Cloudy Clear Urine Odor Normal None Data Completed and Pending Labs on day of discharge: Labs from last 24 hours 12/12/24 12/12/24 12/12/24 10:00 08:55 06:05 WBC 6.92 RBC 4.89 Hgb 14.8 Hct 44.8 MCV 92 MCH 30.3 MCHC 33.0 RDW 13.8 Plt Count 197 MPV 10.4 Immature Gran % Neutrophils % Lymphocytes % Monocytes % Eosinophils % Basophils % Nucleated RBC % Absolute Neutrophils Absolute Lymphocytes Absolute Monocytes Absolute Eosinophils Absolute Basophils VBG pH 7.43 H VBG pCO2 36 L VBG pO2 59 VBG HCO3 24 VBG Total CO2 21 L VBG O2 Saturation 93 VBG Base Excess -1 Sodium Potassium Chloride Carbon Dioxide Anion Gap BUN Creatinine Est GFR (CKD-EPI 2020) Glucose Calcium Magnesium Total Bilirubin AST ALT Alkaline Phosphatase Troponin I NT-Pro-B Natriuret Pep Total Protein Albumin TSH 0.32 L Free T4 1.31 Urine Color Yellow Urine Clarity Sl Cloudy Urine pH 6.0 Ur Specific [place] 1.020 Urine Protein Trace Urine Ketones Negative Urine Blood Negative Urine Nitrite Negative Urine Bilirubin Negative Urine Urobilinogen 0.2 Ur Leukocyte Esterase Negative Urine RBC 0-2 Urine WBC 0-2 Ur Epithelial Cells Moderate Urine Crystals Negative Urine Bacteria Moderate Urine Casts Negative Urine Mucus Trace Ur Culture Indicated? No Urine Glucose >=1000 H COVID-19 Source SARS-CoV-2 (PCR) Influenza Type A (PCR) Influenza Type B (PCR) RSV (PCR) 12/12/24 12/12/24 12/11/24 05:35 00:04 22:14 WBC RBC Hgb Hct MCV MCH MCHC RDW Plt Count MPV Immature Gran % Neutrophils % Lymphocytes % Monocytes % Eosinophils % Basophils % Nucleated RBC % Absolute Neutrophils Absolute Lymphocytes Absolute Monocytes Absolute Eosinophils Absolute Basophils VBG pH VBG pCO2 VBG pO2 VBG HCO3 VBG Total CO2 VBG O2 Saturation VBG Base Excess Sodium 139 Potassium 4.5 Chloride 105 Carbon Dioxide 24.4 Anion Gap 9.6 BUN 20 H Creatinine 0.6 Est GFR (CKD-EPI 2020) 102.06 Glucose 146 H Calcium 9.1 Magnesium 2.4 Total Bilirubin 0.6 AST 17 ALT 35 Alkaline Phosphatase 96 Troponin I 65 H* 55 H* NT-Pro-B Natriuret Pep Total Protein 6.7 Albumin 3.2 L TSH Free T4 Urine Color Urine Clarity Urine pH Ur Specific [place] Urine Protein Urine Ketones Urine Blood Urine Nitrite Urine Bilirubin Urine Urobilinogen Ur Leukocyte Esterase Urine RBC Urine WBC Ur Epithelial Cells Urine Crystals Urine Bacteria Urine Casts Urine Mucus Ur Culture Indicated? Urine Glucose COVID-19 Source Nasopharynx SARS-CoV-2 (PCR) Negative Influenza Type A (PCR) Negative Influenza Type B (PCR) Negative RSV (PCR) Negative 12/11/24 12/11/24 21:42 20:35 WBC 12.58 H RBC 5.16 Hgb 16.1 H Hct 48.9 H MCV 95 MCH 31.2 MCHC 32.9 RDW 14.1 Plt Count 215 MPV 10.3 Immature Gran % 0.4 Neutrophils % 55.0 Lymphocytes % 32.5 Monocytes % 10.3 Eosinophils % 1.2 Basophils % 0.6 Nucleated RBC % 0.0 Absolute Neutrophils 6.92 H Absolute Lymphocytes 4.09 H Absolute Monocytes 1.30 H Absolute Eosinophils 0.15 Absolute Basophils 0.08 VBG pH 7.21 L VBG pCO2 65 H* VBG pO2 43 VBG HCO3 26 VBG Total CO2 23 L VBG O2 Saturation 71 VBG Base Excess -2 Sodium 142 Potassium 4.6 Chloride 104 Carbon Dioxide 27.6 Anion Gap 10.4 BUN 17 Creatinine 1.0 Est GFR (CKD-EPI 2020) 64.09 Glucose 138 H Calcium 9.4 Magnesium 2.3 Total Bilirubin 0.5 AST 18 ALT 35 Alkaline Phosphatase 106 Troponin I 17 15 NT-Pro-B Natriuret Pep 333 H Total Protein 7.5 Albumin 3.7 TSH Free T4 Urine Color Urine Clarity Urine pH Ur Specific [place] Urine Protein Urine Ketones Urine Blood Urine Nitrite Urine Bilirubin Urine Urobilinogen Ur Leukocyte Esterase Urine RBC Urine WBC Ur Epithelial Cells Urine Crystals Urine Bacteria Urine Casts Urine Mucus Ur Culture Indicated? Urine Glucose COVID-19 Source SARS-CoV-2 (PCR) Influenza Type A (PCR) Influenza Type B (PCR) RSV (PCR) PFSH All Active Problems Acute respiratory failure with hypoxia and hypercarbia (Acute) Respiratory failure (Acute) COPD (chronic obstructive pulmonary disease) (Acute) Acute hyperglycemia (Acute) Atrial fibrillation (Chronic ~07/2024) Coronary artery disease (Chronic) nonobstructive, LAD stenosis Heart failure with reduced ejection fraction (Chronic) moderate Pulmonary embolism (Chronic ~07/2024) AAA (abdominal aortic aneurysm) (Chronic) Infrarenal, measuring 2.5cm 2024 LIBBY (obstructive sleep apnea) (Chronic) Nonrheumatic aortic (valve) stenosis (Acute) Aortic regurgitation (Chronic) Asthma-COPD overlap syndrome (Chronic) Essential hypertension (Chronic) Generalized anxiety disorder with panic attacks (Chronic) Hyperlipidemia (Chronic) GERD (gastroesophageal reflux disease) (Chronic) History of Graves' disease (Chronic) Osteoarthritis (Chronic) Cigarette smoker (Chronic) Annual LDCT paused d/t cost Nummular dermatitis (Chronic) Medical History Non-ST elevation SC (NSTEMI) (~01/2023) Respiratory failure with hypoxia Depressive disorder Graves disease Surgical History Status post right knee replacement (01/20/19) S/P right knee arthroscopy (02/20/10) With partial medial meniscectomy S/P left knee arthroscopy (05/04/10) With partial medial and lateral meniscectomy S/P dilation and curettage S/P bilateral salpingo-oophorectomy S/P appendectomy S/P abdominal hysterectomy For abnormal uterine bleeding S/P lumpectomy, right breast (~1993) Family History Mother , at 77 Asthma Hypertension COPD (chronic obstructive pulmonary disease) Father , at 79 Parkinson disease Graves disease Hypertension Depression Suicide attempt Sister No problems noted. Sister , at 44 of metastatic bone cancer Metastatic bone cancer Brother , at 60 of pancreatic cancer Pancreatic cancer Diabetes Depression COPD (chronic obstructive pulmonary disease) Brother Alcohol abuse Son No problems noted. Daughter No problems noted. Maternal Grandfather Heart disease SC Maternal Grandmother Brain cancer Paternal Grandfather No problems noted. Paternal Grandmother No problems noted. Brother , age 28 - MVA No problems noted. Social History Smoking/Tobacco Use Status: Current every day Tobacco Type: cigarettes Smoking packs per day: 1 Smoking cigarettes per day: 20.0 Years smoked: 47 Smoking pack- years: 47.00 Tobacco: How many years used: 47 Quit status: considering quitting Counseling given: provider counseling Smoking risk assessment performed?: Yes Alcohol Intake: current Alcohol Intake frequency: a few times a week Alcohol type: beer Details: Declined to answer all except selecting Beer Drug use: Never Substance use type: does not use Counseling given: No Counseling provided: none Adopted: No Caregiver/Support person: No Household members: spouse Housing: house Pets and animals: Yes Pets and animals: cat(s) Sexually active: Yes Do you think of yourself as: straight/heterosexual Current gender identity: female What is your relationship status?: How often do you talk on the phone with friends or family?: three or more times per week How often do you get together with friends or relatives?: twice per week Do you belong to any clubs or organized social groups?: no Panel score (0-1 are the most socially isolated patients): 2 What type of physical activity do you participate in: none Frequency: does not exercise Aida/Advent: None Special aida needs: No Seatbelt use: always Helmet use: No Drive intox 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: No Firearms in home: Yes Firearms unloaded and locked: Yes Do you feel safe at home: Yes Do you feel safe in your relationship?: Yes Victim of physical abuse: No Victim of emotional abuse: No Victim of sexual abuse: No Female Reproductive History Menstrual Menopause type: surgical History History 4 Para 2 Hx # Term Pregnancies Multiple births Hx # Pregnancies Ectopic pregnancies AB induced Hx Number of Living Children 2 AB spontaneous 2 Time Spent with Patient Time Spent with Patient: <45 minutes Time was spent: preparing to see the patient(eg.review tests), obtaining and/or reviewing separately otained hiistory, ordering medications,tests, procedures, referring, communicating with other health elderly caregiver, indepentently interpreting results, counseling the patient and care coordination
== END 2024-12-12 13:30 | disposition home or self-care (01) | DRG 190 ==
LOC: ER 23:26 → ICU 12-12 00:27
PROVIDERS: Admitting Provider Family Medicine; Emergency Provider Emergency Medicine; PCP Nurse Practitioner Family; Responsible Provider Family Medicine; Visit Provider Family Medicine
DX: J44.1 Chronic obstructive pulmonary disease with (acute) exacerbation (principal); I50.23 Acute on chronic systolic (congestive) heart failure; J96.01 Acute respiratory failure with hypoxia; J96.02 Acute respiratory failure with hypercapnia; I48.20 Chronic atrial fibrillation, unspecified; I11.0 Hypertensive heart disease with heart failure; F17.210 Nicotine dependence, cigarettes, uncomplicated; G47.33 Obstructive sleep apnea (adult) (pediatric); I25.10 Atherosclerotic heart disease of native coronary artery without angina pectoris; Z86.711 Personal history of pulmonary embolism; F41.0 Panic disorder [episodic paroxysmal anxiety]; E78.5 Hyperlipidemia, unspecified; K21.9 Gastro-esophageal reflux disease without esophagitis; I25.2 Old myocardial infarction; Z96.651 Presence of right artificial knee joint; Z79.01 Long term (current) use of anticoagulants; I35.2 Nonrheumatic aortic (valve) stenosis with insufficiency; I71.43 Infrarenal abdominal aortic aneurysm, without rupture
CPT/HCPCS: 00123; 36415; 80053; 82805; 85027; 87637; 93005; 94618; 94640; 96365; 96366; 96367; 96375; 99291; 71045; 81003; 81015; 83735; 83880; 84439; 84443; 84484; 85025; 93010; 94660; 94664; 94760; 99223; 99239; J2060; J2919; J3475; J7512; J7620

== ENCOUNTER 2024-12-15 04:24 | Outpatient (CLI) | payer OTHER, SELFPAY ==
[2024-12-15] MEDS: Levalbuterol HFA 15 GM INH 4 PUFF IH (09:21)
[2024-12-15] MEDS: Inhaler, Assist Device 1 EACH MC (09:21)
--- NOTE | 2024-12-21 12:03 | W.PFT ---
Date of service: 12/15/24 Time of Service: 08:00 Pulmonary Function Test Result Indications: COPD Interpretation Spirometry: No airflow limitation. Restrictive spirometry. No significant bronchodilator response. Lung Volumes: There is air trapping Diffusion Capacity: Normal diffusion Airway Pressure: Normal airways resistance Impression There is air trapping but no airflow obstruction. Note: When compared to 03/11/23, FVC and FEV1 and decreased Clinical Correlation therefore is recommended.
== END 2024-12-15 04:25 | disposition home or self-care (01) ==
PROVIDERS: PCP Nurse Practitioner Family; Visit Provider Student in an Organized Health Care Education/Training Program
DX: J44.9 Chronic obstructive pulmonary disease, unspecified (principal)
CPT/HCPCS: 94060; 94726; 94729

== ENCOUNTER 2024-12-22 02:09 | Inpatient (IN) | payer OTHER, SELFPAY ==
[2024-12-22] VITALS (65 sets, daily range): BP systolic 87–228; BP diastolic 45–133; PULSE 57–108; RESP 13–36; TEMP 36.8–37; O2SAT 89–97
--- NOTE | 2024-12-22 | DI.RAD_ITS ---
Exam(s) XR CHEST 2V PA LATERAL EXAM: XR CHEST 2V PA LATERAL CLINICAL HISTORY: pulm edema TECHNIQUE: 2D digital imaging was performed. Two views. COMPARISON: CR,XR XR CHEST 2V PA LATERAL from 11/11/2024 CR,XR XR PORTABLE CHEST AP from 11/21/2024 CR,XR XR PORTABLE CHEST AP from 12/11/2024 FINDINGS: HEART: Normal size. Aorta: Not dilated. PULMONARY VASCULATURE: Normal. MEDIASTINUM: Unremarkable. LUNGS: Significant improvement of previously noted pulmonary edema. There is mild pulmonary vascular prominence and peribronchial thickening remaining present. No evidence of focal infiltrate. PLEURAL SPACE: Minimal blunting at the costophrenic angles. No pneumothorax. BONE:Unremarkable for age. SOFT TISSUES: Unremarkable. IMPRESSION: Improvement in pulmonary edema. DATA REPOSITORY: RADIATION DOSE DELIVERED:
--- NOTE | 2024-12-22 01:45 | RT.EKG_ITS ---
APPROVED REPORT Exam: Resting ECG Reason for Exam: SOB Patient Location: E HR:105 bpm ECG Measurements Heart Rate 105 AXIS LA 179 P 73 QRSd 110 QRS -2 QT 340 T 87 QTc 450 Conclusion Sinus tachycardia...rate> 99 Probable left atrial enlargement...P >50mS, <-0.10mV V1 Nonspecific T abnormalities, lateral leads...T <-0.10mV, I aVL V5 V6 Normal [place]/Interval ST changes likely rate related and similar to previous.
--- NOTE | 2024-12-22 01:45 | DI.RAD_ITS ---
Exam(s) XR PORTABLE CHEST AP EXAM: XR PORTABLE CHEST AP CLINICAL HISTORY: SOB. TECHNIQUE: 2D digital imaging was performed. COMPARISON: CR,XR XR CHEST 2V PA LATERAL from 11/11/2024 CR,XR XR PORTABLE CHEST AP from 12/11/2024 FINDINGS: Single AP portable view. Heart size is upper normal. The mediastinum is not widened. Again noted is an extensive bilateral non improved interstitial pattern throughout both lung gardner as well as Zaria B lines evident. Findings are consistent with pulmonary edema. There slight blunting of the right costophrenic angle which may indicate a small amount of pleural fluid. IMPRESSION: No radiographic improvement in the extensive bilateral interstitial pulmonary edema pattern when compared to 12/11/2024.Heart size remains normal. I note that the lungs were clear on the recent chest radiograph of 11/11/2024. DATA REPOSITORY: RADIATION DOSE DELIVERED:
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
[2024-12-22 02:03] LABS: BE (Venous) 0 mmol/L (-2-3); HCO3 (Venous) 29 mmol/L (23-28); O2 Sat (Venous) 94 %; TCO2 (Venous) 27 mmol/L (24-29); pO2 (Venous) 92 mmHg
[2024-12-22] MEDS: Albuterol 2.5 MG/3 ML INH SOLN VIAL 7.5 MG UPD (02:04)
[2024-12-22] MEDS: MAGNESIUM SULFATE 2 GM/50 ML BAG IV_INF (02:04)
[2024-12-22] MEDS: Normal Saline 1,000 ML 1000 ML IV (02:06)
[2024-12-22 02:10] LABS: pCO2 (Venous) 94 mmHg (41-51)
[2024-12-22 02:16] LABS: Abs Immature Grans 0.40 10^3/uL (0.0-0.06); HCT 51.9 % (36.0-46.0); HGB 17.1 g/dL (11.2-15.7); MCH 31.5 pg (27.0-33.0); MCHC 32.9 % (32.0-36.0); MCV 96 fL (80-95); MPV 10.5 fL (8.0-11.0); Platelet Count 275 10^3/uL (130-400); RBC 5.43 10^6/uL (3.93-5.22); RDW 14.8 % (11.7-14.6); RDW-SD 52.2 fL; WBC 16.92 10^3/uL (4.4-10.8)
[2024-12-22 02:23] LABS: ALT 46 U/L (14-59); AST 30 U/L (15-37); Albumin 3.7 g/dL (3.4-5.0); Alkaline Phosphatase 111 U/L (46-116); Anion Gap 4.5 mmol/L (3-11); BUN 23 mg/dL (7-18); Bilirubin, Total 0.3 mg/dL (0.2-1.0); CO2 33.5 mmol/L (21.0-32.0); Calcium 9.2 mg/dL (8.5-10.1); Chloride 104 mmol/L (98-107); Estimated GFR 72.73 (mL/min/1.73m2); Glucose 218 mg/dL (74-106); Magnesium 2.3 mg/dL (1.8-2.4); Potassium 4.5 mmol/L (3.5-5.1); Sodium 142 mmol/L (136-145); Total Protein 7.6 g/dL (6.4-8.2)
[2024-12-22 02:28] LABS: Troponin I 20 ng/L (<or=51)
[2024-12-22] MEDS: Furosemide 100 MG/10 ML VIAL 80 MG IVP (02:30)
[2024-12-22 02:31] LABS: Immature Grans % 0.0 %; RBC Morphology Normal
[2024-12-22] MEDS: nitroGLYcerin 2% 1 INCH/1 GM PKT TP (02:31)
--- NOTE | 2024-12-22 03:01 | DI.VRAD_ITS ---
PROCEDURE INFORMATION: Exam: XR Chest Exam date and time: 12/22/2024 2:16 AM Age: 59 years old Clinical indication: Shortness of breath; SOB TECHNIQUE: Imaging protocol: Radiologic exam of the chest. Views: 1 view. COMPARISON: CR XR PORTABLE CHEST AP 12/11/2024 9:20 PM FINDINGS: Lungs: Severe hydrostatic interstitial pulmonary edema/CHF. No focal airspace opacity to indicate pneumonia. Pleural spaces: Unremarkable. No pleural effusion. No pneumothorax. Heart/Mediastinum: Unremarkable. No cardiomegaly. Bones/joints: Unremarkable. IMPRESSION: Severe hydrostatic interstitial pulmonary edema/CHF. Dictated and Authenticated by: Francisco Castillo MD. Orderin Charlie Maya MD
[2024-12-22 03:11] LABS: BE (Venous) -1 mmol/L (-2-3); HCO3 (Venous) 26 mmol/L (23-28); O2 Sat (Venous) 95 %; TCO2 (Venous) 24 mmol/L (24-29); pO2 (Venous) 86 mmHg
[2024-12-22 03:14] LABS: pCO2 (Venous) 65 mmHg (41-51)
--- NOTE | 2024-12-22 03:14 | NUR.NOTE ---
BP decreased to 103/65 at 0315, Nitro-Bid removed from chest, FPJ
[2024-12-22 03:30] LABS: Troponin I 29 ng/L (<or=51)
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
--- NOTE | 2024-12-22 04:44 | W.PC.ACHO ---
Registration Status: REG ER Primary Language: Preferred Language: Latvian ED Information & Data Chief Complaint RespSymp 12/22/24 02:07 Chief Complaint RespSymp 12/22/24 01:54 Triage Note BIBA. Upon EMS arrival, pt 12/22/24 01:54 in resp distress with tripod breathing and tachypnea. o2 sat 80s at home. EMS started CPAP, gave 2 inline nebs, 125 medrol and 2.5mg versed. Medical / Surgical History (Last Reviewed 12/22/24 @ 03:37 by Grady García) GERD (gastroesophageal reflux disease) History of Graves' disease Hyperlipidemia Generalized anxiety disorder with panic attacks Asthma-COPD overlap syndrome Essential hypertension LIBBY (obstructive sleep apnea) AAA (abdominal aortic aneurysm) Pulmonary embolism (~07/2024) Heart failure with reduced ejection fraction Coronary artery disease Atrial fibrillation (~07/2024) Non-ST elevation [place] (NSTEMI) (~01/2023) Depressive disorder (Last Reviewed 12/22/24 @ 03:37 by Grady García) Status post right knee replacement (01/20/19) S/P right knee arthroscopy (02/20/10) S/P left knee arthroscopy (05/04/10) S/P dilation and curettage S/P bilateral salpingo-oophorectomy S/P appendectomy S/P abdominal hysterectomy S/P lumpectomy, right breast (~1993) Most Recent Vital Signs Pulse 70 12/22/24 04:31 Pulse 71 12/22/24 04:31 Respiratory Rate 24 12/22/24 04:31 Respiratory Effort Short of Breath 12/22/24 02:08 Blood Pressure 87/45 L 12/22/24 04:31 Blood Pressure Mean 59 12/22/24 04:31 Blood Pressure Position Sitting 12/22/24 01:54 Pulse Oximetry 94 12/22/24 04:31 Respiratory End-tidal CO2 24 12/22/24 03:01 Oxygen Delivery Method Cpap 12/22/24 01:54 Fraction of Inspired Oxygen (FIO2) 45 12/22/24 02:00 Allergies amlodipine Adverse Reaction (Intermediate, Verified 12/22/24 03:54) Peripheral edema Precautions Isolation Standard precaution 12/22/24 02:07 IV IV Catheter Type [Right Saline Lock Antecubital] IV Catheter Type [Left Saline Lock Antecubital] IV Catheter Gauge [Right 18 Antecubital] IV Catheter Gauge [Left 18 Antecubital] Diagnostics 12/22/24 12/22/24 12/22/24 Range/Units 04:04 02:55 02:00 WBC 16.92 H (4.4-10.8) 10^3/uL RBC 5.43 H (3.93-5.22) 10^6/uL Hgb 17.1 H (11.2-15.7) g/dL Hct 51.9 H (36.0-46.0) % MCV 96 H (80-95) fL MCH 31.5 (27.0-33.0) pg MCHC 32.9 (32.0-36.0) % RDW 14.8 H (11.7-14.6) % Plt Count 275 (130-400) 10^3/uL MPV 10.5 (8.0-11.0) fL Immature Gran % 0.0 % Neutrophils % 59.0 % Lymphocytes % 28.0 % Atypical Lymphs % 4 % Monocytes % 8.0 % Eosinophils % 1.0 % Basophils % 0.0 % Nucleated RBC % 0.0 (0.0-0.3) % Absolute Neutrophils 9.98 H (1.2-6.7) 10^3/uL Absolute Lymphocytes 5.41 H (1.2-3.4) 10^3/uL Absolute Monocytes 1.35 H (0.1-0.8) 10^3/uL Absolute Eosinophils 0.17 (0.0-0.7) 10^3/uL Absolute Basophils 0.00 (0.0-0.2) 10^3/uL RBC Morphology Normal VBG pH 7.22 L 7.10 L* (7.31-7.41) VBG pCO2 65 H* 94 H* (41-51) mmHg VBG pO2 86 92 mmHg VBG HCO3 26 29 H (23-28) mmol/L VBG Total CO2 24 27 (24-29) mmol/L VBG O2 Saturation 95 94 % VBG Base Excess -1 0 (-2-3) mmol/L Sodium 142 (136-145) mmol/L Potassium 4.5 (3.5-5.1) mmol/L Chloride 104 (98-107) mmol/L Carbon Dioxide 33.5 H (21.0-32.0) mmol/L Anion Gap 4.5 (3-11) mmol/L BUN 23 H (7-18) mg/dL Creatinine 0.9 (0.55-1.02) mg/dL Est GFR (CKD-EPI 2020) 72.73 (mL/min/1.73m2) Glucose 218 H (74-106) mg/dL Calcium 9.2 (8.5-10.1) mg/dL Magnesium 2.3 (1.8-2.4) mg/dL Total Bilirubin 0.3 (0.2-1.0) mg/dL AST 30 (15-37) U/L ALT 46 (14-59) U/L Alkaline Phosphatase 111 (46-116) U/L Troponin I 29 20 (<or=51) ng/L Total Protein 7.6 (6.4-8.2) g/dL Albumin 3.7 (3.4-5.0) g/dL COVID-19 Source Pending SARS-CoV-2 (PCR) Pending Influenza Type A (PCR) Pending Influenza Type B (PCR) Pending RSV (PCR) Pending Intake and Output - 24 Hour Total 12/22/24 01:45 thru 12/22/24 02:56 Intake Total 1050 Balance 1050 Weight 84.2 kg Intake: IV 1050 Falls Risk Assessment History of Falls No History 12/22/24 02:08 Contributing Factors No Factors 12/22/24 02:08 Ambulatory Aids Independent 12/22/24 02:08 Tubes/Lines None 12/22/24 02:08 Gait Evaluation No gait disturbance 12/22/24 02:08 Cognition No cognitive impairment 12/22/24 02:08 Fall Total Score 0 12/22/24 02:08 Level of Risk Standard/Low Risk 12/22/24 02:08 Problems Hypertensive emergency (Acute) Pulmonary edema (Acute) Acute respiratory failure (Acute) Acute hypoxic on chronic hypercapnic respiratory failure (Acute) Nonrheumatic aortic (valve) stenosis (Chronic) Cigarette smoker (Chronic) Notes 12/22/24 03:14 Nursing Notes by Pernell Hines BP decreased to 103/65 at 0315, Nitro-Bid removed from chest, FPJ Initialized on 12/22/24 03:14 - END OF NOTE v v v v v v v v v Sending and/or Receiving Nurses: Please use comment section below to note any information pertinent to the patient hand-off not included above. Information / Comments:Being admitted for CHF exacerbation from the ED. Will need echo, and a cardiology consult. Has been placed on bipap. 80 mg IV lasix, and nebulizers given. Versed given for anxiety. Nitro paste for hypertension, now removed with better control. Mag repleted. Patient status is improving. Report received from:Pernell Hines RN
--- NOTE | 2024-12-22 05:03 | RESPIRATORY ---
Addendum entered by Ivy Bishop 12/22/24 06:16: Pt settled in ICU, back on bipap. Vt's remain in the 600's. Ipap decreased to 14, fio2 @ 25%. Pt tolerating well. Original Note: Called to ER for pt on cpap brought in by ems. Pt placed on NK machine, initial settings 16/8, 100%. Pt getting volumes 260-300. Per ems pt needed sedation to tolerate cpap. Pt is minimally responsive, but seems to be protecting her airway. VBG shows critical values 7.1//. Ipap increased to 18, nebs run inline. Within 30 minutes volumes have increased to 480. -Follow up vbg reassuring, pt opening her eyes and able to respond to questions. -0300 Decreased ipap, Vt in the high 600's. -0445 Placed pt on nc 3l to transport to ICU and give her a break. Pt is alert and breathing comfortably. Pt agreeable to going back on bipap once settled in the ICU.
[2024-12-22 05:27] LABS: BE (Venous) 2 mmol/L (-2-3); HCO3 (Venous) 28 mmol/L (23-28); O2 Sat (Venous) 72 %; TCO2 (Venous) 25 mmol/L (24-29); pCO2 (Venous) 54 mmHg (41-51); pO2 (Venous) 39 mmHg
[2024-12-22 05:29] LABS: HCT 47.0 % (36.0-46.0); HGB 15.6 g/dL (11.2-15.7); MCH 31.0 pg (27.0-33.0); MCHC 33.2 % (32.0-36.0); MCV 93 fL (80-95); MPV 10.2 fL (8.0-11.0); Platelet Count 221 10^3/uL (130-400); RBC 5.03 10^6/uL (3.93-5.22); RDW 14.6 % (11.7-14.6); RDW-SD 50.2 fL; WBC 20.77 10^3/uL (4.4-10.8)
[2024-12-22 05:46] LABS: ALT 43 U/L (14-59); AST 20 U/L (15-37); Albumin 3.4 g/dL (3.4-5.0); Alkaline Phosphatase 97 U/L (46-116); Anion Gap 10.7 mmol/L (3-11); BUN 26 mg/dL (7-18); Bilirubin, Total 0.4 mg/dL (0.2-1.0); CO2 28.3 mmol/L (21.0-32.0); Calcium 8.7 mg/dL (8.5-10.1); Chloride 104 mmol/L (98-107); Estimated GFR 64.09 (mL/min/1.73m2); Glucose 163 mg/dL (74-106); Magnesium 2.5 mg/dL (1.8-2.4); Potassium 3.7 mmol/L (3.5-5.1); Sodium 143 mmol/L (136-145); Total Protein 6.9 g/dL (6.4-8.2)
[2024-12-22 06:07] LABS: COVID-19 PCR Negative (Negative); RSV PCR Negative (Negative)
[2024-12-22] MEDS: Albuterol/Ipratropium 3 ML UPD VIAL UPD ×2 (07:44→11:21)
[2024-12-22] MEDS: Furosemide 40 MG/4 ML VIAL IVP ×2 (07:54→15:17)
[2024-12-22] MEDS: Apixaban 5 MG TAB PO (07:55)
[2024-12-22] MEDS: Pantoprazole 20 MG TABCR PO (07:55)
[2024-12-22] MEDS: Metoprolol CR 50 MG TABCR PO (07:55)
[2024-12-22] MEDS: Empaglifozin 10 MG TAB PO (07:55)
[2024-12-22] MEDS: Spironolactone 25 MG TAB 12.5 MG PO (07:55)
[2024-12-22] MEDS: Nicotine 21 MG/24 HR PATCH TD (07:56)
[2024-12-22] MEDS: Amiodarone 200 MG TAB PO (07:56)
[2024-12-22] MEDS: Loratidine 10 MG TAB PO (07:56)
[2024-12-22] MEDS: Rosuvastatin 20 MG TAB PO (07:56)
[2024-12-22] MEDS: Normal Saline Flush 10 ML SYR IVP ×2 (07:57→15:18)
[2024-12-22] MEDS: Losartan 50 MG TAB 100 MG PO (07:59)
[2024-12-22] MEDS: Citalopram 20 MG TAB PO (07:59)
--- NOTE | 2024-12-22 08:00 | DI.US_ITS ---
APPROVED REPORT EXAM: Comprehensive 2D, Doppler, and color-flow Echocardiogram Patient Location: In-Patient Room/Bed: [facility] Drawer Upfitter: Viki Timmons RDCS (AE) Indications: CHF with reduced LV function, Hypoxia/Hypercapnia Other Information Study Quality: Adequate. Technically limited study due to bedside ICU scan, supine. Conclusion Normal left ventricular wall thickness and chamber size. Ejection fraction is 50 to 55%. Wall motion is normal Normal right ventricular size and function Both atria are normal in size Aortic valve is calcified. Peak gradient is 38, mean 22 mmHg. Calculated aortic valve area is 1 cm??. Mild to moderate aortic stenosis. Mild aortic regurgitation Wall motion Left Ventricle The left ventricle is normal size. The left ventricular systolic function is normal. The left ventricular ejection fraction is within the normal range. There is normal left ventricular wall thickness. There is normal LV segmental wall motion. There is no ventricular septal defect visualized. LVEF is 52%. Right Ventricle The right ventricle is normal size. The right ventricular systolic function is normal. Atria The left atrium size is normal. The right atrium size is normal. The interatrial septum is intact with no evidence for an atrial septal defect. Aortic Valve Aortic valve is calcified. Number of aortic valve leaflets could not be assessed. Mild to moderate aortic stenosis. Peak aortic valve gradient is 37.87mmHg. Highest mean aortic valve gradient is 21.65_mmHg. Calculated ALEKSEY by the continuity equation is 1.0cm2. Mild aortic regurgitation. Mitral Valve The mitral valve is normal in structure. No evidence of mitral valve stenosis. Trace mitral regurgitation. Tricuspid Valve The tricuspid valve is normal in structure. There is no tricuspid valve stenosis. Trace tricuspid regurgitation. Unable to assess PA pressure. Pulmonic Valve The pulmonary valve is normal in structure. There is no pulmonic valvular stenosis. Trace pulmonic regurgitation. Great Vessels The aortic root is normal in size. Aortic arch is not well visualized. Ascending aorta is not well visualized. IVC is normal in size and collapses >50% with inspiration. Pericardium There is no pericardial effusion. 2D Dimensions IVSD d PLAX 0.99 cm F: 0.6-1.0 Ao Root d 2.51 cm F: 2.7 - 3.3 LVPW d PLAX 0.97 cm F: 0.6 - 1.0 LVID d PLAX 5.45 cm F: 3.8 - 5.2 LVDs 4.01 cm F: 2.2 - 3.5 LV EF Teichholz 51.3 % FS 26.47 % LV EDV (Teich) 144.6 mL LV ESV (Teich) 70.4 mL M-Mode TAPSE 2.40 cm (M/F) >1.7 Auto EF LV EDV A4C 118.4 mL LV EDV A2C 127.4 mL LV EDV BP 123.4 mL LV ESV A4C 56.7 mL LV ESV A2C 65.2 mL LV ESV BP 60.9 mL LVEF(%) A4C 52.1 % LVEF(%) A2C 48.9 % LVEF(%) BP 50.7 % LV SV A4C 61.7 ml LV SV A2C 62.2 ml LV SV BP 62.5 ml LV CO A4C 3.6 L/min LV CO A2C 3.6 L/min LV CO BP 3.6 L/min HR A4C 59.02 BPM HR A2C 58.52 BPM LV EDV Index (BP) LV Strain Long Pk Overal Avg (s) 12.35 LA Volume LA Length A4C 5.8 cm LA Length A2C 5.8 cm LA Area A4C s 20.91 cm2 LA Area A2C s 20.68 cm2 LA Vol A4C A-L 64.49 mL LA Vol A2C A-L 62.20 mL LA Vol Biplane A-L 63.8 mL LA Vol/BSA A4C A-L LA Vol/BSA A2C A-L LA Vol/BSA BP A-L 33.2 mL/m2 LA Vol A4C MOD 60.9 mL LA Vol A2C MOD 59.7 mL LA Vol BP MOD 60.4 mL RA Volume RA Area A4C 15.8 cm2 RA ESV A4C (A-L) 43.2mL RA Vol/BSA A4C A-L RA Length A4C 4.9 cm RA ESV A4C (MOD) 40.0mL LV Diastology MV E' medial 0.048 (>0.07 m/s) MV E Vmax 0.68 (0.4-1.3 m/s) MV E/E' MED 14.21 (<14) MV A Vmax 1.10 (0.4-1.3 m/s) MV E' lateral 0.051 (>0.1 m/s) E/A Ratio 0.6 MV E/E' LAT 13.46 (<14) MV E' Average 0.049 m/s MV E/E'(average) 13.82 Aortic Valve AoV Vmax 3.08 m/s LVOT Vmax 1.34 m/s AoV Peak Grad 53.8 mmHg LVOT Peak Grad 7.1 mmHg AoV Area (Vmax) 1.21 cm2 LVOT VTI 0.272 m AoV VTI 0.724 m LVOT Mean Grad 4.1 mmHg AoV Mean Elías. 2.18 m/s LVOT SV 75.96 mL AoV Mean Grad 21.7 mmHg LVOT Diam s 1.85 cm AoV Area (VTI) 1.05 cm2 AV Regurg Peak Gr. 37.87 mmHg Velocity Ratio 0.44 AR Decel Banks 1.4m/sec2 AR DT 3048 msec AR PHT 884 msec AR Vmax 4.17 m/s Mitral Valve MV DT 298 (160-240 msec) MV Vmax TIPS 1.23 m/s MV Mean Grad 1.6 (<2mmHg) MV VTI 0.388 m Pulmonary Valve PV Vmax 0.93 (0.5-1.5 m/s) RVOT Vmax 0.98 m/s PV Peak Grad 3.5 mmHg RVOT Peak Gr. 3.9 mmHg PV Mean Elías 0.58 m/s RVOT VTI 0.214 m PV Mean Grad 1.6 mmHg RVOT Mean Gr. 1.6 mmHg Tricuspid Valve TV S' 0.13 m/s
--- NOTE | 2024-12-22 09:09 | PDOC.CMIN ---
Date of service: 12/22/24 Time of Service: 09:09 Care Management Initial Assmt Initial Assessment Reason for Hospitalization: acute respiratory failure, pulmonary edema, hypertensive emergency Functional Status/Living Situation Patient Presentation: Jaelyn presented to the ED early this morning in respiratory distress. She woke from a sleep with chest pressure. She was wearing her CPAP. She stated that this is almost always a precursor to a respiratory event. She was unable to catch her breath. She tried her inhalers and nebulizer, but was not really able to inhale. EMS was called. She was also noted to be hypertensive. Today Jaelyn was sitting up in the chair, drinking a cup of coffee, when CM met with her today. She was abdulkadir and offered a big smile. She is know to CM from previous admissions. Jaelyn looked well, and stated that she was really feeling a lot better. She is hoping to maybe go home tonight. Jaelyn has a new blade worker at [facility] who has given her some hope of recovery. She has not yet started cardiac rehab, but is looking forward to it. Jaelyn has also been working with the behavioral health specialist at her PCP office. Town of Residence: [place] Resides with: Spouse (Guru) Significant Other/Family: Local (adult children, , and family.) Natural Supports: family Employment Status: Retired (retired from [employer]) Instrumental Activities of Daily Living (ADLs): Independent Activities/Hobbies/SocialSupport: Loves her family. Loves to bowl and have a beer with friends, enjoys walking her grand-dogs and also playing games on her tablet Medications Medication Management: No Issues/Barriers identified Advance Directives Advance Directives: Do you have an Advance Directive: N 04/15/13, 12:26 AD On File at [facility]: N 04/15/13, 12:26 Date Asked 12/11/24 12/11/24, 20:37 AD Date Reviewed COLST On File at [facility] COLST Date Scanned Code Status Resuscitation Status Full Code Portal Pt does not currently have a portal and education provided: Yes Insurance Coverage/Financial Issues Insurance: [facility] Care Team Visit Care Team Role Provider Type Racquel Fraser NP Primary Care Provider NURSE PRACTITIONER Francesco Guerra MD Emergency Provider [facility] STAFF PHYSICIAN Grady García Admit Provider NON-[facility] STAFF PHYSICIAN Attending Provider Discharge Potential Discharge Needs: PCP F/U Appt and Other (has both PCP and pulmonology visits scheduled for 12/24) Anticipated Barriers to Discharge: None Identified Patient/Family Education Needs: Review discharge instructions, discuss Ask Me Three Transportation: Private vehicle Plan: Anticipate that Jaelyn will discharge home once medically cleared. She will f/u with her PCP and with pulmonology at [facility] on 12/24. She is going to reach out to cardiac rehab to see if she has a start date with them. Jaelyn will transport home with family. CM will continue to follow and support discharge planning. Social Determinants of Health Screening Will the Patient Participate in the Screening?: Unable to obtain PFSH All Active Problems (Updated 12/22/24 @ 03:54 by Grady García) Hypertensive emergency (Acute) Pulmonary edema (Acute) Acute respiratory failure (Acute) Acute hypoxic on chronic hypercapnic respiratory failure (Acute) Nonrheumatic aortic (valve) stenosis (Chronic) Aortic regurgitation (Chronic) Osteoarthritis (Chronic) Cigarette smoker (Chronic) Annual LDCT paused d/t cost Nummular dermatitis (Chronic) Medical History GERD (gastroesophageal reflux disease) History of Graves' disease Hyperlipidemia Generalized anxiety disorder with panic attacks Asthma-COPD overlap syndrome Essential hypertension LIBBY (obstructive sleep apnea) AAA (abdominal aortic aneurysm) Infrarenal, measuring 2.5cm 2024 Pulmonary embolism (~07/2024) Heart failure with reduced ejection fraction moderate Coronary artery disease nonobstructive, LAD stenosis Atrial fibrillation (~07/2024) Non-ST elevation PR (NSTEMI) (~01/2023) Depressive disorder Surgical History Status post right knee replacement (01/20/19) S/P right knee arthroscopy (02/20/10) With partial medial meniscectomy S/P left knee arthroscopy (05/04/10) With partial medial and lateral meniscectomy S/P dilation and curettage S/P bilateral salpingo-oophorectomy S/P appendectomy S/P abdominal hysterectomy For abnormal uterine bleeding S/P lumpectomy, right breast (~1993) Family History Mother , at 77 Asthma Hypertension COPD (chronic obstructive pulmonary disease) Father , at 79 Parkinson disease Graves disease Hypertension Depression Suicide attempt Sister No problems noted. Sister , at 44 of metastatic bone cancer Metastatic bone cancer Brother , at 60 of pancreatic cancer Pancreatic cancer Diabetes Depression COPD (chronic obstructive pulmonary disease) Brother Alcohol abuse Son No problems noted. Daughter No problems noted. Maternal Grandfather Heart disease PR Maternal Grandmother Brain cancer Paternal Grandfather No problems noted. Paternal Grandmother No problems noted. Brother , age 28 - MVA No problems noted. Social History Smoking/Tobacco Use Status: Current every day Tobacco Type: cigarettes Smoking packs per day: 1 Smoking cigarettes per day: 20.0 Years smoked: 47 Smoking pack-years: 47.00 Tobacco: How many years used: 47 Quit status: considering quitting Counseling given: provider counseling Smoking risk assessment performed?: Yes Alcohol Intake: current Alcohol Intake frequency: a few times a week Alcohol type: beer Details: Declined to answer all except selecting Beer Drug use: Never Substance use type: does not use Counseling given: No Counseling provided: none Adopted: No Caregiver/Support person: No Household members: spouse Housing: house Pets and animals: Yes Pets and animals: cat(s) Sexually active: Yes Do you think of yourself as: straight/heterosexual Current gender identity: female What is your relationship status?: How often do you talk on the phone with friends or family?: three or more times per week How often do you get together with friends or relatives?: twice per week Do you belong to any clubs or organized social groups?: no Panel score (0-1 are the most socially isolated patients): 2 What type of physical activity do you participate in: none Frequency: does not exercise Aida/Church: None Special aida needs: No Seatbelt use: always Helmet use: No Drive intox 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: No Firearms in home: Yes Firearms unloaded and locked: Yes Do you feel safe at home: Yes Do you feel safe in your relationship?: Yes Victim of physical abuse: No Victim of emotional abuse: No Victim of sexual abuse: No Female Reproductive History Menstrual Menopause type: surgical History History 4 Para 2 Hx # Term Pregnancies Multiple births Hx # Pregnancies Ectopic pregnancies AB induced Hx Number of Living Children 2 AB spontaneous 2 Readmission Within the Past 30 Days Yes or No: Yes Date of First Admission Date of 1st Admission: 12/11/24 Date of this Admission Date of Admission: 12/22/24 This admission was: Through ED Office Visit Since 1st Admission Have you seen your PCP in the office since discharge?: No Date of PCP Appointment: scheduled appt on 12/24 Had an appointment Been Scheduled?: Yes Date of Scheduled Appointment: 12/24/24 I. Interview patient and/or Family Difficulty reaching your doctor or getting an office appt?: No Have you had trouble purchasing/ or taking medication?: No Did you call your physician beore you came to the ED?: No ED visits How many ED visits in the past 12 months: 9
[2024-12-22] MEDS: Budesonide/Formoterol 160/4.5 6 GM 60 PUFF INH IH (09:26)
--- NOTE | 2024-12-22 11:45 | IN_ITS ---
PT Notes Visit Reasons: Acute respiratory failure, Hypoxia, CHF exacerbati Physical Therapy Inpatient Initial Evaluation Date: 12/22/2024 Referring Doctor: Berry Griffiths MD PT Orders: PT CONSULT: please eval mobility Precautions: Fall. Standard. Activity as tolerated. Patient Profile/Admitting Diagnosis: Jaelyn is a 59-year-old female admitted fr management of acute hypoxic on chroninc hypercapnic respiratory failure and heart failure with reduced EF. Referral to PT was made to assess for mobility. PMHX: All Active Problems (Updated 12/22/24 @ 03:54 by Grady García) Hypertensive emergency (Acute) Pulmonary edema (Acute) Acute respiratory failure (Acute) Acute hypoxic on chronic hypercapnic respiratory failure (Acute) Nonrheumatic aortic (valve) stenosis (Chronic) Aortic regurgitation (Chronic) Osteoarthritis (Chronic) Cigarette smoker (Chronic) Annual LDCT paused d/t costNummular dermatitis (Chronic) Medical History GERD (gastroesophageal reflux disease) History of Graves' disease Hyperlipidemia Generalized anxiety disorder with panic attacks Asthma-COPD overlap syndrome Essential hypertension LIBBY (obstructive sleep apnea) AAA (abdominal aortic aneurysm) Infrarenal, measuring 2.5cm 2024Pulmonary embolism (~07/2024) Heart failure with reduced ejection fraction moderateCoronary artery disease nonobstructive, LAD stenosisAtrial fibrillation (~07/2024) Non-ST elevation SC (NSTEMI) (~01/2023) Depressive disorder Surgical History Status post right knee replacement (01/20/19) S/P right knee arthroscopy (02/20/10) With partial medial meniscectomy S/P left knee arthroscopy (05/04/10) With partial medial and lateral meniscectomy S/P dilation and curettage S/P bilateral salpingo-oophorectomy S/P appendectomy S/P abdominal hysterectomy For abnormal uterine bleeding S/P lumpectomy, right breast (~1993) Social History/Home Situation: Independent with all aspects of ADLs prior to admission Equipment Owned/DME: None Subjective: Pleasant and cooperative. Agreeable to mobility assessment. Objective: General Observation: Resting in bed. Telemetry monitoring in place. Mental Status: Alert and oriented as to person, place, time, and purpose. Able to pay attention, focus, and respond appropriately. Pain: None reported Vital Signs: Closely monitored by nursing staff ROM: Right Upper Extremity: Shoulder Flexion WFL. Shoulder abduction WFL. Elbow flexion WFL. Wrist flexion WFL. Functional opening and closing of hand WFL. Left Upper Extremity: Shoulder Flexion WFL. Shoulder abduction WFL. Elbow f lexion WFL. Wrist flexion WFL. Functional opening and closing of hand WFL. Right Lower Extremity: Hip flexion WFL. Hip abduction WFL. Knee flexion WFL. Ankle dorsiflexion WFL. Ankle plantarflexion WFL. Left Lower Extremity: Hip flexion WFL. Hip abduction WFL. Knee flexion WFL. Ankle dorsiflexion WFL. Ankle plantarflexion WFL. Strength: Right Upper Extremity: Shoulder flexors 4/5. Shoulder abductors 4/5. Elbow flexors 5/5. Elbow extensors 5/5. Patient Account Analyst strong. Left Upper Extremity: Shoulder flexors 4/5. Shoulder abductors 4/5. Elbow flexors 5/5. Elbow extensors 5/5. Patient Account Analyst strong. Right Lower Extremity: Hip flexors 4/5. Hip abductors 4/5. Knee flexors 5/5. Knee extensors 4/5. Ankle dorsiflexors 5/5. Ankle plantarflexors 5/5. Left Lower Extremity: Hip flexors 4/5. Hip abductors 4/5. Knee flexors 5/5. Knee extensors 4/5. Ankle dorsiflexors 5/5. Ankle plantarflexors 5/5. Bed Mobility/Transfers: Independent with all bed mobility and transfers Gait: 750 feet with no assistive device. No shortness of breath. No loss of balance. Gait speed affected by telemetry line. Denied headaceh, chest pain, and lightheadedness throughout session. Balance: Static Sitting: Normal Dynamic Sitting: Normal Static Standing: Normal Dynamic Standing: Good Special Tests: Mobility Limitations Standardized Measure [facility] AM-PAC 6 clicks Basic Mobility Inpatient Short Form: Raw Score: 24 CMS Score: 0% deficit Informed Consent/Education: Patient was instructed in purpose of PT consult. Assessment: Patient tolerated level surface ambulation of about 750 feet using no assistive device with no shortness of breath nor loss of balance. No skilled services needed at this time. Patient is assessed as a 56614 low complexity based on the following: History: 59-year-old female with past medical history as indicated above Examination: Demonstrable impairment in strength, balance, and mobility level with underlying impairments and functional limitations as exhibited above Presentation: Stable Decision Makin low complexity Goals: N/A. PT evaluation only. Plan of Care/Treatment Plan: N/A. PT evaluation only. DISCHARGE RECOMMENDATIONS: Home with no services. No equipment needs. TREATMENT CODE/TIME: 34659 x 15 minutes for 1 unit (11:45-12:00). Thank you for the opportunity to participate in the care of this patient. Jodee Connell PT, DPT, CLT [facility] [place], [place]
--- NOTE | 2024-12-22 12:35 | NUR.NOTE ---
Patient had been prescribed varenicline during a prior hospitalization discharge. The patient reported that it did assist in their smoking cessation journey but they were unable to refill it with the pharmacy. I spoke with the pharmacy ([facility]) and confirmed that they had sent a refill request to Dr. Garcias as the prescribing physician. They were thinking that he was the PCP. I clarified with the pharmacy that Dr. Garcias is the hospitalist not the PCP. I spoke to the [facility] (patient's PCP) and requested they send in a new script with refills for the varenicline. The medical secretary receptionist is submitting that request to the PCP. The patient is also scheduled to see her PCP on 12/24. I updated the patient and her daughter and they were appreciative for the assistance and clarification Nursing Note:
--- NOTE | 2024-12-22 15:03 | DSE_ITS ---
Date of service: 12/22/24 Time of Service: 15:04 DS: Diagnosis Discharge Diagnosis (1) Acute hypoxic on chronic hypercapnic respiratory failure: Status: Acute Asessment and Plan: Repeat episode of flash pulmonary edema with dyspnea Trigger seems to be removal of CPAP to rise in the morning or go to the bathroom at night Quick recovery after BIPAP overnight She is comfortable on room air and CXR is much improved She has pulmonology followup scheduled for December 24 Will discharge home on previous regimen Advised regular use of CPAP Advised slow transition off CPAP, pause before sitting, pause before rising (2) Nonrheumatic aortic (valve) stenosis: Status: Chronic Asessment and Plan: Echo again showed mild/moderate aortic calcification and stenosis Cardiology followup is arranged at [facility] (ablation for afib is planned) (3) Cigarette smoker: Status: Chronic Asessment and Plan: Advised cessation She is down to 6-10 cigarettes per day and is trying hard Will prescribe varenecline for home Discharge Plan Disposition Patient Disposition: Home Condition: Fair Discharge Details Reason For Visit: Acute respiratory failure, Hypoxia, CHF exacerbati Admit Date/Time: 12/22/24 04:04 Admit Provider: Berry Griffiths Attending Provider: Berry Griffiths Primary Care Provider: Racquel Fraser Hospital Course Hospital Course: Jaelyn Alonso is a 59 year old woman presenting December 22 with shortness of breath, found to have likely pulmonary edema requiring BIPAP overnight. Etiology likely due to continued tobacco smoking in the setting of COPD with multiple previous dyspneic episodes with pulmonary edema. History of atrial fibrillation with [place] [facility] has not had arrhythmia here, with mild tachycardia max 105. Echocardiogram without new findings. She has improved and is comfortable on room air. She has pulmonology followup on December 24. Advising slow transitions at night to adjust after taking off CPAP. At this time she is safe for discharge home. Home Meds and New Rx's Prescriptions: New varenicline tartrate 0.5 mg tablet 0.5 mg PO DAILY Qty: 30 0RF No Action citalopram 20 mg tablet 20 mg PO DAILY Qty: 90 3RF losartan 100 mg tablet 100 mg PO DAILY Qty: 90 3RF Eliquis 5 mg tablet 5 mg PO BID Qty: 180 3RF metoprolol succinate 50 mg tablet extended release 24 hr 50 mg PO DAILY Qty: 90 3RF nicotine 21 mg/24 hr patch 24 hour 1 patch transdermal DAILY Qty: 42 0RF Rx Instructions: Apply 1 patch daily for 6 weeks budesonide-formoterol 160-4.5 mcg/actuation HFA aerosol inhaler 2 puff inhalation BID Qty: 10.2 4RF Rx Instructions: 2 puffs twice a day and may use as a reliever therapy for acute difficulty breathing, 1 to 2 puffs every 4 hours as needed. Max inhalations 12 per day rosuvastatin 20 mg tablet 20 mg PO DAILY Qty: 90 3RF amiodarone [Pacerone] 200 mg tablet 200 mg PO BID 30 Days Qty: 60 0RF Jardiance 10 mg tablet 10 mg PO DAILY Qty: 30 0RF loratadine [Claritin] 10 mg tablet 10 mg PO DAILY Qty: 1 0RF pantoprazole 20 mg tablet,delayed release (DR/EC) 20 mg PO DAILY Qty: 90 3RF albuterol sulfate 90 mcg/actuation HFA aerosol inhaler 2 puff Inhalation Q6H PRN (Reason: shortness of breath or wheezing) Qty: 8.5 6RF lorazepam 1 mg tablet 1 mg PO BID PRN (Reason: panic attack(s)) Qty: 30 0RF ipratropium-albuterol 0.5 mg-3 mg(2.5 mg base)/3 mL solution for nebulization 3 ml UPD QID PRN (Reason: shortness of breath or wheezing) Qty: 180 3RF Spiriva Respimat 2.5 mcg/actuation Mist 2 puff inhalation DAILY Qty: 1 2RF furosemide 20 mg tablet 40 mg PO DAILY Qty: 90 3RF spironolactone 25 mg Tablet 12.5 mg PO DAILY Qty: 30 0RF varenicline tartrate 0.5 mg (11)- 1 mg (42) tablets,dose pack See Rx Instructions .ROUTE .COMPLEX Qty: 53 0RF Rx Instructions: orally per package directions Discharge Instructions Activity:: Activity as Tolerated Equipment/Supplies:: No Equipment Needed Diet:: Normal Diet Discharge Orders Discharge Orders: Discharge Order (Routine); Ordered 12/22/24 Ordered By: Berry Griffiths Discharge Data Discharge Date/Time-TO BE ENTERED AT DEPARTURE: 12/22/24 16:00 DS: Summary Time Spent with Patient providing and/or coordinating discharge services: Greater than 30 minutes Status at Discharge Functional status at discharge: independent ambulation Overall status at discharge: patient is back to baseline Mental Status: mental status grossly normal Speech and Movement: speech and movement normal Mood: congruent mood Affect: normal affect Quality:SDOH Health Related Social Needs: Health related social needs details Survey postponed f or when patient is not on bipap. Exam Psych Mental Status: mental status grossly normal Speech and Movement: speech and movement normal Mood: congruent mood Affect: normal affect DS: Data Vitals/I&O Vitals and I&O: Vital Signs Temperature 37 C 12/22/24 07:30 Temperature Source Temporal Artery Scan 12/22/24 07:30 Pulse 57 L 12/22/24 14:01 Pulse 59 L 12/22/24 14:01 Respiratory Rate 17 12/22/24 14:01 Respiratory Effort Short of Breath 12/22/24 05:00 Respiratory Depth Shallow 12/22/24 05:00 Respiratory Pattern Tachypnea 12/22/24 05:00 Blood Pressure 103/56 L 12/22/24 14:01 Blood Pressure Mean 71 12/22/24 14:01 Blood Pressure Position Supine 12/22/24 05:00 Pulse Oximetry 93 12/22/24 14:01 Respiratory End-tidal CO2 24 12/22/24 03:01 Oxygen Delivery Method Room Air 12/22/24 11:21 Oxygen Flow Rate 0 12/22/24 11:21 Fraction of Inspired Oxygen (FIO2) 21 12/22/24 11:32 Pain Level 0 12/22/24 07:30 Intake & Output 12/21/24 12/22/24 12/22/24 23:59 11:59 23:59 Intake Total 1530 / 1770 240 / 1770 Output Total 1700 / 2750 1050 / 2750 Balance -170 / -980 -810 / -980 Weight 84.2 kg Intake: IV 1050 / 1050 Oral 480 / 720 240 / 720 Output: Urine 1700 / 2750 1050 / 2750 Other: Urine Color Yellow Yellow Urine Appearance Clear Clear Urine Odor Normal Normal Data Completed and Pending Labs on day of discharge: Labs from last 24 hours 12/22/24 12/22/24 12/22/24 05:26 02:55 02:00 WBC 20.77 H 16.92 H RBC 5.03 5.43 H Hgb 15.6 17.1 H Hct 47.0 H 51.9 H MCV 93 96 H MCH 31.0 31.5 MCHC 33.2 32.9 RDW 14.6 14.8 H Plt Count 221 275 MPV 10.2 10.5 Immature Gran % 0.0 Neutrophils % 59.0 Lymphocytes % 28.0 Atypical Lymphs % 4 Monocytes % 8.0 Eosinophils % 1.0 Basophils % 0.0 Nucleated RBC % 0.0 Absolute Neutrophils 9.98 H Absolute Lymphocytes 5.41 H Absolute Monocytes 1.35 H Absolute Eosinophils 0.17 Absolute Basophils 0.00 RBC Morphology Normal VBG pH 7.33 7.22 L 7.10 L* VBG pCO2 54 H 65 H* 94 H* VBG pO2 39 86 92 VBG HCO3 28 26 29 H VBG Total CO2 25 24 27 VBG O2 Saturation 72 95 94 VBG Base Excess 2 -1 0 Sodium 143 142 Potassium 3.7 4.5 Chloride 104 104 Carbon Dioxide 28.3 33.5 H Anion Gap 10.7 4.5 BUN 26 H 23 H Creatinine 1.0 0.9 Est GFR (CKD-EPI 2020) 64.09 72.73 Glucose 163 H 218 H Calcium 8.7 9.2 Magnesium 2.5 H 2.3 Total Bilirubin 0.4 0.3 AST 20 30 ALT 43 46 Alkaline Phosphatase 97 111 Troponin I 29 20 Total Protein 6.9 7.6 Albumin 3.4 3.7 COVID-19 Source Nasopharynx SARS-CoV-2 (PCR) Negative Influenza Type A (PCR) Negative Influenza Type B (PCR) Negative RSV (PCR) Negative PFSH All Active Problems (Updated 12/22/24 @ 03:54 by Grady García) Hypertensive emergency (Acute) Pulmonary edema (Acute) Acute respiratory failure (Acute) Acute hypoxic on chronic hypercapnic respiratory failure (Acute) Nonrheumatic aortic (valve) stenosis (Chronic) Aortic regurgitation (Chronic) Osteoarthritis (Chronic) Cigarette smoker (Chronic) Annual LDCT paused d/t cost Nummular dermatitis (Chronic) Medical History GERD (gastroesophageal reflux disease) History of Graves' disease Hyperlipidemia Generalized anxiety disorder with panic attacks Asthma-COPD overlap syndrome Essential hypertension LIBBY (obstructive sleep apnea) AAA (abdominal aortic aneurysm) Infrarenal, measuring 2.5cm 2024 Pulmonary embolism (~07/2024) Heart failure with reduced ejection fraction moderate Coronary artery disease nonobstructive, LAD stenosis Atrial fibrillation (~07/2024) Non-ST elevation [place] (NSTEMI) (~01/2023) Depressive disorder Surgical History Status post right knee replacement (01/20/19) S/P right knee arthroscopy (02/20/10) With partial medial meniscectomy S/P left knee arthroscopy (05/04/10) With partial medial and lateral meniscectomy S/P dilation and curettage S/P bilateral salpingo-oophorectomy S/P appendectomy S/P abdominal hysterectomy For abnormal uterine bleeding S/P lumpectomy, right breast (~1993) Family History Mother , at 77 Asthma Hypertension COPD (chronic obstructive pulmonary disease) Father , at 79 Parkinson disease Graves disease Hypertension Depression Suicide attempt Sister No problems noted. Sister , at 44 of metastatic bone cancer Metastatic bone cancer Brother , at 60 of pancreatic cancer Pancreatic cancer Diabetes Depression COPD (chronic obstructive pulmonary disease) Brother Alcohol abuse Son No problems noted. Daughter No problems noted. Maternal Grandfather Heart disease [place] Maternal Grandmother Brain cancer Paternal Grandfather No problems noted. Paternal Grandmother No problems noted. Brother , age 28 - MVA No problems noted. Social History Smoking/Tobacco Use Status: Current every day Tobacco Type: cigarettes Smoking packs per day: 1 Smoking cigarettes per day: 20.0 Years smoked: 47 Smoking pack- years: 47.00 Tobacco: How many years used: 47 Quit status: considering quitting Counseling given: provider counseling Smoking risk assessment performed?: Yes Alcohol Intake: current Alcohol Intake frequency: a few times a week Alcohol type: beer Details: Declined to answer all except selecting Beer Drug use: Never Substance use type: does not use Counseling given: No Counseling provided: none Adopted: No Caregiver/Support person: No Household members: spouse Housing: house Pets and animals: Yes Pets and animals: cat(s) Sexually active: Yes Do you think of yourself as: straight/heterosexual Current gender identity: female What is your relationship status?: How often do you talk on the phone with friends or family?: three or more times per week How often do you get together with friends or relatives?: twice per week Do you belong to any clubs or organized social groups?: no Panel score (0-1 are the most socially isolated patients): 2 What type of physical activity do you participate in: none Frequency: does not exercise Aida/Religious: None Special aida needs: No Seatbelt use: always Helmet use: No Drive intox 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 interstate bus driver: No Firearms in home: Yes Firearms unloaded and locked: Yes Do you feel safe at home: Yes Do you feel safe in your relationship?: Yes Victim of physical abuse: No Victim of emotional abuse: No Victim of sexual abuse: No Female Reproductive History Menstrual Menopause type: surgical History History 4 Para 2 Hx # Term Pregnancies Multiple births Hx # Pregnancies Ectopic pregnancies AB induced Hx Number of Living Children 2 AB spontaneous 2 Time Spent with Patient Time Spent with Patient: <45 minutes Time was spent: preparing to see the patient(eg.review tests), obtaining and/or reviewing separately otained hiistory, ordering medications,tests, procedures, referring, communicating with other health respiratory care assistant, indepentently interpreting results, counseling the patient and care coordination
--- NOTE | 2024-12-22 15:26 | PDOC.CMDIS ---
Date of service: 12/22/24 Time of Service: 15:26 LACE Index Scoring Tool Questions: Length of Stay (in days): 1 Was the patient admitted via the E.D.?: Yes Comorbidities: Previous M.I., Congestive Heart Failure and Chronic Pulmonary Disease E.D. Visits: 8 Answers: Total Score: 13 Risk of Readmission: High Risk Care Management Discharge Plan Reason for Hospitalization: respiratory failure Discharge Plan: Jaelyn is discharged home today with no new services. She will f/u with her PCP and also with pulmonology at [facility] on 12/24. Jaelyn will transport home in a private vehicle and continue per her plan of care. Patient/Family Education Needs: Review of discharge instructions, activity, limitations and discuss Ask me 3. Jaelyn was also encouraged to ask for a cardiac liaison referral each time she is admitted. SDOH Health Related Social Needs: Health related social needs details Survey postponed for when patient is not on bipap.
== END 2024-12-22 16:00 | disposition home or self-care (01) | DRG 291 ==
LOC: ER 04:56 → ICU 04:57
PROVIDERS: Family Medicine; Admitting Provider Family Medicine; Emergency Provider Emergency Medicine; PCP Nurse Practitioner Family; Responsible Provider Family Medicine; Visit Provider Family Medicine
DX: I11.0 Hypertensive heart disease with heart failure (principal); I50.23 Acute on chronic systolic (congestive) heart failure; J96.01 Acute respiratory failure with hypoxia; I16.1 Hypertensive emergency; J96.12 Chronic respiratory failure with hypercapnia; I48.0 Paroxysmal atrial fibrillation; J44.9 Chronic obstructive pulmonary disease, unspecified; I35.0 Nonrheumatic aortic (valve) stenosis; F17.210 Nicotine dependence, cigarettes, uncomplicated; G47.33 Obstructive sleep apnea (adult) (pediatric); I25.10 Atherosclerotic heart disease of native coronary artery without angina pectoris; E78.5 Hyperlipidemia, unspecified; K21.9 Gastro-esophageal reflux disease without esophagitis; F41.0 Panic disorder [episodic paroxysmal anxiety]; L30.0 Nummular dermatitis; I71.43 Infrarenal abdominal aortic aneurysm, without rupture; Z86.711 Personal history of pulmonary embolism; I25.2 Old myocardial infarction; F32.A Depression, unspecified; Z96.651 Presence of right artificial knee joint
CPT/HCPCS: 00123; 36415; 80053; 82805; 85027; 87637; 93005; 94640; 96365; 96375; 97161; 99291; 71045; 71046; 83735; 84484; 85025; 93010; 93306; 94660; 94664; 94760; 99223; 99236; J1938; J3475; J7613; J7620

== ENCOUNTER 2024-12-24 16:16 | Outpatient (REF) | payer OTHER, SELFPAY | END 2024-12-24 16:17 | disposition home or self-care (01) | LOC: LBN 16:16 | PROVIDERS: PCP Nurse Practitioner Family; Visit Provider Internal Medicine Pulmonary Disease | DX: J44.89 Other specified chronic obstructive pulmonary disease (principal) | CPT/HCPCS: 82785 ==

== ENCOUNTER 2025-01-05 22:30 | Inpatient (IN) | payer OTHER, SELFPAY ==
[2025-01-05] VITALS (15 sets, daily range): BP systolic 135–175; BP diastolic 70–133; PULSE 85–111; RESP 26–36; O2SAT 62–96
--- NOTE | 2025-01-05 22:30 | RT.EKG_ITS ---
APPROVED REPORT Exam: Resting ECG Reason for Exam: SOB Patient Location: E HR:110 bpm ECG Measurements Heart Rate 110 AXIS CO 163 P 94 QRSd 113 QRS -57 QT 349 T 66 QTc 471 Conclusion Sinus tachycardia...rate> 99 ST elevation, consider inferior injury...ST >0.08mV, II III aVF Physician: no stemi
--- NOTE | 2025-01-05 22:30 | DI.RAD_ITS ---
Exam(s) XR PORTABLE CHEST AP EXAM: XR PORTABLE CHEST AP CLINICAL HISTORY: SOB, hypoxic TECHNIQUE: 2D digital imaging was performed of the chest. Two images were obtained. AP views were obtained. COMPARISON: CR,XR XR PORTABLE CHEST AP from 12/22/2024 CR XR CHEST 2V PA LATERAL from 12/22/2024 FINDINGS: MEDIASTINUM: Normal. HEART: The heart is at the upper limits of normal in size. PULMONARY VASCULATURE: There is pulmonary venous congestion. LUNGS: Interstitial infiltrates are seen bilaterally. No focal consolidating infiltrates are present. PLEURAL SPACE: No pleural effusion or pneumothorax. BONE:Within normal limits for the patient's age. OTHER FINDINGS:Normal. IMPRESSION: 1. Pulmonary venous congestion. 2. Diffuse bilateral interstitial infiltrates. This may represent pulmonary edema. An infectious or inflammatory process cannot be excluded. 3. The preliminary [facility] report was reviewed. DATA REPOSITORY: RADIATION DOSE DELIVERED:
[2025-01-05] MEDS: Albuterol/Ipratropium 3 ML UPD VIAL 6 ML UPD (22:47)
[2025-01-05] MEDS: LORazepam 20 MG/10 ML VIAL IVP (22:47)
[2025-01-05 22:52] LABS: BE (Venous) -7 mmol/L (-2-3); HCO3 (Venous) 23 mmol/L (23-28); O2 Sat (Venous) 78 %; TCO2 (Venous) 22 mmol/L (24-29); pO2 (Venous) 54 mmHg
[2025-01-05 22:57] LABS: Abs Immature Grans 0.09 10^3/uL (0.0-0.06); HCT 49.9 % (36.0-46.0); HGB 16.2 g/dL (11.2-15.7); MCH 30.7 pg (27.0-33.0); MCHC 32.5 % (32.0-36.0); MCV 95 fL (80-95); MPV 10.6 fL (8.0-11.0); Platelet Count 267 10^3/uL (130-400); RBC 5.28 10^6/uL (3.93-5.22); RDW 15.4 % (11.7-14.6); RDW-SD 54.1 fL; WBC 16.05 10^3/uL (4.4-10.8)
--- NOTE | 2025-01-05 23:07 | W.ED.GENAD ---
Discharge Plan Disposition Patient Disposition: Admit to [facility] Condition: Serious Discharge Details Clinical Impression: Hospital acquired PNA, Acute hypoxic respiratory failure, COPD exacerbation Primary Care Provider: Racquel Fraser ED Provider: Aram Ramos Home Meds and New Rx's Prescriptions: No Action citalopram 20 mg tablet 20 mg PO DAILY Qty: 90 3RF losartan 100 mg tablet 100 mg PO DAILY Qty: 90 3RF Eliquis 5 mg tablet 5 mg PO BID Qty: 180 3RF metoprolol succinate 50 mg tablet extended release 24 hr 50 mg PO DAILY Qty: 90 3RF nicotine 21 mg/24 hr patch 24 hour 1 patch transdermal DAILY Qty: 42 0RF Rx Instructions: Apply 1 patch daily for 6 weeks budesonide-formoterol 160-4.5 mcg/actuation HFA aerosol inhaler 2 puff inhalation BID Qty: 10.2 4RF Rx Instructions: 2 puffs twice a day and may use as a reliever therapy for acute difficulty breathing, 1 to 2 puffs every 4 hours as needed. Max inhalations 12 per day rosuvastatin 20 mg tablet 20 mg PO DAILY Qty: 90 3RF loratadine [Claritin] 10 mg tablet 10 mg PO DAILY Qty: 1 0RF lorazepam 1 mg tablet 1 mg PO BID PRN (Reason: panic attack(s)) Qty: 30 0RF pantoprazole 20 mg tablet,delayed release (DR/EC) 20 mg PO DAILY Qty: 90 3RF albuterol sulfate 90 mcg/actuation HFA aerosol inhaler 2 puff Inhalation Q6H PRN (Reason: shortness of breath or wheezing) Qty: 8.5 6RF ipratropium-albuterol 0.5 mg-3 mg(2.5 mg base)/3 mL solution for nebulization 3 ml UPD QID PRN (Reason: shortness of breath or wheezing) Qty: 180 3RF Jardiance 10 mg tablet 10 mg PO DAILY Qty: 90 3RF varenicline tartrate 0.5 mg (11)- 1 mg (42) tablets,dose pack See Rx Instructions .ROUTE .COMPLEX Qty: 53 0RF Rx Instructions: orally per package directions Spiriva Respimat 2.5 mcg/actuation Mist 2 puff inhalation DAILY Qty: 1 2RF furosemide 20 mg tablet 40 mg PO DAILY Qty: 90 3RF spironolactone 25 mg Tablet 12.5 mg PO DAILY Qty: 30 0RF varenicline tartrate 0.5 mg tablet 0.5 mg PO DAILY Qty: 30 0RF HPI General Date/Time Provider Initiated Documentation: 01/05/25 22:33. HPI Narrative: This is a 59-year-old female with past medical history of COPD and asthma with hypoxic respiratory failure in the past, on a baseline of 2 L of oxygen PRN, previous pulmonary embolism, paroxysmal A-fib on apixaban, abdominal aortic aneurysm, obstructive sleep apnea on nighttime CPAP, congestive heart failure/ischemic cardiomyopathy with an EF of 30ish% on echo on 10/2024, coronary artery disease, hypertension who presents today for shortness of breath. Patient states that symptoms began at 11 AM, has been getting worse throughout the day. She has taken her inhaler without significant improvement. She denies fever or chills. She denies any cough. No other complaints at this time. No chest pain. To a degree history is somewhat limited secondary to the patient's severe respiratory distress. Related Data Home Medications ?Medication ?Instructions ?Recorded ?Confirmed losartan 100 mg tablet 100 mg PO DAILY #90 tabs 01/20/24 01/06/25 pantoprazole 20 mg tablet,delayed 20 mg PO DAILY #90 tabs 05/04/24 01/06/25 release apixaban 5 mg tablet (Eliquis) 5 mg PO BID #180 tabs 08/13/24 01/06/25 metoprolol succinate 50 mg 50 mg PO DAILY #90 tabs 08/13/24 01/06/25 tablet,extended release 24 hr citalopram 20 mg tablet 20 mg PO DAILY #90 tabs 08/24/24 01/06/25 albuterol sulfate 90 mcg/actuation 2 puff inhalation Q6H PRN 09/23/24 01/06/25 aerosol inhaler shortness of breath or wheezing #8.5 grams nicotine 21 mg/24 hr daily 1 patch transdermal DAILY #42 ea 10/01/24 01/06/25 transdermal patch budesonide-formoterol HFA 160 2 puff inhalation BID #10.2 grams 10/29/24 01/06/25 mcg-4.5 mcg/actuation aerosol inhaler rosuvastatin 20 mg tablet 20 mg PO DAILY #90 tabs 10/29/24 01/06/25 spironolactone 25 mg tablet 12.5 mg (1/2 x 25 mg) PO DAILY #30 11/13/24 01/06/25 tabs furosemide 20 mg tablet 40 mg (2 x 20 mg) PO DAILY #90 tabs 11/23/24 01/06/25 tiotropium bromide 2.5 2 puff inhalation DAILY #1 inh 11/23/24 01/06/25 mcg/actuation mist for inhalation (Spiriva Respimat) ipratropium 0.5 mg-albuterol 3 mg 3 ml UPD QID PRN shortness of 11/30/24 01/06/25 (2.5 mg base)/3 mL nebulization breath or wheezing #180 mL soln loratadine 10 mg tablet (Claritin) 10 mg PO DAILY #1 tab 12/03/24 01/06/25 varenicline tartrate 0.5 mg tablet 0.5 mg PO DAILY #30 tabs 12/22/24 01/06/25 lorazepam 1 mg tablet 1 mg PO BID PRN panic attack(s) 12/24/24 01/06/25 #30 tabs empagliflozin 10 mg tablet 10 mg PO DAILY #90 tabs 12/29/24 01/06/25 (Jardiance) varenicline tartrate 0.5 mg (11)-1 See Rx Instructions PO .COMPLEX 01/05/25 01/06/25 mg (42) tablets in a dose pack #53 dose pk Previous Rx's ?Medication ?Instructions ?Recorded losartan 100 mg tablet 100 mg PO DAILY #90 tabs 01/20/24 pantoprazole 20 mg tablet,delayed 20 mg PO DAILY #90 tabs 05/04/24 release apixaban 5 mg tablet (Eliquis) 5 mg PO BID #180 tabs 08/13/24 metoprolol succinate 50 mg 50 mg PO DAILY #90 tabs 08/13/24 tablet,extended release 24 hr citalopram 20 mg tablet 20 mg PO DAILY #90 tabs 08/24/24 albuterol sulfate 90 mcg/actuation 2 puff inhalation Q6H PRN 09/23/24 aerosol inhaler shortness of breath or wheezing #8.5 grams nicotine 21 mg/24 hr daily 1 patch transdermal DAILY #42 ea 10/01/24 transdermal patch budesonide-formoterol HFA 160 2 puff inhalation BID #10.2 grams 10/29/24 mcg-4.5 mcg/actuation aerosol inhaler rosuvastatin 20 mg tablet 20 mg PO DAILY #90 tabs 10/29/24 spironolactone 25 mg tablet 12.5 mg (1/2 x 25 mg) PO DAILY #30 11/13/24 tabs furosemide 20 mg tablet 40 mg (2 x 20 mg) PO DAILY #90 tabs 11/23/24 tiotropium bromide 2.5 2 puff inhalation DAILY #1 inh 11/23/24 mcg/actuation mist for inhalation (Spiriva Respimat) ipratropium 0.5 mg-albuterol 3 mg 3 ml UPD QID PRN shortness of 11/30/24 (2.5 mg base)/3 mL nebulization breath or wheezing #180 mL soln loratadine 10 mg tablet (Claritin) 10 mg PO DAILY #1 tab 12/03/24 varenicline tartrate 0.5 mg tablet 0.5 mg PO DAILY #30 tabs 12/22/24 lorazepam 1 mg tablet 1 mg PO BID PRN panic attack(s) 12/24/24 #30 tabs empagliflozin 10 mg tablet 10 mg PO DAILY #90 tabs 12/29/24 (Jardiance) varenicline tartrate 0.5 mg (11)-1 See Rx Instructions PO .COMPLEX 01/05/25 mg (42) tablets in a dose pack #53 dose pk Allergies Allergy/AdvReac Type Severity Reaction Status Date / Time amlodipine AdvReac Intermediate Peripheral Verified 12/24/24 14:20 edema General Stated Complaint: SOB JOSE JUAN: 2 Exam Narrative Exam Narrative: 1.Const: Well-nourished, Well-developed, appearing stated age 2.Eyes: PERRL, no conjunctival injection, and symmetrical lids. 3.ENT: Atraumatic external nose and ears. Moist MM. Neck: Symmetric, trachea midline, No thyromegaly. 4.CVS: +S1/S2, Peripheral pulses 2+ and equal in all extremities. Brisk capillary refill in all extremities. 5.RESP: Unlabored respiratory effort, notable wheezes and retractions throughout. No crackles or rhonchi. 6.GI: Soft, Nontender/Nondistended, No hepatosplenomegaly. No guarding or rebound. 7.MSK: Normocephalic/Atraumatic, Extremities w/o deformity or ttp No cyanosis or clubbing, Normal movement of all extremities 8.Skin: Warm, Dry. No rashes or lesions. 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 Sensation grossly intact, no focal neurologic deficits. 10.Psych: (AAO) x3. Appropriate mood and affect Course Vital Signs Vital signs: Vital Signs Pulse 110 H 01/05/25 22:34 Respiratory Rate 30 H 01/05/25 22:34 Pulse Oximetry 66 L 01/05/25 22:34 Pulse 106 H 01/05/25 22:57 Pulse 109 H 01/05/25 22:50 Respiratory Rate 36 H 01/05/25 22:57 Respiratory Effort Short of Breath, Labored, Grunting 01/05/25 22:39 Respiratory Depth Normal 01/05/25 22:39 Respiratory Pattern Normal 01/05/25 22:39 Pulse Oximetry 94 01/05/25 22:57 Oxygen Delivery Method Room Air 01/05/25 22:39 Oxygen Flow Rate 0 01/05/25 22:39 Fraction of Inspired Oxygen (FIO2) 50 01/05/25 22:57 Lab/Test Results Lab/Test Results: Laboratory Tests Range/Units 01/05/25 22:39 VBG pH (7.31-7.41) 7.11 L* VBG pCO2 (41-51) mmHg 72 H* VBG pO2 mmHg 54 VBG HCO3 (23-28) mmol/L 23 VBG Total CO2 (24-29) mmol/L 22 L VBG O2 Saturation % 78 VBG Base Excess (-2-3) mmol/L -7 L Procedure Smoking Cessation Time Spent Discussing Smoking Cessation with Patient: 00:15 Patient Acknowledges Need for Cessation: Yes Medical Decision Making This is a 59-year-old female with past medical history of COPD and asthma with hypoxic respiratory failure in the past, on a baseline of 2 L of oxygen PRN, previous pulmonary embolism, paroxysmal A-fib on apixaban, abdominal aortic aneurysm, obstructive sleep apnea on nighttime CPAP, congestive heart failure/ischemic cardiomyopathy with an EF of 30ish% on echo on 10/2024, coronary artery disease, hypertension who presents today for shortness of breath. Patient states that symptoms began at 11 AM, has been getting worse throughout the day. She has taken her inhaler without significant improvement. She denies fever or chills. She denies any cough. No other complaints at this time. No chest pain. To a degree history is somewhat limited secondary to the patient's severe respiratory distress. Exam demonstrates severe respiratory distress, notable wheezes and retractions, patient is currently 60% on room air, ashen in color with deep gasps. Patient was immediately placed on nonrebreather, while the BiPAP was being set up. Solu-Medrol was administered, 2 DuoNebs were administered. BiPAP was started. After this she is saturating in the mid 90s at 70% FiO2. She appeared extremely anxious while on the BiPAP, and a small dose of 0.5 mg Ativan was given. Symptoms appear consistent for COPD exacerbation. No pitting edema or crackles to suggest CHF exacerbation. Bedside limited echo shows an ejection fraction around 20 to 30%. We will monitor closely, continue BiPAP, evaluate for laboratory abnormality, and reassess. She is on her blood thinner Eliquis, and so PE is unlikely. She has no chest pain to suggest ACS. 1:09 AM Laboratory workup shows acute hypercarbic respiratory acidosis, white count of 16, single band. Serial troponins are normal, pH is 7.11, PCO2 is 72. Electrolytes normal, renal function normal, proBNP normal/minimally elevated at 318. Symptoms appear inconsistent with congestive heart failure. X-ray shows questionable superimposed interstitial infiltrates, in conjunction with the patient's elevated white count and single band I do feel that hospital-acquired pneumonia treatment is indicated. We will give cefepime, azithromycin and vancomycin. Patient is doing much better at this time, she is speaking calmly on the BiPAP, there is no more hypoxic respiratory distress. She has had her FiO2 titrated down and is doing well. I spent an extended amount of time speaking with the patient and her at bedside about my concerns for her respiratory status in the future, and the potential for life-threatening respiratory arrest in the future. We discussed the importance of smoking cessation. Discussed the case with the hospitalist Dr. Miller, he agrees with assessment plan. Patient will be admitted to the ICU for further management. I have extensively reviewed the treatment plan with the patient. I have addressed all patient concerns at this time. I have also discussed the plan with the admitting physician and they agree with the current assessment and plan and have agreed to assume responsibility for the patient. All parties demonstrate verbal understanding and agreement with our assessment and plan at this time. The documentation in this chart was dictated using [employer] dictation software. Please excuse any dictation errors. FINDINGS: Lungs: The lungs are hyperinflated, consistent with underlying small airways disease. Evidence of chronic pulmonary fibrosis present. There are diffuse superimposed interstitial infiltrates present. This may represent cardiogenic versus noncardiogenic edema. An acute inflammatory process and/or infectious process/pneumonia are not excluded. Pleural spaces: There is no evidence of pneumothorax. There are no pleural effusions present. Heart/Mediastinum: There is mild cardiomegaly. The mediastinal contour is normal. Bones/joints: The skeletal structures and soft tissues show no evidence of fracture or other acute processes. Soft tissues: The soft tissues of the extrathoracic region are unremarkable. IMPRESSION: 1. The lungs are hyperinflated, consistent with underlying small airways disease. 2. There are diffuse superimposed interstitial infiltrates present. This may represent cardiogenic versus noncardiogenic edema. An acute inflammatory process and/or infectious process/pneumonia are not excluded. 3. Evidence of chronic pulmonary fibrosis present. Quality:SDOH Health Related Social Needs: Health related social needs details Survey postponed for when patient is not on bipap. Critical Care Time Critical Care Time Critical Care Time: Yes Total Critical Care Time: 45 Attestation: Upon my evaluation, this patient had a high probability of imminent or life-threatening deterioration, which required my direct attention, intervention, and personal management. I have personally provided 45 minutes of critical care time exclusive of time spent on separately billable procedures. Time includes review of laboratory data, radiology results, discussion with consultants, and monitoring for potential decompensation. Interventions were performed as documented. PFSH All Active Problems (Updated 01/06/25 @ 01:13 by Aram Ramos DO) COPD exacerbation (Acute) Acute hypoxic respiratory failure (Acute) Hospital acquired PNA (Acute) Pneumonia (Acute) Essential hypertension (Chronic) Heart failure with reduced ejection fraction (Chronic) moderate Asthma-COPD overlap syndrome (Chronic) Aortic regurgitation (Chronic) Osteoarthritis (Chronic) Cigarette smoker (Chronic) Annual LDCT paused d/t cost Nummular dermatitis (Chronic) Medical History Nonrheumatic aortic (valve) stenosis GERD (gastroesophageal reflux disease) History of Graves' disease Hyperlipidemia Generalized anxiety disorder with panic attacks LIBBY (obstructive sleep apnea) AAA (abdominal aortic aneurysm) Infrarenal, measuring 2.5cm 2024 Pulmonary embolism (~07/2024) Coronary artery disease nonobstructive, LAD stenosis Atrial fibrillation (~07/2024) Non-ST elevation RI (NSTEMI) (~01/2023) Depressive disorder Surgical History Status post right knee replacement (01/20/19) S/P right knee arthroscopy (02/20/10) With partial medial meniscectomy S/P left knee arthroscopy (05/04/10) With partial medial and lateral meniscectomy S/P dilation and curettage S/P bilateral salpingo-oophorectomy S/P appendectomy S/P abdominal hysterectomy For abnormal uterine bleeding S/P lumpectomy, right breast (~1993) Family History Mother , at 77 Asthma Hypertension COPD (chronic obstructive pulmonary disease) Father , at 79 Parkinson disease Graves disease Hypertension Depression Suicide attempt Sister No problems noted. Sister , at 44 of metastatic bone cancer Metastatic bone cancer Brother , at 60 of pancreatic cancer Pancreatic cancer Diabetes Depression COPD (chronic obstructive pulmonary disease) Brother Alcohol abuse Son No problems noted. Daughter No problems noted. Maternal Grandfather Heart disease RI Maternal Grandmother Brain cancer Paternal Grandfather No problems noted. Paternal Grandmother No problems noted. Brother , age 28 - MVA No problems noted. Social History Smoking/Tobacco Use Status: Current every day Tobacco Type: cigarettes Smoking packs per day: 1 Smoking cigarettes per day: 20.0 Years smoked: 47 Smoking pack-years: 47.00 Tobacco: How many years used: 47 Quit status: considering quitting Counseling given: provider counseling Smoking risk assessment performed?: Yes Alcohol Intake: current Alcohol Intake frequency: a few times a week Alcohol type: beer Details: Declined to answer all except selecting Beer Drug use: Never Substance use type: does not use Counseling given: No Counseling provided: none Adopted: No Caregiver/Support person: No Household members: spouse Housing: house Pets and animals: Yes Pets and animals: cat(s) Sexually active: Yes Do you think of yourself as: straight/heterosexual Current gender identity: female What is your relationship status?: How often do you talk on the phone with friends or family?: three or more times per week How often do you get together with friends or relatives?: twice per week Do you belong to any clubs or organized social groups?: no Panel score (0-1 are the most socially isolated patients): 2 What type of physical activity do you participate in: none Frequency: does not exercise Aida/Protestant: None Special aida needs: No Seatbelt use: always Helmet use: No Drive intox 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 crude oil driver: No Firearms in home: Yes Firearms unloaded and locked: Yes Do you feel safe at home: Yes Do you feel safe in your relationship?: Yes Victim of physical abuse: No Victim of emotional abuse: No Victim of sexual abuse: No Female Reproductive History Menstrual Menopause type: surgical History History 4 Para 2 Hx # Term Pregnancies Multiple births Hx # Pregnancies Ectopic pregnancies AB induced Hx Number of Living Children 2 AB spontaneous 2 POCUS Exam (ED) Limited Cardiac Exam DATE OF EXAM: 01/05/25 TIME OF EXAM: 23:13 PROVIDER THAT PERFORMED THE STUDY: Aram Ramos IS THIS A REPEAT EXAM DURING THIS ENCOUNTER: no REASON FOR EXAM: Hypoxia VISUALIZED STRUCTURES: Left atrium, Left ventricle, Right ventricle and Interventricular septum VIEW OBTAINED: Parasternal long-axis PERTINENT FINDINGS/IMPRESSION: LV dysfunction :severe Exam complete
[2025-01-05 23:09] LABS: INR 1.0 (0.9-1.1); PTT Activated 24.2 sec (20.6-30.2); Prothrombin Time 9.6 sec (9.1-11.1)
[2025-01-05] MEDS: methylPREDNISolone SUCC 125 MG VIAL IVP (23:14)
[2025-01-05 23:16] LABS: Immature Grans % 0.0 %; RBC Morphology Normal
[2025-01-05 23:18] LABS: ALT 32 U/L (14-59); AST 18 U/L (15-37); Albumin 3.8 g/dL (3.4-5.0); Alkaline Phosphatase 107 U/L (46-116); Anion Gap 12.3 mmol/L (3-11); BUN 23 mg/dL (7-18); Bilirubin, Total 0.3 mg/dL (0.2-1.0); CO2 25.7 mmol/L (21.0-32.0); Calcium 9.6 mg/dL (8.5-10.1); Chloride 104 mmol/L (98-107); Estimated GFR 83.78 (mL/min/1.73m2); Glucose 194 mg/dL (74-106); NT-proBNP 318 pg/mL (<300); Potassium 4.4 mmol/L (3.5-5.1); Sodium 142 mmol/L (136-145); Total Protein 7.8 g/dL (6.4-8.2); Troponin I 12 ng/L (<or=51)
--- NOTE | 2025-01-05 23:26 | DI.VRAD_ITS ---
PROCEDURE INFORMATION: Exam: XR Chest Exam date and time: 01/05/2025 10:53 PM Age: 59 years old Clinical indication: Shortness of breath and other: Hypoxic; SOB, hypoxic TECHNIQUE: Imaging protocol: Radiologic exam of the chest. Views: 1 view. COMPARISON: CR XR CHEST 2V PA LATERAL 12/22/2024 2:31 PM FINDINGS: Lungs: The lungs are hyperinflated, consistent with underlying small airways disease. Evidence of chronic pulmonary fibrosis present. There are diffuse superimposed interstitial infiltrates present. This may represent cardiogenic versus noncardiogenic edema. An acute inflammatory process and/or infectious process/pneumonia are not excluded. Pleural spaces: There is no evidence of pneumothorax. There are no pleural effusions present. Heart/Mediastinum: There is mild cardiomegaly. The mediastinal contour is normal. Bones/joints: The skeletal structures and soft tissues show no evidence of fracture or other acute processes. Soft tissues: The soft tissues of the extrathoracic region are unremarkable. IMPRESSION: 1. The lungs are hyperinflated, consistent with underlying small airways disease. 2. There are diffuse superimposed interstitial infiltrates present. This may represent cardiogenic versus noncardiogenic edema. An acute inflammatory process and/or infectious process/pneumonia are not excluded. 3. Evidence of chronic pulmonary fibrosis present. Dictated and Authenticated by: Manny Hutson MD. Orderin Richard Chiu MD
[2025-01-06] VITALS (53 sets, daily range): BP systolic 91–164; BP diastolic 52–137; PULSE 60–86; RESP 16–32; TEMP 36.4–37; O2SAT 87–98
--- NOTE | 2025-01-06 00:03 | HPE_ITS ---
Date of service: 01/06/25 Time of Service: 00:03 Assessment and Plan Assessment and plan (1) Acute respiratory failure with hypoxia and hypercarbia: Start date: 01/06/25 Status: Resolved Assessment and plan: This is a 59-year-old lady who has recurrent hospitalizations for respiratory failure with combination of chronic lung disease and advancing heart failure. She also continues to smoke. She does have sleep apnea and does have CPAP at home but does not wear BiPAP. She also does not have continuous oxygen supplementation at home. She has responded to BiPAP and increased oxygen supplementation and will be admitted to the ICU for close monitoring with her respiratory failure. She is responding well and she is a full code. (2) Pneumonia: Start date: 01/06/25 Status: Acute Assessment and plan: IV vancomycin, cefepime and doxycycline for hospital-acquired pneumonia with patient having frequent hospitalizations. Follow-up imaging as needed. (3) Heart failure with reduced ejection fraction: Status: Chronic Assessment and plan: Continue outpatient medical therapy and monitor closely for exacerbation with the stress of her respiratory failure. (4) Asthma-COPD overlap syndrome: Status: Chronic Assessment and plan: IV Solu-Medrol to be weaned to prednisone as patient improves. Continue aggressive nebulizer treatments. O2 supplementation with BiPAP to be weaned as tolerated. (5) Atrial fibrillation: Assessment and plan: Patient is in sinus rhythm at the time I examined her but she will continue on her outpatient medical therapy including apixaban and metoprolol. (6) Hyperlipidemia: Assessment and plan: Continue statin therapy. (7) GERD (gastroesophageal reflux disease): Assessment and plan: Continue PPI. (8) LIBBY (obstructive sleep apnea): Assessment and plan: Currently on CPAP at home and not on continuous oxygen but does use 2 L/min per nasal cannula as needed. History of Present Illness History of Present Illness Chief Complaint: Acute shortness of breath the morning of presentation to ED. Narrative: This is a 59-year-old female patient who has chronic COPD having had asthma as a child and continues to smoke cigarettes daily. She is on intermittent home oxygen at 2 L/min per nasal cannula does wear CPAP at night for sleep apnea. She has a history of paroxysmal atrial fibrillation and is on apixaban. She also has CHF with reduced left ventricular ejection fraction on diuretics. She has a history of recurrent respiratory failure which may be a complication of her underlying lung disease and CHF. This presentation appears to be secondary to humid and hot weather which she states has made her breathing more difficult. She denies fever and has no change in her chronic cough. She has had no production of sputum. She denies any chest pain. She has had no weight gain recently or increased swelling of the lower extremities. In the ED she was treated for respiratory failure with BiPAP with her initial VBG revealing hypercapnia respiratory acidosis with a pH of 7.1. She was mentating better than her usual presentation for exacerbation of her respiratory symptoms and was tolerating BiPAP well. She was not given additional Lasix in the ED and responded well to BiPAP with her FiO2 being titrated down at the time of transfer to the ICU. X-ray did reveal probable underlying pneumonia more than CHF and she was initiated on antibiotics for hospital-acquired pneumonia. She does have frequent hospitalizations for respiratory failure. IV vancomycin, cefepime and azithromycin was given in the ED with doxycycline substituted for azithromycin because of complex with her antidepressants. At the time I saw the patient she was feeling better. Her troponins were negative in the ED. She did have blood cultures performed prior to initiation of antibiotics. She did not meet sepsis criteria but she did have a transient elevation in her respiratory rate and her WBC was elevated at 16,000. Patient will be observed closely on BiPAP with FiO2 and follow-up VBG in the morning. She is a full code Review of Systems Narrative: 13 point review of systems otherwise unrevealing or stable. PFSH All Active Problems COPD exacerbation (Acute) Acute hypoxic respiratory failure (Acute) Hospital acquired PNA (Acute) Pneumonia (Acute) Essential hypertension (Chronic) Heart failure with reduced ejection fraction (Chronic) moderate Asthma-COPD overlap syndrome (Chronic) Aortic regurgitation (Chronic) Osteoarthritis (Chronic) Cigarette smoker (Chronic) Annual LDCT paused d/t cost Nummular dermatitis (Chronic) Medical History Nonrheumatic aortic (valve) stenosis GERD (gastroesophageal reflux disease) History of Graves' disease Hyperlipidemia Generalized anxiety disorder with panic attacks LIBBY (obstructive sleep apnea) AAA (abdominal aortic aneurysm) Infrarenal, measuring 2.5cm 2024 Pulmonary embolism (~07/2024) Coronary artery disease nonobstructive, LAD stenosis Atrial fibrillation (~07/2024) Non-ST elevation [place] (NSTEMI) (~01/2023) Depressive disorder Surgical History Status post right knee replacement (01/20/19) S/P right knee arthroscopy (02/20/10) With partial medial meniscectomy S/P left knee arthroscopy (05/04/10) With partial medial and lateral meniscectomy S/P dilation and curettage S/P bilateral salpingo-oophorectomy S/P appendectomy S/P abdominal hysterectomy For abnormal uterine bleeding S/P lumpectomy, right breast (~1993) Family History Mother , at 77 Asthma Hypertension COPD (chronic obstructive pulmonary disease) Father , at 79 Parkinson disease Graves disease Hypertension Depression Suicide attempt Sister No problems noted. Sister , at 44 of metastatic bone cancer Metastatic bone cancer Brother , at 60 of pancreatic cancer Pancreatic cancer Diabetes Depression COPD (chronic obstructive pulmonary disease) Brother Alcohol abuse Son No problems noted. Daughter No problems noted. Maternal Grandfather Heart disease [place] Maternal Grandmother Brain cancer Paternal Grandfather No problems noted. Paternal Grandmother No problems noted. Brother , age 28 - MVA No problems noted. Social History Smoking/Tobacco Use Status: Current every day Tobacco Type: cigarettes Smoking packs per day: 1 Smoking cigarettes per day: 20.0 Years smoked: 47 Smoking pack- years: 47.00 Tobacco: How many years used: 47 Quit status: considering quitting Counseling given: provider counseling Smoking risk assessment performed?: Yes Alcohol Intake: current Alcohol Intake frequency: a few times a week Alcohol type: beer Details: Declined to answer all except selecting Beer Drug use: Never Substance use type: does not use Counseling given: No Counseling provided: none Adopted: No Caregiver/Support person: No Household members: spouse Housing: house Pets and animals: Yes Pets and animals: cat(s) Sexually active: Yes Do you think of yourself as: straight/heterosexual Current gender identity: female What is your relationship status?: How often do you talk on the phone with friends or family?: three or more times per week How often do you get together with friends or relatives?: twice per week Do you belong to any clubs or organized social groups?: no Panel score (0-1 are the most socially isolated patients): 2 What type of physical activity do you participate in: none Frequency: does not exercise Aida/Anabaptist: None Special aida needs: No Seatbelt use: always Helmet use: No Drive intox 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: No Firearms in home: Yes Firearms unloaded and locked: Yes Do you feel safe at home: Yes Do you feel safe in your relationship?: Yes Victim of physical abuse: No Victim of emotional abuse: No Victim of sexual abuse: No Female Reproductive History Menstrual Menopause type: surgical History History 2 4 Para 2 Hx # Term Pregnancies Multiple births Hx # Pregnancies Ectopic pregnancies AB induced Hx Number of Living Children 2 AB spontaneous 2 Meds Allergies and Home Medications Allergies Allergy/AdvReac Type Severity Reaction Status Date / Time amlodipine AdvReac Intermediate Peripheral Verified 12/24/24 14:20 edema Home Medications ?Medication ?Instructions ?Recorded ?Confirmed ?Type losartan 100 mg tablet 100 mg PO DAILY #90 tabs 11/0701/06/25 Rx pantoprazole 20 mg tablet,delayed 20 mg PO DAILY #90 t abs 05/04/24 01/06/25 Rx release apixaban 5 mg tablet (Eliquis) 5 mg PO BID #180 tabs 0 08/13/24 01/06/25 Rx metoprolol succinate 50 mg 50 mg PO DAILY #90 tabs 01/06/25 Rx tablet,extended release 24 hr citalopram 20 mg tablet 20 mg PO DAILY #90 tabs 08/1501/06/25 Rx albuterol sulfate 90 mcg/actuation 2 puff inhalation Q 6H PRN 09/23/24 01/06/25 Rx aerosol inhaler shortness of breath or wheez ing #8.5 grams nicotine 21 mg/24 hr daily 1 patch transdermal DAILY # 42 ea 10/01/24 01/06/25 Rx transdermal patch budesonide-formoterol HFA 160 2 puff inhalation BID #1 0.2 grams 10/29/24 01/06/25 Rx mcg-4.5 mcg/actuation aerosol inhaler rosuvastatin 20 mg tablet 20 mg PO DAILY #90 tabs 10/1501/06/25 Rx spironolactone 25 mg tablet 12.5 mg (1/2 x 25 mg) PO D AILY #30 11/13/24 01/06/25 Rx tabs furosemide 20 mg tablet 40 mg (2 x 20 mg) PO DAILY # 90 tabs 11/23/24 01/06/25 Rx tiotropium bromide 2.5 2 puff inhalation DAILY #1 i nh 11/23/24 01/06/25 Rx mcg/actuation mist for inhalation (Spiriva Respimat) ipratropium 0.5 mg-albuterol 3 mg 3 ml UPD QID PRN ellie rtness of 11/30/24 01/06/25 Rx (2.5 mg base)/3 mL nebulization breath or wheezing #18 0 mL soln loratadine 10 mg tablet (Claritin) 10 mg PO DAILY #1 t ab 12/03/24 01/06/25 Rx varenicline tartrate 0.5 mg tablet 0.5 mg PO DAILY #30 tabs 12/22/24 01/06/25 Rx lorazepam 1 mg tablet 1 mg PO BID PRN panic attack (s) 12/24/24 01/06/25 Rx #30 tabs empagliflozin 10 mg tablet 10 mg PO DAILY #90 tabs 01/06/25 Rx (Jardiance) varenicline tartrate 0.5 mg (11)-1 See Rx Instructions PO .COMPLEX 01/05/25 01/06/25 Rx mg (42) tablets in a dose pack #53 dose pk Exam Narrative Exam Narrative: General: Patient is moderately obese, alert and oriented x 3 and in no acute distress with BiPAP in place. HEENT: Normocephalic, eyes with pupils equal and reactive to light symmetrically, extraocular movement intact and sclera anicteric. Oropharynx with moist mucosa and fair dentition. Neck: Supple without JVD. Back: Stooped posture without CVA tenderness. Lungs: Bronchovesicular breath sounds diffusely with fair aeration, no focalizing rales or rhonchi. No expiratory wheeze but slightly increased expiratory phase. No intercostal retraction. Breast: Exam deferred. Heart: Normal rate and regular rhythm with 3/6 systolic murmur over left upper sternal border, no appreciable gallop. (Patient is in sinus rhythm by EKG and cardiac monitoring). Abdomen: Obese contour, soft and nontender to palpation with no palpable hepatosplenomegaly. Bowel sounds positive in all quadrants. Genitalia/rectal: Exam deferred. Skin: Normal color, warm and dry. Rough texture with actinic changes over sun exposed areas. Extremities: Without clubbing, cyanosis or pitting edema. Nonpitting edema both lower extremities. Fair capillary refill. Neuro: Cranial nerves II through XII gross intact, no focalizing motor deficits and no tremor. Psych: Slightly anxious, normal mood. No abnormal thought processes. Remote and recent memory intact. Results Imaging Imaging Studies: Exam: XR Chest Exam date and time: 01/05/2025 10:53 PM Age: 59 years old Clinical indication: Shortness of breath and other: Hypoxic; SOB, hypoxic TECHNIQUE: Imaging protocol: Radiologic exam of the chest. Views: 1 view. COMPARISON: CR XR CHEST 2V PA LATERAL 12/22/2024 2:31 PM FINDINGS: Lungs: The lungs are hyperinflated, consistent with underlying small airways disease. Evidence of chronic pulmonary fibrosis present. There are diffuse superimposed interstitial infiltrates present. This may represent cardiogenic versus noncardiogenic edema. An acute inflammatory process and/or infectious process/pneumonia are not excluded. Pleural spaces: There is no evidence of pneumothorax. There are no pleural effusions present. Heart/Mediastinum: There is mild cardiomegaly. The mediastinal contour is normal. Bones/joints: The skeletal structures and soft tissues show no evidence of fracture or other acute processes. Soft tissues: The soft tissues of the extrathoracic region are unremarkable. IMPRESSION: 1. The lungs are hyperinflated, consistent with underlying small airways disease. 2. There are diffuse superimposed interstitial infiltrates present. This may represent cardiogenic versus noncardiogenic edema. An acute inflammatory process and/or infectious process/pneumonia are not excluded. 3. Evidence of chronic pulmonary fibrosis present Labs 01/05/25 22:39 01/05/25 22:39 Labs: Laboratory Results - last 24 hr 01/05/25 22:39 WBC 16.05 H RBC 5.28 H Hgb 16.2 H Hct 49.9 H MCV 95 MCH 30.7 MCHC 32.5 RDW 15.4 H Plt Count 267 MPV 10.6 Immature Gran % 0.0 Neutrophils % 67.0 Band Neutrophils % 1 Lymphocytes % 20.0 Atypical Lymphs % 1 Monocytes % 11.0 Eosinophils % 0.0 Basophils % 0.0 Nucleated RBC % 0.0 Absolute Neutrophils 10.91 H Absolute Lymphocytes 3.37 Absolute Monocytes 1.77 H Absolute Eosinophils 0.00 Absolute Basophils 0.00 RBC Morphology Normal PT 9.6 INR 1.0 APTT 24.2 VBG pH 7.11 L* VBG pCO2 72 H* VBG pO2 54 VBG HCO3 23 VBG Total CO2 22 L VBG O2 Saturation 78 VBG Base Excess -7 L Sodium 142 Potassium 4.4 Chloride 104 Carbon Dioxide 25.7 Anion Gap 12.3 H BUN 23 H Creatinine 0.8 Est GFR (CKD-EPI 2020) 83.78 Glucose 194 H Calcium 9.6 Total Bilirubin 0.3 AST 18 ALT 32 Alkaline Phosphatase 107 Troponin I 12 NT-Pro-B Natriuret Pep 318 H Total Protein 7.8 Albumin 3.8 Last Vital Signs Pulse 106 H 01/05/25 22:57 Resp 36 H 01/05/25 22:57 Pulse Ox 94 01/05/25 22:57 Time Spent Time spent with Patient: >75 minutes Time was spent: preparing to see the patient(eg.review tests), obtaining and/or reviewing separately otained hiistory, ordering medications,tests, procedures, referring, communicating with other health inspector health care facilities, indepentently interpreting results and care coordination
[2025-01-06 00:20] LABS: Troponin I 16 ng/L (<or=51)
[2025-01-06] MEDS: CEFEPIME 2 GM in Normal Saline 100 ML IVPB ×2 (00:38→07:53)
[2025-01-06] MEDS: AZITHROMYCIN 500 MG in Normal Saline 250 ML 250 MG IVPB (00:38)
[2025-01-06] MEDS: VANCOMYCIN 1,500 MG in Normal Saline 500 ML 333.3333 MG IVPB (01:30)
[2025-01-06 02:30] LABS: Troponin I 33 ng/L (<or=51)
[2025-01-06] MEDS: DOXYCYCLINE 100 MG in Normal Saline 100 ML IVPB (03:48)
[2025-01-06 05:39] LABS: BE (Venous) -2 mmol/L (-2-3); HCO3 (Venous) 24 mmol/L (23-28); O2 Sat (Venous) 63 %; TCO2 (Venous) 22 mmol/L (24-29); pCO2 (Venous) 45 mmHg (41-51); pO2 (Venous) 33 mmHg
[2025-01-06 05:42] LABS: HCT 43.2 % (36.0-46.0); HGB 14.5 g/dL (11.2-15.7); MCH 31.3 pg (27.0-33.0); MCHC 33.6 % (32.0-36.0); MCV 93 fL (80-95); MPV 10.2 fL (8.0-11.0); Platelet Count 228 10^3/uL (130-400); RBC 4.64 10^6/uL (3.93-5.22); RDW 15.3 % (11.7-14.6); RDW-SD 52.4 fL; WBC 13.39 10^3/uL (4.4-10.8)
[2025-01-06] MEDS: methylPREDNISolone SUCC 125 MG VIAL 80 MG IVP (05:44)
[2025-01-06] MEDS: Albuterol/Ipratropium 3 ML UPD VIAL UPD (05:50)
[2025-01-06 06:26] LABS: ALT 29 U/L (14-59); AST 16 U/L (15-37); Albumin 3.2 g/dL (3.4-5.0); Alkaline Phosphatase 85 U/L (46-116); Anion Gap 9.8 mmol/L (3-11); BUN 24 mg/dL (7-18); Bilirubin, Total 0.5 mg/dL (0.2-1.0); CO2 26.2 mmol/L (21.0-32.0); Calcium 9.1 mg/dL (8.5-10.1); Chloride 108 mmol/L (98-107); Estimated GFR 98.34 (mL/min/1.73m2); Glucose 136 mg/dL (74-106); Potassium 4.8 mmol/L (3.5-5.1); Sodium 144 mmol/L (136-145); Total Protein 6.7 g/dL (6.4-8.2)
[2025-01-06 06:49] LABS: pCO2 (Venous) 72 mmHg (41-51)
[2025-01-06] MEDS: Spironolactone 25 MG TAB 12.5 MG PO (07:51)
[2025-01-06] MEDS: Nicotine 21 MG/24 HR PATCH TD (07:51)
[2025-01-06] MEDS: Apixaban 5 MG TAB PO (07:51)
[2025-01-06] MEDS: Furosemide 20 MG TAB 40 MG PO (07:51)
[2025-01-06] MEDS: Rosuvastatin 20 MG TAB PO (07:51)
[2025-01-06] MEDS: Pantoprazole 20 MG TABCR PO (07:52)
[2025-01-06] MEDS: Loratidine 10 MG TAB PO (07:52)
[2025-01-06] MEDS: Losartan 50 MG TAB 100 MG PO (07:52)
[2025-01-06] MEDS: Empaglifozin 10 MG TAB PO (07:52)
[2025-01-06] MEDS: Metoprolol CR 50 MG TABCR PO (07:52)
[2025-01-06] MEDS: Citalopram 20 MG TAB PO (07:52)
[2025-01-06] MEDS: Normal Saline Flush 10 ML SYR IVP (07:53)
[2025-01-06] MEDS: Budesonide/Formoterol 160/4.5 6 GM 60 PUFF INH IH (08:09)
[2025-01-06 08:49] LABS: RSV PCR Negative (Negative)
--- NOTE | 2025-01-06 08:49 | PDOC.CMIN ---
Date of service: 01/06/25 Time of Service: 08:49 Care Management Initial Assmt Initial Assessment Reason for Hospitalization: Acute Respiratory Failure Functional Status/Living Situation Town of Residence: [place] Resides with: Spouse (Guru) Significant Other/Family: Local Natural Supports: Adult children, friends, family Employment Status: Retired (Worked at [employer]) Instrumental Activities of Daily Living (ADLs): Independent Activities/Hobbies/SocialSupport: loves to bowl and socialize with friends, enjoys walking her grand-dogs and also playing games on her tablet Medications Medication Management: No Issues/Barriers identified Advance Directives Advance Directives: Do you have an Advance Directive: N 04/15/13, 12:26 AD On File at [facility]: N 04/15/13, 12:26 Date Asked 01/05/25 01/05/25, 22:42 AD Date Reviewed COLST On File at [facility] COLST Date Scanned Code Status Resuscitation Status Full Code Portal Pt does not currently have a portal and education provided: Yes Insurance Coverage/Financial Issues Insurance: [facility] - [id number] Care Team Visit Care Team Role Provider Type Kali Page MD MD [facility] STAFF PHYSICIAN Racquel Fraser, COKE DRAWER HAND Primary Care Provider NURSE PRACTITIONER Aram Ramos DO Emergency Provider [facility] STAFF PHYSICIAN Grady García Admit Provider NON-[facility] STAFF PHYSICIAN Attending Provider Discharge Potential Discharge Needs: Consult Consult Services Needed: Cardiology (Cardiac rehab), PCP F/U Appt and Other (pulmonology (01/18/25), cardiology) Social Determinants of Health Screening Will the Patient Participate in the Screening?: Unable to obtain Comments: pt unable to answer at present. On bipap and exhausted Health Related Social Needs Health related social needs details: lives in her own house with PFSH All Active Problems COPD exacerbation (Acute) Acute hypoxic respiratory failure (Acute) Hospital acquired PNA (Acute) Pneumonia (Acute) Essential hypertension (Chronic) Heart failure with reduced ejection fraction (Chronic) moderate Asthma-COPD overlap syndrome (Chronic) Aortic regurgitation (Chronic) Osteoarthritis (Chronic) Cigarette smoker (Chronic) Annual LDCT paused d/t cost Nummular dermatitis (Chronic) Medical History Nonrheumatic aortic (valve) stenosis GERD (gastroesophageal reflux disease) History of Graves' disease Hyperlipidemia Generalized anxiety disorder with panic attacks LIBBY (obstructive sleep apnea) AAA (abdominal aortic aneurysm) Infrarenal, measuring 2.5cm 2024 Pulmonary embolism (~07/2024) Coronary artery disease nonobstructive, LAD stenosis Atrial fibrillation (~07/2024) Non-ST elevation [place] (NSTEMI) (~01/2023) Depressive disorder Surgical History Status post right knee replacement (01/20/19) S/P right knee arthroscopy (02/20/10) With partial medial meniscectomy S/P left knee arthroscopy (05/04/10) With partial medial and lateral meniscectomy S/P dilation and curettage S/P bilateral salpingo-oophorectomy S/P appendectomy S/P abdominal hysterectomy For abnormal uterine bleeding S/P lumpectomy, right breast (~1993) Family History Mother , at 77 Asthma Hypertension COPD (chronic obstructive pulmonary disease) Father , at 79 Parkinson disease Graves disease Hypertension Depression Suicide attempt Sister No problems noted. Sister , at 44 of metastatic bone cancer Metastatic bone cancer Brother , at 60 of pancreatic cancer Pancreatic cancer Diabetes Depression COPD (chronic obstructive pulmonary disease) Brother Alcohol abuse Son No problems noted. Daughter No problems noted. Maternal Grandfather Heart disease [place] Maternal Grandmother Brain cancer Paternal Grandfather No problems noted. Paternal Grandmother No problems noted. Brother , age 28 - MVA No problems noted. Social History Smoking/Tobacco Use Status: Current every day Tobacco Type: cigarettes Smoking packs per day: 1 Smoking cigarettes per day: 20.0 Years smoked: 47 Smoking pack-years: 47.00 Tobacco: How many years used: 47 Quit status: considering quitting Counseling given: provider counseling Smoking risk assessment performed?: Yes Alcohol Intake: current Alcohol Intake frequency: a few times a week Alcohol type: beer Details: Declined to answer all except selecting Beer Drug use: Never Substance use type: does not use Counseling given: No Counseling provided: none Adopted: No Caregiver/Support person: No Household members: spouse Housing: house Pets and animals: Yes Pets and animals: cat(s) Sexually active: Yes Do you think of yourself as: straight/heterosexual Current gender identity: female What is your relationship status?: How often do you talk on the phone with friends or family?: three or more times per week How often do you get together with friends or relatives?: twice per week Do you belong to any clubs or organized social groups?: no Panel score (0-1 are the most socially isolated patients): 2 What type of physical activity do you participate in: none Frequency: does not exercise Aida/Zoroastrianism: None Special aida needs: No Seatbelt use: always Helmet use: No Drive 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 Firearms in home: Yes Firearms unloaded and locked: Yes Do you feel safe at home: Yes Do you feel safe in your relationship?: Yes Victim of physical abuse: No Victim of emotional abuse: No Victim of sexual abuse: No Female Reproductive History Menstrual Menopause type: surgical History History 4 Para 2 Hx # Term Pregnancies Multiple births Hx # Pregnancies Ectopic pregnancies AB induced Hx Number of Living Children 2 AB spontaneous 2 Readmission Within the Past 30 Days Yes or No: Yes Office Visit Since 1st Admission Have you seen your PCP in the office since discharge?: Yes Date of PCP Appointment: 12/24/24 Speicalist Appointments Have you seen any other specialist since your 1st Admission?: Yes Date you saw the Specialist: 12/24/24 Specialist Seen: Cortes Bazzi
[2025-01-06 09:15] LABS: COVID-19 PCR Positive (Negative)
--- NOTE | 2025-01-06 10:25 | DSE_ITS ---
Date of service: 01/06/25 Time of Service: 10:25 DS: Diagnosis Discharge Diagnosis (1) Acute respiratory failure with hypoxia and hypercarbia: Status: Resolved (2) Pneumonia: Status: Acute (3) Heart failure with reduced ejection fraction: Status: Chronic (4) Asthma-COPD overlap syndrome: Status: Chronic (5) Atrial fibrillation: (6) Hyperlipidemia: (7) GERD (gastroesophageal reflux disease): (8) LIBBY (obstructive sleep apnea): Discharge Plan Disposition Patient Disposition: Home Condition: Good Discharge Details Reason For Visit: Acute Respiratory Failure Admit Date/Time: 01/06/25 00:21 Admit Provider: Grady García Attending Provider: Grady García [facility]: Patient initially presented with signs and symptoms of acute hypoxic and hypercapnic respiratory failure presumed secondary to COPD exacerbation. Patient had rapid improvement with steroids and brief requirement of BiPAP. CO2 rapidly improved and patient was transition to room air and did not have any shortness of breath or wheezing on physical exam. Additionally, patient was seen by respiratory therapy patient supposed to have BiPAP set up at home and they will help facilitate patient obtaining this equipment. Additionally, patient was found to be COVID positive and understands masking contact precautions. Otherwise, given the rapid improvement in patient's condition it was determined that she she was stable for discharge home will have an additional 5 days of p.o. prednisone and doxycycline. Home Meds and New Rx's Prescriptions: New prednisone 20 mg tablet 40 mg PO DAILY 5 Days Qty: 10 0RF doxycycline hyclate 100 mg tablet,delayed release (DR/EC) 100 mg PO BID 5 Days Qty: 10 0RF Continued citalopram 20 mg tablet 20 mg PO DAILY Qty: 90 3RF losartan 100 mg tablet 100 mg PO DAILY Qty: 90 3RF Eliquis 5 mg tablet 5 mg PO BID Qty: 180 3RF metoprolol succinate 50 mg tablet extended release 24 hr 50 mg PO DAILY Qty: 90 3RF nicotine 21 mg/24 hr patch 24 hour 1 patch transdermal DAILY Qty: 42 0RF Rx Instructions: Apply 1 patch daily for 6 weeks budesonide-formoterol 160-4.5 mcg/actuation HFA aerosol inhaler 2 puff inhalation BID Qty: 10.2 4RF Rx Instructions: 2 puffs twice a day and may use as a reliever therapy for acute difficulty breathing, 1 to 2 puffs every 4 hours as needed. Max inhalations 12 per day rosuvastatin 20 mg tablet 20 mg PO DAILY Qty: 90 3RF loratadine [Claritin] 10 mg tablet 10 mg PO DAILY Qty: 1 0RF lorazepam 1 mg tablet 1 mg PO BID PRN (Reason: panic attack(s)) Qty: 30 0RF pantoprazole 20 mg tablet,delayed release (DR/EC) 20 mg PO DAILY Qty: 90 3RF albuterol sulfate 90 mcg/actuation HFA aerosol inhaler 2 puff Inhalation Q6H PRN (Reason: shortness of breath or wheezing) Qty: 8.5 6RF ipratropium-albuterol 0.5 mg-3 mg(2.5 mg base)/3 mL solution for nebulization 3 ml UPD QID PRN (Reason: shortness of breath or wheezing) Qty: 180 3RF Jardiance 10 mg tablet 10 mg PO DAILY Qty: 90 3RF varenicline tartrate 0.5 mg (11)- 1 mg (42) tablets,dose pack See Rx Instructions .ROUTE .COMPLEX Qty: 53 0RF Rx Instructions: orally per package directions Spiriva Respimat 2.5 mcg/actuation Mist 2 puff inhalation DAILY Qty: 1 2RF furosemide 40 mg tablet 40 mg PO DAILY Patient Comments: TAKE ONE TABLET BY MOUTH EVERY DAY spironolactone 25 mg Tablet 12.5 mg PO DAILY Qty: 30 0RF varenicline tartrate 0.5 mg tablet 0.5 mg PO DAILY Qty: 30 0RF Discharge Instructions Activity:: Activity as Tolerated Equipment/Supplies:: No Equipment Needed Diet:: As Tolerated Discharge Orders Discharge Orders: Discharge Order (Routine); Ordered 01/06/25 Ordered By: Kali Page DS: Summary Time Spent with Patient providing and/or coordinating discharge services: Greater than 30 minutes Status at Discharge Functional status at discharge: independent ambulation Overall status at discharge: patient is back to baseline Mental Status: mental status grossly normal Speech and Movement: speech and movement normal Mood: congruent mood Affect: normal affect Quality:SDOH Health Related Social Needs: Health related social needs details lives in her own h ouse with Health related social needs details: lives in her own house with Exam Narrative Exam Narrative: Well-appearing female sitting up on the edge of the bed no acute distress, ANO x 4, heart regular rhythm, lungs good auscultation bilaterally Psych Mental Status: mental status grossly normal Speech and Movement: speech and movement normal Mood: congruent mood Affect: normal affect DS: Data Vitals/I&O Vitals and I&O: Vital Signs Temperature 98.4 F 01/06/25 09:06 Temperature Source Tympanic 01/06/25 09:06 Pulse 74 01/06/25 09:06 Pulse 69 01/06/25 08:00 Respiratory Rate 18 01/06/25 09:06 Respiratory Effort Short of Breath, Labored, Grunting 01/05/25 22:39 Respiratory Depth Normal 01/05/25 22:39 Respiratory Pattern Normal 01/05/25 22:39 Blood Pressure 128/56 L 01/06/25 09:06 Blood Pressure Mean 80 01/06/25 09:06 Pulse Oximetry 95 01/06/25 09:06 Oxygen Delivery Method Room Air 01/06/25 09:06 Oxygen Flow Rate 0 01/06/25 09:06 Fraction of Inspired Oxygen (FIO2) 21 01/06/25 08:10 Comment prior nurse/shift 01/06/25 05:01 Intake & Output 01/05/25 01/06/25 01/06/25 17:59 05:59 17:59 Intake Total 1070 / 1070 520 / 520 Output Total 150 / 150 500 / 500 Balance 920 / 920 20 / 20 Weight 169 lb 12.095 oz 178 lb 12.718 oz Intake: IV 950 / 950 100 / 100 Oral 120 / 120 420 / 420 Output: Urine 150 / 150 500 / 500 Other: Urine Color Yellow Yellow Urine Appearance Clear Clear Urine Odor Normal Normal Comment voided on commode on arrival Data Completed and Pending Labs on day of discharge: Labs from last 24 hours 01/06/25 01/06/25 01/06/25 16:00 07:59 06:00 WBC RBC Hgb Hct MCV MCH MCHC RDW Plt Count MPV Immature Gran % Neutrophils % Band Neutrophils % Lymphocytes % Atypical Lymphs % Monocytes % Eosinophils % Basophils % Nucleated RBC % Absolute Neutrophils Absolute Lymphocytes Absolute Monocytes Absolute Eosinophils Absolute Basophils RBC Morphology PT INR APTT ABG Sample Site Cancelled ABG pH Cancelled ABG pCO2 Cancelled ABG pO2 Cancelled ABG HCO3 Cancelled ABG Total CO2 Cancelled ABG O2 Saturation Cancelled ABG Base Excess Cancelled VBG pH VBG pCO2 VBG pO2 VBG HCO3 VBG Total CO2 VBG O2 Saturation VBG Base Excess Oxygen Liter Flow Cancelled FiO2 Cancelled Sodium Potassium Chloride Carbon Dioxide Anion Gap BUN Creatinine Est GFR (CKD-EPI 2020) Glucose Calcium Total Bilirubin AST ALT Alkaline Phosphatase Troponin I NT-Pro-B Natriuret Pep Total Protein Albumin Random Vancomycin Pending COVID-19 Source Nasopharynx SARS-CoV-2 (PCR) Positive A Influenza Type A (PCR) Negative Influenza Type B (PCR) Negative RSV (PCR) Negative 01/06/25 01/06/25 01/05/25 05:35 02:05 23:58 WBC 13.39 H RBC 4.64 Hgb 14.5 Hct 43.2 MCV 93 MCH 31.3 MCHC 33.6 RDW 15.3 H Plt Count 228 MPV 10.2 Immature Gran % Neutrophils % Band Neutrophils % Lymphocytes % Atypical Lymphs % Monocytes % Eosinophils % Basophils % Nucleated RBC % Absolute Neutrophils Absolute Lymphocytes Absolute Monocytes Absolute Eosinophils Absolute Basophils RBC Morphology PT INR APTT ABG Sample Site ABG pH ABG pCO2 ABG pO2 ABG HCO3 ABG Total CO2 ABG O2 Saturation ABG Base Excess VBG pH 7.34 VBG pCO2 45 VBG pO2 33 VBG HCO3 24 VBG Total CO2 22 L VBG O2 Saturation 63 VBG Base Excess -2 Oxygen Liter Flow FiO2 Sodium 144 Potassium 4.8 Chloride 108 H Carbon Dioxide 26.2 Anion Gap 9.8 BUN 24 H Creatinine 0.7 Est GFR (CKD-EPI 2020) 98.34 Glucose 136 H Calcium 9.1 Total Bilirubin 0.5 AST 16 ALT 29 Alkaline Phosphatase 85 Troponin I 33 16 NT-Pro-B Natriuret Pep Total Protein 6.7 Albumin 3.2 L Random Vancomycin COVID-19 Source SARS-CoV-2 (PCR) Influenza Type A (PCR) Influenza Type B (PCR) RSV (PCR) 01/05/25 22:39 WBC 16.05 H RBC 5.28 H Hgb 16.2 H Hct 49.9 H MCV 95 MCH 30.7 MCHC 32.5 RDW 15.4 H Plt Count 267 MPV 10.6 Immature Gran % 0.0 Neutrophils % 67.0 Band Neutrophils % 1 Lymphocytes % 20.0 Atypical Lymphs % 1 Monocytes % 11.0 Eosinophils % 0.0 Basophils % 0.0 Nucleated RBC % 0.0 Absolute Neutrophils 10.91 H Absolute Lymphocytes 3.37 Absolute Monocytes 1.77 H Absolute Eosinophils 0.00 Absolute Basophils 0.00 RBC Morphology Normal PT 9.6 INR 1.0 APTT 24.2 ABG Sample Site ABG pH ABG pCO2 ABG pO2 ABG HCO3 ABG Total CO2 ABG O2 Saturation ABG Base Excess VBG pH 7.11 L* VBG pCO2 72 H* VBG pO2 54 VBG HCO3 23 VBG Total CO2 22 L VBG O2 Saturation 78 VBG Base Excess -7 L Oxygen Liter Flow FiO2 Sodium 142 Potassium 4.4 Chloride 104 Carbon Dioxide 25.7 Anion Gap 12.3 H BUN 23 H Creatinine 0.8 Est GFR (CKD-EPI 2020) 83.78 Glucose 194 H Calcium 9.6 Total Bilirubin 0.3 AST 18 ALT 32 Alkaline Phosphatase 107 Troponin I 12 NT-Pro-B Natriuret Pep 318 H Total Protein 7.8 Albumin 3.8 Random Vancomycin COVID-19 Source SARS-CoV-2 (PCR) Influenza Type A (PCR) Influenza Type B (PCR) RSV (PCR) PFSH All Active Problems (Updated 01/06/25 @ 10:22 by Kali Page MD) COPD exacerbation (Acute) Acute hypoxic respiratory failure (Acute) Hospital acquired PNA (Acute) Pneumonia (Acute) Essential hypertension (Chronic) Heart failure with reduced ejection fraction (Chronic) moderate Asthma-COPD overlap syndrome (Chronic) Aortic regurgitation (Chronic) Osteoarthritis (Chronic) Cigarette smoker (Chronic) Annual LDCT paused d/t cost Nummular dermatitis (Chronic) Medical History Nonrheumatic aortic (valve) stenosis GERD (gastroesophageal reflux disease) History of Graves' disease Hyperlipidemia Generalized anxiety disorder with panic attacks LIBBY (obstructive sleep apnea) AAA (abdominal aortic aneurysm) Infrarenal, measuring 2.5cm 2024 Pulmonary embolism (~07/2024) Coronary artery disease nonobstructive, LAD stenosis Atrial fibrillation (~07/2024) Non-ST elevation [place] (NSTEMI) (~01/2023) Depressive disorder Surgical History Status post right knee replacement (01/20/19) S/P right knee arthroscopy (02/20/10) With partial medial meniscectomy S/P left knee arthroscopy (05/04/10) With partial medial and lateral meniscectomy S/P dilation and curettage S/P bilateral salpingo-oophorectomy S/P appendectomy S/P abdominal hysterectomy For abnormal uterine bleeding S/P lumpectomy, right breast (~1993) Family History Mother , at 77 Asthma Hypertension COPD (chronic obstructive pulmonary disease) Father , at 79 Parkinson disease Graves disease Hypertension Depression Suicide attempt Sister No problems noted. Sister , at 44 of metastatic bone cancer Metastatic bone cancer Brother , at 60 of pancreatic cancer Pancreatic cancer Diabetes Depression COPD (chronic obstructive pulmonary disease) Brother Alcohol abuse Son No problems noted. Daughter No problems noted. Maternal Grandfather Heart disease [place] Maternal Grandmother Brain cancer Paternal Grandfather No problems noted. Paternal Grandmother No problems noted. Brother , age 28 - MVA No problems noted. Social History Smoking/Tobacco Use Status: Current every day Tobacco Type: cigarettes Smoking packs per day: 1 Smoking cigarettes per day: 20.0 Years smoked: 47 Smoking pack- years: 47.00 Tobacco: How many years used: 47 Quit status: considering quitting Counseling given: provider counseling Smoking risk assessment performed?: Yes Alcohol Intake: current Alcohol Intake frequency: a few times a week Alcohol type: beer Details: Declined to answer all except selecting Beer Drug use: Never Substance use type: does not use Counseling given: No Counseling provided: none Adopted: No Caregiver/Support person: No Household members: spouse Housing: house Pets and animals: Yes Pets and animals: cat(s) Sexually active: Yes Do you think of yourself as: straight/heterosexual Current gender identity: female What is your relationship status?: How often do you talk on the phone with friends or family?: three or more times per week How often do you get together with friends or relatives?: twice per week Do you belong to any clubs or organized social groups?: no Panel score (0-1 are the most socially isolated patients): 2 What type of physical activity do you participate in: none Frequency: does not exercise Aida/Rastafarian: None Special aida needs: No Seatbelt use: always Helmet use: No Drive intox 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 driver license agent: No Firearms in home: Yes Firearms unloaded and locked: Yes Do you feel safe at home: Yes Do you feel safe in your relationship?: Yes Victim of physical abuse: No Victim of emotional abuse: No Victim of sexual abuse: No Female Reproductive History Menstrual Menopause type: surgical History History 4 Para 2 Hx # Term Pregnancies Multiple births Hx # Pregnancies Ectopic pregnancies AB induced Hx Number of Living Children 2 AB spontaneous 2 Time Spent with Patient Time Spent with Patient: <45 minutes Time was spent: preparing to see the patient(eg.review tests), obtaining and/or reviewing separately otained hiistory, ordering medications,tests, procedures, referring, communicating with other health district manager primary care sales, indepentently interpreting results, counseling the patient and care coordination
--- NOTE | 2025-01-06 10:48 | CMDISCH_ITS ---
Date of service: 01/06/25 Time of Service: 10:48 LACE Index Scoring Tool Questions: Length of Stay (in days): 1 Was the patient admitted via the E.D.?: Yes Comorbidities: Congestive Heart Failure and Chronic Pulmonary Disease E.D. Visits: 9 Answers: Total Score: 13 Risk of Readmission: High Risk Care Management Discharge Plan Reason for Hospitalization: Acute Respiratory Failure Discharge Plan: Jaelyn is discharged home today with no new services. She is currently coordinating with respiratory services to obtain a BiPAP machine for home use, with the goal of reducing hospital admissions. She will f/u with her PCP and also with pulmonology at [facility] on 01/18/25. Jaelyn has been referred to cardiac liaison, and referral for palliative services has been ordered. Jaelyn will transport home in a private vehicle and continue per her plan of care. Patient/Family Education Needs: Review of discharge instructions, activity, limitations and discuss Ask me 3. Jaelyn was also encouraged to ask for a cardiac liaison referral each time she is admitted. Services Needed at Discharge: Respiratory Care Services (BiPAP) SDOH Health Related Social Needs: Health related social needs details lives in her own h ouse with Health related social needs details: lives in her own house with
--- NOTE | 2025-01-06 13:06 | RESPIRATORY ---
RT spoke with Pulmonology about patient getting set up with home BiPAP instead of her current CPAP. Current settings are auto-titrate CPAP 6-16, no O2 bleed in. DME: [facility]. Pulmonology Dr. Bazzi had sent referral to [facility] for BiPAP sleep titration study. Pt has not yet heard back from clinic about an appointment - clinic may be backed up due to staffing changes. Next time patient arrives at [facility] with exacerbation, PLEASE OBTAIN ABG TO QUALIFY HER FOR BIPAP MORE QUICKLY
== END 2025-01-06 11:00 | disposition home or self-care (01) | DRG 193 ==
LOC: ER 01-06 01:13 → ICU 01-06 01:21
PROVIDERS: Admitting Provider Family Medicine; Emergency Provider Student in an Organized Health Care Education/Training Program; PCP Nurse Practitioner Family; Responsible Provider Family Medicine; Visit Provider Family Medicine
DX: J18.9 Pneumonia, unspecified organism (principal); J96.01 Acute respiratory failure with hypoxia; J96.02 Acute respiratory failure with hypercapnia; J44.0 Chronic obstructive pulmonary disease with (acute) lower respiratory infection; I50.22 Chronic systolic (congestive) heart failure; J44.1 Chronic obstructive pulmonary disease with (acute) exacerbation; I11.0 Hypertensive heart disease with heart failure; I48.0 Paroxysmal atrial fibrillation; G47.33 Obstructive sleep apnea (adult) (pediatric); J45.909 Unspecified asthma, uncomplicated; I35.1 Nonrheumatic aortic (valve) insufficiency; F17.210 Nicotine dependence, cigarettes, uncomplicated; K21.9 Gastro-esophageal reflux disease without esophagitis; Y95 Nosocomial condition; E78.5 Hyperlipidemia, unspecified; I71.43 Infrarenal abdominal aortic aneurysm, without rupture; Z86.711 Personal history of pulmonary embolism; I25.10 Atherosclerotic heart disease of native coronary artery without angina pectoris; I25.2 Old myocardial infarction; F32.A Depression, unspecified; Z96.651 Presence of right artificial knee joint; E05.00 Thyrotoxicosis with diffuse goiter without thyrotoxic crisis or storm
CPT/HCPCS: 00123; 36415; 80053; 82805; 85027; 87637; 93005; 93308; 94640; 94761; 96365; 96368; 96375; 96376; 99291; 99407; 71045; 80202; 83880; 84484; 85025; 85610; 85730; 93010; 94660; 94664; 94760; 99236; J0456; J0692; J1815; J2060; J2919; J3373; J7620

== ENCOUNTER 2025-01-07 21:32 | Emergency (ER) | payer OTHER, SELFPAY ==
[2025-01-07] VITALS (24 sets, daily range): BP systolic 104–135; BP diastolic 32–70; PULSE 78–98; RESP 12–32; O2SAT 88–99
--- NOTE | 2025-01-07 21:15 | DI.RAD_ITS ---
Exam(s) XR CHEST 2V PA LATERAL EXAM: XR CHEST 2V PA LATERAL CLINICAL HISTORY: cough, SOB, COVID+ TECHNIQUE: 2D digital imaging was performed. Two views. COMPARISON: CR,XR XR PORTABLE CHEST AP from 01/05/2025 FINDINGS: HEART: Normal size. Aorta: Not dilated. PULMONARY VASCULATURE: Normal. MEDIASTINUM: Unremarkable. LUNGS: Hyperinflated but clear. PLEURAL SPACE: No pleural effusion or pneumothorax. BONE:Unremarkable for age. SOFT TISSUES: Unremarkable. IMPRESSION: No acute abnormality. The preliminary [facility] report was reviewed. DATA REPOSITORY: RADIATION DOSE DELIVERED:
--- NOTE | 2025-01-07 21:15 | RT.EKG_ITS ---
APPROVED REPORT Exam: Resting ECG Reason for Exam: Difficulty breathing Patient Location: E HR:91 bpm ECG Measurements Heart Rate 91 AXIS DE 160 P 84 QRSd 113 QRS 19 QT 387 T 76 QTc 476 Conclusion Sinus rhythm, rate 91 PVC No interval abnormalities no STEMI Baseline artifact, no significant change from priors
[2025-01-07] MEDS: Albuterol/Ipratropium 3 ML UPD VIAL UPD ×2 (21:34→23:37)
[2025-01-07] MEDS: MAGNESIUM SULFATE 2 GM/50 ML BAG IV_INF (21:34)
--- NOTE | 2025-01-07 21:43 | W.ED.GENAD ---
Discharge Plan Disposition Patient Disposition: Admit to [facility] Condition: Stable Discharge Details Clinical Impression: COVID-19, Asthma-COPD overlap syndrome Primary Care Provider: Racquel Fraser ED Provider: Carol Goyal Home Meds and New Rx's Prescriptions: No Action citalopram 20 mg tablet 20 mg PO DAILY Qty: 90 3RF losartan 100 mg tablet 100 mg PO DAILY Qty: 90 3RF Eliquis 5 mg tablet 5 mg PO BID Qty: 180 3RF metoprolol succinate 50 mg tablet extended release 24 hr 50 mg PO DAILY Qty: 90 3RF nicotine 21 mg/24 hr patch 24 hour 1 patch transdermal DAILY Qty: 42 0RF Rx Instructions: Apply 1 patch daily for 6 weeks budesonide-formoterol 160-4.5 mcg/actuation HFA aerosol inhaler 2 puff inhalation BID Qty: 10.2 4RF Rx Instructions: 2 puffs twice a day and may use as a reliever therapy for acute difficulty breathing, 1 to 2 puffs every 4 hours as needed. Max inhalations 12 per day rosuvastatin 20 mg tablet 20 mg PO DAILY Qty: 90 3RF loratadine [Claritin] 10 mg tablet 10 mg PO DAILY Qty: 1 0RF lorazepam 1 mg tablet 1 mg PO BID PRN (Reason: panic attack(s)) Qty: 30 0RF pantoprazole 20 mg tablet,delayed release (DR/EC) 20 mg PO DAILY Qty: 90 3RF albuterol sulfate 90 mcg/actuation HFA aerosol inhaler 2 puff Inhalation Q6H PRN (Reason: shortness of breath or wheezing) Qty: 8.5 6RF ipratropium-albuterol 0.5 mg-3 mg(2.5 mg base)/3 mL solution for nebulization 3 ml UPD QID PRN (Reason: shortness of breath or wheezing) Qty: 180 3RF Jardiance 10 mg tablet 10 mg PO DAILY Qty: 90 3RF varenicline tartrate 0.5 mg (11)- 1 mg (42) tablets,dose pack See Rx Instructions .ROUTE .COMPLEX Qty: 53 0RF Rx Instructions: orally per package directions spironolactone 25 mg tablet 12.5 mg PO DAILY Qty: 45 0RF Spiriva Respimat 2.5 mcg/actuation Mist 2 puff inhalation DAILY Qty: 1 2RF furosemide 40 mg tablet 40 mg PO DAILY Patient Comments: TAKE ONE TABLET BY MOUTH EVERY DAY prednisone 20 mg tablet 40 mg PO DAILY 5 Days Qty: 10 0RF doxycycline hyclate 100 mg tablet,delayed release (DR/EC) 100 mg PO BID 5 Days Qty: 10 0RF varenicline tartrate 0.5 mg tablet 0.5 mg PO DAILY Qty: 30 0RF HPI General Mode of arrival: EMS. Date/Time Provider Initiated Documentation: 01/07/25 21:43. Limitations to Documentation: no limitations. Information obtained by: patient, EMS and old records reviewed. HPI Narrative: This is a 59-year-old female patient with a recent admission to this hospital for hypoxic respiratory failure in the setting of COPD and COVID, who also has a history of heart failure, aortic regurgitation, and pneumonia, presenting for evaluation of shortness of breath and wheezing. The patient reports that she was discharged home this morning, was doing fairly well until she tried to get up and ambulate to the bathroom to get her medicines. She was discharged on a prednisone burst as well as a course of doxycycline. She states that she immediately had significant worsening of her breathing with tachypnea, and oxygenation's in the high 80s to the 90%. She tried a duo nebulizer at home without improvement and summoned EMS. She received 2 duo nebulizer treatments from them as well as a dose of Solu-Medrol and was brought into the emergency department with some improvement in her work of breathing. The patient has not had any chest pain, does endorse some sinus pressure, has a cough productive of thick sputum. She has needed to wear her oxygen at home more frequently, her BiPAP machine has not yet been delivered. Related Data Home Medications ?Medication ?Instructions ?Recorded ?Confirmed losartan 100 mg tablet 100 mg PO DAILY #90 tabs 01/20/24 01/07/25 pantoprazole 20 mg tablet,delayed 20 mg PO DAILY #90 tabs 05/04/24 01/07/25 release apixaban 5 mg tablet (Eliquis) 5 mg PO BID #180 tabs 08/13/24 01/07/25 metoprolol succinate 50 mg 50 mg PO DAILY #90 tabs 08/13/24 01/07/25 tablet,extended release 24 hr citalopram 20 mg tablet 20 mg PO DAILY #90 tabs 08/24/24 01/07/25 albuterol sulfate 90 mcg/actuation 2 puff inhalation Q6H PRN 09/23/24 01/07/25 aerosol inhaler shortness of breath or wheezing #8.5 grams nicotine 21 mg/24 hr daily 1 patch transdermal DAILY #42 ea 10/01/24 01/07/25 transdermal patch budesonide-formoterol HFA 160 2 puff inhalation BID #10.2 grams 10/29/24 01/07/25 mcg-4.5 mcg/actuation aerosol inhaler rosuvastatin 20 mg tablet 20 mg PO DAILY #90 tabs 10/29/24 01/07/25 tiotropium bromide 2.5 2 puff inhalation DAILY #1 inh 11/23/24 01/07/25 mcg/actuation mist for inhalation (Spiriva Respimat) ipratropium 0.5 mg-albuterol 3 mg 3 ml UPD QID PRN shortness of 11/30/24 01/07/25 (2.5 mg base)/3 mL nebulization breath or wheezing #180 mL soln loratadine 10 mg tablet (Claritin) 10 mg PO DAILY #1 tab 12/03/24 01/07/25 varenicline tartrate 0.5 mg tablet 0.5 mg PO DAILY #30 tabs 12/22/24 01/07/25 lorazepam 1 mg tablet 1 mg PO BID PRN panic attack(s) 12/24/24 01/07/25 #30 tabs empagliflozin 10 mg tablet 10 mg PO DAILY #90 tabs 12/29/24 01/07/25 (Jardiance) varenicline tartrate 0.5 mg (11)-1 See Rx Instructions PO .COMPLEX 01/05/25 01/07/25 mg (42) tablets in a dose pack #53 dose pk doxycycline hyclate 100 mg 100 mg PO BID 5 days #10 tabs 01/06/25 01/07/25 tablet,delayed release furosemide 40 mg tablet 40 mg PO DAILY 01/06/25 01/07/25 prednisone 20 mg tablet 40 mg (2 x 20 mg) PO DAILY 5 days 01/06/25 01/07/25 #10 tabs spironolactone 25 mg tablet 12.5 mg (1/2 x 25 mg) PO DAILY #45 01/07/25 01/07/25 tabs Previous Rx's ?Medication ?Instructions ?Recorded losartan 100 mg tablet 100 mg PO DAILY #90 tabs 01/20/24 pantoprazole 20 mg tablet,delayed 20 mg PO DAILY #90 tabs 05/04/24 release apixaban 5 mg tablet (Eliquis) 5 mg PO BID #180 tabs 08/13/24 metoprolol succinate 50 mg 50 mg PO DAILY #90 tabs 08/13/24 tablet,extended release 24 hr citalopram 20 mg tablet 20 mg PO DAILY #90 tabs 08/24/24 albuterol sulfate 90 mcg/actuation 2 puff inhalation Q6H PRN 09/23/24 aerosol inhaler shortness of breath or wheezing #8.5 grams nicotine 21 mg/24 hr daily 1 patch transdermal DAILY #42 ea 10/01/24 transdermal patch budesonide-formoterol HFA 160 2 puff inhalation BID #10.2 grams 10/29/24 mcg-4.5 mcg/actuation aerosol inhaler rosuvastatin 20 mg tablet 20 mg PO DAILY #90 tabs 10/29/24 tiotropium bromide 2.5 2 puff inhalation DAILY #1 inh 11/23/24 mcg/actuation mist for inhalation (Spiriva Respimat) ipratropium 0.5 mg-albuterol 3 mg 3 ml UPD QID PRN shortness of 11/30/24 (2.5 mg base)/3 mL nebulization breath or wheezing #180 mL soln loratadine 10 mg tablet (Claritin) 10 mg PO DAILY #1 tab 12/03/24 varenicline tartrate 0.5 mg tablet 0.5 mg PO DAILY #30 tabs 12/22/24 lorazepam 1 mg tablet 1 mg PO BID PRN panic attack(s) 12/24/24 #30 tabs empagliflozin 10 mg tablet 10 mg PO DAILY #90 tabs 12/29/24 (Jardiance) varenicline tartrate 0.5 mg (11)-1 See Rx Instructions PO .COMPLEX 01/05/25 mg (42) tablets in a dose pack #53 dose pk doxycycline hyclate 100 mg 100 mg PO BID 5 days #10 tabs 01/06/25 tablet,delayed release prednisone 20 mg tablet 40 mg (2 x 20 mg) PO DAILY 5 days 01/06/25 #10 tabs spironolactone 25 mg tablet 12.5 mg (1/2 x 25 mg) PO DAILY #45 01/07/25 tabs Allergies Allergy/AdvReac Type Severity Reaction Status Date / Time amlodipine AdvReac Intermediate Peripheral Verified 12/24/24 14:20 edema General Stated Complaint: SOB JOSE JUAN: 3 Exam Narrative Exam Narrative: Gen: Awake and alert, in no apparent distress HEENT: Non-icteric sclera Neck: Supple Lungs: Moderate increase in work of breathing with tachypnea is appreciated, diffuse expiratory wheezing throughout. CV: Appears well perfused, heart with regular rate and rhythm, strong distal pulses Abdomen: Non-distended MSK: Moves 4 extremities without apparent limitation in ROM, no peripheral edema or unilateral calf swelling or tenderness Skin: Visualized skin without rashes, cyanosis. Neuro: Normal Gait, no obvious focal deficits or facial asymmetry. Speaks in full, clear sentences. Psych: Appropriate for situation. Course Vital Signs Vital signs: Vital Signs Pulse 97 H 01/07/25 21:26 Respiratory Rate 24 01/07/25 21:26 Blood Pressure 135/70 01/07/25 21:26 Pulse Oximetry 98 01/07/25 21:26 Pulse 97 H 01/07/25 21:26 Respiratory Rate 24 01/07/25 21:26 Blood Pressure 135/70 01/07/25 21:26 Blood Pressure Position Sitting 01/07/25 21:26 Pulse Oximetry 98 01/07/25 21:26 Oxygen Delivery Method Room Air 01/07/25 21: Oxygen Flow Rate 0 01/07/25 21:26 Medical Decision Making This is a 59-year-old female patient presenting for evaluation of increased work of breathing and wheezing. Differential includes but is not limited to reactive airway disease exacerbation, certainly considered sequelae of her known COVID-19 infection, considered other infectious abnormalities including pneumonia and bronchitis as well. Considered heart failure exacerbation and pulmonary edema. Exam less consistent with pneumothorax, pulmonary embolism, ACS. I obtained an EKG, which shows sinus rhythm without evidence of ischemia, interval abnormality, or ectopy. No significant changes are noted compared to prior. A duo nebulizer treatment and 2 g of magnesium were provided and we will obtain laboratory studies and chest x-ray. -I independently interpreted the laboratory studies, which show no significant leukocytosis, anemia, or thrombocytopenia. The chemistry panel is without evidence of electrolyte abnormality, kidney dysfunction, or liver injury. Troponin negative. CXR with evidence of bronchitis, no lobar pneumonia or other acute changes compared to priors. She had improvement after her duo nebulizer treatment and magnesium, but when she attempted to ambulate as a trial, she desatted to 90% and had a significant increase in her work of breathing with tachypnea up to 35 breaths/min. She is apprehensive to go home given her ongoing severe symptoms, and I feel that that is not unreasonable given her symptoms. Her COVID 19 is likely contributing to her COPD exacerbation. I discussed the case with the hospitalist who is very graciously accepted this patient for readmission to observation, with a plan to initiate Paxlovid and ensure that her work of breathing improves appropriately. Carol Goyal MD Quality:SDOH Health Related Social Needs: Health related social needs details lives in her own house with PFSH All Active Problems (Updated 01/08/25 @ 00:24 by Carol Goyal MD) COVID-19 (Acute) COPD exacerbation (Acute) Acute hypoxic respiratory failure (Acute) Hospital acquired PNA (Acute) Essential hypertension (Chronic) Heart failure with reduced ejection fraction (Chronic) moderate Asthma-COPD overlap syndrome (Chronic) Aortic regurgitation (Chronic) Osteoarthritis (Chronic) Cigarette smoker (Chronic) Annual LDCT paused d/t cost Nummular dermatitis (Chronic) Medical History Nonrheumatic aortic (valve) stenosis GERD (gastroesophageal reflux disease) History of Graves' disease Hyperlipidemia Generalized anxiety disorder with panic attacks LIBBY (obstructive sleep apnea) AAA (abdominal aortic aneurysm) Infrarenal, measuring 2.5cm 2024 Pulmonary embolism (~07/2024) Coronary artery disease nonobstructive, LAD stenosis Atrial fibrillation (~07/2024) Non-ST elevation [place] (NSTEMI) (~01/2023) Depressive disorder Surgical History Status post right knee replacement (01/20/19) S/P right knee arthroscopy (02/20/10) With partial medial meniscectomy S/P left knee arthroscopy (05/04/10) With partial medial and lateral meniscectomy S/P dilation and curettage S/P bilateral salpingo-oophorectomy S/P appendectomy S/P abdominal hysterectomy For abnormal uterine bleeding S/P lumpectomy, right breast (~1993) Family History Mother , at 77 Asthma Hypertension COPD (chronic obstructive pulmonary disease) Father , at 79 Parkinson disease Graves disease Hypertension Depression Suicide attempt Sister No problems noted. Sister , at 44 of metastatic bone cancer Metastatic bone cancer Brother , at 60 of pancreatic cancer Pancreatic cancer Diabetes Depression COPD (chronic obstructive pulmonary disease) Brother Alcohol abuse Son No problems noted. Daughter No problems noted. Maternal Grandfather Heart disease [place] Maternal Grandmother Brain cancer Paternal Grandfather No problems noted. Paternal Grandmother No problems noted. Brother , age 28 - MVA No problems noted. Social History Smoking/Tobacco Use Status: Current every day Tobacco Type: cigarettes Smoking packs per day: 1 Smoking cigarettes per day: 20.0 Years smoked: 47 Smoking pack-years: 47.00 Tobacco: How many years used: 47 Quit status: considering quitting Counseling given: provider counseling Smoking risk assessment performed?: Yes Alcohol Intake: current Alcohol Intake frequency: a few times a week Alcohol type: beer Details: Declined to answer all except selecting Beer Drug use: Never Substance use type: does not use Counseling given: No Counseling provided: none Adopted: No Caregiver/Support person: No Household members: spouse Housing: house Pets and animals: Yes Pets and animals: cat(s) Sexually active: Yes Do you think of yourself as: straight/heterosexual Current gender identity: female What is your relationship status?: How often do you talk on the phone with friends or family?: three or more times per week How often do you get together with friends or relatives?: twice per week Do you belong to any clubs or organized social groups?: no Panel score (0-1 are the most socially isolated patients): 2 What type of physical activity do you participate in: none Frequency: does not exercise Aida/Yarsanism: None Special aida needs: No Seatbelt use: always Helmet use: No Drive 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
[2025-01-07 21:57] LABS: Abs Immature Grans 0.07 10^3/uL (0.0-0.06); HCT 43.6 % (36.0-46.0); HGB 14.8 g/dL (11.2-15.7); Immature Grans % 0.6 %; MCH 30.3 pg (27.0-33.0); MCHC 33.9 % (32.0-36.0); MCV 89 fL (80-95); MPV 10.3 fL (8.0-11.0); Platelet Count 245 10^3/uL (130-400); RBC 4.88 10^6/uL (3.93-5.22); RDW 15.3 % (11.7-14.6); RDW-SD 50.1 fL; WBC 12.66 10^3/uL (4.4-10.8)
[2025-01-07 22:14] LABS: ALT 33 U/L (14-59); AST 16 U/L (15-37); Albumin 3.6 g/dL (3.4-5.0); Alkaline Phosphatase 84 U/L (46-116); Anion Gap 8.4 mmol/L (3-11); BUN 25 mg/dL (7-18); Bilirubin, Total 0.7 mg/dL (0.2-1.0); CO2 27.6 mmol/L (21.0-32.0); Calcium 9.3 mg/dL (8.5-10.1); Chloride 104 mmol/L (98-107); Estimated GFR 72.73 (mL/min/1.73m2); Glucose 119 mg/dL (74-106); Magnesium 2.6 mg/dL (1.8-2.4); Sodium 140 mmol/L (136-145); Total Protein 6.9 g/dL (6.4-8.2); Troponin I 17 ng/L (<or=51)
[2025-01-07 22:23] LABS: Potassium 3.7 mmol/L (3.5-5.1)
--- NOTE | 2025-01-07 23:23 | DI.VRAD_ITS ---
PROCEDURE INFORMATION: Exam: XR Chest Exam date and time: 01/07/2025 10:17 PM Age: 59 years old Clinical indication: Cough; Additional info: Cough, SOB, covid+ TECHNIQUE: Imaging protocol: Radiologic exam of the chest. Views: 2 views. COMPARISON: CR XR PORTABLE CHEST AP 01/05/2025 10:53 PM FINDINGS: Lungs: Mild hyperinflation and central interstitial prominence, similar to prior. No airspace consolidation. Pleural spaces: No pleural effusion. No pneumothorax. Heart/Mediastinum: No cardiomegaly. Bones/joints: No acute fracture. IMPRESSION: Mild hyperinflation and likely chronic bronchitis, similar to prior. Dictated and Authenticated by: Rosangela Garza MD. Orderin [facility] Robbin Medina MD
[2025-01-08] VITALS (20 sets, daily range): BP systolic 102–120; BP diastolic 49–62; PULSE 77–88; RESP 15–32; O2SAT 91–96
--- NOTE | 2025-01-08 01:20 | W.PM.HP.N ---
Date of service: 01/08/25 Time of Service: 01:20 Assessment and Plan Assessment and plan (1) COVID-19: Start date: 01/06/25 Status: Acute (2) Asthma-COPD overlap syndrome: Status: Chronic (3) LIBBY (obstructive sleep apnea): (4) Cigarette smoker: Status: Chronic (5) Heart failure with reduced ejection fraction: Status: Chronic (6) Essential hypertension: Status: Chronic (7) GERD (gastroesophageal reflux disease): (8) Hyperlipidemia: (9) Generalized anxiety disorder with panic attacks: (10) Atrial fibrillation: History of Present Illness History of Present Illness Chief Complaint: Severe air hunger with exertion, acute COVID Review of Systems Narrative: 13 point review of systems otherwise unrevealing or stable. PFSH All Active Problems COVID-19 (Acute) COPD exacerbation (Acute) Acute hypoxic respiratory failure (Acute) Hospital acquired PNA (Acute) Essential hypertension (Chronic) Heart failure with reduced ejection fraction (Chronic) moderate Asthma-COPD overlap syndrome (Chronic) Aortic regurgitation (Chronic) Osteoarthritis (Chronic) Cigarette smoker (Chronic) Annual LDCT paused d/t cost Nummular dermatitis (Chronic) Medical History Nonrheumatic aortic (valve) stenosis GERD (gastroesophageal reflux disease) History of Graves' disease Hyperlipidemia Generalized anxiety disorder with panic attacks LIBBY (obstructive sleep apnea) AAA (abdominal aortic aneurysm) Infrarenal, measuring 2.5cm 2024 Pulmonary embolism (~07/2024) Coronary artery disease nonobstructive, LAD stenosis Atrial fibrillation (~07/2024) Non-ST elevation [place] (NSTEMI) (~01/2023) Depressive disorder Surgical History Status post right knee replacement (01/20/19) S/P right knee arthroscopy (02/20/10) With partial medial meniscectomy S/P left knee arthroscopy (05/04/10) With partial medial and lateral meniscectomy S/P dilation and curettage S/P bilateral salpingo-oophorectomy S/P appendectomy S/P abdominal hysterectomy For abnormal uterine bleeding S/P lumpectomy, right breast (~1993) Family History Mother , at 77 Asthma Hypertension COPD (chronic obstructive pulmonary disease) Father , at 79 Parkinson disease Graves disease Hypertension Depression Suicide attempt Sister No problems noted. Sister , at 44 of metastatic bone cancer Metastatic bone cancer Brother , at 60 of pancreatic cancer Pancreatic cancer Diabetes Depression COPD (chronic obstructive pulmonary disease) Brother Alcohol abuse Son No problems noted. Daughter No problems noted. Maternal Grandfather Heart disease [place] Maternal Grandmother Brain cancer Paternal Grandfather No problems noted. Paternal Grandmother No problems noted. Brother , age 28 - MVA No problems noted. Social History Smoking/Tobacco Use Status: Current every day Tobacco Type: cigarettes Smoking packs per day: 1 Smoking cigarettes per day: 20.0 Years smoked: 47 Smoking pack-years: 47.00 Tobacco: How many years used: 47 Quit status: considering quitting Counseling given: provider counseling Smoking risk assessment performed?: Yes Alcohol Intake: current Alcohol Intake frequency: a few times a week Alcohol type: beer Details: Declined to answer all except selecting Beer Drug use: Never Substance use type: does not use Counseling given: No Counseling provided: none Adopted: No Caregiver/Support person: No Household members: spouse Housing: house Pets and animals: Yes Pets and animals: cat(s) Sexually active: Yes Do you think of yourself as: straight/heterosexual Current gender identity: female What is your relationship status?: How often do you talk on the phone with friends or family?: three or more times per week How often do you get together with friends or relatives?: twice per week Do you belong to any clubs or organized social groups?: no Panel score (0-1 are the most socially isolated patients): 2 What type of physical activity do you participate in: none Frequency: does not exercise Aida/Confucianism: None Special aida needs: No Seatbelt use: always Helmet use: No Drive 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 Firearms in home: Yes Firearms unloaded and locked: Yes Do you feel safe at home: Yes Do you feel safe in your relationship?: Yes Victim of physical abuse: No Victim of emotional abuse: No Victim of sexual abuse: No Female Reproductive History Menstrual Menopause type: surgical History History 4 Para 2 Hx # Term Pregnancies Multiple births Hx # Pregnancies Ectopic pregnancies AB induced Hx Number of Living Children 2 AB spontaneous 2 Meds Allergies and Home Medications Allergies Allergy/AdvReac Type Severity Reaction Status Date / Time amlodipine AdvReac Intermediate Peripheral Verified 12/24/24 14:20 edema Home Medications ?Medication ?Instructions ?Recorded ?Confirmed ?Type losartan 100 mg tablet 100 mg PO DAILY #90 tabs 01/20/24 01/07/25 Rx pantoprazole 20 mg tablet,delayed 20 mg PO DAILY #90 tabs 05/04/24 01/07/25 Rx release apixaban 5 mg tablet (Eliquis) 5 mg PO BID #180 tabs 08/13/24 01/07/25 Rx metoprolol succinate 50 mg 50 mg PO DAILY #90 tabs 08/13/24 01/07/25 Rx tablet,extended release 24 hr citalopram 20 mg tablet 20 mg PO DAILY #90 tabs 08/24/24 01/07/25 Rx albuterol sulfate 90 mcg/actuation 2 puff inhalation Q6H PRN 09/23/24 01/07/25 Rx aerosol inhaler shortness of breath or wheezing #8.5 grams nicotine 21 mg/24 hr daily 1 patch transdermal DAILY #42 ea 10/01/24 01/07/25 Rx transdermal patch budesonide-formoterol HFA 160 2 puff inhalation BID #10.2 grams 10/29/24 01/07/25 Rx mcg-4.5 mcg/actuation aerosol inhaler rosuvastatin 20 mg tablet 20 mg PO DAILY #90 tabs 10/29/24 01/07/25 Rx tiotropium bromide 2.5 2 puff inhalation DAILY #1 inh 11/23/24 01/07/25 Rx mcg/actuation mist for inhalation (Spiriva Respimat) ipratropium 0.5 mg-albuterol 3 mg 3 ml UPD QID PRN shortness of 11/30/24 01/07/25 Rx (2.5 mg base)/3 mL nebulization breath or wheezing #180 mL soln loratadine 10 mg tablet (Claritin) 10 mg PO DAILY #1 tab 12/03/24 01/07/25 Rx varenicline tartrate 0.5 mg tablet 0.5 mg PO DAILY #30 tabs 12/22/24 01/07/25 Rx lorazepam 1 mg tablet 1 mg PO BID PRN panic attack(s) 12/24/24 01/07/25 Rx #30 tabs empagliflozin 10 mg tablet 10 mg PO DAILY #90 tabs 12/29/24 01/07/25 Rx (Jardiance) varenicline tartrate 0.5 mg (11)-1 See Rx Instructions PO .COMPLEX 01/05/25 01/07/25 Rx mg (42) tablets in a dose pack #53 dose pk doxycycline hyclate 100 mg 100 mg PO BID 5 days #10 tabs 01/06/25 01/07/25 Rx tablet,delayed release furosemide 40 mg tablet 40 mg PO DAILY 01/06/25 01/07/25 History prednisone 20 mg tablet 40 mg (2 x 20 mg) PO DAILY 5 days 01/06/25 01/07/25 Rx #10 tabs spironolactone 25 mg tablet 12.5 mg (1/2 x 25 mg) PO DAILY #45 01/07/25 01/07/25 Rx tabs Results Imaging Imaging Studies: Exam: XR Chest Exam date and time: 01/07/2025 10:17 PM Age: 59 years old Clinical indication: Cough; Additional info: Cough, SOB, covid+ TECHNIQUE: Imaging protocol: Radiologic exam of the chest. Views: 2 views. COMPARISON: CR XR PORTABLE CHEST AP 01/05/2025 10:53 PM FINDINGS: Lungs: Mild hyperinflation and central interstitial prominence, similar to prior. No airspace consolidation. Pleural spaces: No pleural effusion. No pneumothorax. Heart/Mediastinum: No cardiomegaly. Bones/joints: No acute fracture. IMPRESSION: Mild hyperinflation and likely chronic bronchitis, similar to prior. Labs 01/07/25 21:49 01/07/25 21:49 Labs: Laboratory Results - last 24 hr 01/07/25 01/07/25 21:49 22:30 WBC 12.66 H RBC 4.88 Hgb 14.8 Hct 43.6 MCV 89 D MCH 30.3 MCHC 33.9 RDW 15.3 H Plt Count 245 MPV 10.3 Immature Gran % 0.6 Neutrophils % 77.2 Lymphocytes % 13.6 Monocytes % 8.4 Eosinophils % 0.0 Basophils % 0.2 Nucleated RBC % 0.0 Absolute Neutrophils 9.77 H Absolute Lymphocytes 1.72 Absolute Monocytes 1.06 H Absolute Eosinophils 0.00 Absolute Basophils 0.03 Sodium 140 Potassium 3.7 D Chloride 104 Carbon Dioxide 27.6 Anion Gap 8.4 BUN 25 H Creatinine 0.9 Est GFR (CKD-EPI 2020) 72.73 Glucose 119 H Calcium 9.3 Magnesium 2.6 H Total Bilirubin 0.7 AST 16 ALT 33 Alkaline Phosphatase 84 Troponin I 17 Cancelled Total Protein 6.9 Albumin 3.6 Last Vital Signs Pulse 78 01/08/25 00:31 Resp 24 01/08/25 00:31 BP 102/54 L 01/08/25 00:31 Pulse Ox 95 01/08/25 00:31
--- NOTE | 2025-01-08 01:28 | W.MEDCONSULT ---
Date of service: 01/08/25 Time of Service: 01:28 Assessment and Plan Assessment and plan (1) COVID-19: Start date: 01/06/25 Status: Acute Assessment and plan: This is a 59-year-old lady who contracted COVID possibly more than 5 days ago and is having increased secretions not smoking since that 06 January when she was last hospitalized. She is not having increased oxygen needs and at rest is not tachypneic. Her pulse oximeter above 95% on room air at rest. She does become tachypneic with exertion and not smoking may also increase secretions for short time. She will need to increase symptomatic care which she is comfortable doing at home and she does have a supportive family with her daughter living nearby and her living with her. Her does not smoke. She will check with her PCP as to whether she is a candidate for Paxlovid but she is not a candidate for hospitalization and remdesivir at this time. She has been discharged home for home care. She is a full code. (2) Asthma-COPD overlap syndrome: Status: Chronic Assessment and plan: Chronic with patient to stop tobacco use and maximize nebulizer treatments. She will finish prednisone pulse therapy and antibiotic. (3) Cigarette smoker: Status: Chronic Assessment and plan: Patient will use NicoDerm patches and Chantix to stop smoking. Hopefully she will go longer than 1 month which is her maximum time in the past. Her is very motivated to assist her in this quest to stop smoking tobacco. (4) Generalized anxiety disorder with panic attacks: Assessment and plan: Patient will continue Ativan at home. This is prescribed by her PCP. (5) LIBBY (obstructive sleep apnea): Assessment and plan: Patient is arranging for BiPAP at home rather than CPAP which may be more helpful with her recurrent respiratory failure prompting frequent hospitalizations. She is not requiring oxygen at home at rest and uses it only as needed. Sometimes she uses it to treat her anxiety. History of Present Illness History of Present Illness Chief Complaint: Dyspnea with exertion. Narrative: This is 59-year-old lady who was just hospitalized with respiratory failure on 01/07/2020 with quick recovery and discharged on the same day. At home she did not prednisone and her antibiotics off oxygen but being alone she was walking to her bathroom and felt extremely short of breath thereafter. She panicked and called EMS for reported to the ED. In the ED she was found to be fairly stable but very dyspneic with any exertion. She was going to be admitted and the initial admission orders and H&P were initiated but then the patient said that she was at her baseline and actually could do well at home. She needed to take her Ativan which she takes twice daily as she does have a supply at home. She was not requiring oxygen in the ED to maintain a pulse oximeter above 95% but was tachypneic with exertion. She did have a positive COVID test when she was admitted 01/06/2025 and had symptoms that began around 01/04/2025. She was exposed to the public a week before with not feeling well 01/03/2025. She is just outside the window for Paxlovid and she is not hypoxic or requiring remdesivir and hospitalization. She is on prednisone this could be continued at home. She is on increased nebulizer treatments at home as well. She does continue to smoke up to the point of her hospitalization 01/06/2025 but has not smoked since. She is having increased secretions now that she is not smoking. She has nicotine patches and Chantix to take at home. She will follow-up with her PCP on this issue. She also will follow-up with PCP as to whether she should be started on Paxlovid with her window near the limit or initiating treatment. Because she is on so many other medications she is leaning towards not taking Paxlovid but treating symptomatically with increased hydration and increase support at home. She was attended by her at the time I saw her and he is very supportive. He does not smoke. She was discharged home and did not wait for the informational handouts at discharge having just left the hospital the day before. She is a full code. Review of Systems Narrative: 13 point review of systems otherwise unrevealing or stable. PFSH All Active Problems COVID-19 (Acute) COPD exacerbation (Acute) Acute hypoxic respiratory failure (Acute) Hospital acquired PNA (Acute) Essential hypertension (Chronic) Heart failure with reduced ejection fraction (Chronic) moderate Asthma-COPD overlap syndrome (Chronic) Aortic regurgitation (Chronic) Osteoarthritis (Chronic) Cigarette smoker (Chronic) Annual LDCT paused d/t cost Nummular dermatitis (Chronic) Medical History Nonrheumatic aortic (valve) stenosis GERD (gastroesophageal reflux disease) History of Graves' disease Hyperlipidemia Generalized anxiety disorder with panic attacks LIBBY (obstructive sleep apnea) AAA (abdominal aortic aneurysm) Infrarenal, measuring 2.5cm 2024 Pulmonary embolism (~07/2024) Coronary artery disease nonobstructive, LAD stenosis Atrial fibrillation (~07/2024) Non-ST elevation [place] (NSTEMI) (~01/2023) Depressive disorder Surgical History Status post right knee replacement (01/20/19) S/P right knee arthroscopy (02/20/10) With partial medial meniscectomy S/P left knee arthroscopy (05/04/10) With partial medial and lateral meniscectomy S/P dilation and curettage S/P bilateral salpingo-oophorectomy S/P appendectomy S/P abdominal hysterectomy For abnormal uterine bleeding S/P lumpectomy, right breast (~1993) Family History Mother , at 77 Asthma Hypertension COPD (chronic obstructive pulmonary disease) Father , at 79 Parkinson disease Graves disease Hypertension Depression Suicide attempt Sister No problems noted. Sister , at 44 of metastatic bone cancer Metastatic bone cancer Brother , at 60 of pancreatic cancer Pancreatic cancer Diabetes Depression COPD (chronic obstructive pulmonary disease) Brother Alcohol abuse Son No problems noted. Daughter No problems noted. Maternal Grandfather Heart disease [place] Maternal Grandmother Brain cancer Paternal Grandfather No problems noted. Paternal Grandmother No problems noted. Brother , age 28 - MVA No problems noted. Social History Smoking/Tobacco Use Status: Current every day Tobacco Type: cigarettes Smoking packs per day: 1 Smoking cigarettes per day: 20.0 Years smoked: 47 Smoking pack-years: 47.00 Tobacco: How many years used: 47 Quit status: considering quitting Counseling given: provider counseling Smoking risk assessment performed?: Yes Alcohol Intake: current Alcohol Intake frequency: a few times a week Alcohol type: beer Details: Declined to answer all except selecting Beer Drug use: Never Substance use type: does not use Counseling given: No Counseling provided: none Adopted: No Caregiver/Support person: No Household members: spouse Housing: house Pets and animals: Yes Pets and animals: cat(s) Sexually active: Yes Do you think of yourself as: straight/heterosexual Current gender identity: female What is your relationship status?: How often do you talk on the phone with friends or family?: three or more times per week How often do you get together with friends or relatives?: twice per week Do you belong to any clubs or organized social groups?: no Panel score (0-1 are the most socially isolated patients): 2 What type of physical activity do you participate in: none Frequency: does not exercise Aida/Protestant: None Special aida needs: No Seatbelt use: always Helmet use: No Drive intox 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 funeral car driver: No Firearms in home: Yes Firearms unloaded and locked: Yes Do you feel safe at home: Yes Do you feel safe in your relationship?: Yes Victim of physical abuse: No Victim of emotional abuse: No Victim of sexual abuse: No Female Reproductive History Menstrual Menopause type: surgical History History 4 Para 2 Hx # Term Pregnancies Multiple births Hx # Pregnancies Ectopic pregnancies AB induced Hx Number of Living Children 2 AB spontaneous 2 Exam Narrative Exam Narrative: General: Patient appears slightly older than stated age, alert and oriented x 3 in no acute distress. She is not wearing oxygen. She is not tachypneic at rest and is speaking in full sentences. HEENT: Normocephalic, slightly puffy facial features, eyes with pupils equal and reactive light symmetrically, extraocular movement intact and sclera anicteric. Oropharynx with dry mucosa and fair dentition. Neck: Supple without JVD. Back: Kyphotic without CVA tenderness. Lungs: Bronchovesicular breath sounds diffusely with coarse inspiratory and expiratory crackles not focalizing with occasional rhonchi. She also has slight expiratory wheeze. She is moving air well with no intercostal retractions. Breast: Exam deferred. Heart: Regular rate and rhythm with no murmurs or gallops appreciated. Abdomen: Obese contour, soft and nontender to palpation with no palpable hepatosplenomegaly. Genitalia/rectal: Exam deferred. Extremities: No clubbing, cyanosis or pitting edema. Peripheral pulses intact. Skin: Normal color, warm and dry. Neuro: Cranial nerves II through XII gross intact, no focalized motor deficits and no tremor. Psych: Anxious with slight pressured speech, normal mood. No abnormal thought processes. Remote memory intact. Results Last Vital Signs Pulse 78 01/08/25 00:31 Resp 24 01/08/25 00:31 BP 102/54 L 01/08/25 00:31 Pulse Ox 95 01/08/25 00:31 Labs 01/07/25 21:49 01/07/25 21:49 Labs: Laboratory Results - last 24 hr 01/07/25 01/07/25 21:49 22:30 WBC 12.66 H RBC 4.88 Hgb 14.8 Hct 43.6 MCV 89 D MCH 30.3 MCHC 33.9 RDW 15.3 H Plt Count 245 MPV 10.3 Immature Gran % 0.6 Neutrophils % 77.2 Lymphocytes % 13.6 Monocytes % 8.4 Eosinophils % 0.0 Basophils % 0.2 Nucleated RBC % 0.0 Absolute Neutrophils 9.77 H Absolute Lymphocytes 1.72 Absolute Monocytes 1.06 H Absolute Eosinophils 0.00 Absolute Basophils 0.03 Sodium 140 Potassium 3.7 D Chloride 104 Carbon Dioxide 27.6 Anion Gap 8.4 BUN 25 H Creatinine 0.9 Est GFR (CKD-EPI 2020) 72.73 Glucose 119 H Calcium 9.3 Magnesium 2.6 H Total Bilirubin 0.7 AST 16 ALT 33 Alkaline Phosphatase 84 Troponin I 17 Cancelled Total Protein 6.9 Albumin 3.6 Imaging Imaging Studies: Exam: XR Chest Exam date and time: 01/07/2025 10:17 PM Age: 59 years old Clinical indication: Cough; Additional info: Cough, SOB, covid+ TECHNIQUE: Imaging protocol: Radiologic exam of the chest. Views: 2 views. COMPARISON: CR XR PORTABLE CHEST AP 01/05/2025 10:53 PM FINDINGS: Lungs: Mild hyperinflation and central interstitial prominence, similar to prior. No airspace consolidation. Pleural spaces: No pleural effusion. No pneumothorax. Heart/Mediastinum: No cardiomegaly. Bones/joints: No acute fracture. IMPRESSION: Mild hyperinflation and likely chronic bronchitis, similar to prior
--- NOTE | 2025-01-08 01:40 | DSE_ITS ---
Date of service: 01/08/25 Time of Service: 01:40 DS: Diagnosis Discharge Diagnosis (1) COVID-19: Start date: 01/06/25 Status: Acute Asessment and Plan: Symptomatic for 5 days outside the round of [facility] and already on treatment for bronchitis and COPD exacerbation. Hypoxemia stable with supplemental oxygen as needed and she wears CPAP for LIBBY at home. (2) Asthma-COPD overlap syndrome: Status: Chronic Asessment and Plan: Continue home treatments and avoid smoking cigarettes. (3) Cigarette smoker: Status: Chronic Asessment and Plan: Advised cessation of cigarettes. (4) Generalized anxiety disorder with panic attacks: Asessment and Plan: Patient will be given 2.5 mg of Ativan IV and then observed until her son can take her home. She is stable for discharge. She is mostly anxious with her tachypnea and dyspnea. (5) LIBBY (obstructive sleep apnea): Asessment and Plan: Continue CPAP with plans for BiPAP in the near future. Discharge Plan Disposition Patient Disposition: Home Condition: Stable Discharge Details Clinical Impression: COVID-19, Asthma-COPD overlap syndrome, Cigarette smoker Primary Care Provider: Racquel Fraser ED Provider: Aram Ramos Home Meds and New Rx's Prescriptions: No Action citalopram 20 mg tablet 20 mg PO DAILY Qty: 90 3RF losartan 100 mg tablet 100 mg PO DAILY Qty: 90 3RF Eliquis 5 mg tablet 5 mg PO BID Qty: 180 3RF metoprolol succinate 50 mg tablet extended release 24 hr 50 mg PO DAILY Qty: 90 3RF nicotine 21 mg/24 hr patch 24 hour 1 patch transdermal DAILY Qty: 42 0RF Rx Instructions: Apply 1 patch daily for 6 weeks budesonide-formoterol 160-4.5 mcg/actuation HFA aerosol inhaler 2 puff inhalation BID Qty: 10.2 4RF Rx Instructions: 2 puffs twice a day and may use as a reliever therapy for acute difficulty breathing, 1 to 2 puffs every 4 hours as needed. Max inhalations 12 per day rosuvastatin 20 mg tablet 20 mg PO DAILY Qty: 90 3RF loratadine [Claritin] 10 mg tablet 10 mg PO DAILY Qty: 1 0RF lorazepam 1 mg tablet 1 mg PO BID PRN (Reason: panic attack(s)) Qty: 30 0RF pantoprazole 20 mg tablet,delayed release (DR/EC) 20 mg PO DAILY Qty: 90 3RF albuterol sulfate 90 mcg/actuation HFA aerosol inhaler 2 puff Inhalation Q6H PRN (Reason: shortness of breath or wheezing) Qty: 8.5 6RF ipratropium-albuterol 0.5 mg-3 mg(2.5 mg base)/3 mL solution for nebulization 3 ml UPD QID PRN (Reason: shortness of breath or wheezing) Qty: 180 3RF Jardiance 10 mg tablet 10 mg PO DAILY Qty: 90 3RF varenicline tartrate 0.5 mg (11)- 1 mg (42) tablets,dose pack See Rx Instructions .ROUTE .COMPLEX Qty: 53 0RF Rx Instructions: orally per package directions spironolactone 25 mg tablet 12.5 mg PO DAILY Qty: 45 0RF Spiriva Respimat 2.5 mcg/actuation Mist 2 puff inhalation DAILY Qty: 1 2RF furosemide 40 mg tablet 40 mg PO DAILY Patient Comments: TAKE ONE TABLET BY MOUTH EVERY DAY prednisone 20 mg tablet 40 mg PO DAILY 5 Days Qty: 10 0RF doxycycline hyclate 100 mg tablet,delayed release (DR/EC) 100 mg PO BID 5 Days Qty: 10 0RF varenicline tartrate 0.5 mg tablet 0.5 mg PO DAILY Qty: 30 0RF Discharge Data Discharge Date/Time-TO BE ENTERED AT DEPARTURE: 01/08/25 02:23 Discharge Physician: Grady García DS: Summary Time Spent with Patient providing and/or coordinating discharge services: Greater than 30 minutes Status at Discharge Functional status at discharge: independent ambulation Overall status at discharge: patient is back to baseline Mental Status: mental status grossly normal Speech and Movement: speech and movement normal Mood: anxious mood Affect: labile affect Quality:SDOH Health Related Social Needs: Health related social needs details lives in her own h ouse with Exam Narrative Exam Narrative: See medical consultation note dated 01/07/2025. Psych Mental Status: mental status grossly normal Speech and Movement: speech and movement normal Mood: anxious mood Affect: labile affect DS: Data Vitals/I&O Vitals and I&O: Vital Signs Pulse 78 01/08/25 00:31 Pulse 78 01/08/25 00:30 Respiratory Rate 24 01/08/25 00:31 Respiratory Effort Normal 01/08/25 00:31 Respiratory Depth Normal 01/08/25 00:31 Respiratory Pattern Normal 01/08/25 00:31 Blood Pressure 102/54 L 01/08/25 00:31 Blood Pressure Mean 70 01/08/25 00:16 Blood Pressure Position Sitting 01/07/25 21:26 Pulse Oximetry 95 01/08/25 00:31 Oxygen Delivery Method Room Air 01/07/25 21:26 Oxygen Flow Rate 0 01/07/25 21:26 Intake & Output 01/07/25 01/07/25 01/08/25 11:59 23:59 11:59 Intake Total 50 / 50 Balance 50 / 50 Weight 78.199 kg Intake: IV 50 / 50 Data Completed and Pending Labs on day of discharge: Labs from last 24 hours 01/07/25 01/07/25 22:30 21:49 WBC 12.66 H RBC 4.88 Hgb 14.8 Hct 43.6 MCV 89 D MCH 30.3 MCHC 33.9 RDW 15.3 H Plt Count 245 MPV 10.3 Immature Gran % 0.6 Neutrophils % 77.2 Lymphocytes % 13.6 Monocytes % 8.4 Eosinophils % 0.0 Basophils % 0.2 Nucleated RBC % 0.0 Absolute Neutrophils 9.77 H Absolute Lymphocytes 1.72 Absolute Monocytes 1.06 H Absolute Eosinophils 0.00 Absolute Basophils 0.03 Sodium 140 Potassium 3.7 D Chloride 104 Carbon Dioxide 27.6 Anion Gap 8.4 BUN 25 H Creatinine 0.9 Est GFR (CKD-EPI 2020) 72.73 Glucose 119 H Calcium 9.3 Magnesium 2.6 H Total Bilirubin 0.7 AST 16 ALT 33 Alkaline Phosphatase 84 Troponin I Cancelled 17 Total Protein 6.9 Albumin 3.6 PFSH All Active Problems COVID-19 (Acute) COPD exacerbation (Acute) Acute hypoxic respiratory failure (Acute) Hospital acquired PNA (Acute) Essential hypertension (Chronic) Heart failure with reduced ejection fraction (Chronic) moderate Asthma-COPD overlap syndrome (Chronic) Aortic regurgitation (Chronic) Osteoarthritis (Chronic) Cigarette smoker (Chronic) Annual LDCT paused d/t cost Nummular dermatitis (Chronic) Medical History Nonrheumatic aortic (valve) stenosis GERD (gastroesophageal reflux disease) History of Graves' disease Hyperlipidemia Generalized anxiety disorder with panic attacks LIBBY (obstructive sleep apnea) AAA (abdominal aortic aneurysm) Infrarenal, measuring 2.5cm 2024 Pulmonary embolism (~07/2024) Coronary artery disease nonobstructive, LAD stenosis Atrial fibrillation (~07/2024) Non-ST elevation [place] (NSTEMI) (~01/2023) Depressive disorder Surgical History Status post right knee replacement (01/20/19) S/P right knee arthroscopy (02/20/10) With partial medial meniscectomy S/P left knee arthroscopy (05/04/10) With partial medial and lateral meniscectomy S/P dilation and curettage S/P bilateral salpingo-oophorectomy S/P appendectomy S/P abdominal hysterectomy For abnormal uterine bleeding S/P lumpectomy, right breast (~1993) Family History Mother , at 77 Asthma Hypertension COPD (chronic obstructive pulmonary disease) Father , at 79 Parkinson disease Graves disease Hypertension Depression Suicide attempt Sister No problems noted. Sister , at 44 of metastatic bone cancer Metastatic bone cancer Brother , at 60 of pancreatic cancer Pancreatic cancer Diabetes Depression COPD (chronic obstructive pulmonary disease) Brother Alcohol abuse Son No problems noted. Daughter No problems noted. Maternal Grandfather Heart disease [place] Maternal Grandmother Brain cancer Paternal Grandfather No problems noted. Paternal Grandmother No problems noted. Brother , age 28 - MVA No problems noted. Social History Smoking/Tobacco Use Status: Current every day Tobacco Type: cigarettes Smoking packs per day: 1 Smoking cigarettes per day: 20.0 Years smoked: 47 Smoking pack- years: 47.00 Tobacco: How many years used: 47 Quit status: considering quitting Counseling given: provider counseling Smoking risk assessment performed?: Yes Alcohol Intake: current Alcohol Intake frequency: a few times a week Alcohol type: beer Details: Declined to answer all except selecting Beer Drug use: Never Substance use type: does not use Counseling given: No Counseling provided: none Adopted: No Caregiver/Support person: No Household members: spouse Housing: house Pets and animals: Yes Pets and animals: cat(s) Sexually active: Yes Do you think of yourself as: straight/heterosexual Current gender identity: female What is your relationship status?: How often do you talk on the phone with friends or family?: three or more times per week How often do you get together with friends or relatives?: twice per week Do you belong to any clubs or organized social groups?: no Panel score (0-1 are the most socially isolated patients): 2 What type of physical activity do you participate in: none Frequency: does not exercise Aida/Orthodoxy: None Special aida needs: No Seatbelt use: always Helmet use: No Drive intox 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 non emergency services ambulance driver: No Firearms in home: Yes Firearms unloaded and locked: Yes Do you feel safe at home: Yes Do you feel safe in your relationship?: Yes Victim of physical abuse: No Victim of emotional abuse: No Victim of sexual abuse: No Female Reproductive History Menstrual Menopause type: surgical History History 4 Para 2 Hx # Term Pregnancies Multiple births Hx # Pregnancies Ectopic pregnancies AB induced Hx Number of Living Children 2 AB spontaneous 2 Time Spent with Patient Time Spent with Patient: <45 minutes Time was spent: preparing to see the patient(eg.review tests), obtaining and/or reviewing separately otained hiistory, indepentently interpreting results, counseling the patient and other (Reviewed care plan with .)
--- NOTE | 2025-01-08 02:11 | NUR.NOTE ---
in room discussing discharge with patient. Nursing Note:
--- NOTE | 2025-01-08 02:50 | NUR.NOTE ---
0200 hours :Pt verbalized feeling better, wanting to go home after being consulted by hospitalist for admission. Pt improved while being in ED and agreed admission was not indicated at time of conversation. Extensive conversation regarding plan on discharge with home care, use of medications already prescribed, how to manage symptoms and to return to ER if symptoms worsen or she feels she needs to be seen. At the time of my interaction with patient and family they requested to go home, and all medications for current condition were filled and available at home, as well as home 02 which is used by pt PRN. She does not wear continuous baseline 02 at home, and was not medically requiring oxygen while in the ED. She did do nebulizer and asked to have supplemental 02 placed for comfort/anxiety at primary nurse?s discretion, not for treatment. She did ambulate to the bathroom and was able to remain stable and rest on stretcher upon returning to room. She reported being at her baseline despite some underlying anxiety secondary to knowing she had been diagnosed with covid. She reported having Lorazepam at home for anxiety related to underlying COPD and was educated again on how and when to use. Pt able to teach back and verbalized being more scheduled with her nebulizer at home and using it as indicated. She reported she did not want to wait for discharge paperwork, and she understood all instructions as provided by RN, HS and Dr. García. She verbalized understanding and would return to ED as needed. She will follow up with PCP on outpatient basis as well. Pt left in POV with family and was brought by staff in wheelchair. VS stable and pt appearing well on discharge. Verbal agreement of discharge with patient, family and RN with MD and all instructions understood. All questions asked and answered. :
== END 2025-01-08 02:23 | disposition home or self-care (01) ==
PROVIDERS: Emergency Medicine; Emergency Provider Student in an Organized Health Care Education/Training Program; PCP Nurse Practitioner Family
DX: U07.1 COVID-19; J44.89 Other specified chronic obstructive pulmonary disease; G47.33 Obstructive sleep apnea (adult) (pediatric); F41.1 Generalized anxiety disorder; E78.5 Hyperlipidemia, unspecified; I25.10 Atherosclerotic heart disease of native coronary artery without angina pectoris; I25.2 Old myocardial infarction; E05.00 Thyrotoxicosis with diffuse goiter without thyrotoxic crisis or storm; F17.210 Nicotine dependence, cigarettes, uncomplicated; Z79.01 Long term (current) use of anticoagulants; Z79.899 Other long term (current) drug therapy; I48.91 Unspecified atrial fibrillation; Z86.711 Personal history of pulmonary embolism
CPT/HCPCS: 00123; 80053; 93005; 94640; 96365; 99283; 99285; 71046; 83735; 84484; 85025; 93010; J3475; J7620

== ENCOUNTER 2025-03-18 08:29 | Outpatient (CLI) | payer OTHER, SELFPAY ==
[2025-03-18 08:40] LABS: Abs Immature Grans 0.03 10^3/uL (0.0-0.06); HCT 43.5 % (36.0-46.0); HGB 14.2 g/dL (11.2-15.7); Immature Grans % 0.4 %; MCH 31.3 pg (27.0-33.0); MCHC 32.6 % (32.0-36.0); MCV 96 fL (80-95); MPV 9.8 fL (8.0-11.0); Platelet Count 198 10^3/uL (130-400); RBC 4.53 10^6/uL (3.93-5.22); RDW 14.6 % (11.7-14.6); RDW-SD 51.7 fL; WBC 7.55 10^3/uL (4.4-10.8)
[2025-03-18 08:59] LABS: Hemoglobin A1C 5.3 % (<5.7)
[2025-03-18 09:13] LABS: ALT 30 U/L (14-59); AST 17 U/L (15-37); Albumin 3.4 g/dL (3.4-5.0); Alkaline Phosphatase 89 U/L (46-116); Anion Gap 7.8 mmol/L (3-11); BUN 29 mg/dL (7-18); Bilirubin, Total 0.6 mg/dL (0.2-1.0); CO2 31.2 mmol/L (21.0-32.0); Calcium 8.9 mg/dL (8.5-10.1); Chloride 104 mmol/L (98-107); Estimated GFR 64.09 (mL/min/1.73m2); Glucose 99 mg/dL (74-106); Magnesium 2.4 mg/dL (1.8-2.4); Potassium 4.3 mmol/L (3.5-5.1); Sodium 143 mmol/L (136-145); TSH (W/Ref FT4) 1.13 uIU/mL (0.36-3.74); Total Protein 6.8 g/dL (6.4-8.2)
== END 2025-03-18 08:30 | disposition home or self-care (01) ==
LOC: LBO 08:29
PROVIDERS: PCP Nurse Practitioner Family; Visit Provider Nurse Practitioner Family
DX: I50.20 Unspecified systolic (congestive) heart failure (principal); R73.01 Impaired fasting glucose; I48.0 Paroxysmal atrial fibrillation; I25.10 Atherosclerotic heart disease of native coronary artery without angina pectoris
CPT/HCPCS: 36415; 80053; 83036; 83735; 84443; 85025

== ENCOUNTER 2025-03-25 14:42 | Emergency (ER) | payer OTHER, SELFPAY ==
[2025-03-25 14:43] VITALS: BP 145/87; PULSE 80; RESP 16; TEMP 36.4; O2SAT 91
--- NOTE | 2025-03-25 14:45 | DI.RAD_ITS ---
Exam(s) XR TIB/FIB LT EXAM: XR TIB/FIB LT CLINICAL HISTORY: pain s/p falling through porch. TECHNIQUE: 2D digital imaging was performed. COMPARISON: No exams were available for comparison FINDINGS: Two views No evidence of acute fracture of the tibia and fibula. Bone density normal. No osseous lesions. Degenerative changes are noted in the knee. There is some soft tissue swelling but no gas in the soft tissues and no radiopaque foreign bodies. IMPRESSION: Soft tissue swelling, most prominent on the medial aspect of the lower calf. No radiopaque foreign bodies No fractures evident. No incidental osseous lesions. DATA REPOSITORY: RADIATION DOSE DELIVERED:
--- NOTE | 2025-03-25 15:00 | W.ED.GENAD ---
Discharge Plan Disposition Patient Disposition: Home Condition: Stable Discharge Details Clinical Impression: Laceration of left leg Primary Care Provider: Racquel Fraser ED Provider: Bridger León Home Meds and New Rx's Prescriptions: Continued amiodarone [Pacerone] 200 mg tablet 200 mg PO DAILY Qty: 90 2RF spironolactone 25 mg tablet 12.5 mg PO DAILY Qty: 45 3RF citalopram 20 mg tablet 20 mg PO DAILY Qty: 90 3RF Eliquis 5 mg tablet 5 mg PO BID Qty: 180 3RF metoprolol succinate 50 mg tablet extended release 24 hr 50 mg PO DAILY Qty: 90 3RF nicotine 21 mg/24 hr patch 24 hour 1 patch transdermal DAILY Qty: 42 0RF Rx Instructions: Apply 1 patch daily for 6 weeks budesonide-formoterol 160-4.5 mcg/actuation HFA aerosol inhaler 2 puff inhalation BID Qty: 10.2 4RF Rx Instructions: 2 puffs twice a day and may use as a reliever therapy for acute difficulty breathing, 1 to 2 puffs every 4 hours as needed. Max inhalations 12 per day rosuvastatin 20 mg tablet 20 mg PO DAILY Qty: 90 3RF loratadine [Claritin] 10 mg tablet 10 mg PO DAILY Qty: 1 0RF nystatin 100,000 unit/mL suspension 4 ml PO QID 7 Days Qty: 480 0RF Rx Instructions: Swish in the mouth and retain for as long as possible (several minutes) before swallowing fluconazole 150 mg tablet 150 mg PO Q3D 0 Days Qty: 2 0RF Rx Instructions: may repeat second dose 72 hrs after first dose if symptoms persist miconazole nitrate 2 % cream 1 appful vaginal QHS Qty: 45 0RF Rx Instructions: Apply cream vaginal/external 2-3 times a day as needed pantoprazole 20 mg tablet,delayed release (DR/EC) 20 mg PO DAILY Qty: 90 3RF Jardiance 10 mg tablet 10 mg PO DAILY Qty: 90 3RF losartan 100 mg tablet 100 mg PO DAILY Qty: 90 3RF lorazepam 1 mg tablet 1 mg PO BID PRN (Reason: panic attack(s)) Qty: 30 0RF Spiriva Respimat 2.5 mcg/actuation mist 2 puff inhalation DAILY Qty: 4 3RF ipratropium-albuterol 0.5 mg-3 mg(2.5 mg base)/3 mL solution for nebulization 3 ml UPD QID PRN (Reason: shortness of breath or wheezing) Qty: 180 3RF albuterol sulfate 90 mcg/actuation HFA aerosol inhaler 2 puff Inhalation Q6H PRN (Reason: shortness of breath or wheezing) Qty: 8.5 6RF furosemide 40 mg tablet 40 mg PO DAILY Discharge Instructions Additional Instructions: Your x-ray did not show any concerning findings at this time. Return in 10 days for evaluation for suture removal. If you feel more ill or have new symptoms such as difficulty breathing or persistent vomiting return to the emergency department for reevaluation. HPI General Date/Time Provider Initiated Documentation: 03/25/25 14:44. Limitations to Documentation: no limitations. Information obtained by: patient. History of Present Illness 59 year old F presents to the emergency department with the chief complaint of left leg lac, described as moderate, Quality is described as aching, and is localized to the left and lower extremity. Patient started experiencing this hour(s) (1) and it has been constant. No relieving factors improve symptom(s), No exacerbating factors reported . Patient notes no other symptoms.. Patient did receive the following treatments prior to arrival, none Related Data Home Medications ?Medication ?Instructions ?Recorded ?Confirmed pantoprazole 20 mg tablet,delayed 20 mg PO DAILY #90 tabs 05/04/24 03/25/25 release apixaban 5 mg tablet (Eliquis) 5 mg PO BID #180 tabs 08/13/24 03/25/25 metoprolol succinate 50 mg 50 mg PO DAILY #90 tabs 08/13/24 03/25/25 tablet,extended release 24 hr citalopram 20 mg tablet 20 mg PO DAILY #90 tabs 08/24/24 03/25/25 nicotine 21 mg/24 hr daily 1 patch transdermal DAILY #42 ea 10/01/24 03/25/25 transdermal patch budesonide-formoterol HFA 160 2 puff inhalation BID #10.2 grams 10/29/24 03/25/25 mcg-4.5 mcg/actuation aerosol inhaler rosuvastatin 20 mg tablet 20 mg PO DAILY #90 tabs 10/29/24 03/25/25 loratadine 10 mg tablet (Claritin) 10 mg PO DAILY #1 tab 12/03/24 03/25/25 empagliflozin 10 mg tablet 10 mg PO DAILY #90 tabs 12/29/24 03/25/25 (Jardiance) furosemide 40 mg tablet 40 mg PO DAILY 01/06/25 03/25/25 losartan 100 mg tablet 100 mg PO DAILY #90 tabs 01/21/25 03/25/25 lorazepam 1 mg tablet 1 mg PO BID PRN panic attack(s) 01/28/25 03/25/25 #30 tabs amiodarone 200 mg tablet (Pacerone) 200 mg PO DAILY #90 tabs 02/01/25 03/25/25 spironolactone 25 mg tablet 12.5 mg (1/2 x 25 mg) PO DAILY #45 02/01/25 03/25/25 tabs tiotropium bromide 2.5 2 puff inhalation DAILY #4 grams 03/02/25 03/25/25 mcg/actuation mist for inhalation (Spiriva Respimat) ipratropium 0.5 mg-albuterol 3 mg 3 ml UPD QID PRN shortness of 03/08/25 03/25/25 (2.5 mg base)/3 mL nebulization breath or wheezing #180 mL soln albuterol sulfate 90 mcg/actuation 2 puff inhalation Q6H PRN 03/10/25 03/25/25 aerosol inhaler shortness of breath or wheezing #8.5 grams fluconazole 150 mg tablet 150 mg PO Q3D 2 doses #2 tabs 03/23/25 03/25/25 miconazole nitrate 2 % vaginal 1 appful vaginal QHS #45 grams 03/23/25 03/25/25 cream nystatin 100,000 unit/mL oral 4 ml PO QID 7 days #480 mL 03/23/25 03/25/25 suspension Previous Rx's ?Medication ?Instructions ?Recorded pantoprazole 20 mg tablet,delayed 20 mg PO DAILY #90 tabs 05/04/24 release apixaban 5 mg tablet (Eliquis) 5 mg PO BID #180 tabs 08/13/24 metoprolol succinate 50 mg 50 mg PO DAILY #90 tabs 08/13/24 tablet,extended release 24 hr citalopram 20 mg tablet 20 mg PO DAILY #90 tabs 08/24/24 nicotine 21 mg/24 hr daily 1 patch transdermal DAILY #42 ea 10/01/24 transdermal patch budesonide-formoterol HFA 160 2 puff inhalation BID #10.2 grams 10/29/24 mcg-4.5 mcg/actuation aerosol inhaler rosuvastatin 20 mg tablet 20 mg PO DAILY #90 tabs 10/29/24 loratadine 10 mg tablet (Claritin) 10 mg PO DAILY #1 tab 12/03/24 empagliflozin 10 mg tablet 10 mg PO DAILY #90 tabs 12/29/24 (Jardiance) losartan 100 mg tablet 100 mg PO DAILY #90 tabs 01/21/25 lorazepam 1 mg tablet 1 mg PO BID PRN panic attack(s) 01/28/25 #30 tabs amiodarone 200 mg tablet (Pacerone) 200 mg PO DAILY #90 tabs 02/01/25 spironolactone 25 mg tablet 12.5 mg (1/2 x 25 mg) PO DAILY #45 02/01/25 tabs tiotropium bromide 2.5 2 puff inhalation DAILY #4 grams 03/02/25 mcg/actuation mist for inhalation (Spiriva Respimat) ipratropium 0.5 mg-albuterol 3 mg 3 ml UPD QID PRN shortness of 03/08/25 (2.5 mg base)/3 mL nebulization breath or wheezing #180 mL soln albuterol sulfate 90 mcg/actuation 2 puff inhalation Q6H PRN 03/10/25 aerosol inhaler shortness of breath or wheezing #8.5 grams fluconazole 150 mg tablet 150 mg PO Q3D 2 doses #2 tabs 03/23/25 miconazole nitrate 2 % vaginal 1 appful vaginal QHS #45 grams 03/23/25 cream nystatin 100,000 unit/mL oral 4 ml PO QID 7 days #480 mL 03/23/25 suspension Allergies Allergy/AdvReac Type Severity Reaction Status Date / Time amlodipine AdvReac Intermediate Peripheral Verified 03/24/25 08:49 edema General Stated Complaint: Laceration JOSE JUAN: 3 Review of Systems All systems reviewed & are unremarkable except as noted in HPI and below Constitutional Constitutional: Denies chills, Denies fever(s) and Denies weakness Cardiovascular Cardiovascular: Denies chest pain and Denies dyspnea Respiratory Respiratory: Denies cough and Denies dyspnea Gastrointestinal Gastrointestinal: Denies abdominal pain, Denies nausea and Denies vomiting Neurologic Neurologic: Denies weakness Exam Const General: no acute distress Orientation: alert HENMT Head: normal to inspection Ears: external ears normal General nose exam: external nose normal Mouth: moist mucous membranes Neck Neck: normal visual inspection Resp Effort & Inspection: normal respiratory effort and able to speak in complete sentences Cardio Rate: regular rate Skin General skin exam: no rashes or lesions noted Neuro General: patient alert and patient oriented x3 Extrem General: full ROM and capillary refill normal Psych Mental Status: mental status grossly normal Course Vital Signs Vital signs: Vital Signs Temperature 36.4 C 03/25/25 14:43 Pulse 80 03/25/25 14:43 Respiratory Rate 16 03/25/25 14:43 Blood Pressure 145/87 H 03/25/25 14:43 Pulse Oximetry 91 L 03/25/25 14:43 Temperature 36.4 C 03/25/25 14:43 Temperature Source Temporal Artery Scan 03/25/25 14:43 Pulse 80 03/25/25 14:43 Respiratory Rate 16 03/25/25 14:43 Blood Pressure 145/87 H 03/25/25 14:43 Blood Pressure Position Sitting 03/25/25 14:43 Pulse Oximetry 91 L 03/25/25 14:43 Oxygen Delivery Method Room Air 03/25/25 14:43 Oxygen Flow Rate 0 03/25/25 14:43 Pain Level 9 03/25/25 14:43 Procedure Laceration Laceration 1: Site: lower extremity Side (If applicable): left Description: flap Depth: simple, single layer Local anesthetic: Lidocaine 1% and with Epi Amount of anesthesia used (mL): 7 Pre-repair:: wound explored and irrigated extensively Skin layer closed with: nylon Suture size: 4-0 Number of sutures:: 5 Technique: simple, interrupted Medical Decision Making 59-year-old female with a history of A-fib, COPD, who comes in after she was walking on a porch in one of the boards gave way and she fell cutting her left anterior mid tib-fib. She did not hit her head or loss of consciousness. She has a 4 cm C-shaped laceration to the anterior left tibia with some tenderness to the bone, there is no bone e she has intact distal sensation and pulses and has no tenderness elsewhere outside of the laceration. Suspect contusion of the bone but will obtain x-rays to evaluate for fracture. X-ray negative, I closed the wound with 5 sutures and skin adhesive without complications. Return precautions given Differential Diagnosis Differential Diagnosis: Laceration, skin tear, contusion Quality:SDOH Health Related Social Needs: Health related social needs details lives in her own house with PFSH All Active Problems (Updated 03/25/25 @ 15:48 by Bridger León MD) Laceration of left leg (Acute) Former smoker (Acute) Heart failure with reduced ejection fraction (Chronic) moderate Coronary artery disease (Chronic) nonobstructive, LAD stenosis Atrial fibrillation (Chronic ~07/2024) Chronic hypercapnic respiratory failure (Chronic) Asthma-COPD overlap syndrome (Chronic) LIBBY (obstructive sleep apnea) (Chronic) Nonrheumatic aortic (valve) stenosis (Chronic) Aortic regurgitation (Chronic) Right middle lobe pulmonary nodule (Chronic) Stable 6mm 01/2025 CT, repeat 2025 Essential hypertension (Chronic) AAA (abdominal aortic aneurysm) (Chronic) Infrarenal, measuring 2.5cm 2024 Depressive disorder (Chronic) Generalized anxiety disorder with panic attacks (Chronic) Hyperlipidemia (Chronic) History of Graves' disease (Chronic) GERD (gastroesophageal reflux disease) (Chronic) Osteoarthritis (Chronic) Nummular dermatitis (Chronic) Medical History (Updated 03/25/25 @ 15:48 by Bridger León MD) Cigarette smoker Graves disease Pulmonary embolism (~07/2024) Non-ST elevation RI (NSTEMI) (~01/2023) Surgical History Status post right knee replacement (01/20/19) S/P right knee arthroscopy (02/20/10) With partial medial meniscectomy S/P left knee arthroscopy (05/04/10) With partial medial and lateral meniscectomy S/P dilation and curettage S/P bilateral salpingo-oophorectomy S/P appendectomy S/P abdominal hysterectomy For abnormal uterine bleeding S/P lumpectomy, right breast (~1993) Family History Mother , at 77 Asthma Hypertension COPD (chronic obstructive pulmonary disease) Father , at 79 Parkinson disease Graves disease Hypertension Depression Suicide attempt Sister No problems noted. Sister , at 44 of metastatic bone cancer Metastatic bone cancer Brother , at 60 of pancreatic cancer Pancreatic cancer Diabetes Depression COPD (chronic obstructive pulmonary disease) Brother Alcohol abuse Son No problems noted. Daughter No problems noted. Maternal Grandfather Heart disease RI Maternal Grandmother Brain cancer Paternal Grandfather No problems noted. Paternal Grandmother No problems noted. Brother , age 28 - MVA No problems noted. Social History (Updated 02/02/25 @ 08:32 by Tejal Venegas) Smoking/Tobacco Use Status: Current every day Tobacco Type: cigarettes Smoking packs per day: 0.75 Smoking cigarettes per day: 15.0 Years smoked: 49 Smoking pack-years: 36.75 Tobacco: How many years used: 49 Quit status: considering quitting Counseling given: provider counseling Smoking risk assessment performed?: Yes Alcohol Intake: current Alcohol Intake frequency: holidays/special occasions only Alcohol type: beer Details: Declined to answer all except selecting Beer Drug use: Never Substance use type: does not use Counseling given: No Counseling provided: none Adopted: No Caregiver/Support person: No Household members: spouse Housing: house Pets and animals: Yes Pets and animals: cat(s) Sexually active: Yes Do you think of yourself as: straight/heterosexual Current gender identity: female What is your relationship status?: How often do you talk on the phone with friends or family?: three or more times per week How often do you get together with friends or relatives?: twice per week Do you belong to any clubs or organized social groups?: no Panel score (0-1 are the most socially isolated patients): 2 What type of physical activity do you participate in: none Frequency: does not exercise Aida/Episcopalian: None Special aida needs: No Seatbelt use: always Drive intox 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
[2025-03-25] MEDS: Lidocaine/Epinephri/Tetracaine Topical Gel 3 ML TP (16:43)
== END 2025-03-25 16:28 | disposition home or self-care (01) ==
PROVIDERS: Emergency Provider Emergency Medicine; PCP Nurse Practitioner Family
DX: S81.812A Laceration without foreign body, left lower leg, initial encounter (principal); W13.8XXA Fall from, out of or through other building or structure, initial encounter
CPT/HCPCS: 99283 ×2; 12002; 73590

== ENCOUNTER 2025-04-03 13:26 | Emergency (ER) | payer OTHER, SELFPAY ==
[2025-04-03 13:29] VITALS: BP 138/61; PULSE 75; RESP 16; TEMP 36.6; O2SAT 96
--- NOTE | 2025-04-03 13:38 | W.ED.GENAD ---
Discharge Plan Disposition Patient Disposition: Home Discharge Details Clinical Impression: Laceration of left leg, Cellulitis Primary Care Provider: Racquel Fraser ED Provider: Florecita Cm Home Meds and New Rx's Prescriptions: New amoxicillin 875 mg tablet 875 mg PO BID Qty: 10 0RF doxycycline hyclate 100 mg capsule 100 mg PO BID 5 Days Qty: 10 0RF No Action amiodarone [Pacerone] 200 mg tablet 200 mg PO DAILY Qty: 90 2RF spironolactone 25 mg tablet 12.5 mg PO DAILY Qty: 45 3RF citalopram 20 mg tablet 20 mg PO DAILY Qty: 90 3RF Eliquis 5 mg tablet 5 mg PO BID Qty: 180 3RF metoprolol succinate 50 mg tablet extended release 24 hr 50 mg PO DAILY Qty: 90 3RF nicotine 21 mg/24 hr patch 24 hour 1 patch transdermal DAILY Qty: 42 0RF Rx Instructions: Apply 1 patch daily for 6 weeks budesonide-formoterol 160-4.5 mcg/actuation HFA aerosol inhaler 2 puff inhalation BID Qty: 10.2 4RF Rx Instructions: 2 puffs twice a day and may use as a reliever therapy for acute difficulty breathing, 1 to 2 puffs every 4 hours as needed. Max inhalations 12 per day rosuvastatin 20 mg tablet 20 mg PO DAILY Qty: 90 3RF loratadine [Claritin] 10 mg tablet 10 mg PO DAILY Qty: 1 0RF fluconazole 150 mg tablet 150 mg PO Q3D 0 Days Qty: 2 0RF Rx Instructions: may repeat second dose 72 hrs after first dose if symptoms persist miconazole nitrate 2 % cream 1 appful vaginal QHS Qty: 45 0RF Rx Instructions: Apply cream vaginal/external 2-3 times a day as needed pantoprazole 20 mg tablet,delayed release (DR/EC) 20 mg PO DAILY Qty: 90 3RF Jardiance 10 mg tablet 10 mg PO DAILY Qty: 90 3RF losartan 100 mg tablet 100 mg PO DAILY Qty: 90 3RF lorazepam 1 mg tablet 1 mg PO BID PRN (Reason: panic attack(s)) Qty: 30 0RF Spiriva Respimat 2.5 mcg/actuation mist 2 puff inhalation DAILY Qty: 4 3RF ipratropium-albuterol 0.5 mg-3 mg(2.5 mg base)/3 mL solution for nebulization 3 ml UPD QID PRN (Reason: shortness of breath or wheezing) Qty: 180 3RF albuterol sulfate 90 mcg/actuation HFA aerosol inhaler 2 puff Inhalation Q6H PRN (Reason: shortness of breath or wheezing) Qty: 8.5 6RF furosemide 40 mg tablet 40 mg PO DAILY Discharge Instructions Instructions: Cellulitis (Skin Infection), Adult ED Additional Instructions: Call your primary care provider first thing Saturday morning to schedule follow-up appointment within the week. You are being prescribed 2 antibiotics to help treat skin infection/cellulitis. Please take these for the full course as prescribed, symptoms should start improving in the next 24 to 72 hours. Keep your wound clean and dry. Wash daily with antibacterial soap and clean bottled water if your water at home is not safe. Cover with a thin layer bacitracin or Neosporin, then cover with a nonstick bandage. Elevate your leg above heart level to help with swelling. You may use Tylenol as needed for discomfort. Return to emergency care if develop any signs of worsening infection such as fever/chills, general malaise, increasing swelling, redness, pain, pus drainage despite treatment, or if you are very worried and need to be rechecked again immediately. Referrals: Racquel Fraser NP [Primary Care Provider, Medicine] Discharge Data Discharge Date/Time-TO BE ENTERED AT DEPARTURE: 04/03/25 14:13 HPI General Date/Time Provider Initiated Documentation: 04/03/25 13:37. HPI Narrative: Jaelyn is a 59 year old female who presents to the emergency department today for suture removal to laceration on her left dexter. Injury occurred 9 days ago from falling through a rotted board on her deck. She presented to the emergency department, laceration was repaired using sutures and glue. She reports that she developed redness and serous drainage yesterday. Denies associated fever/chills, general malaise, nausea/vomiting, distal numbness/tingling. Mild swelling to the dexter. She does report being in and out of the hospital for her breathing issues, most recently hospitalized 2-1/2 months ago. Denies history of MRSA. Related Data Home Medications ?Medication ?Instructions ?Recorded ?Confirmed pantoprazole 20 mg tablet,delayed 20 mg PO DAILY #90 tabs 05/04/24 04/03/25 release apixaban 5 mg tablet (Eliquis) 5 mg PO BID #180 tabs 08/13/24 04/03/25 metoprolol succinate 50 mg 50 mg PO DAILY #90 tabs 08/13/24 04/03/25 tablet,extended release 24 hr citalopram 20 mg tablet 20 mg PO DAILY #90 tabs 08/24/24 04/03/25 nicotine 21 mg/24 hr daily 1 patch transdermal DAILY #42 ea 10/01/24 04/03/25 transdermal patch budesonide-formoterol HFA 160 2 puff inhalation BID #10.2 grams 10/29/24 04/03/25 mcg-4.5 mcg/actuation aerosol inhaler rosuvastatin 20 mg tablet 20 mg PO DAILY #90 tabs 10/29/24 04/03/25 loratadine 10 mg tablet (Claritin) 10 mg PO DAILY #1 tab 12/03/24 04/03/25 empagliflozin 10 mg tablet 10 mg PO DAILY #90 tabs 12/29/24 04/03/25 (Jardiance) furosemide 40 mg tablet 40 mg PO DAILY 01/06/25 04/03/25 losartan 100 mg tablet 100 mg PO DAILY #90 tabs 01/21/25 04/03/25 lorazepam 1 mg tablet 1 mg PO BID PRN panic attack(s) 01/28/25 04/03/25 #30 tabs amiodarone 200 mg tablet (Pacerone) 200 mg PO DAILY #90 tabs 02/01/25 04/03/25 spironolactone 25 mg tablet 12.5 mg (1/2 x 25 mg) PO DAILY #45 02/01/25 04/03/25 tabs tiotropium bromide 2.5 2 puff inhalation DAILY #4 grams 03/02/25 04/03/25 mcg/actuation mist for inhalation (Spiriva Respimat) ipratropium 0.5 mg-albuterol 3 mg 3 ml UPD QID PRN shortness of 03/08/25 04/03/25 (2.5 mg base)/3 mL nebulization breath or wheezing #180 mL soln albuterol sulfate 90 mcg/actuation 2 puff inhalation Q6H PRN 03/10/25 04/03/25 aerosol inhaler shortness of breath or wheezing #8.5 grams fluconazole 150 mg tablet 150 mg PO Q3D 2 doses #2 tabs 03/23/25 04/03/25 miconazole nitrate 2 % vaginal 1 appful vaginal QHS #45 grams 03/23/25 04/03/25 cream amoxicillin 875 mg tablet 875 mg PO BID #10 tabs 04/03/25 doxycycline hyclate 100 mg capsule 100 mg PO BID 5 days #10 caps 04/03/25 Previous Rx's ?Medication ?Instructions ?Recorded pantoprazole 20 mg tablet,delayed 20 mg PO DAILY #90 tabs 05/04/24 release apixaban 5 mg tablet (Eliquis) 5 mg PO BID #180 tabs 08/13/24 metoprolol succinate 50 mg 50 mg PO DAILY #90 tabs 08/13/24 tablet,extended release 24 hr citalopram 20 mg tablet 20 mg PO DAILY #90 tabs 08/24/24 nicotine 21 mg/24 hr daily 1 patch transdermal DAILY #42 ea 10/01/24 transdermal patch budesonide-formoterol HFA 160 2 puff inhalation BID #10.2 grams 10/29/24 mcg-4.5 mcg/actuation aerosol inhaler rosuvastatin 20 mg tablet 20 mg PO DAILY #90 tabs 10/29/24 loratadine 10 mg tablet (Claritin) 10 mg PO DAILY #1 tab 12/03/24 empagliflozin 10 mg tablet 10 mg PO DAILY #90 tabs 12/29/24 (Jardiance) losartan 100 mg tablet 100 mg PO DAILY #90 tabs 01/21/25 lorazepam 1 mg tablet 1 mg PO BID PRN panic attack(s) 01/28/25 #30 tabs amiodarone 200 mg tablet (Pacerone) 200 mg PO DAILY #90 tabs 02/01/25 spironolactone 25 mg tablet 12.5 mg (1/2 x 25 mg) PO DAILY #45 02/01/25 tabs tiotropium bromide 2.5 2 puff inhalation DAILY #4 grams 03/02/25 mcg/actuation mist for inhalation (Spiriva Respimat) ipratropium 0.5 mg-albuterol 3 mg 3 ml UPD QID PRN shortness of 03/08/25 (2.5 mg base)/3 mL nebulization breath or wheezing #180 mL soln albuterol sulfate 90 mcg/actuation 2 puff inhalation Q6H PRN 03/10/25 aerosol inhaler shortness of breath or wheezing #8.5 grams fluconazole 150 mg tablet 150 mg PO Q3D 2 doses #2 tabs 03/23/25 miconazole nitrate 2 % vaginal 1 appful vaginal QHS #45 grams 03/23/25 cream amoxicillin 875 mg tablet 875 mg PO BID #10 tabs 04/03/25 doxycycline hyclate 100 mg capsule 100 mg PO BID 5 days #10 caps 04/03/25 Allergies Allergy/AdvReac Type Severity Reaction Status Date / Time amlodipine AdvReac Intermediate Peripheral Verified 04/03/25 13:32 edema General Stated Complaint: SutureRem JOSE JUAN: 3 Exam Narrative Exam Narrative: General Appearance: Normal. Patient alert and oriented, in no acute distress. Vital signs: Within normal limits. Resp: easy work of breathing, able to speak in full sentences. Skin: Healing left leg laceration with sutures intact. Slight redness, serous drainage, and mild swelling to dexter and ankle. Psychiatric: Normal. Course Vital Signs Vital signs: Vital Signs Temperature 36.6 C 04/03/25 13:29 Pulse 75 04/03/25 13:29 Respiratory Rate 16 04/03/25 13:29 Blood Pressure 138/61 04/03/25 13:29 Pulse Oximetry 96 04/03/25 13:29 Temperature 36.6 C 04/03/25 13:29 Temperature Source Oral 04/03/25 13:29 Pulse 75 04/03/25 13:29 Respiratory Rate 16 04/03/25 13:29 Blood Pressure 138/61 04/03/25 13:29 Blood Pressure Position Sitting 04/03/25 13:29 Pulse Oximetry 96 04/03/25 13:29 Oxygen Delivery Method Room Air 04/03/25 13:29 Oxygen Flow Rate 0 04/03/25 13:29 Medical Decision Making 59-year-old female with healing left leg laceration, noted redness and serous drainage. 5 sutures removed, steri strips placed to promote continued wound healing. History and presentation consistent with early cellulitis. Will treat with amoxicillin and doxycycline to cover for MRSA, as patient has recently been hospitalized. No red flags concerning for systemic illness, SIRS negative, pt very well appearing. Reviewed discharge instructions, including use of abx, wound care, and importance of f/u with PCP for reassessment. Advised to keep wound covered, elevate leg, clean with distilled or bottled water and antibacterial soap, apply Neosporin or bacitracin, and follow up with PCP within a week. Patient consented to the use of [facility]ANNA[facility] Quality:SDOH Health Related Social Needs: Health related social needs details lives in her own house with PFSH All Active Problems (Updated 04/03/25 @ 14:02 by Florecita Ballesteros) Cellulitis (Acute) Laceration of left leg (Acute) Former smoker (Acute) Heart failure with reduced ejection fraction (Chronic) moderate Coronary artery disease (Chronic) nonobstructive, LAD stenosis Atrial fibrillation (Chronic ~07/2024) Chronic hypercapnic respiratory failure (Chronic) Asthma-COPD overlap syndrome (Chronic) LIBBY (obstructive sleep apnea) (Chronic) Nonrheumatic aortic (valve) stenosis (Chronic) Aortic regurgitation (Chronic) Right middle lobe pulmonary nodule (Chronic) Stable 6mm 01/2025 CT, repeat 2025 Essential hypertension (Chronic) AAA (abdominal aortic aneurysm) (Chronic) Infrarenal, measuring 2.5cm 2024 Depressive disorder (Chronic) Generalized anxiety disorder with panic attacks (Chronic) Hyperlipidemia (Chronic) History of Graves' disease (Chronic) GERD (gastroesophageal reflux disease) (Chronic) Osteoarthritis (Chronic) Nummular dermatitis (Chronic) Medical History (Updated 04/03/25 @ 14:02 by Florecita Ballesteros) Cigarette smoker Graves disease Pulmonary embolism (~07/2024) Non-ST elevation DC (NSTEMI) (~01/2023) Surgical History Status post right knee replacement (01/20/19) S/P right knee arthroscopy (02/20/10) With partial medial meniscectomy S/P left knee arthroscopy (05/04/10) With partial medial and lateral meniscectomy S/P dilation and curettage S/P bilateral salpingo-oophorectomy S/P appendectomy S/P abdominal hysterectomy For abnormal uterine bleeding S/P lumpectomy, right breast (~1993) Family History Mother , at 77 Asthma Hypertension COPD (chronic obstructive pulmonary disease) Father , at 79 Parkinson disease Graves disease Hypertension Depression Suicide attempt Sister No problems noted. Sister , at 44 of metastatic bone cancer Metastatic bone cancer Brother , at 60 of pancreatic cancer Pancreatic cancer Diabetes Depression COPD (chronic obstructive pulmonary disease) Brother Alcohol abuse Son No problems noted. Daughter No problems noted. Maternal Grandfather Heart disease DC Maternal Grandmother Brain cancer Paternal Grandfather No problems noted. Paternal Grandmother No problems noted. Brother , age 28 - MVA No problems noted. Social History (Updated 02/02/25 @ 08:32 by Tejal Venegas) Smoking/Tobacco Use Status: Current every day Tobacco Type: cigarettes Smoking packs per day: 0.75 Smoking cigarettes per day: 15.0 Years smoked: 49 Smoking pack-years: 36.75 Tobacco: How many years used: 49 Quit status: considering quitting Counseling given: provider counseling Smoking risk assessment performed?: Yes Alcohol Intake: current Alcohol Intake frequency: holidays/special occasions only Alcohol type: beer Details: Declined to answer all except selecting Beer Drug use: Never Substance use type: does not use Counseling given: No Counseling provided: none Adopted: No Caregiver/Support person: No Household members: spouse Housing: house Pets and animals: Yes Pets and animals: cat(s) Sexually active: Yes Do you think of yourself as: straight/heterosexual Current gender identity: female What is your relationship status?: How often do you talk on the phone with friends or family?: three or more times per week How often do you get together with friends or relatives?: twice per week Do you belong to any clubs or organized social groups?: no Panel score (0-1 are the most socially isolated patients): 2 What type of physical activity do you participate in: none Frequency: does not exercise Aida/Church: None Special aida needs: No Seatbelt use: always Drive intox 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 rail car driver: No Working smoke detector in home: Yes Firearms in home: Yes Firearms unloaded and locked: Yes Do you feel safe at home: Yes Do you feel safe in your relationship?: Yes Victim of physical abuse: No Victim of emotional abuse: No Victim of sexual abuse: No Would you like helpful sources: No Female Reproductive History Menstrual Menopause type: surgical History History 4 Para 2 Hx # Term Pregnancies Multiple births Hx # Pregnancies Ectopic pregnancies AB induced Hx Number of Living Children 2 AB spontaneous 2
[2025-04-03] MEDS: Doxycycline Hyclate 100 MG CAP PO (14:09)
[2025-04-03] MEDS: Amoxicillin 875 MG TAB PO (14:09)
== END 2025-04-03 14:13 | disposition home or self-care (01) ==
PROVIDERS: Emergency Provider Nurse Practitioner Family; PCP Nurse Practitioner Family
DX: S81.812D Laceration without foreign body, left lower leg, subsequent encounter (principal); L03.116 Cellulitis of left lower limb
CPT/HCPCS: 99283; 99284

== ENCOUNTER 2025-04-10 14:43 | Outpatient (REF) | payer OTHER, SELFPAY | END 2025-04-10 14:44 | disposition home or self-care (01) | LOC: LBN 14:43 | PROVIDERS: PCP Nurse Practitioner Family; Visit Provider Physician Assistant Medical | DX: L08.9 Local infection of the skin and subcutaneous tissue, unspecified (principal) | CPT/HCPCS: 87070; 87205 ==

== ENCOUNTER 2025-05-25 11:05 | Outpatient (CLI) | payer OTHER, SELFPAY ==
[2025-05-25 11:21] LABS: ALT 23 U/L (10-49); AST 21 U/L (<34); Albumin 4.2 g/dL (3.2-5.0); Alkaline Phosphatase 92 U/L (46-116); Anion Gap 6.2 mmol/L (3-11); BUN 24 mg/dL (9-23); Bilirubin, Total 0.5 mg/dL (0.2-1.2); CO2 28.8 mmol/L (20.0-31.0); Calcium 9.3 mg/dL (8.3-10.6); Chloride 106 mmol/L (98-107); Glucose 71 mg/dL (74-106); Potassium 4.3 mmol/L (3.5-5.1); Sodium 141 mmol/L (136-145); Total Protein 7.3 g/dL (5.7-8.2)
== END 2025-05-25 11:06 | disposition home or self-care (01) ==
LOC: LBO 11:05
PROVIDERS: PCP Nurse Practitioner Family; Visit Provider Nurse Practitioner Family
DX: I50.20 Unspecified systolic (congestive) heart failure (principal); R94.4 Abnormal results of kidney function studies
CPT/HCPCS: 36415; 80053